=== PATIENT | female | born 1940 | race Caucasian/White ===

== ENCOUNTER 2017-03-03 13:47 | Inpatient (IN) | payer MEDICARE, BC ==
[2017-03-03] MEDS ORDERED: SODIUM CHLORIDE 0.9% 1,000 ML IV STA (14:05)
[2017-03-03] MEDS ORDERED: HEPARIN SODIUM,PORCINE/D5W PMX 25,000 UNIT in DEXTROSE/WATER 1 500ML.BAG IV SCH (14:15)
[2017-03-03 14:22] LABS: Glucose,Whole Blood 317 mg/dL (75-99)
[2017-03-03] MEDS: INSULIN REGULAR 100 UNIT in SODIUM CHLORIDE 0.9% 100 ML IV ONE ×2 (14:24→16:36)
--- NOTE | 2017-03-03 14:29 | ED ---
General Adult HPI - General Chief complaint: Recheck/Abnormal Lab/Rx Stated complaint: Diabetic Time Seen by Provider: 03/03/17 13:54 Source: patient Mode of arrival: EMS Limitations: no limitations - History of Present Illness Initial comments: This 76-year-old white female presents as a transfer from [facility] emergency department. She presented there this morning from the [facility]. She apparently has been having some nausea and general ill feeling over the past day. Her blood sugar apparently was running quite high at the [facility] and they sent her to the emergency department primarily for this. She states that she feels very dehydrated and her blood sugar was approximately 736 and the emergency department. She denies any chest pain or shortness of breath. She denies any fevers or chills. There's been no frequency urgency or dysuria. She denies any abdominal pain. She denies any known sick contacts or recent antibiotic use. She does have a history of previous urinary tract infections and this is caused her diabetic ketoacidosis in the past. She states that her mouth feels very dry. She has had some renal problems in the past as well. No other complaints or modifying factors. She does present on an insulin and heparin drip. Her past medical history is positive for congestive heart failure, anemia, aortic stenosis, chronic renal failure, depression, diabetes mellitus, diverticulosis, edema, hiatal hernia, MRSA, colonic polyps, hyperlipidemia, hypertension, myocardial infarction, obstructive sleep apnea, neuropathy, and arthritis. Her past surgical history is positive for appendectomy, excision of perirectal tissue, left and right heart catheterizations, spinal fusion, cataract extraction, colonoscopy, and operation on urethra/sling, and partial hysterectomy. Social history is negative for any tobacco drugs or felt cold. She states that she's been living in the skilled nursing for the past week and has been there due to problems controlling her blood sugar. Medications are reviewed and are as per nursing notes. - Related Data Allergies Allergy/AdvReac Type Severity Reaction Status Date / Time amoxicillin [From Augmentin] Allergy Rash/Hives Verified 03/03/17 14:06 clarithromycin [From Biaxin] Allergy Rash/Hives Verified 03/03/17 14:06 clavulanic acid Allergy Rash/Hives Verified 03/03/17 14:06 [From Augmentin] Review of Systems ROS Statement: Those systems with pertinent positive or pertinent negative responses have been documented in the HPI. ROS Other: All systems not noted in ROS Statement are negative. Past Medical History Past Medical History: Coronary Artery Disease (CAD), Heart Failure, Diabetes Mellitus, Hyperlipidemia, Hypertension, Myocardial Infarction ([place]), Renal Disease History of Any Multi-Drug Resistant Organisms: None Reported Past Surgical History: Unable to Obtain Past Psychological History: Depression Smoking Status: Former smoker Past Alcohol Use History: None Reported Past Drug Use History: None Reported General Exam - General Exam Comments Initial Comments: GENERAL: The patient is well nourished and dehydrated. VITAL SIGNS: Heart rate, blood pressure, respiratory rate reviewed as recorded in nurse's notes. EYES: Pupils are round and reactive. Extraocular movements are intact. No conjunctival / lid redness or swelling. ENT: No external evidence of injury, swelling, or ecchymosis. Airway is patent. Throat is clear. Mucous membranes are dry. NECK: Nontender. No swelling or evidence of injury. No subcutaneous emphysema. Trachea is midline. No thyroid mass. HEART: Regular rate and rhythm. Good peripheral pulses. LUNGS/CHEST: Breath sounds clear and equal bilaterally. No rales, rhonchi, or wheezes. No ecchymosis, subcutaneous emphysema, or tenderness. ABDOMEN: Abdomen soft without tenderness. No palpable masses or organomegaly. No peritoneal signs. No abdominal wall swelling or ecchymosis. EXTREMITIES: No extremity tenderness. Normal muscle tone and function. No thoracolumbar tenderness. NEUROLOGIC: Sensation is grossly intact. Cranial nerve exam reveals face is symmetrical, tongue is midline, speech is clear. SKIN: No abrasions or ecchymosis is noted. No induration or masses noted. PSYCHIATRIC: Alert and oriented. Appropriate behavior and judgment. Limitations: no limitations Course Vital Signs 03/03/17 13:56 Temperature 98.3 F Pulse Rate 76 Respiratory 18 Rate Blood Pressure 147/61 O2 Sat by Pulse 97 Oximetry Medical Decision Making - Medical Decision Making The patient is seen and examined. All diagnostics are reviewed. The chart was reviewed in detail from transferring facility. The laboratory from transferring facility does relate an elevated lactic acid, elevated troponin, elevated BNP, elevated lipase and amylase, anemia, hyponatremia, hyperkalemia, hypochloremia, a decreased CO2 of 11, increased creatinine of 5.6, increased glucose of 736, urinary tract infection. It appears that the initial troponin was 5.12 and the repeat troponin was 6.17. The portable chest x-ray is reported as negative for any acute cardiopulmonary process. Her Hemoccult was negative from the transferring facility. Records relate that she receives some Rocephin intravenously at the transferring facility. She also received some fluid hydration as well as the insulin drip and the heparin drip. Overall, it is felt as though the patient does have diabetic ketoacidosis, and NSTEMI, acute renal failure, and a urinary tract infection among other diagnoses. Is felt associated require admission to the intensive care unit. The case is discussed with internal medicine and they're agreeable to admission and will see the patient shortly. The EKG in the emergency department does show normal sinus rhythm at a rate of 80. There are multiple ST-T wave changes noted. These appear to be chronic as compared to previous 3 EKGs. The case is discussed with cardiology and they are informed of the patient's condition. The case will be discussed with the rn examiner shortly. - Lab Data Result diagrams: 03/03/17 14:20 Lab Results 03/03/17 03/03/17 03/03/17 Range/Units 14:14 14:20 14:20 WBC 12.2 H (3.8-10.6) k/uL RBC 3.45 L (3.80-5.40) m/uL Hgb 10.6 L (11.4-16.0) gm/dL Hct 33.4 L (34.0-46.0) % MCV 96.7 (80.0-100.0) fL MCH 30.6 (25.0-35.0) pg MCHC 31.7 (31.0-37.0) g/dL RDW 16.1 H (11.5-15.5) % Plt Count 340 (150-450) k/uL Neutrophils % 84 % Lymphocytes % 8 % Monocytes % 5 % Eosinophils % 1 % Basophils % 0 % Neutrophils # 10.2 H (1.3-7.7) k/uL Lymphocytes # 1.0 (1.0-4.8) k/uL Monocytes # 0.6 (0-1.0) k/uL Eosinophils # 0.1 (0-0.7) k/uL Basophils # 0.0 (0-0.2) k/uL Anisocytosis Slight PT 11.0 (9.0-12.0) sec INR 1.1 (<1.2) APTT 52.7 H (22.0-30.0) sec POC Glucose (mg/dL) 317 H (75-99) mg/dL POC Glu Store Hand ID [email or web address] Disposition Clinical Impression: Hyperkalemia, DKA (diabetic ketoacidoses), Acute kidney injury, UTI (urinary tract infection), NSTEMI (non-ST elevated myocardial infarction), Dehydration, Hyponatremia, Sepsis, Metabolic acidosis, Hypocalcemia, Pancreatitis, Anemia Disposition: ADMITTED IP TO THIS [facility] Condition: Critical Referrals: None,Stated [REFERRING] - 1-2 days Time of Disposition: 14:58 Decision Date: 03/03/17 Decision Time: 14:58
[2017-03-03 14:37] LABS: Anisocytosis Slight; Basophils % (A) 0 %; CH 30.6; CHCM 31.8; Eosinophils # (A) 0.1 k/uL (0-0.7); Eosinophils % (A) 1 %; HCT 33.4 % (34.0-46.0); HGB 10.6 gm/dL (11.4-16.0); Luc # (Auto) 0.23; Luc % (Auto) 2; Lymphocytes % (A) 8 %; MCH 30.6 pg (25.0-35.0); MCHC 31.7 g/dL (31.0-37.0); MCV 96.7 fL (80.0-100.0); Mean Platelet Volume 7.5; Monocytes # (A) 0.6 k/uL (0-1.0); Monocytes % (A) 5 %; Neutrophils # (A) 10.2 k/uL (1.3-7.7); Neutrophils % (A) 84 %; RBC 3.45 m/uL (3.80-5.40); RDW 16.1 % (11.5-15.5); WBC 12.2 k/uL (3.8-10.6); WBC (Perox) 12.18
[2017-03-03 14:47] LABS: INR 1.1 (<1.2); Partial Thromboplastin Time 52.7 sec (22.0-30.0)
[2017-03-03] MEDS ORDERED: ACETAMINOPHEN TAB 325 MG TAB PO PRN (14:58)
[2017-03-03] MEDS ORDERED: NALOXONE 0.4 MG/ML 1 ML VIAL IV PRN (14:58)
[2017-03-03 14:59] LABS: Calcium 9.9 mg/dL (8.4-10.2); Magnesium 2.3 mg/dL (1.6-2.3); Phosphorous 5.4 mg/dL (2.5-4.5); Potassium 4.7 mmol/L (3.5-5.1); Total Bilirubin 0.3 mg/dL (0.2-1.3); Total Protein 6.3 g/dL (6.3-8.2)
[2017-03-03] MEDS ORDERED: HEPARIN SODIUM,PORCINE 5,000 UNIT/ML 1 ML VIAL IV PRN ×3 (15:02→15:53)
[2017-03-03 15:10] LABS: Creatine Kinase MB 70.8 ng/mL (0.0-2.4); Troponin I 24.4 ng/mL (0.000-0.034)
[2017-03-03 15:45] LABS: Glucose,Whole Blood 251 mg/dL (75-99)
[2017-03-03] MEDS ORDERED: Magnesium Replacement Protocol 1 EACH MISC MISCELLANE PRN (15:55)
[2017-03-03] MEDS ORDERED: Potassium Replacement Protocol 1 EACH MISC MISCELLANE PRN (15:55)
[2017-03-03 16:24] LABS: Glucose,Whole Blood 221 mg/dL (75-99)
[2017-03-03] MEDS: IPRATROPIUM-ALBUTEROL 3 ML NEB INHALATION SCH ×2 (16:24→19:48)
[2017-03-03] MEDS: INSULIN REGULAR 100 UNIT in SODIUM CHLORIDE 0.9% 100 ML IV SCH ×2 (16:32→17:22)
[2017-03-03] MEDS: HEPARIN SODIUM,PORCINE/D5W PMX 25,000 UNIT in DEXTROSE/WATER 1 500ML.BAG IV SCH (16:40)
--- NOTE | 2017-03-03 17:15 | P.HPIM ---
History of Present Illness H&P Date: 03/03/17 Chief Complaint: nausea Patient is a 76-year-old female with a history of hypertension, insulin-dependent diabetes mellitus type 2, dyslipidemia, congestive heart failure with unknown ejection fraction and heart murmur, and obstructive sleep apnea with home CPAP use. She initially presented to the emergency department and [place] from the [facility] for hyperglycemia. There she underwent an extensive evaluation. She was found to have acute renal failure with the Bielen of 104 creatinine 5.6 and potassium 5.6. Her white blood cell count was elevated at 11.2, hemoglobin 10.2. Her initial troponin was 5 and elevated to 6. She had an elevated lactic acid of 3.3. Elevated lipase at 474 which was nondiagnostic, she was also found to have positive acetone. She was also found to have a urinary tract infection. EKG was done there which showed normal sinus rhythm with PVCs and ST segment elevation in V1 through V3 with reciprocal depression in V4 through V6. This unchanged from her prior EKG in November 2016. She was started on heparin drip for STEMI and in insulin drip for DKA. She received 1 L of IV fluids. Repeat troponin was drawn here which was 24, repeat lactic acid was down to 2.4, potassium had normalized. Cardiology was contacted by the emergency department. She was seen in the ER and will be admitted to ICU. Patient seen and examined at bedside with family present. She complains of nausea and vomiting for the last 2 days. She states that it is unrelated to meals and has been present consistently. She has been unable to tolerate oral intake. She denies any abdominal pain, chest pain, shortness of breath. She does complain of palpitations. She also reports decreased appetite and cold intolerance. She denies any dysuria or urinary frequency. She was just admitted to the [facility] approximately one week ago secondary to multiple falls and brittle diabetes. She's had multiple hypoglycemic episodes. She's been hospitalized approximately 3 other times since July of this year. She follows with Dr. Ramirez for endocrinology here for here. She does follow with nephrology and cardiology. She's been told she has a heart murmur in the past. She is unsure of her ejection fraction. It was discussed with family and patient reports that she is a full code. She states that they had thought that she may need dialysis in the future but at her last appointment with her water taxi driver her kidney function had improved. Review of Systems General: + Generalized weakness, no fever/chills, no rigors, no weight loss/ weight gain, decreased appetite Eyes: No double vision, no unusual blurry vision, no loss of vision ENT: + Rhinorrhea, no congestion, no thrush Cardiovascular: No chest pain, + palpitations, no syncope, no edema, Noo paroxysmal nocturnal dyspnea, No dizziness Pulmonary: No shortness of breath, no wheezing, no cough, hemoptysis Abdominal: No abdominal pain, no constipation, no diarrhea, no vomiting, no nausea, no distention Genitourinary: No dysuria, no urinary frequency, no hematuria, no unusual discharge/odor Neuro: No unusual paresthesias, no unusual paresis/paralysis, no headache Dermatologic: No unusual rashes, no unusual lesions, no unusual changes in nails Endocrinology: Cold intolerance, no excessive thirst,] no unusual fatigue Hematologic: No unusual bruising or bleeding, no unusual cervical lymphadenopathy Psychiatric: No changes in mood or behaviors, no changes in sleep pattern Past Medical History Past Medical History: Coronary Artery Disease (CAD), Heart Failure, Diabetes Mellitus, Hyperlipidemia, Hypertension, Myocardial Infarction ([place]), Osteoarthritis ([place]), Renal Disease Additional Past Medical History / Comment(s): anemia, aortic stenosis, chronic renal failure, divertiulosis, edema, hiatal hernia, colonic polyps, obstructive sleep apnea, peripheral neuropathy History of Any Multi-Drug Resistant Organisms: MRSA Date of last positivie culture/infection: unknown MDRO Source:: unknown Additional Past Surgical History / Comment(s): Right and left heart cath, spinal fusion, bilateral cataracts, colonoscopy, partial hysterectomy, bladder sling, appendectomy, cyst excision in the near run down Past Psychological History: Depression Smoking Status: Former smoker Past Alcohol Use History: None Reported Past Drug Use History: None Reported Additional History: Currently at [facility] secondary to falls and hypoglycemia, uses a walker - Past Family History Father Additional Family Medical History / Comment(s): Heart disease Mother Family Medical History: Hypertension Additional Family Medical History / Comment(s): Heart disease Medications and Allergies Home Medications Medication Instructions Recorded Confirmed Type Allopurinol [Zyloprim] 100 mg PO DAILY 03/03/17 03/03/17 History Aspirin EC [Ecotrin Low Dose] 81 mg PO DAILY 03/03/17 03/03/17 History Bumetanide [BUMEX] 2 mg PO DAILY 03/03/17 03/03/17 History Cholecalciferol [Vitamin D3] 5,000 unit PO DAILY 03/03/17 03/03/17 History Clopidogrel [Plavix] 75 mg PO DAILY 03/03/17 03/03/17 History Epoetin Poncho [Procrit] 4,000 unit IM [id number] 03/03/17 03/03/17 History HYDROcodone/APAP 7.5-325MG [[place] 1 tab PO BID 03/03/17 03/03/17 History 7.5-325] Insulin Aspart [NovoLOG Flexpen] 6 units SQ AC-LUNCH 03/03/17 03/03/17 History Insulin Aspart [NovoLOG Flexpen] 16 units SQ AC-BRKFST 03/03/17 03/03/17 History Insulin Glargine,Hum.rec.anlog 18 unit SQ 03/03/17 03/03/17 History [Lantus Solostar] Labetalol [Trandate] 200 mg PO BID 03/03/17 03/03/17 History Multivitamins, Thera [Multivitamin 1 tab PO DAILY 03/03/17 03/03/17 History (formulary)] Poly-Iron 150mg 150 mg PO BID 03/03/17 03/03/17 History Pravastatin Sodium [Pravachol] 20 mg PO HS 03/03/17 03/03/17 History Sertraline [Zoloft] 100 mg PO HS 03/03/17 03/03/17 History Vit C/E/Zn/Coppr/Lutein/Zeaxan 2 cap PO HS 03/03/17 03/03/17 History [Preservision Areds 2 Softgel] amLODIPine [Norvasc] 2.5 mg PO DAILY 03/03/17 03/03/17 History hydrALAZINE HCL [Hydralazine HCl] 50 mg PO BID 03/03/17 03/03/17 History Allergies Allergy/AdvReac Type Severity Reaction Status Date / Time amoxicillin [From Augmentin] Allergy Rash/Hives Verified 03/03/17 15:30 clarithromycin [From Biaxin] Allergy Rash/Hives Verified 03/03/17 15:30 clavulanic acid Allergy Rash/Hives Verified 03/03/17 15:30 [From Augmentin] Physical Exam Osteopathic Statement: *. No significant issues noted on an osteopathic structural exam other than those noted in the History and Physical/Consult. Vitals: Vital Signs Temp Pulse Resp BP Pulse Ox 03/03/17 15:36 97.9 F 73 16 144/64 94 L 03/03/17 13:56 98.3 F 76 18 147/61 97 Intake and Output 03/03/17 03/03/17 03/03/17 06:59 14:59 22:59 Intake Total 200 Balance 200 Intake: Amount of Fluid Infused ( 200 ml) Other: Weight 81.647 kg Patient Weight 03/04/17 06:59 Weight 81.647 kg General: Toxic appearing, in mild distress, appears at stated age, obese Derm: no rashes, no lesions, no ulcers, no unusual ecchymoses Head: atraumatic, normocephalic, symmetric Eyes: EOMI, no lid lag, anicteric sclera, pupils equal round reactive to light ENT: no post nasal drip, no thrush , nearest patent, no pharyngeal erythema Neck: No thyromegaly, no cervical lymphadenopathy, trachea midline, supple Mouth: no lip lesion, mucus membranes moist, mucous membranes dry Cardiovascular: S1S2 reg, systolic ejection murmur, positive posterior tibial pulse bilateral, no edema , no JVD, no clubbing, no cyanosis, capillary refill less than 2 seconds Lungs: CTA bilateral, no rhonchi, no rales , no accessory muscle use Abdominal: soft, nontender to palpation, no guarding, no appreciable organomegaly, normal bowel sounds Ext: no gross muscle atrophy, muscle strength 5 out of 5 in all 4 extremities grossly, no contractures, Neuro: CN II-XI grossly intact, light touch intact all 4 extremities, finger to nose within normal limits, Psych: Alert, oriented, appropriate affect Results CBC & Chem 7: 03/03/17 14:20 03/03/17 14:20 Labs: Abnormal Lab Results - Last 24 Hours (Table) 03/03/17 03/03/17 03/03/17 Range/Units 14:14 14:20 14:20 WBC 12.2 H (3.8-10.6) k/uL RBC 3.45 L (3.80-5.40) m/uL Hgb 10.6 L (11.4-16.0) gm/dL Hct 33.4 L (34.0-46.0) % RDW 16.1 H (11.5-15.5) % Neutrophils # 10.2 H (1.3-7.7) k/uL APTT (22.0-30.0) sec Sodium (137-145) mmol/L Carbon Dioxide (22-30) mmol/L BUN (7-17) mg/dL Creatinine (0.52-1.04) mg/dL Glucose (74-99) mg/dL POC Glucose (mg/dL) 317 H (75-99) mg/dL Plasma Lactic Acid Serge (0.7-2.0) mmol/L Phosphorus (2.5-4.5) mg/dL AST (14-36) U/L Total Creatine Kinase 560 H (30-135) U/L CK-MB (CK-2) 70.8 H* (0.0-2.4) ng/mL Troponin I 24.400 H* (0.000-0.034) ng/mL 03/03/17 03/03/17 03/03/17 Range/Units 14:20 14:20 14:40 WBC (3.8-10.6) k/uL RBC (3.80-5.40) m/uL Hgb (11.4-16.0) gm/dL Hct (34.0-46.0) % RDW (11.5-15.5) % Neutrophils # (1.3-7.7) k/uL APTT 52.7 H (22.0-30.0) sec Sodium 135 L (137-145) mmol/L Carbon Dioxide 19 L (22-30) mmol/L BUN 110 H* (7-17) mg/dL Creatinine 4.80 H (0.52-1.04) mg/dL Glucose 306 H (74-99) mg/dL POC Glucose (mg/dL) (75-99) mg/dL Plasma Lactic Acid Serge 2.4 H* (0.7-2.0) mmol/L Phosphorus 5.4 H (2.5-4.5) mg/dL AST 103 H (14-36) U/L Total Creatine Kinase (30-135) U/L CK-MB (CK-2) (0.0-2.4) ng/mL Troponin I (0.000-0.034) ng/mL 03/03/17 Range/Units 15:44 WBC (3.8-10.6) k/uL RBC (3.80-5.40) m/uL Hgb (11.4-16.0) gm/dL Hct (34.0-46.0) % RDW (11.5-15.5) % Neutrophils # (1.3-7.7) k/uL APTT (22.0-30.0) sec Sodium (137-145) mmol/L Carbon Dioxide (22-30) mmol/L BUN (7-17) mg/dL Creatinine (0.52-1.04) mg/dL Glucose (74-99) mg/dL POC Glucose (mg/dL) 251 H (75-99) mg/dL Plasma Lactic Acid Serge (0.7-2.0) mmol/L Phosphorus (2.5-4.5) mg/dL AST (14-36) U/L Total Creatine Kinase (30-135) U/L CK-MB (CK-2) (0.0-2.4) ng/mL Troponin I (0.000-0.034) ng/mL Comments: EKG is reviewed by myself revealed normal sinus rhythm, ST segment elevation in V1 to V3 with depression in V4 through V6, and normal interval, this appears unchanged as compared to EKG done November 2016 Chest x-ray: pending Thrombosis Risk Factor Assmnt - DVT/VTE Prophylaxis DVT/VTE Prophylaxis: Pharmacologic Prophylaxis ordered - Choose All That Apply Each Factor Represents 1 point: Heart failure (<1month), Obesity (BMI >25), Sepsis (< 1month) Each Risk Factor Represents 2 Points: Age 61-74 years Thrombosis Risk Factor Assessment Total Risk Factor Score: 5 Thrombosis Risk Factor Assessment Level: High Risk Assessment and Plan (1) NSTEMI (non-ST elevated myocardial infarction) Narrative/Plan: ASA, statin, cardio recs, ekg reviewed, echo, heparin gtt, trend troponin, repeat EKG in AM, BB Status: Acute (2) DKA (diabetic ketoacidoses) Narrative/Plan: insulin gtt, dka protocol. lytes, mg, and phos q 4 hours, IVF, glucose q 1 hours Status: Acute (3) UTI (urinary tract infection) Narrative/Plan: UA, rocephin, check UA Status: Acute (4) Sepsis Narrative/Plan: IVF, treatment of UTI, check blood cultures Status: Acute (5) Lactic acidosis Narrative/Plan: down trending, IVF, check lactic acid in 4 hours Status: Acute (6) Acute kidney injury Narrative/Plan: likely due to dehydration and DKA, IVF, avoid nephrotoxic agents, follow Cr Status: Acute (7) CKD (chronic kidney disease) Narrative/Plan: Unknown baseline, attempt to get records from water taxi driver office Status: Acute (8) CHF (congestive heart failure) Narrative/Plan: Currently compensated, ejection fraction unknown, will avoid diuresis at this time with acute kidney injury and DKA necessitating fluid replacement, not chronically an INDER inhibitor and I will not initiate at this point in time with acute kidney injury, continue home labetalol, strict I's and O's, daily weight, cardiology recommendation Status: Acute (9) Obesity Narrative/Plan: Ideally structured outpatient weight loss Status: Acute (10) LALA (obstructive sleep apnea) Narrative/Plan: Continue with CPAP use at night Status: Acute (11) Anemia Narrative/Plan: Appears chronic, patient is on Arnesp and iron at [facility], can resume if nephrology and is in agreement, follows CBC, check iron studies Status: Acute (12) Elevated lipase Narrative/Plan: Not clinically significant and possibly related to vomiting and nondiagnostic of pancreatitis at outside facility, repeat amylase and lipase if significantly elevated and CT abdomen and pelvis, patient currently nothing by mouth Status: Acute Plan: Chronic: Hypertension, controlled Dyslipidemia Gout Depression Osteoarthritis Peripheral neuropathy Surrogate decision-maker: Fito CODE STATUS: FULL CODE DVT prophylaxis: heparin drip Discussed with: ER physician, patient, family, ICU nurse, and Liss Castillo DNP Anticipated discharge: undetermined, likely 4-[address]: return to [facility] A total of60 minutes of critical care time was spent on the care of this complex patient more than 50% of the time was spent in counseling and care coordination.
[2017-03-03] MEDS: SODIUM CHLORIDE 0.9% 1,000 ML IV SCH (17:23)
[2017-03-03 17:27] LABS: Glucose,Whole Blood 166 mg/dL (75-99)
[2017-03-03] MEDS: FERROUS SULFATE 325 MG TAB PO SCH (17:27)
[2017-03-03 17:36] LABS: Amylase 213 U/L (30-110)
[2017-03-03 17:46] LABS: Amorphous Sediment,Urine Rare /hpf; Appearance,Urine Cloudy (Clear); Bilirubin,Urine Negative (Negative); Glucose,Urine (UA) 3+ (Negative); Ketones,Urine Trace (Negative); Leukocyte Esterase,Urine Negative (Negative); Mucus,Urine Rare /hpf; Nitrite,Urine Negative (Negative); Particle Count 6703; Protein,Urine 1+ (Negative); UA Billing (MACRO vs. MICRO) MICRO; Urobilinogen,Urine <2.0 mg/dL (<2.0); WBC,Urine 1 /hpf (0-5)
[2017-03-03] MEDS: D5-0.45% NACL WITH KCL 20MEQ/L 1,000 ML IV SCH (18:16)
[2017-03-03 18:21] LABS: Glucose,Whole Blood 125 mg/dL (75-99)
[2017-03-03] MEDS: NITROGLYCERIN OINT 1 INCH/GM PACKET TOPICAL SCH (18:46)
[2017-03-03 19:04] LABS: Glucose,Whole Blood 116 mg/dL (75-99)
[2017-03-03] MEDS ORDERED: ONDANSETRON 4 MG/2 ML VIAL IVP PRN (19:26)
[2017-03-03 20:01] LABS: Glucose,Whole Blood 118 mg/dL (75-99)
--- NOTE | 2017-03-03 20:19 | XR ---
EXAMINATION TYPE: XR chest 1V portable DATE OF EXAM: 03/03/2017 COMPARISON: Outside chest radiograph 03/03/2017 at 11:39 AM HISTORY: Dyspnea TECHNIQUE: Single frontal view AP portable upright chest x-ray. FINDINGS: EKG leads are noted. Mild/moderate enlargement of the cardiac silhouette redemonstrated. There is moderate obscuration of the pulmonary vascular bilaterally, secondary to asymmetric fine ret icular pattern of increased attenuation silhouetting the pulmonary vasculature, consistent with moder ate interstitial phase pulmonary edema, presumably of cardiogenic etiology. The lungs are otherwise unremarkable. The pleural spaces are negative. The bones soft tissues are unremarkable. IMPRESSION: MODERATE INTERSTITIAL PHASE PULMONARY EDEMA, PRESUMABLY OF CARDIOGENIC ETIOLOGY. SIMILAR OVERALL FIND INGS WHEN COMPARED WITH THE STUDY OBTAINED APPROXIMATELY 8.5 HOURS EARLIER.
[2017-03-03 20:58] LABS: Glucose,Whole Blood 104 mg/dL (75-99)
[2017-03-03] MEDS ORDERED: PRAVASTATIN SODIUM 20 MG TAB PO SCH (21:00)
[2017-03-03] MEDS: hydrALAZINE HCL 50 MG TAB PO SCH (21:04)
[2017-03-03] MEDS: LABETALOL 200 MG TAB PO SCH (21:04)
[2017-03-03] MEDS: VIT A,C & E-LUTEIN-MINERALS 1 EACH TAB PO SCH (21:04)
[2017-03-03] MEDS: SERTRALINE 100 MG TAB PO SCH (21:04)
[2017-03-03] MEDS: HYDROcodone/APAP 7.5-325MG 1 EACH TAB PO SCH (21:05)
[2017-03-03 22:04] LABS: Hemoglobin A1C 7.4 % (4.2-6.1)
[2017-03-03 22:05] LABS: Phosphorous 5.6 mg/dL (2.5-4.5); Potassium 4.6 mmol/L (3.5-5.1)
[2017-03-03 22:18] LABS: Glucose,Whole Blood 156 mg/dL (75-99)
[2017-03-03 22:31] LABS: Creatine Kinase MB 70.7 ng/mL (0.0-2.4); Troponin I 47.4 ng/mL (0.000-0.034)
[2017-03-03 23:03] LABS: Glucose,Whole Blood 194 mg/dL (75-99)
[2017-03-03 23:55] LABS: Glucose,Whole Blood 295 mg/dL (75-99)
[2017-03-04] MEDS: NITROGLYCERIN OINT 1 INCH/GM PACKET TOPICAL SCH ×4 (00:15→17:23)
[2017-03-04 00:58] LABS: Glucose,Whole Blood 273 mg/dL (75-99)
[2017-03-04 02:03] LABS: Glucose,Whole Blood 263 mg/dL (75-99)
[2017-03-04] MEDS ORDERED: HEPARIN SODIUM,PORCINE 5,000 UNIT/ML 1 ML VIAL IV STA (03:01)
[2017-03-04 03:02] LABS: Glucose,Whole Blood 222 mg/dL (75-99)
[2017-03-04] MEDS: SODIUM CHLORIDE 0.9% 1,000 ML IV SCH ×2 (03:11→16:31)
[2017-03-04] MEDS: D5-0.45% NACL WITH KCL 20MEQ/L 1,000 ML IV SCH ×2 (03:11→14:18)
[2017-03-04 03:19] LABS: Creatine Kinase MB 55.6 ng/mL (0.0-2.4)
[2017-03-04 03:20] LABS: Troponin I 37.2 ng/mL (0.000-0.034)
[2017-03-04 03:31] LABS: Anisocytosis Slight; Basophils % (A) 0 %; CH 30.5; CHCM 31.2; Eosinophils % (A) 0 %; HCT 31.6 % (34.0-46.0); HDW 2.56; Hypochromasia Slight; Luc # (Auto) 0.11; Luc % (Auto) 1; Lymphocytes # (A) 1.4 k/uL (1.0-4.8); Lymphocytes % (A) 11 %; MCH 31.1 pg (25.0-35.0); MCHC 31.6 g/dL (31.0-37.0); MCV 98.3 fL (80.0-100.0); Macrocytosis Slight; Mean Platelet Volume 8.2; Monocytes # (A) 0.4 k/uL (0-1.0); Monocytes % (A) 3 %; Neutrophils # (A) 10.9 k/uL (1.3-7.7); Neutrophils % (A) 85 %; RBC 3.21 m/uL (3.80-5.40); RDW 16.2 % (11.5-15.5); WBC 12.9 k/uL (3.8-10.6); WBC (Perox) 12.51
[2017-03-04 03:58] LABS: Calcium 9.7 mg/dL (8.4-10.2); Potassium 4.5 mmol/L (3.5-5.1); Total Bilirubin 0.3 mg/dL (0.2-1.3); Total Protein 5.7 g/dL (6.3-8.2)
[2017-03-04 04:28] LABS: Glucose,Whole Blood 191 mg/dL (75-99)
[2017-03-04 04:35] LABS: % Iron Saturation 14.7 % (20-50)
[2017-03-04 05:00] LABS: Glucose,Whole Blood 203 mg/dL (75-99)
[2017-03-04 06:02] LABS: Glucose,Whole Blood 140 mg/dL (75-99)
[2017-03-04 06:59] LABS: Glucose,Whole Blood 139 mg/dL (75-99)
[2017-03-04] MEDS: IPRATROPIUM-ALBUTEROL 3 ML NEB INHALATION SCH ×4 (07:00→19:50)
[2017-03-04 08:00] LABS: Glucose,Whole Blood 106 mg/dL (75-99)
--- NOTE | 2017-03-04 08:32 | XR ---
EXAMINATION TYPE: XR chest 1V DATE OF EXAM: 03/04/2017 COMPARISON: 03/03/2017 HISTORY: Shortness of breath TECHNIQUE: Single frontal view of the chest is obtained. FINDINGS: Predominantly interstitial pattern remains bilaterally. Heart size is enlarged. Question c alcification of the annulus or granuloma medial aspect left lung base. No pneumothorax. Could not exc lude a tiny left. IMPRESSION: 1. Stable interstitial process correlate for interstitial pneumonitis or venous congestion.
[2017-03-04] MEDS: PANTOPRAZOLE 40 MG/10 ML VIAL IV SCH (08:41)
[2017-03-04] MEDS: ASPIRIN 81 MG CHEW PO SCH (08:42)
[2017-03-04] MEDS: CLOPIDOGREL 75 MG TAB PO SCH (08:42)
[2017-03-04] MEDS: CHOLECALCIFEROL 1,000 UNIT TAB PO SCH ×2 (08:43→17:22)
[2017-03-04] MEDS: hydrALAZINE HCL 50 MG TAB PO SCH ×2 (08:43→20:25)
[2017-03-04] MEDS: FERROUS SULFATE 325 MG TAB PO SCH ×2 (08:43→17:23)
[2017-03-04] MEDS: LABETALOL 200 MG TAB PO SCH ×2 (08:44→20:25)
[2017-03-04] MEDS ORDERED: ALLOPURINOL 100 MG TAB PO SCH (09:00)
[2017-03-04] MEDS ORDERED: ASPIRIN 325 MG TAB PO SCH (09:00)
[2017-03-04] MEDS ORDERED: BUMETANIDE 1 MG TAB PO SCH (09:00)
[2017-03-04 09:34] LABS: Glucose,Whole Blood 82 mg/dL (75-99)
--- NOTE | 2017-03-04 09:36 | P.NPCON ---
History of Present Illness - Reason for Consult acute renal failure - History of Present Illness Reason for consultation: Acute kidney injury on chronic kidney disease History of present illness: Patient is a 76-year-old female seen in renal consultation for acute kidney injury on chronic kidney disease. Patient states she follows with out of [facility] for her CKD care. She does have history of CKD stage IV. Unclear as to what her baseline renal function is. Patient was getting progressively weak and sustaining falls and was recently admitted to an ECF facility in [place]. She has been there for about a week now. Yesterday she was feeling weaker than usual and her blood sugars were noted to be over 700 she was subsequently sent to the hospital for further care. She did receive 1 L of IV fluid bolus and was maintained on half normal saline running at 100 mL an hour 12 the night. She did not require any vasopressor support. She remains nonoliguric. Denies any vomiting or diarrhea. She is now tolerating clear liquid diet. Denies any chest pain or shortness of breath. She is also noted to have extremely elevated troponins and cardiology is following. She does have history of aortic regurgitation as well. Currently she is resting in bed. Feeling better since admission. Hemodynamically she's been quite stable although there are couple of readings of systolic blood pressure in the 90s. Denies use of NSAIDs. No hematuria or dysuria. Vital signs are stable. General: The patient appeared well nourished and normally developed. HEENT: Head exam is unremarkable. Neck is without jugular venous distension. LUNGS: Lungs are clear to auscultation and percussion. Breath sounds decreased. HEART: Rate and Rhythm are regular. First and second heart sounds normal. No murmurs, rubs or gallops. ABDOMEN: Abdominal exam reveals normal bowel sounds. Non-tender and non- distended. No evidence of peritonitis. EXTREMITITES: No clubbing, cyanosis, or edema. Past Medical History Past Medical History: Coronary Artery Disease (CAD), Heart Failure, Diabetes Mellitus, Hyperlipidemia, Hypertension, Myocardial Infarction (OK), Osteoarthritis (OA), Renal Disease Additional Past Medical History / Comment(s): anemia, aortic stenosis, chronic renal failure, divertiulosis, edema, hiatal hernia, colonic polyps, obstructive sleep apnea, peripheral neuropathy Last Myocardial Infarction Date:: patient estimates 5 years ago History of Any Multi-Drug Resistant Organisms: MRSA Date of last positivie culture/infection: unknown MDRO Source:: unknown Past Surgical History: Unable to Obtain Additional Past Surgical History / Comment(s): Right and left heart cath, spinal fusion, bilateral cataracts, colonoscopy, partial hysterectomy, bladder sling, appendectomy, cyst excision in the near run down Past Psychological History: Depression Smoking Status: Former smoker Past Alcohol Use History: None Reported Past Drug Use History: None Reported - Past Family History Father Additional Family Medical History / Comment(s): Heart disease Mother Family Medical History: Hypertension Additional Family Medical History / Comment(s): Heart disease Medications and Allergies Home Medications Medication Instructions Recorded Confirmed Type Allopurinol [Zyloprim] 100 mg PO DAILY 03/03/17 03/03/17 History Aspirin EC [Ecotrin Low Dose] 81 mg PO DAILY 03/03/17 03/03/17 History Bumetanide [BUMEX] 2 mg PO DAILY 03/03/17 03/03/17 History Cholecalciferol [Vitamin D3] 5,000 unit PO DAILY 03/03/17 03/03/17 History Clopidogrel [Plavix] 75 mg PO DAILY 03/03/17 03/03/17 History Epoetin [place] [Procrit] 4,000 unit IM [id number] 03/03/17 03/03/17 History HYDROcodone/APAP 7.5-325MG [[place] 1 tab PO BID 03/03/17 03/03/17 History 7.5-325] Insulin Aspart [NovoLOG Flexpen] 6 units SQ AC-LUNCH 03/03/17 03/03/17 History Insulin Aspart [NovoLOG Flexpen] 16 units SQ AC-BRKFST 03/03/17 03/03/17 History Insulin Glargine,Hum.rec.anlog 22 unit SQ DAILY 03/03/17 03/03/17 History [Lantus Solostar] Labetalol [Trandate] 200 mg PO BID 03/03/17 03/03/17 History Multivitamins, Thera [Multivitamin 1 tab PO DAILY 03/03/17 03/03/17 History (formulary)] Poly-Iron 150mg 150 mg PO BID 03/03/17 03/03/17 History Pravastatin Sodium [Pravachol] 20 mg PO HS 03/03/17 03/03/17 History Sertraline [Zoloft] 100 mg PO HS 03/03/17 03/03/17 History Vit C/E/Zn/Coppr/Lutein/Zeaxan 2 cap PO HS 03/03/17 03/03/17 History [Preservision Areds 2 Softgel] amLODIPine [Norvasc] 2.5 mg PO DAILY 03/03/17 03/03/17 History hydrALAZINE HCL [Hydralazine HCl] 50 mg PO BID 03/03/17 03/03/17 History Allergies Allergy/AdvReac Type Severity Reaction Status Date / Time amoxicillin [From Augmentin] Allergy Rash/Hives Verified 03/03/17 15:30 clarithromycin [From Biaxin] Allergy Rash/Hives Verified 03/03/17 15:30 clavulanic acid Allergy Rash/Hives Verified 03/03/17 15:30 [From Augmentin] Physical Exam Vitals: Vital Signs Temp Pulse Resp BP Pulse Ox 03/04/17 08:30 98.2 F 68 11 L 120/60 97 03/04/17 08:00 73 14 95 03/04/17 07:30 70 13 132/61 85 L 03/04/17 07:12 74 03/04/17 07:02 70 03/04/17 07:00 68 15 132/61 96 03/04/17 06:00 69 13 132/60 95 03/04/17 05:00 69 15 127/60 94 L 03/04/17 04:00 97.6 F 69 17 119/54 96 03/04/17 03:00 66 26 H 121/56 95 03/04/17 02:00 71 21 132/59 95 03/04/17 01:00 74 26 H 114/53 95 03/04/17 00:00 97.9 F 72 22 102/48 96 03/03/17 23:30 71 18 90/42 97 03/03/17 23:00 72 17 90/42 94 L 03/03/17 22:00 70 23 119/59 97 03/03/17 21:00 75 22 135/68 94 L 03/03/17 20:00 98.2 F 71 23 148/73 96 03/03/17 19:00 71 19 148/76 93 L 03/03/17 18:50 74 18 149/78 95 03/03/17 18:40 73 18 150/79 95 03/03/17 18:30 74 14 153/72 96 03/03/17 18:20 73 24 155/73 96 03/03/17 18:10 70 18 142/77 97 03/03/17 18:00 73 18 143/76 95 03/03/17 17:50 75 19 145/81 94 L 03/03/17 17:40 72 13 146/76 97 03/03/17 17:30 70 17 150/79 94 L 03/03/17 17:20 74 18 148/75 95 03/03/17 17:10 73 16 145/76 95 03/03/17 17:00 70 17 149/82 94 L 03/03/17 16:50 71 17 150/74 96 03/03/17 16:40 72 16 147/73 95 03/03/17 16:30 97.6 F 72 23 132/79 95 03/03/17 16:24 73 03/03/17 15:36 97.9 F 73 16 144/64 94 L 03/03/17 13:56 98.3 F 76 18 147/61 97 Intake and Output 03/03/17 03/04/17 03/04/17 22:59 06:59 14:59 Intake Total 849.485 929.923 326.581 Output Total 525 340 165 Balance 324.485 589.923 161.581 Intake: IV 300 800 200 D5-0.45% NaCl with KCl 300 800 200 20Meq/l 1,000 ml @ 100 mls/hr IV .Q10H [facility] Rx#: [id number] Amount of Fluid Infused ( 200 ml) Intake, IV Titration 349.485 129.923 66.581 Amount D5-0.45% NaCl with KCl 100 20Meq/l 1,000 ml @ 100 mls/hr IV .Q10H [facility] Rx#: [id number] Heparin Sodium,Porcine/ 220.418 112.654 D5w Pmx 25,000 unit In Dextrose/Water 1 500ml. bag @ 12 UNITS/KG/HR 19. 59 mls/hr IV .Q24H [facility] Rx #:[id number] Heparin Sodium,Porcine/ 58.8 D5w Pmx 25,000 unit In Dextrose/Water 1 500ml. bag @ 12 UNITS/KG/HR 19. 59 mls/hr IV .Q24H [facility] Rx #:[id number] Insulin Regular 100 unit 4.8 In Sodium Chloride 0.9% 100 ml @ 0.1 UNITS/KG/HR 8.24 mls/hr IV .[id number] [facility] Rx#:[id number] Insulin Regular 100 unit 19.067 17.269 2.981 In Sodium Chloride 0.9% 100 ml @ 4 UNIT/HR 4.04 mls/hr IV .Q24H ONE Rx#: [id number] Sodium Chloride 0.9% 1, 10 000 ml @ 50 mls/hr IV . Q20H [facility] Rx#:[id number] Oral 60 Output: Urine 525 340 165 Other: Voiding Method Indwelling Catheter Indwelling Catheter Weight 85.4 kg 85.1 kg Results - Lab Results Most recent lab results Calcium 9.7 mg/dL (8.4-10.2) 03/04/17 02:28 Phosphorus 5.6 mg/dL (2.5-4.5) H 03/03/17 21:21 Magnesium 2.3 mg/dL (1.6-2.3) 03/03/17 14:20 03/04/17 02:28 03/04/17 02:28 Assessment and Plan Plan: Assessment: #1. Nonoliguric acute kidney injury secondary to ischemic ATN secondary to severe intravascular volume depletion from hyperglycemia and hemodynamic instability. Creatinine was 4.8 on admission and is down to 4.7 today. Urinalysis reveals 1+ proteinuria without any hematuria. Rule out obstructive uropathy. #2. Chronic kidney disease stage IV secondary to diabetic kidney disease. Unclear as to what her baseline renal function is. #3. Diabetic ketoacidosis. #4. Anion gap metabolic acidosis secondary to DKA as well as acute renal failure. Lactic acidosis noted as well, which is improved. #5. Anemia with iron deficiency. #6. Insulin-dependent diabetes mellitus. #7. Hypertension with chronic kidney disease. Controlled. #8. History of aortic regurgitation. #9. Non-ST elevated myocardial infarction. Cardiology following. Plan: Maintain half-normal saline to be run at 50 mL an hour with 20 meq of potassium. Hold diuretics for now. Avoid nephrotoxic agents and hypotensive episodes. Advanced diet as tolerated. Obtain records from her outpatient life support technician's office. Follow-up cultures. I will give IV iron if cultures remain negative for the next 24-48 hours. Check renal ultrasound. Thank you for the consultation. I will continue to follow the patient with you during her hospital stay.
[2017-03-04 10:05] LABS: Glucose,Whole Blood 90 mg/dL (75-99)
--- NOTE | 2017-03-04 10:38 | P.PN ---
Subjective Principal diagnosis: nausea Patient is a 76-year-old female with a history of hypertension, insulin-dependent diabetes mellitus type 2, dyslipidemia, congestive heart failure with unknown ejection fraction and heart murmur, and obstructive sleep apnea with home CPAP use. She initially presented to the emergency department and [place] from the care home for hyperglycemia. There she underwent an extensive evaluation. She was found to have acute renal failure with the Bielen of 104 creatinine 5.6 and potassium 5.6. Her white blood cell count was elevated at 11.2, hemoglobin 10.2. Her initial troponin was 5 and elevated to 6. She had an elevated lactic acid of 3.3. Elevated lipase at 474 which was nondiagnostic, she was also found to have positive acetone. She was also found to have a urinary tract infection. EKG was done there which showed normal sinus rhythm with PVCs and ST segment elevation in V1 through V3 with reciprocal depression in V4 through V6. This unchanged from her prior EKG in November 2016. She was started on heparin drip for STEMI and in insulin drip for DKA. This was made to transfer her here for critical care and cardiology evaluation. She received 1 L of IV fluids. Repeat troponin was drawn here which was 24, repeat lactic acid was down to 2.4, potassium had normalized. Cardiology was contacted by the emergency department. She was seen in the ER and was admitted to ICU. Cardiology was notified. She was maintained on a heparin drip, aspirin, statin, and Plavix. Nephrology was normal. By the morning after admission she remained in DKA with a anion gap despite having blood sugars in the 100s. Patient seen and examined at bedside. She feels much improved from yesterday. Her nausea and vomiting have resolved and she has tolerated a clear liquid diet. She denies chest pain, shortness of breath, dizziness, and lightheadedness. She did speak with the veneer sample maker's this morning. Objective - Vital Signs Vital signs: Vital Signs Temp 98.2 F 03/04/17 08:30 Pulse 70 03/04/17 10:00 Resp 16 03/04/17 10:00 BP 112/56 03/04/17 10:00 Pulse Ox 98 03/04/17 10:00 Intake & Output 03/03/17 03/04/17 03/04/17 18:59 06:59 18:59 Intake Total 322.806 3569.248 327.990 Output Total 865 225 Balance 216.160 698.248 102.990 Weight 85.4 kg 85.1 kg 85.1 kg Intake: IV 1100 200 D5-0.45% NaCl with KCl 1100 200 20Meq/l 1,000 ml @ 100 mls/hr IV .Q10H [facility] Rx#: [id number] Amount of Fluid Infused ( 200 ml) Intake, IV Titration 16.160 463.248 67.990 Amount D5-0.45% NaCl with KCl 100 20Meq/l 1,000 ml @ 100 mls/hr IV .Q10H [facility] Rx#: [id number] Heparin Sodium,Porcine/ 333.072 D5w Pmx 25,000 unit In Dextrose/Water 1 500ml. bag @ 12 UNITS/KG/HR 19. 59 mls/hr IV .Q24H [facility] Rx #:[id number] Heparin Sodium,Porcine/ 58.8 D5w Pmx 25,000 unit In Dextrose/Water 1 500ml. bag @ 12 UNITS/KG/HR 19. 59 mls/hr IV .Q24H [facility] Rx #:[id number] Insulin Regular 100 unit 4.8 In Sodium Chloride 0.9% 100 ml @ 0.1 UNITS/KG/HR 8.24 mls/hr IV .[id number] [facility] Rx#:[id number] Insulin Regular 100 unit 16.160 20.176 4.390 In Sodium Chloride 0.9% 100 ml @ 4 UNIT/HR 4.04 mls/hr IV .Q24H ONE Rx#: [id number] Sodium Chloride 0.9% 1, 10 000 ml @ 50 mls/hr IV . Q20H [facility] Rx#:[id number] Oral 60 Output: Urine 865 225 Other: Voiding Method Indwelling Catheter Indwelling Catheter Indwelling Catheter - Exam General: non toxic, no distress, appears at stated age, obese Derm: no rashes, no lesions Head: atraumatic, normocephalic, symmetric Eyes: EOMI, no lid lag, anicteric sclera ENT: no post nasal drip, no thrush Mouth: no lip lesion, mucus membranes moist Cardiovascular: S1S2 reg, no murmur, positive posterior tibial pulse bilateral, Lungs: Decreased breath sounds bilateral bases, no rhonchi, no rales , no accessory muscle use Abdominal: soft, nontender to palpation, no guarding, no appreciable organomegaly Ext: no gross muscle atrophy, trace edema bilateral lower extremities, no contractures Neuro: CN II-XI grossly intact, no focal neuro deficits Psych: Alert, oriented, appropriate affect - Labs CBC & Chem 7: 03/04/17 02:28 03/04/17 02:28 Labs: Abnormal Lab Results - Last 24 Hours (Table) 03/03/17 03/03/17 03/03/17 Range/Units 14:14 14:20 14:20 WBC 12.2 H (3.8-10.6) k/uL RBC 3.45 L (3.80-5.40) m/uL Hgb 10.6 L (11.4-16.0) gm/dL Hct 33.4 L (34.0-46.0) % RDW 16.1 H (11.5-15.5) % Neutrophils # 10.2 H (1.3-7.7) k/uL APTT (22.0-30.0) sec Sodium (137-145) mmol/L Carbon Dioxide (22-30) mmol/L BUN (7-17) mg/dL Creatinine (0.52-1.04) mg/dL Glucose (74-99) mg/dL POC Glucose (mg/dL) 317 H (75-99) mg/dL Hemoglobin A1c (4.2-6.1) % Plasma Lactic Acid Serge (0.7-2.0) mmol/L Phosphorus (2.5-4.5) mg/dL Iron (37-170) ug/dL TIBC (265-497) ug/dL % Saturation (20-50) % Ferritin (11-264) ng/mL AST (14-36) U/L Total Creatine Kinase 560 H (30-135) U/L CK-MB (CK-2) 70.8 H* (0.0-2.4) ng/mL Troponin I 24.400 H* (0.000-0.034) ng/mL Total Protein (6.3-8.2) g/dL Amylase (30-110) U/L Lipase (23-300) U/L Urine Appearance (Clear) Urine Protein (Negative) Urine Glucose (UA) (Negative) Urine Ketones (Negative) Amorphous Sediment (None) /hpf Urine Mucus (None) /hpf 03/03/17 03/03/17 03/03/17 Range/Units 14:20 14:20 14:20 WBC (3.8-10.6) k/uL RBC (3.80-5.40) m/uL Hgb (11.4-16.0) gm/dL Hct (34.0-46.0) % RDW (11.5-15.5) % Neutrophils # (1.3-7.7) k/uL APTT 52.7 H (22.0-30.0) sec Sodium 135 L (137-145) mmol/L Carbon Dioxide 19 L (22-30) mmol/L BUN 110 H* (7-17) mg/dL Creatinine 4.80 H (0.52-1.04) mg/dL Glucose 306 H (74-99) mg/dL POC Glucose (mg/dL) (75-99) mg/dL Hemoglobin A1c 7.4 H (4.2-6.1) % Plasma Lactic Acid Serge (0.7-2.0) mmol/L Phosphorus 5.4 H (2.5-4.5) mg/dL Iron (37-170) ug/dL TIBC (265-497) ug/dL % Saturation (20-50) % Ferritin (11-264) ng/mL AST 103 H (14-36) U/L Total Creatine Kinase (30-135) U/L CK-MB (CK-2) (0.0-2.4) ng/mL Troponin I (0.000-0.034) ng/mL Total Protein (6.3-8.2) g/dL Amylase (30-110) U/L Lipase (23-300) U/L Urine Appearance (Clear) Urine Protein (Negative) Urine Glucose (UA) (Negative) Urine Ketones (Negative) Amorphous Sediment (None) /hpf Urine Mucus (None) /hpf 03/03/17 03/03/17 03/03/17 Range/Units 14:20 14:40 15:44 WBC (3.8-10.6) k/uL RBC (3.80-5.40) m/uL Hgb (11.4-16.0) gm/dL Hct (34.0-46.0) % RDW (11.5-15.5) % Neutrophils # (1.3-7.7) k/uL APTT (22.0-30.0) sec Sodium (137-145) mmol/L Carbon Dioxide (22-30) mmol/L BUN (7-17) mg/dL Creatinine (0.52-1.04) mg/dL Glucose (74-99) mg/dL POC Glucose (mg/dL) 251 H (75-99) mg/dL Hemoglobin A1c (4.2-6.1) % Plasma Lactic Acid Serge 2.4 H* (0.7-2.0) mmol/L Phosphorus (2.5-4.5) mg/dL Iron (37-170) ug/dL TIBC (265-497) ug/dL % Saturation (20-50) % Ferritin (11-264) ng/mL AST (14-36) U/L Total Creatine Kinase (30-135) U/L CK-MB (CK-2) (0.0-2.4) ng/mL Troponin I (0.000-0.034) ng/mL Total Protein (6.3-8.2) g/dL Amylase 213 H (30-110) U/L Lipase 584 H (23-300) U/L Urine Appearance (Clear) Urine Protein (Negative) Urine Glucose (UA) (Negative) Urine Ketones (Negative) Amorphous Sediment (None) /hpf Urine Mucus (None) /hpf 03/03/17 03/03/17 03/03/17 Range/Units 16:23 17:15 17:25 WBC (3.8-10.6) k/uL RBC (3.80-5.40) m/uL Hgb (11.4-16.0) gm/dL Hct (34.0-46.0) % RDW (11.5-15.5) % Neutrophils # (1.3-7.7) k/uL APTT (22.0-30.0) sec Sodium (137-145) mmol/L Carbon Dioxide (22-30) mmol/L BUN (7-17) mg/dL Creatinine (0.52-1.04) mg/dL Glucose (74-99) mg/dL POC Glucose (mg/dL) 221 H 166 H (75-99) mg/dL Hemoglobin A1c (4.2-6.1) % Plasma Lactic Acid Serge (0.7-2.0) mmol/L Phosphorus (2.5-4.5) mg/dL Iron (37-170) ug/dL TIBC (265-497) ug/dL % Saturation (20-50) % Ferritin (11-264) ng/mL AST (14-36) U/L Total Creatine Kinase (30-135) U/L CK-MB (CK-2) (0.0-2.4) ng/mL Troponin I (0.000-0.034) ng/mL Total Protein (6.3-8.2) g/dL Amylase (30-110) U/L Lipase (23-300) U/L Urine Appearance Cloudy H (Clear) Urine Protein 1+ H (Negative) Urine Glucose (UA) 3+ H (Negative) Urine Ketones Trace H (Negative) Amorphous Sediment Rare H (None) /hpf Urine Mucus Rare H (None) /hpf 03/03/17 03/03/17 03/03/17 Range/Units 18:20 18:26 18:26 WBC (3.8-10.6) k/uL RBC (3.80-5.40) m/uL Hgb (11.4-16.0) gm/dL Hct (34.0-46.0) % RDW (11.5-15.5) % Neutrophils # (1.3-7.7) k/uL APTT (22.0-30.0) sec Sodium (137-145) mmol/L Carbon Dioxide (22-30) mmol/L BUN 117 H* (7-17) mg/dL Creatinine 4.70 H (0.52-1.04) mg/dL Glucose 121 H (74-99) mg/dL POC Glucose (mg/dL) 125 H (75-99) mg/dL Hemoglobin A1c (4.2-6.1) % Plasma Lactic Acid Serge (0.7-2.0) mmol/L Phosphorus 5.5 H (2.5-4.5) mg/dL Iron (37-170) ug/dL TIBC (265-497) ug/dL % Saturation (20-50) % Ferritin (11-264) ng/mL AST (14-36) U/L Total Creatine Kinase (30-135) U/L CK-MB (CK-2) (0.0-2.4) ng/mL Troponin I (0.000-0.034) ng/mL Total Protein (6.3-8.2) g/dL Amylase (30-110) U/L Lipase (23-300) U/L Urine Appearance (Clear) Urine Protein (Negative) Urine Glucose (UA) (Negative) Urine Ketones (Negative) Amorphous Sediment (None) /hpf Urine Mucus (None) /hpf 03/03/17 03/03/17 03/03/17 Range/Units 19:01 20:00 20:56 WBC (3.8-10.6) k/uL RBC (3.80-5.40) m/uL Hgb (11.4-16.0) gm/dL Hct (34.0-46.0) % RDW (11.5-15.5) % Neutrophils # (1.3-7.7) k/uL APTT (22.0-30.0) sec Sodium (137-145) mmol/L Carbon Dioxide (22-30) mmol/L BUN (7-17) mg/dL Creatinine (0.52-1.04) mg/dL Glucose (74-99) mg/dL POC Glucose (mg/dL) 116 H 118 H 104 H (75-99) mg/dL Hemoglobin A1c (4.2-6.1) % Plasma Lactic Acid Serge (0.7-2.0) mmol/L Phosphorus (2.5-4.5) mg/dL Iron (37-170) ug/dL TIBC (265-497) ug/dL % Saturation (20-50) % Ferritin (11-264) ng/mL AST (14-36) U/L Total Creatine Kinase (30-135) U/L CK-MB (CK-2) (0.0-2.4) ng/mL Troponin I (0.000-0.034) ng/mL Total Protein (6.3-8.2) g/dL Amylase (30-110) U/L Lipase (23-300) U/L Urine Appearance (Clear) Urine Protein (Negative) Urine Glucose (UA) (Negative) Urine Ketones (Negative) Amorphous Sediment (None) /hpf Urine Mucus (None) /hpf 03/03/17 03/03/17 03/03/17 Range/Units 21:21 21:21 21:21 WBC (3.8-10.6) k/uL RBC (3.80-5.40) m/uL Hgb (11.4-16.0) gm/dL Hct (34.0-46.0) % RDW (11.5-15.5) % Neutrophils # (1.3-7.7) k/uL APTT 30.7 H (22.0-30.0) sec Sodium 136 L (137-145) mmol/L Carbon Dioxide 18 L (22-30) mmol/L BUN (7-17) mg/dL Creatinine (0.52-1.04) mg/dL Glucose (74-99) mg/dL POC Glucose (mg/dL) (75-99) mg/dL Hemoglobin A1c (4.2-6.1) % Plasma Lactic Acid Serge (0.7-2.0) mmol/L Phosphorus 5.6 H (2.5-4.5) mg/dL Iron (37-170) ug/dL TIBC (265-497) ug/dL % Saturation (20-50) % Ferritin (11-264) ng/mL AST (14-36) U/L Total Creatine Kinase 631 H (30-135) U/L CK-MB (CK-2) 70.7 H* (0.0-2.4) ng/mL Troponin I 47.400 H* (0.000-0.034) ng/mL Total Protein (6.3-8.2) g/dL Amylase (30-110) U/L Lipase (23-300) U/L Urine Appearance (Clear) Urine Protein (Negative) Urine Glucose (UA) (Negative) Urine Ketones (Negative) Amorphous Sediment (None) /hpf Urine Mucus (None) /hpf 03/03/17 03/03/17 03/03/17 Range/Units 22:16 23:01 23:53 WBC (3.8-10.6) k/uL RBC (3.80-5.40) m/uL Hgb (11.4-16.0) gm/dL Hct (34.0-46.0) % RDW (11.5-15.5) % Neutrophils # (1.3-7.7) k/uL APTT (22.0-30.0) sec Sodium (137-145) mmol/L Carbon Dioxide (22-30) mmol/L BUN (7-17) mg/dL Creatinine (0.52-1.04) mg/dL Glucose (74-99) mg/dL POC Glucose (mg/dL) 156 H 194 H 295 H (75-99) mg/dL Hemoglobin A1c (4.2-6.1) % Plasma Lactic Acid Serge (0.7-2.0) mmol/L Phosphorus (2.5-4.5) mg/dL Iron (37-170) ug/dL TIBC (265-497) ug/dL % Saturation (20-50) % Ferritin (11-264) ng/mL AST (14-36) U/L Total Creatine Kinase (30-135) U/L CK-MB (CK-2) (0.0-2.4) ng/mL Troponin I (0.000-0.034) ng/mL Total Protein (6.3-8.2) g/dL Amylase (30-110) U/L Lipase (23-300) U/L Urine Appearance (Clear) Urine Protein (Negative) Urine Glucose (UA) (Negative) Urine Ketones (Negative) Amorphous Sediment (None) /hpf Urine Mucus (None) /hpf 03/04/17 03/04/17 03/04/17 Range/Units 00:57 02:01 02:28 WBC (3.8-10.6) k/uL RBC (3.80-5.40) m/uL Hgb (11.4-16.0) gm/dL Hct (34.0-46.0) % RDW (11.5-15.5) % Neutrophils # (1.3-7.7) k/uL APTT (22.0-30.0) sec Sodium (137-145) mmol/L Carbon Dioxide (22-30) mmol/L BUN (7-17) mg/dL Creatinine (0.52-1.04) mg/dL Glucose (74-99) mg/dL POC Glucose (mg/dL) 273 H 263 H (75-99) mg/dL Hemoglobin A1c (4.2-6.1) % Plasma Lactic Acid Serge (0.7-2.0) mmol/L Phosphorus (2.5-4.5) mg/dL Iron (37-170) ug/dL TIBC (265-497) ug/dL % Saturation (20-50) % Ferritin (11-264) ng/mL AST (14-36) U/L Total Creatine Kinase 516 H (30-135) U/L CK-MB (CK-2) 55.6 H* (0.0-2.4) ng/mL Troponin I 37.200 H* (0.000-0.034) ng/mL Total Protein (6.3-8.2) g/dL Amylase (30-110) U/L Lipase (23-300) U/L Urine Appearance (Clear) Urine Protein (Negative) Urine Glucose (UA) (Negative) Urine Ketones (Negative) Amorphous Sediment (None) /hpf Urine Mucus (None) /hpf 03/04/17 03/04/17 03/04/17 Range/Units 02:28 02:28 02:28 WBC 12.9 H (3.8-10.6) k/uL RBC 3.21 L (3.80-5.40) m/uL Hgb 10.0 L (11.4-16.0) gm/dL Hct 31.6 L (34.0-46.0) % RDW 16.2 H (11.5-15.5) % Neutrophils # 10.9 H (1.3-7.7) k/uL APTT 37.1 H (22.0-30.0) sec Sodium 136 L (137-145) mmol/L Carbon Dioxide 17 L (22-30) mmol/L BUN 115 H* (7-17) mg/dL Creatinine 4.70 H (0.52-1.04) mg/dL Glucose 260 H (74-99) mg/dL POC Glucose (mg/dL) (75-99) mg/dL Hemoglobin A1c (4.2-6.1) % Plasma Lactic Acid Serge (0.7-2.0) mmol/L Phosphorus (2.5-4.5) mg/dL Iron 31 L (37-170) ug/dL TIBC 211 L (265-497) ug/dL % Saturation 14.7 L (20-50) % Ferritin 500 H (11-264) ng/mL AST 128 H (14-36) U/L Total Creatine Kinase (30-135) U/L CK-MB (CK-2) (0.0-2.4) ng/mL Troponin I (0.000-0.034) ng/mL Total Protein 5.7 L (6.3-8.2) g/dL Amylase 160 H (30-110) U/L Lipase (23-300) U/L Urine Appearance (Clear) Urine Protein (Negative) Urine Glucose (UA) (Negative) Urine Ketones (Negative) Amorphous Sediment (None) /hpf Urine Mucus (None) /hpf 03/04/17 03/04/17 03/04/17 Range/Units 03:00 04:27 04:57 WBC (3.8-10.6) k/uL RBC (3.80-5.40) m/uL Hgb (11.4-16.0) gm/dL Hct (34.0-46.0) % RDW (11.5-15.5) % Neutrophils # (1.3-7.7) k/uL APTT (22.0-30.0) sec Sodium (137-145) mmol/L Carbon Dioxide (22-30) mmol/L BUN (7-17) mg/dL Creatinine (0.52-1.04) mg/dL Glucose (74-99) mg/dL POC Glucose (mg/dL) 222 H 191 H 203 H (75-99) mg/dL Hemoglobin A1c (4.2-6.1) % Plasma Lactic Acid Serge (0.7-2.0) mmol/L Phosphorus (2.5-4.5) mg/dL Iron (37-170) ug/dL TIBC (265-497) ug/dL % Saturation (20-50) % Ferritin (11-264) ng/mL AST (14-36) U/L Total Creatine Kinase (30-135) U/L CK-MB (CK-2) (0.0-2.4) ng/mL Troponin I (0.000-0.034) ng/mL Total Protein (6.3-8.2) g/dL Amylase (30-110) U/L Lipase (23-300) U/L Urine Appearance (Clear) Urine Protein (Negative) Urine Glucose (UA) (Negative) Urine Ketones (Negative) Amorphous Sediment (None) /hpf Urine Mucus (None) /hpf 03/04/17 03/04/17 03/04/17 Range/Units 06:00 06:56 07:58 WBC (3.8-10.6) k/uL RBC (3.80-5.40) m/uL Hgb (11.4-16.0) gm/dL Hct (34.0-46.0) % RDW (11.5-15.5) % Neutrophils # (1.3-7.7) k/uL APTT (22.0-30.0) sec Sodium (137-145) mmol/L Carbon Dioxide (22-30) mmol/L BUN (7-17) mg/dL Creatinine (0.52-1.04) mg/dL Glucose (74-99) mg/dL POC Glucose (mg/dL) 140 H 139 H 106 H (75-99) mg/dL Hemoglobin A1c (4.2-6.1) % Plasma Lactic Acid Serge (0.7-2.0) mmol/L Phosphorus (2.5-4.5) mg/dL Iron (37-170) ug/dL TIBC (265-497) ug/dL % Saturation (20-50) % Ferritin (11-264) ng/mL AST (14-36) U/L Total Creatine Kinase (30-135) U/L CK-MB (CK-2) (0.0-2.4) ng/mL Troponin I (0.000-0.034) ng/mL Total Protein (6.3-8.2) g/dL Amylase (30-110) U/L Lipase (23-300) U/L Urine Appearance (Clear) Urine Protein (Negative) Urine Glucose (UA) (Negative) Urine Ketones (Negative) Amorphous Sediment (None) /hpf Urine Mucus (None) /hpf 03/04/17 Range/Units 08:58 WBC (3.8-10.6) k/uL RBC (3.80-5.40) m/uL Hgb (11.4-16.0) gm/dL Hct (34.0-46.0) % RDW (11.5-15.5) % Neutrophils # (1.3-7.7) k/uL APTT 49.9 H (22.0-30.0) sec Sodium (137-145) mmol/L Carbon Dioxide (22-30) mmol/L BUN (7-17) mg/dL Creatinine (0.52-1.04) mg/dL Glucose (74-99) mg/dL POC Glucose (mg/dL) (75-99) mg/dL Hemoglobin A1c (4.2-6.1) % Plasma Lactic Acid Serge (0.7-2.0) mmol/L Phosphorus (2.5-4.5) mg/dL Iron (37-170) ug/dL TIBC (265-497) ug/dL % Saturation (20-50) % Ferritin (11-264) ng/mL AST (14-36) U/L Total Creatine Kinase (30-135) U/L CK-MB (CK-2) (0.0-2.4) ng/mL Troponin I (0.000-0.034) ng/mL Total Protein (6.3-8.2) g/dL Amylase (30-110) U/L Lipase (23-300) U/L Urine Appearance (Clear) Urine Protein (Negative) Urine Glucose (UA) (Negative) Urine Ketones (Negative) Amorphous Sediment (None) /hpf Urine Mucus (None) /hpf Microbiology - Last 24 Hours (Table) 03/03/17 17:15 Urine Culture - Preliminary Urine,Catheterized Assessment and Plan (1) NSTEMI (non-ST elevated myocardial infarction) Narrative/Plan: ASA, statin, cardio recs pending, echo pending, heparin gtt, troponin down trending, BB, lipid profile with HDL near goal. Status: Acute (2) DKA (diabetic ketoacidoses) Narrative/Plan: will d/w nurse and like change to SSI and long acting insulin, the maintained gap is likely from acute renal failure as blood sugars are now maintained in the 100s since 6 am. A1C 7.4 Status: Acute (3) UTI (urinary tract infection) Narrative/Plan: UTI present on admission- not cath related, here UA appears negative but patient had already recieved ABX at outside ED and there had WBC >100 in the urine, rocephin, Await urine culture Status: Acute (4) Sepsis Narrative/Plan: IVF, treatment of UTI, await blood cultures Status: Acute (5) Lactic acidosis Narrative/Plan: resolved Status: Acute (6) Acute kidney injury Narrative/Plan: likely due to ATN from volume depletion and DKA, IVF, off bumex, avoid nephrotoxic agents, follow Cr, nephro recs appreciated, renal us pending Status: Acute (7) CKD (chronic kidney disease) Narrative/Plan: Unknown baseline, attempt to get records from [facility] office, nephro recs appreciated Status: Acute (8) CHF (congestive heart failure) Narrative/Plan: Currently compensated, ejection fraction unknown, will avoid diuresis at this time with acute kidney injury and DKA necessitating fluid replacement, not chronically an INDER inhibitor and I will not initiate at this point in time with acute kidney injury, continue home labetalol, strict I's and O's, daily weight, cardiology recommendation Status: Acute (9) Obesity Narrative/Plan: Ideally structured outpatient weight loss Status: Acute (10) LALA (obstructive sleep apnea) Narrative/Plan: Continue with CPAP use at night Status: Acute (11) Anemia Narrative/Plan: Appears chronic, patient is on Arnesp and iron at care home, follow CBC, IV iron per nephro if cultures remain negative Status: Acute (12) Elevated lipase Narrative/Plan: Not clinically significant and possibly related to vomiting, resolved Status: Acute Plan: Chronic: Hypertension, controlled Dyslipidemia Gout Depression Osteoarthritis Peripheral neuropathy Surrogate decision-maker: Fito CODE STATUS: FULL CODE DVT prophylaxis: heparin drip Discussed with: patient, nephrology Anticipated discharge: undetermined, likely 4-[address]: return to care home A total of 45 minutes was spent on the care of this complex patient more than 50 % of the time was spent in counseling and care coordination.
--- NOTE | 2017-03-04 10:39 | P.CNPUL ---
History of Present Illness Consult date: 03/04/17 Requesting physician: Faye Sage Reason for consult: other (Critical care management) Chief complaint: Nausea, vomiting, weakness History of present illness: This is a very pleasant 76-year-old female patient who follows with Dr. Trejo as her primary care physician. He has a history of diabetes mellitus, depression, diverticulosis, aortic stenosis, congestive heart failure, chronic renal failure, MRSA, lipidemia, hypertension, myocardial infarction, neuropathy. She was recently residing in the extended care facility at [facility] where she developed 1-2 days of nausea vomiting and weakness. She was transferred from there to the [facility] emergency room and she was found to have a blood sugar 736. She was subsequently transferred here to our emergency room for further evaluation and treatment. She was admitted to the ICU with diabetic ketoacidosis, hyperkalemia, acute kidney injury and non-ST segment elevation myocardial infarction. Her initial troponin was 47.4. BUN 117, creatinine 4.70, glucose 306, anion gap 18 bicarb 19. He is seen today in the intensive care unit. She is awake and alert in no acute distress. She is quite weak and fatigued. She denies any chest discomfort at this time. He denies any worsening shortness of breath, cough or congestion. She is maintaining good O2 saturations in the 90s on 2 L/m per nasal cannula. She is currently on a insulin drip at 1.5 units per hour. She is on a heparin drip per weight base protocol. She said 0.9 normal saline at 5 miles per hour. She is on D5 and half-normal saline with 20 mEq of potassium chloride at 50 MLS per hour per DKA protocol. Review of Systems 14 point review of system was conducted. All negative other than as mentioned in HPI. Past Medical History Past Medical History: Coronary Artery Disease (CAD), Heart Failure, Diabetes Mellitus, Hyperlipidemia, Hypertension, Myocardial Infarction ([place]), Osteoarthritis (OA), Renal Disease Additional Past Medical History / Comment(s): anemia, aortic stenosis, chronic renal failure, divertiulosis, edema, hiatal hernia, colonic polyps, obstructive sleep apnea, peripheral neuropathy Last Myocardial Infarction Date:: patient estimates 5 years ago History of Any Multi-Drug Resistant Organisms: MRSA Date of last positivie culture/infection: unknown MDRO Source:: unknown Past Surgical History: Unable to Obtain Additional Past Surgical History / Comment(s): Right and left heart cath, spinal fusion, bilateral cataracts, colonoscopy, partial hysterectomy, bladder sling, appendectomy, cyst excision in the near run down Past Psychological History: Depression Smoking Status: Former smoker Past Alcohol Use History: None Reported Past Drug Use History: None Reported - Past Family History Father Additional Family Medical History / Comment(s): Heart disease Mother Family Medical History: Hypertension Additional Family Medical History / Comment(s): Heart disease Medications and Allergies Home Medications Medication Instructions Recorded Confirmed Type Allopurinol [Zyloprim] 100 mg PO DAILY 03/03/17 03/03/17 History Aspirin EC [Ecotrin Low Dose] 81 mg PO DAILY 03/03/17 03/03/17 History Bumetanide [BUMEX] 2 mg PO DAILY 03/03/17 03/03/17 History Cholecalciferol [Vitamin D3] 5,000 unit PO DAILY 03/03/17 03/03/17 History Clopidogrel [Plavix] 75 mg PO DAILY 03/03/17 03/03/17 History Epoetin Poncho [Procrit] 4,000 unit IM [id number] 03/03/17 03/03/17 History HYDROcodone/APAP 7.5-325MG [[place] 1 tab PO BID 03/03/17 03/03/17 History 7.5-325] Insulin Aspart [NovoLOG Flexpen] 6 units SQ AC-LUNCH 03/03/17 03/03/17 History Insulin Aspart [NovoLOG Flexpen] 16 units SQ AC-BRKFST 03/03/17 03/03/17 History Insulin Glargine,Hum.rec.anlog 22 unit SQ DAILY 03/03/17 03/03/17 History [Lantus Solostar] Labetalol [Trandate] 200 mg PO BID 03/03/17 03/03/17 History Multivitamins, Thera [Multivitamin 1 tab PO DAILY 03/03/17 03/03/17 History (formulary)] Poly-Iron 150mg 150 mg PO BID 03/03/17 03/03/17 History Pravastatin Sodium [Pravachol] 20 mg PO HS 03/03/17 03/03/17 History Sertraline [Zoloft] 100 mg PO HS 03/03/17 03/03/17 History Vit C/E/Zn/Coppr/Lutein/Zeaxan 2 cap PO HS 03/03/17 03/03/17 History [Preservision Areds 2 Softgel] amLODIPine [Norvasc] 2.5 mg PO DAILY 03/03/17 03/03/17 History hydrALAZINE HCL [Hydralazine HCl] 50 mg PO BID 03/03/17 03/03/17 History Allergies Allergy/AdvReac Type Severity Reaction Status Date / Time amoxicillin [From Augmentin] Allergy Rash/Hives Verified 03/03/17 15:30 clarithromycin [From Biaxin] Allergy Rash/Hives Verified 03/03/17 15:30 clavulanic acid Allergy Rash/Hives Verified 03/03/17 15:30 [From Augmentin] Physical Exam Vitals: Vital Signs Temp Pulse Resp BP Pulse Ox 03/04/17 10:00 70 16 112/56 98 03/04/17 09:30 69 11 L 132/72 93 L 03/04/17 09:00 74 14 132/72 97 03/04/17 08:30 98.2 F 68 11 L 120/60 97 03/04/17 08:00 73 11 L 95 03/04/17 07:30 70 13 132/61 85 L 03/04/17 07:12 74 03/04/17 07:02 70 03/04/17 07:00 68 15 132/61 96 03/04/17 06:00 69 13 132/60 95 03/04/17 05:00 69 15 127/60 94 L 03/04/17 04:00 97.6 F 69 17 119/54 96 03/04/17 03:00 66 26 H 121/56 95 03/04/17 02:00 71 21 132/59 95 03/04/17 01:00 74 26 H 114/53 95 03/04/17 00:00 97.9 F 72 22 102/48 96 03/03/17 23:30 71 18 90/42 97 03/03/17 23:00 72 17 90/42 94 L 03/03/17 22:00 70 23 119/59 97 03/03/17 21:00 75 22 135/68 94 L 03/03/17 20:00 98.2 F 71 23 148/73 96 03/03/17 19:00 71 19 148/76 93 L 03/03/17 18:50 74 18 149/78 95 03/03/17 18:40 73 18 150/79 95 03/03/17 18:30 74 14 153/72 96 03/03/17 18:20 73 24 155/73 96 03/03/17 18:10 70 18 142/77 97 03/03/17 18:00 73 18 143/76 95 03/03/17 17:50 75 19 145/81 94 L 03/03/17 17:40 72 13 146/76 97 03/03/17 17:30 70 17 150/79 94 L 03/03/17 17:20 74 18 148/75 95 03/03/17 17:10 73 16 145/76 95 03/03/17 17:00 70 17 149/82 94 L 03/03/17 16:50 71 17 150/74 96 03/03/17 16:40 72 16 147/73 95 03/03/17 16:30 97.6 F 72 23 132/79 95 03/03/17 16:24 73 03/03/17 15:36 97.9 F 73 16 144/64 94 L 03/03/17 13:56 98.3 F 76 18 147/61 97 Intake and Output 03/03/17 03/04/17 03/04/17 22:59 06:59 14:59 Intake Total 849.485 929.923 327.990 Output Total 525 340 225 Balance 324.485 589.923 102.990 Intake: IV 300 800 200 D5-0.45% NaCl with KCl 300 800 200 20Meq/l 1,000 ml @ 100 mls/hr IV .Q10H HENNY Rx#: [id number] Amount of Fluid Infused ( 200 ml) Intake, IV Titration 349.485 129.923 67.990 Amount D5-0.45% NaCl with KCl 100 20Meq/l 1,000 ml @ 100 mls/hr IV .Q10H HENNY Rx#: [id number] Heparin Sodium,Porcine/ 220.418 112.654 D5w Pmx 25,000 unit In Dextrose/Water 1 500ml. bag @ 12 UNITS/KG/HR 19. 59 mls/hr IV .Q24H HENNY Rx #:[id number] Heparin Sodium,Porcine/ 58.8 D5w Pmx 25,000 unit In Dextrose/Water 1 500ml. bag @ 12 UNITS/KG/HR 19. 59 mls/hr IV .Q24H HENNY Rx #:[id number] Insulin Regular 100 unit 4.8 In Sodium Chloride 0.9% 100 ml @ 0.1 UNITS/KG/HR 8.24 mls/hr IV .[id number] HENNY Rx#:[id number] Insulin Regular 100 unit 19.067 17.269 4.390 In Sodium Chloride 0.9% 100 ml @ 4 UNIT/HR 4.04 mls/hr IV .Q24H ONE Rx#: [id number] Sodium Chloride 0.9% 1, 10 000 ml @ 50 mls/hr IV . Q20H HENNY Rx#:[id number] Oral 60 Output: Urine 525 340 225 Other: Voiding Method Indwelling Catheter Indwelling Catheter Indwelling Catheter Weight 85.4 kg 85.1 kg 85.1 kg Patient Weight 03/05/17 06:59 Weight 85.1 kg GENERAL EXAM: Pale, weak. Alert, in no apparent distress. HEAD: Normocephalic. EYES: Normal reaction of pupils, equal size. NOSE: Clear with pink turbinates. THROAT: No erythema or exudates. NECK: No masses, no JVD. CHEST: No chest wall deformity. LUNGS: Equal air entry with no crackles, wheeze, rhonchi or dullness. CVS: S1 and S2 normal with positive murmur, regular rhythm. ABDOMEN: No hepatosplenomegaly, normal bowel sounds, no guarding or rigidity. SPINE: No scoliosis or deformity SKIN: No rashes CENTRAL NERVOUS SYSTEM: No focal deficits, tone is normal in all 4 extremities. Extremities: There is trace peripheral edema. No clubbing, no cyanosis. Peripheral pulses are intact. Results - Laboratory Findings CBC and BMP: 03/04/17 02:28 03/04/17 02:28 PT/INR, D-dimer PT 11.0 sec (9.0-12.0) 03/03/17 14:20 INR 1.1 (<1.2) 03/03/17 14:20 Abnormal lab findings: Abnormal Labs 03/03/17 03/03/17 03/03/17 14:14 14:20 14:20 WBC 12.2 H RBC 3.45 L Hgb 10.6 L Hct 33.4 L RDW 16.1 H Neutrophils # 10.2 H APTT Sodium Carbon Dioxide BUN Creatinine Glucose POC Glucose (mg/dL) 317 H Hemoglobin A1c Plasma Lactic Acid Serge Phosphorus Iron TIBC % Saturation Ferritin AST Total Creatine Kinase 560 H CK-MB (CK-2) 70.8 H* Troponin I 24.400 H* Total Protein Amylase Lipase Urine Appearance Urine Protein Urine Glucose (UA) Urine Ketones Amorphous Sediment Urine Mucus 03/03/17 03/03/17 03/03/17 14:20 14:20 14:20 WBC RBC Hgb Hct RDW Neutrophils # APTT 52.7 H Sodium 135 L Carbon Dioxide 19 L BUN 110 H* Creatinine 4.80 H Glucose 306 H POC Glucose (mg/dL) Hemoglobin A1c 7.4 H Plasma Lactic Acid Serge Phosphorus 5.4 H Iron TIBC % Saturation Ferritin AST 103 H Total Creatine Kinase CK-MB (CK-2) Troponin I Total Protein Amylase Lipase Urine Appearance Urine Protein Urine Glucose (UA) Urine Ketones Amorphous Sediment Urine Mucus 03/03/17 03/03/17 03/03/17 14:20 14:40 15:44 WBC RBC Hgb Hct RDW Neutrophils # APTT Sodium Carbon Dioxide BUN Creatinine Glucose POC Glucose (mg/dL) 251 H Hemoglobin A1c Plasma Lactic Acid Serge 2.4 H* Phosphorus Iron TIBC % Saturation Ferritin AST Total Creatine Kinase CK-MB (CK-2) Troponin I Total Protein Amylase 213 H Lipase 584 H Urine Appearance Urine Protein Urine Glucose (UA) Urine Ketones Amorphous Sediment Urine Mucus 03/03/17 03/03/17 03/03/17 16:23 17:15 17:25 WBC RBC Hgb Hct RDW Neutrophils # APTT Sodium Carbon Dioxide BUN Creatinine Glucose POC Glucose (mg/dL) 221 H 166 H Hemoglobin A1c Plasma Lactic Acid Serge Phosphorus Iron TIBC % Saturation Ferritin AST Total Creatine Kinase CK-MB (CK-2) Troponin I Total Protein Amylase Lipase Urine Appearance Cloudy H Urine Protein 1+ H Urine Glucose (UA) 3+ H Urine Ketones Trace H Amorphous Sediment Rare H Urine Mucus Rare H 03/03/17 03/03/17 03/03/17 18:20 18:26 18:26 WBC RBC Hgb Hct RDW Neutrophils # APTT Sodium Carbon Dioxide BUN 117 H* Creatinine 4.70 H Glucose 121 H POC Glucose (mg/dL) 125 H Hemoglobin A1c Plasma Lactic Acid Serge Phosphorus 5.5 H Iron TIBC % Saturation Ferritin AST Total Creatine Kinase CK-MB (CK-2) Troponin I Total Protein Amylase Lipase Urine Appearance Urine Protein Urine Glucose (UA) Urine Ketones Amorphous Sediment Urine Mucus 03/03/17 03/03/17 03/03/17 19:01 20:00 20:56 WBC RBC Hgb Hct RDW Neutrophils # APTT Sodium Carbon Dioxide BUN Creatinine Glucose POC Glucose (mg/dL) 116 H 118 H 104 H Hemoglobin A1c Plasma Lactic Acid Serge Phosphorus Iron TIBC % Saturation Ferritin AST Total Creatine Kinase CK-MB (CK-2) Troponin I Total Protein Amylase Lipase Urine Appearance Urine Protein Urine Glucose (UA) Urine Ketones Amorphous Sediment Urine Mucus 03/03/17 03/03/17 03/03/17 21:21 21:21 21:21 WBC RBC Hgb Hct RDW Neutrophils # APTT 30.7 H Sodium 136 L Carbon Dioxide 18 L BUN Creatinine Glucose POC Glucose (mg/dL) Hemoglobin A1c Plasma Lactic Acid Serge Phosphorus 5.6 H Iron TIBC % Saturation Ferritin AST Total Creatine Kinase 631 H CK-MB (CK-2) 70.7 H* Troponin I 47.400 H* Total Protein Amylase Lipase Urine Appearance Urine Protein Urine Glucose (UA) Urine Ketones Amorphous Sediment Urine Mucus 03/03/17 03/03/17 03/03/17 22:16 23:01 23:53 WBC RBC Hgb Hct RDW Neutrophils # APTT Sodium Carbon Dioxide BUN Creatinine Glucose POC Glucose (mg/dL) 156 H 194 H 295 H Hemoglobin A1c Plasma Lactic Acid Serge Phosphorus Iron TIBC % Saturation Ferritin AST Total Creatine Kinase CK-MB (CK-2) Troponin I Total Protein Amylase Lipase Urine Appearance Urine Protein Urine Glucose (UA) Urine Ketones Amorphous Sediment Urine Mucus 03/04/17 03/04/17 03/04/17 00:57 02:01 02:28 WBC RBC Hgb Hct RDW Neutrophils # APTT Sodium Carbon Dioxide BUN Creatinine Glucose POC Glucose (mg/dL) 273 H 263 H Hemoglobin A1c Plasma Lactic Acid Serge Phosphorus Iron TIBC % Saturation Ferritin AST Total Creatine Kinase 516 H CK-MB (CK-2) 55.6 H* Troponin I 37.200 H* Total Protein Amylase Lipase Urine Appearance Urine Protein Urine Glucose (UA) Urine Ketones Amorphous Sediment Urine Mucus 03/04/17 03/04/17 03/04/17 02:28 02:28 02:28 WBC 12.9 H RBC 3.21 L Hgb 10.0 L Hct 31.6 L RDW 16.2 H Neutrophils # 10.9 H APTT 37.1 H Sodium 136 L Carbon Dioxide 17 L BUN 115 H* Creatinine 4.70 H Glucose 260 H POC Glucose (mg/dL) Hemoglobin A1c Plasma Lactic Acid Serge Phosphorus Iron 31 L TIBC 211 L % Saturation 14.7 L Ferritin 500 H AST 128 H Total Creatine Kinase CK-MB (CK-2) Troponin I Total Protein 5.7 L Amylase 160 H Lipase Urine Appearance Urine Protein Urine Glucose (UA) Urine Ketones Amorphous Sediment Urine Mucus 03/04/17 03/04/17 03/04/17 03:00 04:27 04:57 WBC RBC Hgb Hct RDW Neutrophils # APTT Sodium Carbon Dioxide BUN Creatinine Glucose POC Glucose (mg/dL) 222 H 191 H 203 H Hemoglobin A1c Plasma Lactic Acid Serge Phosphorus Iron TIBC % Saturation Ferritin AST Total Creatine Kinase CK-MB (CK-2) Troponin I Total Protein Amylase Lipase Urine Appearance Urine Protein Urine Glucose (UA) Urine Ketones Amorphous Sediment Urine Mucus 03/04/17 03/04/17 03/04/17 06:00 06:56 07:58 WBC RBC Hgb Hct RDW Neutrophils # APTT Sodium Carbon Dioxide BUN Creatinine Glucose POC Glucose (mg/dL) 140 H 139 H 106 H Hemoglobin A1c Plasma Lactic Acid Serge Phosphorus Iron TIBC % Saturation Ferritin AST Total Creatine Kinase CK-MB (CK-2) Troponin I Total Protein Amylase Lipase Urine Appearance Urine Protein Urine Glucose (UA) Urine Ketones Amorphous Sediment Urine Mucus 03/04/17 08:58 WBC RBC Hgb Hct RDW Neutrophils # APTT 49.9 H Sodium Carbon Dioxide BUN Creatinine Glucose POC Glucose (mg/dL) Hemoglobin A1c Plasma Lactic Acid Serge Phosphorus Iron TIBC % Saturation Ferritin AST Total Creatine Kinase CK-MB (CK-2) Troponin I Total Protein Amylase Lipase Urine Appearance Urine Protein Urine Glucose (UA) Urine Ketones Amorphous Sediment Urine Mucus - Diagnostic Findings Chest x-ray: image reviewed Assessment and Plan Plan: Impression: #1 Diabetic ketoacidosis secondary to nausea, vomiting. #2 Lactic acidosis secondary to above. #3 Non-ST segment elevation myocardial infarction. #4 Acute on chronic renal failure, current creatinine 4.70. #5 History of iron deficiency anemia, current hemoglobin 10.0. #6 Acute on chronic back and systolic congestive heart failure, echocardiogram pending. #7 History of coronary artery disease. #8 Diabetes mellitus. #9 Hyperlipidemia. #10 Hypertension, history of. #11 History of depression. #12 Prior history of chronic tobacco dependence. Plan: The patient was seen and evaluated by Dr. Morales. Her chest x-ray and labs were reviewed. We'll continue with her current medications. Her urine culture is pending. Currently on ceftriaxone. We'll continue to follow the DKA protocol. She remains on heparin drip. She remains on Protonix for GI prophylaxis. Cardiology and nephrology on the case as well. We'll continue to monitor her here closely in the intensive care unit another 24 hours. We'll continue to follow. Time with Patient: Greater than 30
[2017-03-04] MEDS: amLODIPine 2.5 MG TAB PO SCH (10:50)
[2017-03-04] MEDS: ATORVASTATIN 40 MG TAB PO SCH (11:00)
[2017-03-04 11:02] LABS: Glucose,Whole Blood 84 mg/dL (75-99)
[2017-03-04] MEDS: HYDROcodone/APAP 7.5-325MG 1 EACH TAB PO SCH ×2 (11:02→20:25)
[2017-03-04] MEDS: MULTIVITAMINS, THERA 1 EACH TAB PO SCH (11:03)
[2017-03-04] MEDS: HEPARIN SODIUM,PORCINE/D5W PMX 25,000 UNIT in DEXTROSE/WATER 1 500ML.BAG IV SCH (11:04)
--- NOTE | 2017-03-04 11:05 | ECHOF ---
Referral Reason:nstemi MEASUREMENTS -------- HEIGHT: 162.6 cm WEIGHT: 81.7 kg BP: 145/76 RVIDd: 2.0 cm (< 3.3) IVSd: 0.9 cm (0.6 - 1.1) LVIDd: 5.7 cm (3.9 - 5.3) LVPWd: 1.0 cm (0.6 - 1.1) IVSs: 1.4 cm LVIDs: 4.6 cm LVPWs: 1.4 cm LAESV Index (A-L): 50.62 ml/m Ao Diam: 2.7 cm (2.0 - 3.7) AV Cusp: 1.0 cm (1.5 - 2.6) LA Diam: 4.1 cm (2.7 - 3.8) MV EXCURSION: 19.089 mm (> 18.000) MV EF SLOPE: 59 mm/s (70 - 150) EPSS: 3.0 cm MV E Miller: 1.39 m/s MV DecT: 198 ms MV A Miller: 0.68 m/s MV E/A Ratio: 2.05 AV maxP.97 mmHg AV meanP.32 mmHg RAP: 15.00 mmHg RVSP: 68.58 mmHg FINDINGS -------- Sinus rhythm. This was a technically good study. The left ventricle is mildly dilated. Overall left ventricular systolic function is moderate-severely impaired with, an EF between 30 - 35 %. Mid lateral LV wall motion is hypokinetic. Apical lateral LV wall motion is hypokinetic. Inferiorlateral Hypokinesis Anterolateral hypokinesis. The right ventricle is normal in size and function. LA is severely dilated >40 ml/m2 RA appears enlarged. Aortic valve is trileaflet and is moderately thickened. There is no evidence of aortic regurgitation. Moderate aortic stenosis with peak/mean pressure gradient of 29.97mmHg / 17.32mmHg, the aortic valve area by continuity equation is 1.0cm. The mitral valve leaflets are moderately thickened. Mild mitral annular calcification present. [id number] mitral regurgitation is present. Mild mitral stenosis , with a MVA of 3.3cm (by PHT) Moderate tricuspid regurgitation present. There is severe pulmonary hypertension. The right ventricular systolic pressure, as measured by Doppler, is 68.58mmHg. The pulmonic valve was not well visualized. The aortic root size is normal. The inferior vena cava is dilated with no significant inspiratory collapse which is consistent estimated right atrial pressure of >20 mmHg. The pericardium is normal. There is no pericardial effusion. CONCLUSIONS -------- 1. Sinus rhythm. 2. RA appears enlarged. 3. Aortic valve is trileaflet and is moderately thickened. 4. Moderate aortic stenosis with peak/mean pressure gradient of 29.97mmHg / 17.32mmHg, the aortic valve area by continuity equation is 1.0cm. 5. The mitral valve leaflets are moderately thickened. 6. Mild mitral annular calcification present. 7. [id number] mitral regurgitation is present. 8. Mild mitral stenosis. 9. , with a MVA of 3.3cm (by PHT) 10. Moderate tricuspid regurgitation present. 11. There is severe pulmonary hypertension. 12. This was a technically good study. 13. The right ventricular systolic pressure, as measured by Doppler, is 68.58mmHg. 14. The pulmonic valve was not well visualized. 15. The aortic root size is normal. 16. The inferior vena cava is dilated with no significant inspiratory collapse which is consistent estimated right atrial pressure of >20 mmHg. 17. There is no pericardial effusion. 18. The left ventricle is mildly dilated. 19. Overall left ventricular systolic function is moderate-severely impaired with, an EF between 30 - 35 %. 20. Mid lateral LV wall motion is hypokinetic. 21. Apical lateral LV wall motion is hypokinetic. 22. Inferiorlateral Hypokinesis 23. Anterolateral hypokinesis. 24. LA is severely dilated >40 ml/m2 CURRICULUM ASSISTANT PRINCIPAL: Michael Hernandez RDCS
--- NOTE | 2017-03-04 11:28 | CONS ---
This is a 76-year-old female patient who sees Dr. Toledo in the [place] area. She came in because she thought her sugars were high. She had been complaining of nausea and feeling unwell. At the extended care facility, her sugars were high almost greater than 700. She completely denied chest pain or shortness of breath. She still denies chest discomfort. Her cardiac enzymes were abnormal. I was called by the ER physician with this. Her sodium is 136, potassium 4.5. BUN 115, creatinine 4.7. AST 128, CPK 516, MB 55, troponin levels are high. Three serial troponins have been drawn, 37.2, 47.4, 24.4. This most likely represents acute myocardial infarction. LDL is 83, HDL 59. Amylase 160. 12 lead ECG shows sinus rhythm with ST segment depression of about at least 1 mm in the lateral precordial leads and the high lateral leads and left ventricular hypertrophy. QRS is 120 ms. Chest x-ray showed moderate interstitial phase, pulmonary edema. Currently her medications include: 1. Amlodipine. 2. Aspirin. 3. I started her on Atorvastatin. 4. She is on Plavix. 5. She is on IV heparin. 6. Hydralazine. 7. Labetalol 200 mg twice daily. 8. Nitropaste. REVIEW OF SYSTEMS: No fevers, chills, rigors, cough or expectoration. She did have nausea, no vomiting. No hematuria, dysuria. No strokes or seizures. She denied chest discomfort. On examination, heart sounds S1, S2 soft. There is systolic murmur is audible. Breath sounds reduced bilaterally with crackles at the bases. She has no JVD. She has mild hepatojugular reflux. No lower extremity edema. She is getting IV fluids at this time and I asked the nurse to reduce to 50 mL an hour. If she starts eating and drinking normally, then we should hep lock it. IMPRESSION: 1. Patient of Dr. Toledo. I am waiting for the records. I asked the nurse to get the records. 2. Acute myocardial injury most likely secondary to an acute myocardial infarction. 3. Chronic renal failure stage V, she is not on dialysis. 4. Murmur and mitral regurgitation noted. 5. Elevated glucose levels, diabetes, abnormal lipase, abnormal liver function enzymes. Management deferred to the medical team. SUGGEST: From a cardiac standpoint, I will continue beta blockers. I will continue statins, aspirin and Plavix and treat her medically. 2D echo and Doppler will be ordered. Records from Dr. Espinal office will be obtained. I would like to stop her IV fluids. Renal consult will be initiated. She does see a chief meteorologist in [place]. YULIET
--- NOTE | 2017-03-04 11:56 | US ---
EXAMINATION TYPE: US kidneys/renal and bladder DATE OF EXAM: 03/04/2017 COMPARISON: NONE CLINICAL HISTORY: juan. EXAM MEASUREMENTS: Right Kidney: 9.1 x 4.8 x 4.3 cm Left Kidney: 9.1 x 4.9 x 5.2 cm Right Kidney: Two cystic areas visualized, largest is lateral measuring 4.4 x 2.7 x 4.8 cm. No hydron ephrosis or nephrolithiasis. Left Kidney: Limited/difficult evaluation as exam is done bedside in the ICU. No cysts or masses visu alized. No hydronephrosis or nephrolithiasis. Bladder: Patient has a aaron and bladder is not distended Bilateral Jets seen: No, see above Incidental findings: multiple gallstones visualized. Trace amount of free fluid visualized in the RUQ and LUQ. IMPRESSION: Hypoechoic lesion involving the right kidney compatible with simple cyst. No hydronephrosis or nephro lithiasis. There does appear to be slight increased echogenicity of the renal cortex which can be ass ociated with medical renal disease. Incidental note made of a small amount of ascites and cholelithiasis.
[2017-03-04 12:38] LABS: Glucose,Whole Blood 212 mg/dL (75-99)
[2017-03-04 13:18] LABS: Glucose,Whole Blood 282 mg/dL (75-99)
[2017-03-04 14:07] LABS: Glucose,Whole Blood 355 mg/dL (75-99)
[2017-03-04] MEDS: INSULIN REGULAR 100 UNIT in SODIUM CHLORIDE 0.9% 100 ML IV SCH (14:19)
[2017-03-04 15:16] LABS: Glucose,Whole Blood 437 mg/dL (75-99)
[2017-03-04 16:27] LABS: Glucose,Whole Blood 403 mg/dL (75-99)
[2017-03-04 17:03] LABS: Glucose,Whole Blood 316 mg/dL (75-99)
[2017-03-04 18:16] LABS: Glucose,Whole Blood 294 mg/dL (75-99)
[2017-03-04 18:35] LABS: Calcium 9.6 mg/dL (8.4-10.2); Potassium 4.6 mmol/L (3.5-5.1)
[2017-03-04 19:06] LABS: Glucose,Whole Blood 263 mg/dL (75-99)
[2017-03-04 19:52] LABS: Glucose,Whole Blood 293 mg/dL (75-99)
[2017-03-04] MEDS: VIT A,C & E-LUTEIN-MINERALS 1 EACH TAB PO SCH (20:25)
[2017-03-04] MEDS: SERTRALINE 100 MG TAB PO SCH (20:25)
[2017-03-04 20:54] LABS: Glucose,Whole Blood 176 mg/dL (75-99)
[2017-03-04 22:03] LABS: Glucose,Whole Blood 119 mg/dL (75-99)
[2017-03-04 23:02] LABS: Glucose,Whole Blood 91 mg/dL (75-99)
[2017-03-04 23:37] LABS: Potassium 4.5 mmol/L (3.5-5.1)
[2017-03-05 00:16] LABS: Calcium 9.9 mg/dL (8.4-10.2)
[2017-03-05 00:21] LABS: Glucose,Whole Blood 166 mg/dL (75-99)
[2017-03-05] MEDS: NITROGLYCERIN OINT 1 INCH/GM PACKET TOPICAL SCH ×4 (00:22→17:11)
[2017-03-05 01:09] LABS: Glucose,Whole Blood 179 mg/dL (75-99)
[2017-03-05 02:06] LABS: Glucose,Whole Blood 182 mg/dL (75-99)
[2017-03-05 03:03] LABS: Glucose,Whole Blood 176 mg/dL (75-99)
[2017-03-05 04:03] LABS: Glucose,Whole Blood 173 mg/dL (75-99)
[2017-03-05 04:16] LABS: Anisocytosis Slight; Basophils % (A) 0 %; CH 31.6; CHCM 31.5; Eosinophils # (A) 0.2 k/uL (0-0.7); Eosinophils % (A) 2 %; HCT 31.5 % (34.0-46.0); HDW 2.67; HGB 9.3 gm/dL (11.4-16.0); Hypochromasia Slight; Luc # (Auto) 0.14; Luc % (Auto) 2; Lymphocytes # (A) 1.1 k/uL (1.0-4.8); Lymphocytes % (A) 13 %; MCH 29.9 pg (25.0-35.0); MCHC 29.6 g/dL (31.0-37.0); MCV 100.8 fL (80.0-100.0); Macrocytosis Slight; Mean Platelet Volume 8.1; Monocytes # (A) 0.3 k/uL (0-1.0); Monocytes % (A) 4 %; Neutrophils # (A) 6.7 k/uL (1.3-7.7); Neutrophils % (A) 79 %; RBC 3.12 m/uL (3.80-5.40); RDW 17.4 % (11.5-15.5); WBC 8.5 k/uL (3.8-10.6); WBC (Perox) 8.78
[2017-03-05 05:01] LABS: Glucose,Whole Blood 178 mg/dL (75-99)
[2017-03-05 05:54] LABS: Calcium 9.3 mg/dL (8.4-10.2); Magnesium 2.1 mg/dL (1.6-2.3); Phosphorous 6.2 mg/dL (2.5-4.5); Total Bilirubin 0.3 mg/dL (0.2-1.3); Total Protein 5.6 g/dL (6.3-8.2)
[2017-03-05 06:05] LABS: Glucose,Whole Blood 175 mg/dL (75-99)
[2017-03-05] MEDS: INSULIN REGULAR 100 UNIT in SODIUM CHLORIDE 0.9% 100 ML IV SCH ×3 (06:06→18:08)
[2017-03-05 07:03] LABS: Glucose,Whole Blood 168 mg/dL (75-99)
[2017-03-05] MEDS: IPRATROPIUM-ALBUTEROL 3 ML NEB INHALATION SCH (07:19)
[2017-03-05] MEDS: CHOLECALCIFEROL 1,000 UNIT TAB PO SCH (07:46)
[2017-03-05] MEDS: PANTOPRAZOLE 40 MG/10 ML VIAL IV SCH (07:46)
[2017-03-05] MEDS: LABETALOL 200 MG TAB PO SCH ×2 (07:47→21:10)
[2017-03-05] MEDS: HYDROcodone/APAP 7.5-325MG 1 EACH TAB PO SCH ×2 (07:47→21:10)
[2017-03-05] MEDS: ASPIRIN 81 MG CHEW PO SCH (07:48)
[2017-03-05] MEDS: FERROUS SULFATE 325 MG TAB PO SCH ×2 (07:48→17:37)
[2017-03-05] MEDS: ATORVASTATIN 40 MG TAB PO SCH (07:48)
[2017-03-05] MEDS: hydrALAZINE HCL 50 MG TAB PO SCH ×2 (07:49→21:10)
[2017-03-05] MEDS: CLOPIDOGREL 75 MG TAB PO SCH (07:49)
[2017-03-05 08:09] LABS: Glucose,Whole Blood 218 mg/dL (75-99)
--- NOTE | 2017-03-05 08:18 | P.PN ---
Subjective Note dated 03/05/2017 This is a 76-year-old female sees a family doctor up in the [facility]. She is a history of diabetes depression diverticulosis aortic stenosis CHF chronic renal failure previous MRSA infection hyperlipidemia hypertension previous myocardial infarction and neuropathy. She apparently was residing in an extended care facility and [place] where she developed one or 2 days worth of nausea vomiting and weakness. She was transferred down from that hospital here for diabetic ketoacidosis. She currently remains on an insulin drip at 1.3 units per hour. Her most recent anion gap is 13 blood glucose is 160 her bicarbonate concentration is 19. I think we can transition her to subcu insulin. Anyway the patient was also found to have an acute kidney injury with hyperkalemia and possibly a non-ST segment elevation myocardial infarction. The patient does seem to be bit better. Getting nasal O2 2 L. Appointment 9 IV at 50 mL an hour insulin drip at one point units an hour heparin via weightbase protocol. The patient seemed be doing relatively well otherwise. Objective - Vital Signs Vital signs: Vital Signs Temp 98.2 F 03/05/17 04:00 Pulse 68 03/05/17 07:27 Resp 11 L 03/05/17 07:00 BP 128/64 03/05/17 07:00 Pulse Ox 96 03/05/17 07:00 Intake & Output 03/04/17 03/05/17 03/05/17 18:59 06:59 18:59 Intake Total 1474.492 653.355 329.4 Output Total 675 630 105 Balance 799.492 23.355 224.4 Weight 85.1 kg 85.6 kg Intake: IV 650 600 100 D5-0.45% NaCl with KCl 500 20Meq/l 1,000 ml @ 50 mls /hr IV .Q20H [facility] Rx#: [id number] Sodium Chloride 0.9% 1, 150 600 100 000 ml @ 50 mls/hr IV . Q20H [facility] Rx#:[id number] Intake, IV Titration 444.492 53.355 29.4 Amount Heparin Sodium,Porcine/ 323.4 29.4 29.4 D5w Pmx 25,000 unit In Dextrose/Water 1 500ml. bag @ 12 UNITS/KG/HR 19. 59 mls/hr IV .Q24H [facility] Rx #:[id number] Insulin Regular 100 unit 116.239 23.955 In Sodium Chloride 0.9% 100 ml @ 0.1 UNITS/KG/HR 8.24 mls/hr IV .[id number] [facility] Rx#:[id number] Insulin Regular 100 unit 4.853 In Sodium Chloride 0.9% 100 ml @ 4 UNIT/HR 4.04 mls/hr IV .Q24H [facility] Rx#: [id number] Oral 380 200 Output: Urine 675 630 105 Other: Voiding Method Indwelling Catheter Indwelling Catheter - Exam No acute distress, oriented 3. HEENT examination is grossly unremarkable. Mucous membranes are moist. Neck supple. Full range of motion. No adenopathy or thyromegaly. Cardiovascular examination reveals regular rhythm rate. S1-S2 normal. Soft systolic murmur. Lungs reveal mostly clear breath sounds. No wheezes rhonchi. No crackles. Breath sounds equal. Abdomen soft bowel sounds are heard. Extremities are intact. Skin without rash. Neurologic examination is nonfocal. - Labs CBC & Chem 7: 03/05/17 03:58 03/05/17 03:58 Labs: Abnormal Lab Results - Last 24 Hours (Table) 03/04/17 03/04/17 03/04/17 Range/Units 08:58 12:37 13:16 RBC (3.80-5.40) m/uL Hgb (11.4-16.0) gm/dL Hct (34.0-46.0) % MCV (80.0-100.0) fL MCHC (31.0-37.0) g/dL RDW (11.5-15.5) % APTT 49.9 H (22.0-30.0) sec Sodium (137-145) mmol/L Carbon Dioxide (22-30) mmol/L BUN (7-17) mg/dL Creatinine (0.52-1.04) mg/dL Glucose (74-99) mg/dL POC Glucose (mg/dL) 212 H 282 H (75-99) mg/dL Phosphorus (2.5-4.5) mg/dL AST (14-36) U/L Total Protein (6.3-8.2) g/dL Albumin (3.5-5.0) g/dL 03/04/17 03/04/17 03/04/17 Range/Units 14:04 15:14 16:25 RBC (3.80-5.40) m/uL Hgb (11.4-16.0) gm/dL Hct (34.0-46.0) % MCV (80.0-100.0) fL MCHC (31.0-37.0) g/dL RDW (11.5-15.5) % APTT (22.0-30.0) sec Sodium (137-145) mmol/L Carbon Dioxide (22-30) mmol/L BUN (7-17) mg/dL Creatinine (0.52-1.04) mg/dL Glucose (74-99) mg/dL POC Glucose (mg/dL) 355 H 437 H 403 H (75-99) mg/dL Phosphorus (2.5-4.5) mg/dL AST (14-36) U/L Total Protein (6.3-8.2) g/dL Albumin (3.5-5.0) g/dL 03/04/17 03/04/17 03/04/17 Range/Units 16:44 17:01 18:14 RBC (3.80-5.40) m/uL Hgb (11.4-16.0) gm/dL Hct (34.0-46.0) % MCV (80.0-100.0) fL MCHC (31.0-37.0) g/dL RDW (11.5-15.5) % APTT (22.0-30.0) sec Sodium 131 L (137-145) mmol/L Carbon Dioxide 16 L (22-30) mmol/L BUN 104 H* (7-17) mg/dL Creatinine 4.60 H (0.52-1.04) mg/dL Glucose 403 H (74-99) mg/dL POC Glucose (mg/dL) 316 H 294 H (75-99) mg/dL Phosphorus (2.5-4.5) mg/dL AST (14-36) U/L Total Protein (6.3-8.2) g/dL Albumin (3.5-5.0) g/dL 03/04/17 03/04/17 03/04/17 Range/Units 19:04 19:50 20:52 RBC (3.80-5.40) m/uL Hgb (11.4-16.0) gm/dL Hct (34.0-46.0) % MCV (80.0-100.0) fL MCHC (31.0-37.0) g/dL RDW (11.5-15.5) % APTT (22.0-30.0) sec Sodium (137-145) mmol/L Carbon Dioxide (22-30) mmol/L BUN (7-17) mg/dL Creatinine (0.52-1.04) mg/dL Glucose (74-99) mg/dL POC Glucose (mg/dL) 263 H 293 H 176 H (75-99) mg/dL Phosphorus (2.5-4.5) mg/dL AST (14-36) U/L Total Protein (6.3-8.2) g/dL Albumin (3.5-5.0) g/dL 03/04/17 03/04/17 03/05/17 Range/Units 22:01 22:44 00:19 RBC (3.80-5.40) m/uL Hgb (11.4-16.0) gm/dL Hct (34.0-46.0) % MCV (80.0-100.0) fL MCHC (31.0-37.0) g/dL RDW (11.5-15.5) % APTT (22.0-30.0) sec Sodium 136 L (137-145) mmol/L Carbon Dioxide (22-30) mmol/L BUN 101 H* (7-17) mg/dL Creatinine 4.37 H (0.52-1.04) mg/dL Glucose (74-99) mg/dL POC Glucose (mg/dL) 119 H 166 H (75-99) mg/dL Phosphorus (2.5-4.5) mg/dL AST (14-36) U/L Total Protein (6.3-8.2) g/dL Albumin (3.5-5.0) g/dL 03/05/17 03/05/17 03/05/17 Range/Units 01:08 02:04 03:01 RBC (3.80-5.40) m/uL Hgb (11.4-16.0) gm/dL Hct (34.0-46.0) % MCV (80.0-100.0) fL MCHC (31.0-37.0) g/dL RDW (11.5-15.5) % APTT (22.0-30.0) sec Sodium (137-145) mmol/L Carbon Dioxide (22-30) mmol/L BUN (7-17) mg/dL Creatinine (0.52-1.04) mg/dL Glucose (74-99) mg/dL POC Glucose (mg/dL) 179 H 182 H 176 H (75-99) mg/dL Phosphorus (2.5-4.5) mg/dL AST (14-36) U/L Total Protein (6.3-8.2) g/dL Albumin (3.5-5.0) g/dL 03/05/17 03/05/17 03/05/17 Range/Units 03:58 03:58 03:58 RBC 3.12 L (3.80-5.40) m/uL Hgb 9.3 L (11.4-16.0) gm/dL Hct 31.5 L (34.0-46.0) % MCV 100.8 H (80.0-100.0) fL MCHC 29.6 L (31.0-37.0) g/dL RDW 17.4 H (11.5-15.5) % APTT 59.6 H (22.0-30.0) sec Sodium 134 L (137-145) mmol/L Carbon Dioxide 19 L (22-30) mmol/L BUN 99 H* (7-17) mg/dL Creatinine 4.34 H (0.52-1.04) mg/dL Glucose 157 H (74-99) mg/dL POC Glucose (mg/dL) (75-99) mg/dL Phosphorus 6.2 H (2.5-4.5) mg/dL AST 74 H (14-36) U/L Total Protein 5.6 L (6.3-8.2) g/dL Albumin 3.3 L (3.5-5.0) g/dL 03/05/17 03/05/17 03/05/17 Range/Units 04:02 04:58 06:03 RBC (3.80-5.40) m/uL Hgb (11.4-16.0) gm/dL Hct (34.0-46.0) % MCV (80.0-100.0) fL MCHC (31.0-37.0) g/dL RDW (11.5-15.5) % APTT (22.0-30.0) sec Sodium (137-145) mmol/L Carbon Dioxide (22-30) mmol/L BUN (7-17) mg/dL Creatinine (0.52-1.04) mg/dL Glucose (74-99) mg/dL POC Glucose (mg/dL) 173 H 178 H 175 H (75-99) mg/dL Phosphorus (2.5-4.5) mg/dL AST (14-36) U/L Total Protein (6.3-8.2) g/dL Albumin (3.5-5.0) g/dL 03/05/17 03/05/17 Range/Units 07:01 08:06 RBC (3.80-5.40) m/uL Hgb (11.4-16.0) gm/dL Hct (34.0-46.0) % MCV (80.0-100.0) fL MCHC (31.0-37.0) g/dL RDW (11.5-15.5) % APTT (22.0-30.0) sec Sodium (137-145) mmol/L Carbon Dioxide (22-30) mmol/L BUN (7-17) mg/dL Creatinine (0.52-1.04) mg/dL Glucose (74-99) mg/dL POC Glucose (mg/dL) 168 H 218 H (75-99) mg/dL Phosphorus (2.5-4.5) mg/dL AST (14-36) U/L Total Protein (6.3-8.2) g/dL Albumin (3.5-5.0) g/dL Microbiology - Last 24 Hours (Table) 03/03/17 17:15 Urine Culture - Final Urine,Catheterized 03/03/17 14:40 Blood Culture - Preliminary Blood No Growth after 24 hours Assessment and Plan (1) Aortic stenosis Status: Acute (2) Acute kidney injury Status: Acute (3) CHF (congestive heart failure) Status: Acute (4) CKD (chronic kidney disease) Status: Acute (5) DKA (diabetic ketoacidoses) Status: Acute (6) Hyperkalemia Status: Acute (7) Metabolic acidosis Status: Acute (8) NSTEMI (non-ST elevated myocardial infarction) Status: Acute (9) UTI (urinary tract infection) Status: Acute Plan: Plan dated 03/05/2017 The patient seems be doing relatively well. She is eating. Her out insulin drip was only 1.3 units an hour. Her anion gap is 13 which is essentially normal. Her blood glucose is 168 in her bicarbonate concentration on a most recent electrolyte profile is 19. All these parameters/indicators suggest that she can be transitioned from IV heparin to the IV insulin to subcu insulin. The patient should receive some regular insulin subcu. Insulin drip can continue for another 35-45 minutes. The patient could be transitioned to NovoLog sliding scale before meals and at bedtime. The patient will continue on the IV heparin. She otherwise is stable. Later today if she's doing well she can probably move out of the ICU. We'll continue to follow closely. No additional recommendations are made. Labs x-rays medications are all reviewed. Time with Patient: Less than 30
[2017-03-05] MEDS ORDERED: DOCUSATE 100 MG CAP PO PRN (08:27)
[2017-03-05] MEDS: amLODIPine 2.5 MG TAB PO SCH (09:11)
[2017-03-05] MEDS: SODIUM CHLORIDE 0.9% 1,000 ML IV SCH (10:00)
[2017-03-05] MEDS: HEPARIN SODIUM,PORCINE/D5W PMX 25,000 UNIT in DEXTROSE/WATER 1 500ML.BAG IV SCH (10:00)
--- NOTE | 2017-03-05 10:05 | P.PN ---
Subjective Patient is seen in follow-up for acute kidney injury on chronic kidney disease. 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 Unclear as to what her baseline renal function is. Patient presented with DKA. Her blood sugars are better controlled now. She is tolerating oral intake. No nausea vomiting or diarrhea. Denies chest pain or shortness of breath. She is nonoliguric. Hemodynamically stable. Vital signs are stable. General: The patient appeared well nourished and normally developed. HEENT: Head exam is unremarkable. Neck is without jugular venous distension. LUNGS: Lungs are clear to auscultation and percussion. Breath sounds decreased. HEART: Rate and Rhythm are regular. First and second heart sounds normal. No murmurs, rubs or gallops. ABDOMEN: Abdominal exam reveals normal bowel sounds. Non-tender and non- distended. No evidence of peritonitis. EXTREMITITES: No clubbing, cyanosis, or edema. Objective - Vital Signs Vital signs: Vital Signs Temp 98.2 F 03/05/17 04:00 Pulse 71 03/05/17 10:00 Resp 12 03/05/17 10:00 BP 125/46 03/05/17 10:00 Pulse Ox 98 03/05/17 10:00 Intake & Output 03/04/17 03/05/17 03/05/17 18:59 06:59 18:59 Intake Total 7143.979 7764.355 688.2 Output Total 675 630 240 Balance 799.492 523.355 448.2 Weight 85.1 kg 85.6 kg 85.6 kg Intake: IV 650 600 200 D5-0.45% NaCl with KCl 500 20Meq/l 1,000 ml @ 50 mls /hr IV .Q20H [facility] Rx#: [id number] Sodium Chloride 0.9% 1, 150 600 200 000 ml @ 50 mls/hr IV . Q20H [facility] Rx#:[id number] Intake, IV Titration 444.492 553.355 88.2 Amount Heparin Sodium,Porcine/ 323.4 529.4 88.2 D5w Pmx 25,000 unit In Dextrose/Water 1 500ml. bag @ 12 UNITS/KG/HR 19. 59 mls/hr IV .Q24H [facility] Rx #:[id number] Insulin Regular 100 unit 116.239 23.955 In Sodium Chloride 0.9% 100 ml @ 0.1 UNITS/KG/HR 8.24 mls/hr IV .[id number] [facility] Rx#:[id number] Insulin Regular 100 unit 4.853 In Sodium Chloride 0.9% 100 ml @ 4 UNIT/HR 4.04 mls/hr IV .Q24H [facility] Rx#: [id number] Oral 380 400 Output: Urine 675 630 240 Other: Voiding Method Indwelling Catheter Indwelling Catheter Indwelling Catheter - Labs CBC & Chem 7: 03/05/17 03:58 03/05/17 03:58 Labs: Abnormal Lab Results - Last 24 Hours (Table) 03/04/17 03/04/17 03/04/17 Range/Units 12:37 13:16 14:04 RBC (3.80-5.40) m/uL Hgb (11.4-16.0) gm/dL Hct (34.0-46.0) % MCV (80.0-100.0) fL MCHC (31.0-37.0) g/dL RDW (11.5-15.5) % APTT (22.0-30.0) sec Sodium (137-145) mmol/L Carbon Dioxide (22-30) mmol/L BUN (7-17) mg/dL Creatinine (0.52-1.04) mg/dL Glucose (74-99) mg/dL POC Glucose (mg/dL) 212 H 282 H 355 H (75-99) mg/dL Phosphorus (2.5-4.5) mg/dL AST (14-36) U/L Total Protein (6.3-8.2) g/dL Albumin (3.5-5.0) g/dL 03/04/17 03/04/17 03/04/17 Range/Units 15:14 16:25 16:44 RBC (3.80-5.40) m/uL Hgb (11.4-16.0) gm/dL Hct (34.0-46.0) % MCV (80.0-100.0) fL MCHC (31.0-37.0) g/dL RDW (11.5-15.5) % APTT (22.0-30.0) sec Sodium 131 L (137-145) mmol/L Carbon Dioxide 16 L (22-30) mmol/L BUN 104 H* (7-17) mg/dL Creatinine 4.60 H (0.52-1.04) mg/dL Glucose 403 H (74-99) mg/dL POC Glucose (mg/dL) 437 H 403 H (75-99) mg/dL Phosphorus (2.5-4.5) mg/dL AST (14-36) U/L Total Protein (6.3-8.2) g/dL Albumin (3.5-5.0) g/dL 03/04/17 03/04/17 03/04/17 Range/Units 17:01 18:14 19:04 RBC (3.80-5.40) m/uL Hgb (11.4-16.0) gm/dL Hct (34.0-46.0) % MCV (80.0-100.0) fL MCHC (31.0-37.0) g/dL RDW (11.5-15.5) % APTT (22.0-30.0) sec Sodium (137-145) mmol/L Carbon Dioxide (22-30) mmol/L BUN (7-17) mg/dL Creatinine (0.52-1.04) mg/dL Glucose (74-99) mg/dL POC Glucose (mg/dL) 316 H 294 H 263 H (75-99) mg/dL Phosphorus (2.5-4.5) mg/dL AST (14-36) U/L Total Protein (6.3-8.2) g/dL Albumin (3.5-5.0) g/dL 03/04/17 03/04/17 03/04/17 Range/Units 19:50 20:52 22:01 RBC (3.80-5.40) m/uL Hgb (11.4-16.0) gm/dL Hct (34.0-46.0) % MCV (80.0-100.0) fL MCHC (31.0-37.0) g/dL RDW (11.5-15.5) % APTT (22.0-30.0) sec Sodium (137-145) mmol/L Carbon Dioxide (22-30) mmol/L BUN (7-17) mg/dL Creatinine (0.52-1.04) mg/dL Glucose (74-99) mg/dL POC Glucose (mg/dL) 293 H 176 H 119 H (75-99) mg/dL Phosphorus (2.5-4.5) mg/dL AST (14-36) U/L Total Protein (6.3-8.2) g/dL Albumin (3.5-5.0) g/dL 03/04/17 03/05/17 03/05/17 Range/Units 22:44 00:19 01:08 RBC (3.80-5.40) m/uL Hgb (11.4-16.0) gm/dL Hct (34.0-46.0) % MCV (80.0-100.0) fL MCHC (31.0-37.0) g/dL RDW (11.5-15.5) % APTT (22.0-30.0) sec Sodium 136 L (137-145) mmol/L Carbon Dioxide (22-30) mmol/L BUN 101 H* (7-17) mg/dL Creatinine 4.37 H (0.52-1.04) mg/dL Glucose (74-99) mg/dL POC Glucose (mg/dL) 166 H 179 H (75-99) mg/dL Phosphorus (2.5-4.5) mg/dL AST (14-36) U/L Total Protein (6.3-8.2) g/dL Albumin (3.5-5.0) g/dL 03/05/17 03/05/17 03/05/17 Range/Units 02:04 03:01 03:58 RBC 3.12 L (3.80-5.40) m/uL Hgb 9.3 L (11.4-16.0) gm/dL Hct 31.5 L (34.0-46.0) % MCV 100.8 H (80.0-100.0) fL MCHC 29.6 L (31.0-37.0) g/dL RDW 17.4 H (11.5-15.5) % APTT (22.0-30.0) sec Sodium (137-145) mmol/L Carbon Dioxide (22-30) mmol/L BUN (7-17) mg/dL Creatinine (0.52-1.04) mg/dL Glucose (74-99) mg/dL POC Glucose (mg/dL) 182 H 176 H (75-99) mg/dL Phosphorus (2.5-4.5) mg/dL AST (14-36) U/L Total Protein (6.3-8.2) g/dL Albumin (3.5-5.0) g/dL 03/05/17 03/05/17 03/05/17 Range/Units 03:58 03:58 04:02 RBC (3.80-5.40) m/uL Hgb (11.4-16.0) gm/dL Hct (34.0-46.0) % MCV (80.0-100.0) fL MCHC (31.0-37.0) g/dL RDW (11.5-15.5) % APTT 59.6 H (22.0-30.0) sec Sodium 134 L (137-145) mmol/L Carbon Dioxide 19 L (22-30) mmol/L BUN 99 H* (7-17) mg/dL Creatinine 4.34 H (0.52-1.04) mg/dL Glucose 157 H (74-99) mg/dL POC Glucose (mg/dL) 173 H (75-99) mg/dL Phosphorus 6.2 H (2.5-4.5) mg/dL AST 74 H (14-36) U/L Total Protein 5.6 L (6.3-8.2) g/dL Albumin 3.3 L (3.5-5.0) g/dL 03/05/17 03/05/17 03/05/17 Range/Units 04:58 06:03 07:01 RBC (3.80-5.40) m/uL Hgb (11.4-16.0) gm/dL Hct (34.0-46.0) % MCV (80.0-100.0) fL MCHC (31.0-37.0) g/dL RDW (11.5-15.5) % APTT (22.0-30.0) sec Sodium (137-145) mmol/L Carbon Dioxide (22-30) mmol/L BUN (7-17) mg/dL Creatinine (0.52-1.04) mg/dL Glucose (74-99) mg/dL POC Glucose (mg/dL) 178 H 175 H 168 H (75-99) mg/dL Phosphorus (2.5-4.5) mg/dL AST (14-36) U/L Total Protein (6.3-8.2) g/dL Albumin (3.5-5.0) g/dL 03/05/17 Range/Units 08:06 RBC (3.80-5.40) m/uL Hgb (11.4-16.0) gm/dL Hct (34.0-46.0) % MCV (80.0-100.0) fL MCHC (31.0-37.0) g/dL RDW (11.5-15.5) % APTT (22.0-30.0) sec Sodium (137-145) mmol/L Carbon Dioxide (22-30) mmol/L BUN (7-17) mg/dL Creatinine (0.52-1.04) mg/dL Glucose (74-99) mg/dL POC Glucose (mg/dL) 218 H (75-99) mg/dL Phosphorus (2.5-4.5) mg/dL AST (14-36) U/L Total Protein (6.3-8.2) g/dL Albumin (3.5-5.0) g/dL Microbiology - Last 24 Hours (Table) 03/03/17 17:15 Urine Culture - Final Urine,Catheterized 03/03/17 14:40 Blood Culture - Preliminary Blood No Growth after 24 hours Assessment and Plan Plan: Assessment: #1. Nonoliguric acute kidney injury secondary to ischemic ATN secondary to severe intravascular volume depletion from hyperglycemia and hemodynamic instability. Creatinine was 4.8 on admission and is down to 4.34 today. Urinalysis reveals 1+ proteinuria without any hematuria. No evidence of hydronephrosis. #2. Chronic kidney disease stage IV secondary to diabetic kidney disease. Unclear as to what her baseline renal function is. #3. Diabetic ketoacidosis. Improved. #4. Anion gap metabolic acidosis secondary to DKA as well as acute renal failure. Lactic acidosis noted as well, which is improved. #5. Anemia with iron deficiency. #6. Insulin-dependent diabetes mellitus. #7. Hypertension with chronic kidney disease. Controlled. #8. History of aortic regurgitation. #9. Non-ST elevated myocardial infarction. Cardiology following. Plan: Continue normal saline at 50 mL an hour. Hold diuretics for now. Avoid nephrotoxic agents and hypotensive episodes. Advanced diet as tolerated. Obtain records from her outpatient [facility] office. Follow-up cultures. Ferrlicit 125 mg IV daily for 3 days. First dose today.
[2017-03-05] MEDS: SODIUM FERRIC GLUCONAT-SUCROSE 125 MG in SODIUM CHLORIDE 0.9% 100 ML IVPB SCH (11:12)
[2017-03-05 11:54] LABS: Hemoglobin A1C 7.6 % (4.2-6.1)
[2017-03-05 12:20] LABS: Glucose,Whole Blood 458 mg/dL (75-99)
[2017-03-05] MEDS ORDERED: INSULIN LISPRO (humaLOG) 300 UNIT/3 ML VIAL SQ SCH (12:30)
[2017-03-05] MEDS: MULTIVITAMINS, THERA 1 EACH TAB PO SCH (12:37)
[2017-03-05] MEDS ORDERED: INSULIN LISPRO (humaLOG) 300 UNIT/3 ML VIAL SQ ONE (12:40)
[2017-03-05 14:26] LABS: Glucose,Whole Blood 555 mg/dL (75-99)
[2017-03-05] MEDS ORDERED: INSULIN REGULAR BOLUS (FROM DRIP BAG) IV ONE (14:35)
[2017-03-05] MEDS ORDERED: Potassium Replacement Protocol 1 EACH MISC MISCELLANE PRN (14:35)
[2017-03-05] MEDS ORDERED: Magnesium Replacement Protocol 1 EACH MISC MISCELLANE PRN (14:35)
--- NOTE | 2017-03-05 14:42 | P.PN ---
Subjective Patient presented with DKA. Blood sugar control is better now Blood pressure 140/49, pulse rate in the 70s respirations 15 Patient looks comfortable No chest discomfort less short of breath today Labs are reviewed potassium 5.0 sodium 134 BUN 99 creatinine 4.3 Hemoglobin 9.3 2-D echo shows moderate aortic stenosis with a peak gradient of 30 mmHg, moderate to severe mitral regurgitation Dilated left ventricle with reduced LV systolic function of 30 have and 35%, severely dilated left atrium and severe pulmonary hypertension estimated about 68 mmHg Impression Acute myocardial injury likely due to acute myocardial infarction Severe valvular heart disease as described above Hypertension with chronic kidney disease Insulin-dependent diabetes Diabetic ketoacidosis improved Suggest Medical management Objective - Vital Signs Vital signs: Vital Signs Temp 98.9 F 03/05/17 11:00 Pulse 78 03/05/17 13:00 Resp 15 03/05/17 13:00 BP 114/49 03/05/17 13:00 Pulse Ox 96 03/05/17 13:00 Intake & Output 03/04/17 03/05/17 03/05/17 18:59 06:59 18:59 Intake Total 2507.069 9920.355 938.2 Output Total 675 630 480 Balance 799.492 523.355 458.2 Weight 85.1 kg 85.6 kg 85.6 kg Intake: IV 650 600 350 D5-0.45% NaCl with KCl 500 20Meq/l 1,000 ml @ 50 mls /hr IV .Q20H [facility] Rx#: [id number] Sodium Chloride 0.9% 1, 150 600 350 000 ml @ 50 mls/hr IV . Q20H [facility] Rx#:[id number] Intake, IV Titration 444.492 553.355 188.2 Amount Heparin Sodium,Porcine/ 323.4 529.4 88.2 D5w Pmx 25,000 unit In Dextrose/Water 1 500ml. bag @ 12 UNITS/KG/HR 19. 59 mls/hr IV .Q24H [facility] Rx #:[id number] Insulin Regular 100 unit 116.239 23.955 In Sodium Chloride 0.9% 100 ml @ 0.1 UNITS/KG/HR 8.24 mls/hr IV .[id number] [facility] Rx#:[id number] Insulin Regular 100 unit 4.853 In Sodium Chloride 0.9% 100 ml @ 4 UNIT/HR 4.04 mls/hr IV .Q24H [facility] Rx#: [id number] Sodium Ferric Gluconat- 100 Sucrose 125 mg In Sodium Chloride 0.9% 100 ml @ 100 mls/hr IVPB DAILY [facility] Rx#:[id number] Oral 380 400 Output: Urine 675 630 480 Other: Voiding Method Indwelling Catheter Indwelling Catheter Indwelling Catheter - Labs CBC & Chem 7: 03/05/17 03:58 03/05/17 03:58 Labs: Abnormal Lab Results - Last 24 Hours (Table) 03/04/17 03/04/17 03/04/17 Range/Units 14:04 15:14 16:25 RBC (3.80-5.40) m/uL Hgb (11.4-16.0) gm/dL Hct (34.0-46.0) % MCV (80.0-100.0) fL MCHC (31.0-37.0) g/dL RDW (11.5-15.5) % APTT (22.0-30.0) sec Sodium (137-145) mmol/L Carbon Dioxide (22-30) mmol/L BUN (7-17) mg/dL Creatinine (0.52-1.04) mg/dL Glucose (74-99) mg/dL POC Glucose (mg/dL) 355 H 437 H 403 H (75-99) mg/dL Phosphorus (2.5-4.5) mg/dL AST (14-36) U/L Total Protein (6.3-8.2) g/dL Albumin (3.5-5.0) g/dL 03/04/17 03/04/17 03/04/17 Range/Units 16:44 17:01 18:14 RBC (3.80-5.40) m/uL Hgb (11.4-16.0) gm/dL Hct (34.0-46.0) % MCV (80.0-100.0) fL MCHC (31.0-37.0) g/dL RDW (11.5-15.5) % APTT (22.0-30.0) sec Sodium 131 L (137-145) mmol/L Carbon Dioxide 16 L (22-30) mmol/L BUN 104 H* (7-17) mg/dL Creatinine 4.60 H (0.52-1.04) mg/dL Glucose 403 H (74-99) mg/dL POC Glucose (mg/dL) 316 H 294 H (75-99) mg/dL Phosphorus (2.5-4.5) mg/dL AST (14-36) U/L Total Protein (6.3-8.2) g/dL Albumin (3.5-5.0) g/dL 03/04/17 03/04/17 03/04/17 Range/Units 19:04 19:50 20:52 RBC (3.80-5.40) m/uL Hgb (11.4-16.0) gm/dL Hct (34.0-46.0) % MCV (80.0-100.0) fL MCHC (31.0-37.0) g/dL RDW (11.5-15.5) % APTT (22.0-30.0) sec Sodium (137-145) mmol/L Carbon Dioxide (22-30) mmol/L BUN (7-17) mg/dL Creatinine (0.52-1.04) mg/dL Glucose (74-99) mg/dL POC Glucose (mg/dL) 263 H 293 H 176 H (75-99) mg/dL Phosphorus (2.5-4.5) mg/dL AST (14-36) U/L Total Protein (6.3-8.2) g/dL Albumin (3.5-5.0) g/dL 03/04/17 03/04/17 03/05/17 Range/Units 22:01 22:44 00:19 RBC (3.80-5.40) m/uL Hgb (11.4-16.0) gm/dL Hct (34.0-46.0) % MCV (80.0-100.0) fL MCHC (31.0-37.0) g/dL RDW (11.5-15.5) % APTT (22.0-30.0) sec Sodium 136 L (137-145) mmol/L Carbon Dioxide (22-30) mmol/L BUN 101 H* (7-17) mg/dL Creatinine 4.37 H (0.52-1.04) mg/dL Glucose (74-99) mg/dL POC Glucose (mg/dL) 119 H 166 H (75-99) mg/dL Phosphorus (2.5-4.5) mg/dL AST (14-36) U/L Total Protein (6.3-8.2) g/dL Albumin (3.5-5.0) g/dL 03/05/17 03/05/17 03/05/17 Range/Units 01:08 02:04 03:01 RBC (3.80-5.40) m/uL Hgb (11.4-16.0) gm/dL Hct (34.0-46.0) % MCV (80.0-100.0) fL MCHC (31.0-37.0) g/dL RDW (11.5-15.5) % APTT (22.0-30.0) sec Sodium (137-145) mmol/L Carbon Dioxide (22-30) mmol/L BUN (7-17) mg/dL Creatinine (0.52-1.04) mg/dL Glucose (74-99) mg/dL POC Glucose (mg/dL) 179 H 182 H 176 H (75-99) mg/dL Phosphorus (2.5-4.5) mg/dL AST (14-36) U/L Total Protein (6.3-8.2) g/dL Albumin (3.5-5.0) g/dL 03/05/17 03/05/17 03/05/17 Range/Units 03:58 03:58 03:58 RBC 3.12 L (3.80-5.40) m/uL Hgb 9.3 L (11.4-16.0) gm/dL Hct 31.5 L (34.0-46.0) % MCV 100.8 H (80.0-100.0) fL MCHC 29.6 L (31.0-37.0) g/dL RDW 17.4 H (11.5-15.5) % APTT 59.6 H (22.0-30.0) sec Sodium 134 L (137-145) mmol/L Carbon Dioxide 19 L (22-30) mmol/L BUN 99 H* (7-17) mg/dL Creatinine 4.34 H (0.52-1.04) mg/dL Glucose 157 H (74-99) mg/dL POC Glucose (mg/dL) (75-99) mg/dL Phosphorus 6.2 H (2.5-4.5) mg/dL AST 74 H (14-36) U/L Total Protein 5.6 L (6.3-8.2) g/dL Albumin 3.3 L (3.5-5.0) g/dL 03/05/17 03/05/17 03/05/17 Range/Units 04:02 04:58 06:03 RBC (3.80-5.40) m/uL Hgb (11.4-16.0) gm/dL Hct (34.0-46.0) % MCV (80.0-100.0) fL MCHC (31.0-37.0) g/dL RDW (11.5-15.5) % APTT (22.0-30.0) sec Sodium (137-145) mmol/L Carbon Dioxide (22-30) mmol/L BUN (7-17) mg/dL Creatinine (0.52-1.04) mg/dL Glucose (74-99) mg/dL POC Glucose (mg/dL) 173 H 178 H 175 H (75-99) mg/dL Phosphorus (2.5-4.5) mg/dL AST (14-36) U/L Total Protein (6.3-8.2) g/dL Albumin (3.5-5.0) g/dL 03/05/17 03/05/17 03/05/17 Range/Units 07:01 08:06 12:19 RBC (3.80-5.40) m/uL Hgb (11.4-16.0) gm/dL Hct (34.0-46.0) % MCV (80.0-100.0) fL MCHC (31.0-37.0) g/dL RDW (11.5-15.5) % APTT (22.0-30.0) sec Sodium (137-145) mmol/L Carbon Dioxide (22-30) mmol/L BUN (7-17) mg/dL Creatinine (0.52-1.04) mg/dL Glucose (74-99) mg/dL POC Glucose (mg/dL) 168 H 218 H 458 H (75-99) mg/dL Phosphorus (2.5-4.5) mg/dL AST (14-36) U/L Total Protein (6.3-8.2) g/dL Albumin (3.5-5.0) g/dL Microbiology - Last 24 Hours (Table) 03/03/17 17:15 Urine Culture - Final Urine,Catheterized 03/03/17 14:40 Blood Culture - Preliminary Blood No Growth after 24 hours
[2017-03-05 15:17] LABS: Glucose,Whole Blood 459 mg/dL (75-99)
[2017-03-05 16:12] LABS: Glucose,Whole Blood 373 mg/dL (75-99)
[2017-03-05 16:44] LABS: Potassium 4.9 mmol/L (3.5-5.1)
[2017-03-05 17:10] LABS: Glucose,Whole Blood 315 mg/dL (75-99)
--- NOTE | 2017-03-05 17:43 | P.PN ---
Subjective Principal diagnosis: nnn Patient is a 76-year-old female with a history of hypertension, insulin-dependent diabetes mellitus type 2, dyslipidemia, congestive heart failure with unknown ejection fraction and heart murmur, and obstructive sleep apnea with home CPAP use. She initially presented to the emergency department and [place] from the senior living for hyperglycemia. There she underwent an extensive evaluation. She was found to have acute renal failure with the Bielen of 104 creatinine 5.6 and potassium 5.6. Her white blood cell count was elevated at 11.2, hemoglobin 10.2. Her initial troponin was 5 and elevated to 6. She had an elevated lactic acid of 3.3. Elevated lipase at 474 which was nondiagnostic, she was also found to have positive acetone. She was also found to have a urinary tract infection. EKG was done there which showed normal sinus rhythm with PVCs and ST segment elevation in V1 through V3 with reciprocal depression in V4 through V6. This unchanged from her prior EKG in November 2016. She was started on heparin drip for STEMI and in insulin drip for DKA. This was made to transfer her here for critical care and cardiology evaluation. She received 1 L of IV fluids. Repeat troponin was drawn here which was 24, repeat lactic acid was down to 2.4, potassium had normalized. Cardiology was contacted by the emergency department. She was seen in the ER and was admitted to ICU. Cardiology was notified. She was maintained on a heparin drip, aspirin, statin, and Plavix. Nephrology was normal. By the morning after admission she remained in DKA with a anion gap despite having blood sugars in the 100s. Patient has been seen and examined, feeling better. Denies any chest pain or shortness of breath, no nausea or vomiting, no bowel movements yet. No issues overnight. Objective - Vital Signs Vital signs: Vital Signs Temp 98.2 F 03/05/17 04:00 Pulse 68 03/05/17 07:27 Resp 11 L 03/05/17 07:00 BP 128/64 03/05/17 07:00 Pulse Ox 96 03/05/17 07:00 Intake & Output 03/04/17 03/05/17 03/05/17 18:59 06:59 18:59 Intake Total 1474.492 653.355 329.4 Output Total 675 630 105 Balance 799.492 23.355 224.4 Weight 85.1 kg 85.6 kg Intake: IV 650 600 100 D5-0.45% NaCl with KCl 500 20Meq/l 1,000 ml @ 50 mls /hr IV .Q20H [facility] Rx#: [id number] Sodium Chloride 0.9% 1, 150 600 100 000 ml @ 50 mls/hr IV . Q20H [facility] Rx#:[id number] Intake, IV Titration 444.492 53.355 29.4 Amount Heparin Sodium,Porcine/ 323.4 29.4 29.4 D5w Pmx 25,000 unit In Dextrose/Water 1 500ml. bag @ 12 UNITS/KG/HR 19. 59 mls/hr IV .Q24H [facility] Rx #:[id number] Insulin Regular 100 unit 116.239 23.955 In Sodium Chloride 0.9% 100 ml @ 0.1 UNITS/KG/HR 8.24 mls/hr IV .[id number] [facility] Rx#:[id number] Insulin Regular 100 unit 4.853 In Sodium Chloride 0.9% 100 ml @ 4 UNIT/HR 4.04 mls/hr IV .Q24H ONE Rx#: [id number] Oral 380 200 Output: Urine 675 630 105 Other: Voiding Method Indwelling Catheter Indwelling Catheter - Exam General: no acute distress, appears at stated age, obese , AAOx3 Skin;: no rashes, no lesions Head: atraumatic, normocephalic, symmetric Eyes: EOMI, anicteric sclera Neck-supple, no JVD or thyromegaly Cardiovascular: S1S2 reg, no murmur, positive posterior tibial pulse bilateral, Lungs: Decreased breath sounds bilateral bases, no rhonchi, no rales , no accessory muscle use Abdominal: soft, nontender to palpation, no guarding, no appreciable organomegaly Ext: no gross muscle atrophy, trace edema bilateral lower extremities Neuro: CN II-XI grossly intact, no focal neuro deficits - Labs CBC & Chem 7: 03/05/17 03:58 03/05/17 15:52 Labs: Abnormal Lab Results - Last 24 Hours (Table) 03/04/17 03/04/17 03/04/17 Range/Units 08:58 12:37 13:16 RBC (3.80-5.40) m/uL Hgb (11.4-16.0) gm/dL Hct (34.0-46.0) % MCV (80.0-100.0) fL MCHC (31.0-37.0) g/dL RDW (11.5-15.5) % APTT 49.9 H (22.0-30.0) sec Sodium (137-145) mmol/L Carbon Dioxide (22-30) mmol/L BUN (7-17) mg/dL Creatinine (0.52-1.04) mg/dL Glucose (74-99) mg/dL POC Glucose (mg/dL) 212 H 282 H (75-99) mg/dL Phosphorus (2.5-4.5) mg/dL AST (14-36) U/L Total Protein (6.3-8.2) g/dL Albumin (3.5-5.0) g/dL 03/04/17 03/04/17 03/04/17 Range/Units 14:04 15:14 16:25 RBC (3.80-5.40) m/uL Hgb (11.4-16.0) gm/dL Hct (34.0-46.0) % MCV (80.0-100.0) fL MCHC (31.0-37.0) g/dL RDW (11.5-15.5) % APTT (22.0-30.0) sec Sodium (137-145) mmol/L Carbon Dioxide (22-30) mmol/L BUN (7-17) mg/dL Creatinine (0.52-1.04) mg/dL Glucose (74-99) mg/dL POC Glucose (mg/dL) 355 H 437 H 403 H (75-99) mg/dL Phosphorus (2.5-4.5) mg/dL AST (14-36) U/L Total Protein (6.3-8.2) g/dL Albumin (3.5-5.0) g/dL 03/04/17 03/04/17 03/04/17 Range/Units 16:44 17:01 18:14 RBC (3.80-5.40) m/uL Hgb (11.4-16.0) gm/dL Hct (34.0-46.0) % MCV (80.0-100.0) fL MCHC (31.0-37.0) g/dL RDW (11.5-15.5) % APTT (22.0-30.0) sec Sodium 131 L (137-145) mmol/L Carbon Dioxide 16 L (22-30) mmol/L BUN 104 H* (7-17) mg/dL Creatinine 4.60 H (0.52-1.04) mg/dL Glucose 403 H (74-99) mg/dL POC Glucose (mg/dL) 316 H 294 H (75-99) mg/dL Phosphorus (2.5-4.5) mg/dL AST (14-36) U/L Total Protein (6.3-8.2) g/dL Albumin (3.5-5.0) g/dL 03/04/17 03/04/17 03/04/17 Range/Units 19:04 19:50 20:52 RBC (3.80-5.40) m/uL Hgb (11.4-16.0) gm/dL Hct (34.0-46.0) % MCV (80.0-100.0) fL MCHC (31.0-37.0) g/dL RDW (11.5-15.5) % APTT (22.0-30.0) sec Sodium (137-145) mmol/L Carbon Dioxide (22-30) mmol/L BUN (7-17) mg/dL Creatinine (0.52-1.04) mg/dL Glucose (74-99) mg/dL POC Glucose (mg/dL) 263 H 293 H 176 H (75-99) mg/dL Phosphorus (2.5-4.5) mg/dL AST (14-36) U/L Total Protein (6.3-8.2) g/dL Albumin (3.5-5.0) g/dL 03/04/17 03/04/17 03/05/17 Range/Units 22:01 22:44 00:19 RBC (3.80-5.40) m/uL Hgb (11.4-16.0) gm/dL Hct (34.0-46.0) % MCV (80.0-100.0) fL MCHC (31.0-37.0) g/dL RDW (11.5-15.5) % APTT (22.0-30.0) sec Sodium 136 L (137-145) mmol/L Carbon Dioxide (22-30) mmol/L BUN 101 H* (7-17) mg/dL Creatinine 4.37 H (0.52-1.04) mg/dL Glucose (74-99) mg/dL POC Glucose (mg/dL) 119 H 166 H (75-99) mg/dL Phosphorus (2.5-4.5) mg/dL AST (14-36) U/L Total Protein (6.3-8.2) g/dL Albumin (3.5-5.0) g/dL 03/05/17 03/05/17 03/05/17 Range/Units 01:08 02:04 03:01 RBC (3.80-5.40) m/uL Hgb (11.4-16.0) gm/dL Hct (34.0-46.0) % MCV (80.0-100.0) fL MCHC (31.0-37.0) g/dL RDW (11.5-15.5) % APTT (22.0-30.0) sec Sodium (137-145) mmol/L Carbon Dioxide (22-30) mmol/L BUN (7-17) mg/dL Creatinine (0.52-1.04) mg/dL Glucose (74-99) mg/dL POC Glucose (mg/dL) 179 H 182 H 176 H (75-99) mg/dL Phosphorus (2.5-4.5) mg/dL AST (14-36) U/L Total Protein (6.3-8.2) g/dL Albumin (3.5-5.0) g/dL 03/05/17 03/05/17 03/05/17 Range/Units 03:58 03:58 03:58 RBC 3.12 L (3.80-5.40) m/uL Hgb 9.3 L (11.4-16.0) gm/dL Hct 31.5 L (34.0-46.0) % MCV 100.8 H (80.0-100.0) fL MCHC 29.6 L (31.0-37.0) g/dL RDW 17.4 H (11.5-15.5) % APTT 59.6 H (22.0-30.0) sec Sodium 134 L (137-145) mmol/L Carbon Dioxide 19 L (22-30) mmol/L BUN 99 H* (7-17) mg/dL Creatinine 4.34 H (0.52-1.04) mg/dL Glucose 157 H (74-99) mg/dL POC Glucose (mg/dL) (75-99) mg/dL Phosphorus 6.2 H (2.5-4.5) mg/dL AST 74 H (14-36) U/L Total Protein 5.6 L (6.3-8.2) g/dL Albumin 3.3 L (3.5-5.0) g/dL 03/05/17 03/05/17 03/05/17 Range/Units 04:02 04:58 06:03 RBC (3.80-5.40) m/uL Hgb (11.4-16.0) gm/dL Hct (34.0-46.0) % MCV (80.0-100.0) fL MCHC (31.0-37.0) g/dL RDW (11.5-15.5) % APTT (22.0-30.0) sec Sodium (137-145) mmol/L Carbon Dioxide (22-30) mmol/L BUN (7-17) mg/dL Creatinine (0.52-1.04) mg/dL Glucose (74-99) mg/dL POC Glucose (mg/dL) 173 H 178 H 175 H (75-99) mg/dL Phosphorus (2.5-4.5) mg/dL AST (14-36) U/L Total Protein (6.3-8.2) g/dL Albumin (3.5-5.0) g/dL 03/05/17 03/05/17 Range/Units 07:01 08:06 RBC (3.80-5.40) m/uL Hgb (11.4-16.0) gm/dL Hct (34.0-46.0) % MCV (80.0-100.0) fL MCHC (31.0-37.0) g/dL RDW (11.5-15.5) % APTT (22.0-30.0) sec Sodium (137-145) mmol/L Carbon Dioxide (22-30) mmol/L BUN (7-17) mg/dL Creatinine (0.52-1.04) mg/dL Glucose (74-99) mg/dL POC Glucose (mg/dL) 168 H 218 H (75-99) mg/dL Phosphorus (2.5-4.5) mg/dL AST (14-36) U/L Total Protein (6.3-8.2) g/dL Albumin (3.5-5.0) g/dL Microbiology - Last 24 Hours (Table) 03/03/17 17:15 Urine Culture - Final Urine,Catheterized 03/03/17 14:40 Blood Culture - Preliminary Blood No Growth after 24 hours Assessment and Plan (1) Sepsis Status: Acute (2) DKA (diabetic ketoacidoses) Status: Acute (3) NSTEMI (non-ST elevated myocardial infarction) Status: Acute (4) Acute kidney injury Status: Acute (5) Anemia Status: Acute (6) Lactic acidosis Status: Acute (7) LALA (obstructive sleep apnea) Status: Acute (8) UTI (urinary tract infection) Status: Acute (9) Abdominal obesity and metabolic syndrome Status: Acute Plan: Sepsis secondary to UTI, resolved. Blood cultures negative, urine culture negative, continue the current antibiotics. Acute myocardial injury likely due to acute myocardial infarction with severe valvular heart disease. 2-D echo shows moderate aortic stenosis with a peak gradient of 30 mmHg, moderate to severe mitral regurgitation Dilated left ventricle with reduced LV systolic function of 30 have and 35%, severely dilated left atrium and severe pulmonary hypertension estimated about 68 mmHg. Continue aspirin, Plavix, statins, cardiology input appreciated. Diabetic ketoacidosis improved, insulin drip has been stopped and patient started on insulin sliding scale. Her blood sugar was elevated to more than 500 and then he started insulin drip again. Nonoliguric acute kidney injury secondary to ischemic ATN secondary to severe intravascular volume depletion from hyperglycemia and sepsis. Management per nephrology. Anemia, stable, monitor. DVT prophylaxis.
[2017-03-05 18:04] LABS: Glucose,Whole Blood 242 mg/dL (75-99)
[2017-03-05 18:49] LABS: Glucose,Whole Blood 174 mg/dL (75-99)
[2017-03-05 19:54] LABS: Glucose,Whole Blood 127 mg/dL (75-99)
[2017-03-05 20:26] LABS: Phosphorous 5.2 mg/dL (2.5-4.5); Potassium 4.4 mmol/L (3.5-5.1)
[2017-03-05 21:07] LABS: Glucose,Whole Blood 50 mg/dL (75-99)
[2017-03-05 21:10] LABS: Glucose,Whole Blood 53 mg/dL (75-99)
[2017-03-05] MEDS: SERTRALINE 100 MG TAB PO SCH (21:11)
[2017-03-05] MEDS: VIT A,C & E-LUTEIN-MINERALS 1 EACH TAB PO SCH (21:11)
[2017-03-05 21:47] LABS: Glucose,Whole Blood 57 mg/dL (75-99)
[2017-03-05 22:12] LABS: Glucose,Whole Blood 60 mg/dL (75-99)
[2017-03-05 22:31] LABS: Glucose,Whole Blood 77 mg/dL (75-99)
[2017-03-05 22:59] LABS: Glucose,Whole Blood 131 mg/dL (75-99)
[2017-03-05 23:24] LABS: Glucose,Whole Blood 142 mg/dL (75-99)
[2017-03-05 23:55] LABS: Glucose,Whole Blood 139 mg/dL (75-99)
[2017-03-06] MEDS: NITROGLYCERIN OINT 1 INCH/GM PACKET TOPICAL SCH ×4 (00:01→18:00)
[2017-03-06 00:57] LABS: Glucose,Whole Blood 108 mg/dL (75-99)
[2017-03-06 02:07] LABS: Glucose,Whole Blood 121 mg/dL (75-99)
[2017-03-06 03:02] LABS: Glucose,Whole Blood 155 mg/dL (75-99)
[2017-03-06 04:23] LABS: Glucose,Whole Blood 214 mg/dL (75-99)
[2017-03-06 04:59] LABS: Glucose,Whole Blood 223 mg/dL (75-99)
[2017-03-06 05:40] LABS: Anisocytosis Slight; Basophils % (A) 0 %; CHCM 30.2; Eosinophils # (A) 0.2 k/uL (0-0.7); Eosinophils % (A) 3 %; HCT 30.8 % (34.0-46.0); HDW 2.63; HGB 9.2 gm/dL (11.4-16.0); Hypochromasia Moderate; Luc # (Auto) 0.14; Luc % (Auto) 2; Lymphocytes # (A) 1.1 k/uL (1.0-4.8); Lymphocytes % (A) 17 %; MCH 30.8 pg (25.0-35.0); MCHC 29.8 g/dL (31.0-37.0); MCV 103.5 fL (80.0-100.0); Macrocytosis Moderate; Mean Platelet Volume 8.2; Monocytes # (A) 0.4 k/uL (0-1.0); Monocytes % (A) 6 %; Neutrophils # (A) 4.7 k/uL (1.3-7.7); Neutrophils % (A) 72 %; RBC 2.97 m/uL (3.80-5.40); RDW 17.2 % (11.5-15.5); WBC 6.4 k/uL (3.8-10.6); WBC (Perox) 6.59
[2017-03-06 06:03] LABS: Glucose,Whole Blood 193 mg/dL (75-99)
[2017-03-06] MEDS: SODIUM CHLORIDE 0.9% 1,000 ML IV SCH (06:04)
[2017-03-06 06:36] LABS: Magnesium 2.1 mg/dL (1.6-2.3); Phosphorous 5.8 mg/dL (2.5-4.5); Potassium 5.2 mmol/L (3.5-5.1)
[2017-03-06 06:53] LABS: Glucose,Whole Blood 166 mg/dL (75-99)
[2017-03-06] MEDS: hydrALAZINE HCL 50 MG TAB PO SCH ×2 (08:45→20:53)
[2017-03-06] MEDS: FERROUS SULFATE 325 MG TAB PO SCH ×2 (08:46→17:17)
[2017-03-06] MEDS: LABETALOL 200 MG TAB PO SCH ×2 (08:47→20:55)
[2017-03-06] MEDS: ATORVASTATIN 40 MG TAB PO SCH (08:47)
[2017-03-06] MEDS: CLOPIDOGREL 75 MG TAB PO SCH (08:47)
[2017-03-06] MEDS: ASPIRIN 81 MG CHEW PO SCH (08:48)
[2017-03-06 08:54] LABS: Glucose,Whole Blood 200 mg/dL (75-99)
[2017-03-06] MEDS: HYDROcodone/APAP 7.5-325MG 1 EACH TAB PO SCH ×2 (08:54→20:53)
[2017-03-06] MEDS ORDERED: INSULIN GLARGINE 100 UNIT/ML 10 ML VIAL SQ SCH ×2 (09:00)
[2017-03-06] MEDS: CHOLECALCIFEROL 1,000 UNIT TAB PO SCH (09:19)
[2017-03-06] MEDS: PANTOPRAZOLE 40 MG TABLET PO SCH (09:19)
[2017-03-06] MEDS: SODIUM BICARBONATE TAB 650 MG TAB PO SCH ×2 (09:20→20:55)
--- NOTE | 2017-03-06 09:36 | P.PN ---
Subjective Patient is seen in follow-up for acute kidney injury on chronic kidney disease. 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 Unclear as to what her baseline renal function is. Patient presented with DKA. Her blood sugars are better controlled now but still on an insulin drip . She is tolerating oral intake. No nausea vomiting or diarrhea. Denies chest pain or shortness of breath. She is nonoliguric. Hemodynamically stable. Vital signs are stable. General: The patient appeared well nourished and normally developed. HEENT: Head exam is unremarkable. Neck is without jugular venous distension. LUNGS: Lungs are clear to auscultation and percussion. Breath sounds decreased. HEART: Rate and Rhythm are regular. First and second heart sounds normal. No murmurs, rubs or gallops. ABDOMEN: Abdominal exam reveals normal bowel sounds. Non-tender and non- distended. No evidence of peritonitis. EXTREMITITES: No clubbing, cyanosis, or edema. Objective - Vital Signs Vital signs: Vital Signs Temp 98.5 F 03/06/17 04:00 Pulse 67 03/06/17 07:00 Resp 13 03/06/17 07:00 BP 131/59 03/06/17 07:00 Pulse Ox 94 L 03/06/17 07:36 Intake & Output 03/05/17 03/06/17 03/06/17 18:59 06:59 18:59 Intake Total 1269.336 595.664 50 Output Total 905 517 75 Balance 364.336 78.664 -25 Weight 89.6 kg 89.8 kg Intake: IV 650 550 50 Sodium Chloride 0.9% 1, 650 550 50 000 ml @ 50 mls/hr IV . Q20H [facility] Rx#:[id number] Intake, IV Titration 219.336 45.664 Amount Heparin Sodium,Porcine/ 88.2 D5w Pmx 25,000 unit In Dextrose/Water 1 500ml. bag @ 12 UNITS/KG/HR 19. 59 mls/hr IV .Q24H [facility] Rx #:[id number] Insulin Regular 100 unit 31.136 45.664 In Sodium Chloride 0.9% 100 ml @ 0.1 UNITS/KG/HR 8.64 mls/hr IV .[id number] [facility] Rx#:[id number] Sodium Ferric Gluconat- 100 Sucrose 125 mg In Sodium Chloride 0.9% 100 ml @ 100 mls/hr IVPB DAILY [facility] Rx#:[id number] Oral 400 Output: Urine 905 517 75 Other: Voiding Method Indwelling Catheter Indwelling Catheter - Labs CBC & Chem 7: 03/06/17 05:15 03/06/17 05:15 Labs: Abnormal Lab Results - Last 24 Hours (Table) 03/05/17 03/05/17 03/05/17 Range/Units 03:58 12:19 14:16 RBC (3.80-5.40) m/uL Hgb (11.4-16.0) gm/dL Hct (34.0-46.0) % MCV (80.0-100.0) fL MCHC (31.0-37.0) g/dL RDW (11.5-15.5) % APTT (22.0-30.0) sec Sodium (137-145) mmol/L Potassium (3.5-5.1) mmol/L Carbon Dioxide (22-30) mmol/L BUN (7-17) mg/dL Creatinine (0.52-1.04) mg/dL Glucose (74-99) mg/dL POC Glucose (mg/dL) 458 H 555 H (75-99) mg/dL Hemoglobin A1c 7.6 H (4.2-6.1) % Phosphorus (2.5-4.5) mg/dL 03/05/17 03/05/17 03/05/17 Range/Units 15:15 15:52 16:10 RBC (3.80-5.40) m/uL Hgb (11.4-16.0) gm/dL Hct (34.0-46.0) % MCV (80.0-100.0) fL MCHC (31.0-37.0) g/dL RDW (11.5-15.5) % APTT (22.0-30.0) sec Sodium 133 L (137-145) mmol/L Potassium (3.5-5.1) mmol/L Carbon Dioxide 17 L (22-30) mmol/L BUN 101 H* (7-17) mg/dL Creatinine 4.40 H (0.52-1.04) mg/dL Glucose 425 H (74-99) mg/dL POC Glucose (mg/dL) 459 H 373 H (75-99) mg/dL Hemoglobin A1c (4.2-6.1) % Phosphorus 6.0 H (2.5-4.5) mg/dL 03/05/17 03/05/17 03/05/17 Range/Units 17:08 18:02 18:47 RBC (3.80-5.40) m/uL Hgb (11.4-16.0) gm/dL Hct (34.0-46.0) % MCV (80.0-100.0) fL MCHC (31.0-37.0) g/dL RDW (11.5-15.5) % APTT (22.0-30.0) sec Sodium (137-145) mmol/L Potassium (3.5-5.1) mmol/L Carbon Dioxide (22-30) mmol/L BUN (7-17) mg/dL Creatinine (0.52-1.04) mg/dL Glucose (74-99) mg/dL POC Glucose (mg/dL) 315 H 242 H 174 H (75-99) mg/dL Hemoglobin A1c (4.2-6.1) % Phosphorus (2.5-4.5) mg/dL 03/05/17 03/05/17 03/05/17 Range/Units 19:52 19:57 21:04 RBC (3.80-5.40) m/uL Hgb (11.4-16.0) gm/dL Hct (34.0-46.0) % MCV (80.0-100.0) fL MCHC (31.0-37.0) g/dL RDW (11.5-15.5) % APTT (22.0-30.0) sec Sodium 133 L (137-145) mmol/L Potassium (3.5-5.1) mmol/L Carbon Dioxide 19 L (22-30) mmol/L BUN 101 H* (7-17) mg/dL Creatinine 4.27 H (0.52-1.04) mg/dL Glucose 104 H (74-99) mg/dL POC Glucose (mg/dL) 127 H 50 L (75-99) mg/dL Hemoglobin A1c (4.2-6.1) % Phosphorus 5.2 H (2.5-4.5) mg/dL 08/24/17 08/24/17 08/24/17 Range/Units 21:09 21:45 22:10 RBC (3.80-5.40) m/uL Hgb (11.4-16.0) gm/dL Hct (34.0-46.0) % MCV (80.0-100.0) fL MCHC (31.0-37.0) g/dL RDW (11.5-15.5) % APTT (22.0-30.0) sec Sodium (137-145) mmol/L Potassium (3.5-5.1) mmol/L Carbon Dioxide (22-30) mmol/L BUN (7-17) mg/dL Creatinine (0.52-1.04) mg/dL Glucose (74-99) mg/dL POC Glucose (mg/dL) 53 L 57 L 60 L (75-99) mg/dL Hemoglobin A1c (4.2-6.1) % Phosphorus (2.5-4.5) mg/dL 03/05/17 03/05/17 03/05/17 Range/Units 22:57 23:21 23:54 RBC (3.80-5.40) m/uL Hgb (11.4-16.0) gm/dL Hct (34.0-46.0) % MCV (80.0-100.0) fL MCHC (31.0-37.0) g/dL RDW (11.5-15.5) % APTT (22.0-30.0) sec Sodium (137-145) mmol/L Potassium (3.5-5.1) mmol/L Carbon Dioxide (22-30) mmol/L BUN (7-17) mg/dL Creatinine (0.52-1.04) mg/dL Glucose (74-99) mg/dL POC Glucose (mg/dL) 131 H 142 H 139 H (75-99) mg/dL Hemoglobin A1c (4.2-6.1) % Phosphorus (2.5-4.5) mg/dL 03/06/17 03/06/17 03/06/17 Range/Units 00:55 02:05 03:01 RBC (3.80-5.40) m/uL Hgb (11.4-16.0) gm/dL Hct (34.0-46.0) % MCV (80.0-100.0) fL MCHC (31.0-37.0) g/dL RDW (11.5-15.5) % APTT (22.0-30.0) sec Sodium (137-145) mmol/L Potassium (3.5-5.1) mmol/L Carbon Dioxide (22-30) mmol/L BUN (7-17) mg/dL Creatinine (0.52-1.04) mg/dL Glucose (74-99) mg/dL POC Glucose (mg/dL) 108 H 121 H 155 H (75-99) mg/dL Hemoglobin A1c (4.2-6.1) % Phosphorus (2.5-4.5) mg/dL 03/06/17 03/06/17 03/06/17 Range/Units 04:22 04:57 05:15 RBC 2.97 L (3.80-5.40) m/uL Hgb 9.2 L (11.4-16.0) gm/dL Hct 30.8 L (34.0-46.0) % MCV 103.5 H (80.0-100.0) fL MCHC 29.8 L (31.0-37.0) g/dL RDW 17.2 H (11.5-15.5) % APTT (22.0-30.0) sec Sodium (137-145) mmol/L Potassium (3.5-5.1) mmol/L Carbon Dioxide (22-30) mmol/L BUN (7-17) mg/dL Creatinine (0.52-1.04) mg/dL Glucose (74-99) mg/dL POC Glucose (mg/dL) 214 H 223 H (75-99) mg/dL Hemoglobin A1c (4.2-6.1) % Phosphorus (2.5-4.5) mg/dL 03/06/17 03/06/17 03/06/17 Range/Units 05:15 05:15 06:01 RBC (3.80-5.40) m/uL Hgb (11.4-16.0) gm/dL Hct (34.0-46.0) % MCV (80.0-100.0) fL MCHC (31.0-37.0) g/dL RDW (11.5-15.5) % APTT 20.5 L (22.0-30.0) sec Sodium 132 L (137-145) mmol/L Potassium 5.2 H (3.5-5.1) mmol/L Carbon Dioxide 15 L (22-30) mmol/L BUN 101 H* (7-17) mg/dL Creatinine 3.95 H (0.52-1.04) mg/dL Glucose 194 H (74-99) mg/dL POC Glucose (mg/dL) 193 H (75-99) mg/dL Hemoglobin A1c (4.2-6.1) % Phosphorus 5.8 H (2.5-4.5) mg/dL 03/06/17 03/06/17 Range/Units 06:51 08:52 RBC (3.80-5.40) m/uL Hgb (11.4-16.0) gm/dL Hct (34.0-46.0) % MCV (80.0-100.0) fL MCHC (31.0-37.0) g/dL RDW (11.5-15.5) % APTT (22.0-30.0) sec Sodium (137-145) mmol/L Potassium (3.5-5.1) mmol/L Carbon Dioxide (22-30) mmol/L BUN (7-17) mg/dL Creatinine (0.52-1.04) mg/dL Glucose (74-99) mg/dL POC Glucose (mg/dL) 166 H 200 H (75-99) mg/dL Hemoglobin A1c (4.2-6.1) % Phosphorus (2.5-4.5) mg/dL Microbiology - Last 24 Hours (Table) 03/03/17 14:40 Blood Culture - Preliminary Blood No Growth after 48 hours Assessment and Plan Plan: Assessment: #1. Nonoliguric acute kidney injury secondary to ischemic ATN secondary to severe intravascular volume depletion from hyperglycemia and hemodynamic instability. Creatinine was 4.8 on admission and is down to 3.95 today. Urinalysis reveals 1+ proteinuria without any hematuria. No evidence of hydronephrosis. #2. Chronic kidney disease stage IV secondary to diabetic kidney disease. Unclear as to what her baseline renal function is. #3. Diabetic ketoacidosis. Improved. #4. Anion gap metabolic acidosis secondary to DKA as well as acute renal failure. Lactic acidosis noted as well, which is improved. #5. Anemia with iron deficiency. #6. Insulin-dependent diabetes mellitus. #7. Hypertension with chronic kidney disease. Controlled. #8. History of aortic regurgitation. #9. Non-ST elevated myocardial infarction. Cardiology following. #10. Mild hyperkalemia secondary to acute kidney injury and metabolic acidosis. #11. Hyperphosphatemia secondary to chronic kidney disease. Plan: Heplock IVFs. Hold diuretics for now. Encouraged oral intake. Avoid nephrotoxic agents and hypotensive episodes. Still unable to obtain records from her outpatient dietary services manager's office. Ferrlicit 125 mg IV daily for 3 days. Second dose today. No urgent need for renal replacement therapy at this time. Add oral sodium bicarbonate. Add Renvela with meals.
[2017-03-06] MEDS: SODIUM FERRIC GLUCONAT-SUCROSE 125 MG in SODIUM CHLORIDE 0.9% 100 ML IVPB SCH (09:46)
[2017-03-06] MEDS: INSULIN LISPRO (humaLOG) 300 UNIT/3 ML VIAL SQ SCH ×6 (09:50→20:54)
[2017-03-06] MEDS: amLODIPine 2.5 MG TAB PO SCH (09:51)
--- NOTE | 2017-03-06 10:02 | P.PN ---
Subjective This is a very pleasant 76-year-old female patient who follows with Dr. Trejo as her primary care physician. He has a history of diabetes mellitus, depression, diverticulosis, aortic stenosis, congestive heart failure, chronic renal failure, MRSA, lipidemia, hypertension, myocardial infarction, neuropathy. She was recently residing in the extended care facility at [facility] where she developed 1-2 days of nausea vomiting and weakness. She was transferred from there to the [facility] emergency room and she was found to have a blood sugar 736. She was subsequently transferred here to our emergency room for further evaluation and treatment. She was admitted to the ICU with diabetic ketoacidosis, hyperkalemia, acute kidney injury and non-ST segment elevation myocardial infarction. Her initial troponin was 47.4. BUN 117, creatinine 4.70, glucose 306, anion gap 18 bicarb 19. He is seen today in the intensive care unit. She is awake and alert in no acute distress. She is quite weak and fatigued. She denies any chest discomfort at this time. He denies any worsening shortness of breath, cough or congestion. She is maintaining good O2 saturations in the 90s on 2 L/m per nasal cannula. She is currently on a insulin drip at 1.5 units per hour. She is on a heparin drip per weight base protocol. She said 0.9 normal saline at 5 miles per hour. She is on D5 and half-normal saline with 20 mEq of potassium chloride at 50 MLS per hour per DKA protocol. She is seen again today 03/06/2017 in follow-up in the intensive care unit. She is awake and alert in no acute distress. She denies any shortness of breath , cough or congestion. She denies any chest discomfort, palpitations lightheadedness or dizziness. Still on an insulin drip at 1.5 units per hour. He is to receive Lantus and Humalog scale today. Tolerating her diet. Current BUN 101, creatinine 3.95. Carbon dioxide 15 today and bicarbonate has been initiated. Objective - Vital Signs Vital signs: Vital Signs Temp 98.5 F 03/06/17 04:00 Pulse 67 03/06/17 07:00 Resp 13 03/06/17 07:00 BP 131/59 03/06/17 07:00 Pulse Ox 94 L 03/06/17 07:36 Intake & Output 03/05/17 03/06/17 03/06/17 18:59 06:59 18:59 Intake Total 1269.336 595.664 50 Output Total 905 517 75 Balance 364.336 78.664 -25 Weight 89.6 kg 89.8 kg Intake: IV 650 550 50 Sodium Chloride 0.9% 1, 650 550 50 000 ml @ 50 mls/hr IV . Q20H [facility]NY Rx#:[id number] Intake, IV Titration 219.336 45.664 Amount Heparin Sodium,Porcine/ 88.2 D5w Pmx 25,000 unit In Dextrose/Water 1 500ml. bag @ 12 UNITS/KG/HR 19. 59 mls/hr IV .Q24H [facility]NY Rx #:[id number] Insulin Regular 100 unit 31.136 45.664 In Sodium Chloride 0.9% 100 ml @ 0.1 UNITS/KG/HR 8.64 mls/hr IV .[id number] [facility]ENNY Rx#:[id number] Sodium Ferric Gluconat- 100 Sucrose 125 mg In Sodium Chloride 0.9% 100 ml @ 100 mls/hr IVPB DAILY [facility]ENNY Rx#:[id number] Oral 400 Output: Urine 905 517 75 Other: Voiding Method Indwelling Catheter Indwelling Catheter - Exam GENERAL EXAM: Alert, in no apparent distress. HEAD: Normocephalic. EYES: Normal reaction of pupils, equal size. NOSE: Clear with pink turbinates. THROAT: No erythema or exudates. NECK: No masses, no JVD. CHEST: No chest wall deformity. LUNGS: Equal air entry with no crackles, wheeze, rhonchi or dullness. CVS: S1 and S2 normal with positive murmur, regular rhythm. ABDOMEN: No hepatosplenomegaly, normal bowel sounds, no guarding or rigidity. SPINE: No scoliosis or deformity SKIN: No rashes CENTRAL NERVOUS SYSTEM: No focal deficits, tone is normal in all 4 extremities. Extremities: There is trace peripheral edema. No clubbing, no cyanosis. Peripheral pulses are intact. - Labs CBC & Chem 7: 03/06/17 05:15 03/06/17 05:15 Labs: Abnormal Lab Results - Last 24 Hours (Table) 03/05/17 03/05/17 03/05/17 Range/Units 03:58 12:19 14:16 RBC (3.80-5.40) m/uL Hgb (11.4-16.0) gm/dL Hct (34.0-46.0) % MCV (80.0-100.0) fL MCHC (31.0-37.0) g/dL RDW (11.5-15.5) % APTT (22.0-30.0) sec Sodium (137-145) mmol/L Potassium (3.5-5.1) mmol/L Carbon Dioxide (22-30) mmol/L BUN (7-17) mg/dL Creatinine (0.52-1.04) mg/dL Glucose (74-99) mg/dL POC Glucose (mg/dL) 458 H 555 H (75-99) mg/dL Hemoglobin A1c 7.6 H (4.2-6.1) % Phosphorus (2.5-4.5) mg/dL 03/05/17 03/05/17 03/05/17 Range/Units 15:15 15:52 16:10 RBC (3.80-5.40) m/uL Hgb (11.4-16.0) gm/dL Hct (34.0-46.0) % MCV (80.0-100.0) fL MCHC (31.0-37.0) g/dL RDW (11.5-15.5) % APTT (22.0-30.0) sec Sodium 133 L (137-145) mmol/L Potassium (3.5-5.1) mmol/L Carbon Dioxide 17 L (22-30) mmol/L BUN 101 H* (7-17) mg/dL Creatinine 4.40 H (0.52-1.04) mg/dL Glucose 425 H (74-99) mg/dL POC Glucose (mg/dL) 459 H 373 H (75-99) mg/dL Hemoglobin A1c (4.2-6.1) % Phosphorus 6.0 H (2.5-4.5) mg/dL 03/05/17 03/05/17 03/05/17 Range/Units 17:08 18:02 18:47 RBC (3.80-5.40) m/uL Hgb (11.4-16.0) gm/dL Hct (34.0-46.0) % MCV (80.0-100.0) fL MCHC (31.0-37.0) g/dL RDW (11.5-15.5) % APTT (22.0-30.0) sec Sodium (137-145) mmol/L Potassium (3.5-5.1) mmol/L Carbon Dioxide (22-30) mmol/L BUN (7-17) mg/dL Creatinine (0.52-1.04) mg/dL Glucose (74-99) mg/dL POC Glucose (mg/dL) 315 H 242 H 174 H (75-99) mg/dL Hemoglobin A1c (4.2-6.1) % Phosphorus (2.5-4.5) mg/dL 03/05/17 03/05/17 03/05/17 Range/Units 19:52 19:57 21:04 RBC (3.80-5.40) m/uL Hgb (11.4-16.0) gm/dL Hct (34.0-46.0) % MCV (80.0-100.0) fL MCHC (31.0-37.0) g/dL RDW (11.5-15.5) % APTT (22.0-30.0) sec Sodium 133 L (137-145) mmol/L Potassium (3.5-5.1) mmol/L Carbon Dioxide 19 L (22-30) mmol/L BUN 101 H* (7-17) mg/dL Creatinine 4.27 H (0.52-1.04) mg/dL Glucose 104 H (74-99) mg/dL POC Glucose (mg/dL) 127 H 50 L (75-99) mg/dL Hemoglobin A1c (4.2-6.1) % Phosphorus 5.2 H (2.5-4.5) mg/dL 03/05/17 03/05/17 03/05/17 Range/Units 21:09 21:45 22:10 RBC (3.80-5.40) m/uL Hgb (11.4-16.0) gm/dL Hct (34.0-46.0) % MCV (80.0-100.0) fL MCHC (31.0-37.0) g/dL RDW (11.5-15.5) % APTT (22.0-30.0) sec Sodium (137-145) mmol/L Potassium (3.5-5.1) mmol/L Carbon Dioxide (22-30) mmol/L BUN (7-17) mg/dL Creatinine (0.52-1.04) mg/dL Glucose (74-99) mg/dL POC Glucose (mg/dL) 53 L 57 L 60 L (75-99) mg/dL Hemoglobin A1c (4.2-6.1) % Phosphorus (2.5-4.5) mg/dL 03/05/17 03/05/17 03/05/17 Range/Units 22:57 23:21 23:54 RBC (3.80-5.40) m/uL Hgb (11.4-16.0) gm/dL Hct (34.0-46.0) % MCV (80.0-100.0) fL MCHC (31.0-37.0) g/dL RDW (11.5-15.5) % APTT (22.0-30.0) sec Sodium (137-145) mmol/L Potassium (3.5-5.1) mmol/L Carbon Dioxide (22-30) mmol/L BUN (7-17) mg/dL Creatinine (0.52-1.04) mg/dL Glucose (74-99) mg/dL POC Glucose (mg/dL) 131 H 142 H 139 H (75-99) mg/dL Hemoglobin A1c (4.2-6.1) % Phosphorus (2.5-4.5) mg/dL 03/06/17 03/06/17 03/06/17 Range/Units 00:55 02:05 03:01 RBC (3.80-5.40) m/uL Hgb (11.4-16.0) gm/dL Hct (34.0-46.0) % MCV (80.0-100.0) fL MCHC (31.0-37.0) g/dL RDW (11.5-15.5) % APTT (22.0-30.0) sec Sodium (137-145) mmol/L Potassium (3.5-5.1) mmol/L Carbon Dioxide (22-30) mmol/L BUN (7-17) mg/dL Creatinine (0.52-1.04) mg/dL Glucose (74-99) mg/dL POC Glucose (mg/dL) 108 H 121 H 155 H (75-99) mg/dL Hemoglobin A1c (4.2-6.1) % Phosphorus (2.5-4.5) mg/dL 03/06/17 03/06/17 03/06/17 Range/Units 04:22 04:57 05:15 RBC 2.97 L (3.80-5.40) m/uL Hgb 9.2 L (11.4-16.0) gm/dL Hct 30.8 L (34.0-46.0) % MCV 103.5 H (80.0-100.0) fL MCHC 29.8 L (31.0-37.0) g/dL RDW 17.2 H (11.5-15.5) % APTT (22.0-30.0) sec Sodium (137-145) mmol/L Potassium (3.5-5.1) mmol/L Carbon Dioxide (22-30) mmol/L BUN (7-17) mg/dL Creatinine (0.52-1.04) mg/dL Glucose (74-99) mg/dL POC Glucose (mg/dL) 214 H 223 H (75-99) mg/dL Hemoglobin A1c (4.2-6.1) % Phosphorus (2.5-4.5) mg/dL 03/06/17 03/06/17 03/06/17 Range/Units 05:15 05:15 06:01 RBC (3.80-5.40) m/uL Hgb (11.4-16.0) gm/dL Hct (34.0-46.0) % MCV (80.0-100.0) fL MCHC (31.0-37.0) g/dL RDW (11.5-15.5) % APTT 20.5 L (22.0-30.0) sec Sodium 132 L (137-145) mmol/L Potassium 5.2 H (3.5-5.1) mmol/L Carbon Dioxide 15 L (22-30) mmol/L BUN 101 H* (7-17) mg/dL Creatinine 3.95 H (0.52-1.04) mg/dL Glucose 194 H (74-99) mg/dL POC Glucose (mg/dL) 193 H (75-99) mg/dL Hemoglobin A1c (4.2-6.1) % Phosphorus 5.8 H (2.5-4.5) mg/dL 03/06/17 03/06/17 Range/Units 06:51 08:52 RBC (3.80-5.40) m/uL Hgb (11.4-16.0) gm/dL Hct (34.0-46.0) % MCV (80.0-100.0) fL MCHC (31.0-37.0) g/dL RDW (11.5-15.5) % APTT (22.0-30.0) sec Sodium (137-145) mmol/L Potassium (3.5-5.1) mmol/L Carbon Dioxide (22-30) mmol/L BUN (7-17) mg/dL Creatinine (0.52-1.04) mg/dL Glucose (74-99) mg/dL POC Glucose (mg/dL) 166 H 200 H (75-99) mg/dL Hemoglobin A1c (4.2-6.1) % Phosphorus (2.5-4.5) mg/dL Microbiology - Last 24 Hours (Table) 03/03/17 14:40 Blood Culture - Preliminary Blood No Growth after 48 hours Assessment and Plan Plan: Impression: #1 Diabetic ketoacidosis secondary to nausea, vomiting. #2 Lactic acidosis secondary to above. #3 Non-ST segment elevation myocardial infarction. #4 Acute on chronic renal failure, current creatinine 3.95. #5 History of iron deficiency anemia, current hemoglobin 9.2. #6 Acute on chronic back and systolic congestive heart failure, echocardiogram pending. #7 History of coronary artery disease. #8 Diabetes mellitus. #9 Hyperlipidemia. #10 Hypertension, history of. #11 History of depression. #12 Prior history of chronic tobacco dependence. Plan: The patient was seen and evaluated by Dr. Morales. He is stable from the pulmonary and critical care standpoint. Her insulin will be adjusted and she' ll be weaned off the insulin drip. She is cleared for transfer to the selective care unit. We'll continue to follow.
[2017-03-06 11:12] LABS: Glucose,Whole Blood 171 mg/dL (75-99)
[2017-03-06 12:18] LABS: Glucose,Whole Blood 165 mg/dL (75-99)
[2017-03-06] MEDS: MULTIVITAMINS, THERA 1 EACH TAB PO SCH (12:19)
[2017-03-06] MEDS: SEVELAMER 800 MG TAB PO SCH ×2 (12:20→17:18)
--- NOTE | 2017-03-06 15:02 | P.PN ---
Subjective Principal diagnosis: nausea Patient is a 76-year-old female with a history of hypertension, insulin-dependent diabetes mellitus type 2, dyslipidemia, congestive heart failure with unknown ejection fraction and heart murmur, and obstructive sleep apnea with home CPAP use. She initially presented to the emergency department and [place] from the care home for hyperglycemia. There she underwent an extensive evaluation. She was found to have acute renal failure with the Bielen of 104 creatinine 5.6 and potassium 5.6. Her white blood cell count was elevated at 11.2, hemoglobin 10.2. Her initial troponin was 5 and elevated to 6. She had an elevated lactic acid of 3.3. Elevated lipase at 474 which was nondiagnostic, she was also found to have positive acetone. She was also found to have a urinary tract infection. EKG was done there which showed normal sinus rhythm with PVCs and ST segment elevation in V1 through V3 with reciprocal depression in V4 through V6. This unchanged from her prior EKG in November 2016. She was started on heparin drip for STEMI and in insulin drip for DKA. This was made to transfer her here for critical care and cardiology evaluation. She received 1 L of IV fluids. Repeat troponin was drawn here which was 24, repeat lactic acid was down to 2.4, potassium had normalized. Cardiology was contacted by the emergency department. She was seen in the ER and was admitted to ICU. Cardiology was notified. She was maintained on a heparin drip, aspirin, statin, and Plavix. Nephrology was normal. By the morning after admission she remained in DKA with a anion gap despite having blood sugars in the 100s. When her insulin drip was held and her blood sugars went back to 480 to be restarted. Her kidney function improved slowly over time. Patient seen and examined at bedside. she is feeling well today. No chest pain , shortness of breath, nausea, vomiting, diarrhea, or constipation. All questions answered. Objective - Vital Signs Vital signs: Vital Signs Temp 98.5 F 03/06/17 04:00 Pulse 67 03/06/17 07:00 Resp 13 03/06/17 07:00 BP 131/59 03/06/17 07:00 Pulse Ox 94 L 03/06/17 07:36 Intake & Output 03/05/17 03/06/17 03/06/17 18:59 06:59 18:59 Intake Total 1269.336 595.664 50 Output Total 905 517 75 Balance 364.336 78.664 -25 Weight 89.6 kg 89.8 kg Intake: IV 650 550 50 Sodium Chloride 0.9% 1, 650 550 50 000 ml @ 50 mls/hr IV . Q20H [facility] Rx#:[id number] Intake, IV Titration 219.336 45.664 Amount Heparin Sodium,Porcine/ 88.2 D5w Pmx 25,000 unit In Dextrose/Water 1 500ml. bag @ 12 UNITS/KG/HR 19. 59 mls/hr IV .Q24H [facility] Rx #:[id number] Insulin Regular 100 unit 31.136 45.664 In Sodium Chloride 0.9% 100 ml @ 0.1 UNITS/KG/HR 8.64 mls/hr IV .[id number] [facility] Rx#:[id number] Sodium Ferric Gluconat- 100 Sucrose 125 mg In Sodium Chloride 0.9% 100 ml @ 100 mls/hr IVPB DAILY [facility] Rx#:[id number] Oral 400 Output: Urine 905 517 75 Other: Voiding Method Indwelling Catheter Indwelling Catheter - Exam General: non toxic, no distress, appears at stated age, obese Derm: no rashes, no lesions Head: atraumatic, normocephalic, symmetric Eyes: EOMI, no lid lag, anicteric sclera ENT: no post nasal drip, no thrush Mouth: no lip lesion, mucus membranes moist Cardiovascular: S1S2 reg, no murmur, positive posterior tibial pulse bilateral, 1+ edema bilateral lower extremities Lungs: Decreased breath sounds bilateral bases, no rhonchi, no rales , no accessory muscle use Abdominal: soft, nontender to palpation, no guarding, no appreciable organomegaly Ext: no gross muscle atrophy, trace edema bilateral lower extremities, no contractures Neuro: CN II-XI grossly intact, no focal neuro deficits Psych: Alert, oriented, appropriate affect - Labs CBC & Chem 7: 03/06/17 05:15 03/06/17 05:15 Labs: Abnormal Lab Results - Last 24 Hours (Table) 03/05/17 03/05/17 03/05/17 Range/Units 03:58 12:19 14:16 RBC (3.80-5.40) m/uL Hgb (11.4-16.0) gm/dL Hct (34.0-46.0) % MCV (80.0-100.0) fL MCHC (31.0-37.0) g/dL RDW (11.5-15.5) % APTT (22.0-30.0) sec Sodium (137-145) mmol/L Potassium (3.5-5.1) mmol/L Carbon Dioxide (22-30) mmol/L BUN (7-17) mg/dL Creatinine (0.52-1.04) mg/dL Glucose (74-99) mg/dL POC Glucose (mg/dL) 458 H 555 H (75-99) mg/dL Hemoglobin A1c 7.6 H (4.2-6.1) % Phosphorus (2.5-4.5) mg/dL 03/05/17 03/05/17 03/05/17 Range/Units 15:15 15:52 16:10 RBC (3.80-5.40) m/uL Hgb (11.4-16.0) gm/dL Hct (34.0-46.0) % MCV (80.0-100.0) fL MCHC (31.0-37.0) g/dL RDW (11.5-15.5) % APTT (22.0-30.0) sec Sodium 133 L (137-145) mmol/L Potassium (3.5-5.1) mmol/L Carbon Dioxide 17 L (22-30) mmol/L BUN 101 H* (7-17) mg/dL Creatinine 4.40 H (0.52-1.04) mg/dL Glucose 425 H (74-99) mg/dL POC Glucose (mg/dL) 459 H 373 H (75-99) mg/dL Hemoglobin A1c (4.2-6.1) % Phosphorus 6.0 H (2.5-4.5) mg/dL 03/05/17 03/05/17 03/05/17 Range/Units 17:08 18:02 18:47 RBC (3.80-5.40) m/uL Hgb (11.4-16.0) gm/dL Hct (34.0-46.0) % MCV (80.0-100.0) fL MCHC (31.0-37.0) g/dL RDW (11.5-15.5) % APTT (22.0-30.0) sec Sodium (137-145) mmol/L Potassium (3.5-5.1) mmol/L Carbon Dioxide (22-30) mmol/L BUN (7-17) mg/dL Creatinine (0.52-1.04) mg/dL Glucose (74-99) mg/dL POC Glucose (mg/dL) 315 H 242 H 174 H (75-99) mg/dL Hemoglobin A1c (4.2-6.1) % Phosphorus (2.5-4.5) mg/dL 03/05/17 03/05/17 03/05/17 Range/Units 19:52 19:57 21:04 RBC (3.80-5.40) m/uL Hgb (11.4-16.0) gm/dL Hct (34.0-46.0) % MCV (80.0-100.0) fL MCHC (31.0-37.0) g/dL RDW (11.5-15.5) % APTT (22.0-30.0) sec Sodium 133 L (137-145) mmol/L Potassium (3.5-5.1) mmol/L Carbon Dioxide 19 L (22-30) mmol/L BUN 101 H* (7-17) mg/dL Creatinine 4.27 H (0.52-1.04) mg/dL Glucose 104 H (74-99) mg/dL POC Glucose (mg/dL) 127 H 50 L (75-99) mg/dL Hemoglobin A1c (4.2-6.1) % Phosphorus 5.2 H (2.5-4.5) mg/dL 03/05/17 03/05/17 03/05/17 Range/Units 21:09 21:45 22:10 RBC (3.80-5.40) m/uL Hgb (11.4-16.0) gm/dL Hct (34.0-46.0) % MCV (80.0-100.0) fL MCHC (31.0-37.0) g/dL RDW (11.5-15.5) % APTT (22.0-30.0) sec Sodium (137-145) mmol/L Potassium (3.5-5.1) mmol/L Carbon Dioxide (22-30) mmol/L BUN (7-17) mg/dL Creatinine (0.52-1.04) mg/dL Glucose (74-99) mg/dL POC Glucose (mg/dL) 53 L 57 L 60 L (75-99) mg/dL Hemoglobin A1c (4.2-6.1) % Phosphorus (2.5-4.5) mg/dL 03/05/17 03/05/17 03/05/17 Range/Units 22:57 23:21 23:54 RBC (3.80-5.40) m/uL Hgb (11.4-16.0) gm/dL Hct (34.0-46.0) % MCV (80.0-100.0) fL MCHC (31.0-37.0) g/dL RDW (11.5-15.5) % APTT (22.0-30.0) sec Sodium (137-145) mmol/L Potassium (3.5-5.1) mmol/L Carbon Dioxide (22-30) mmol/L BUN (7-17) mg/dL Creatinine (0.52-1.04) mg/dL Glucose (74-99) mg/dL POC Glucose (mg/dL) 131 H 142 H 139 H (75-99) mg/dL Hemoglobin A1c (4.2-6.1) % Phosphorus (2.5-4.5) mg/dL 03/06/17 03/06/17 03/06/17 Range/Units 00:55 02:05 03:01 RBC (3.80-5.40) m/uL Hgb (11.4-16.0) gm/dL Hct (34.0-46.0) % MCV (80.0-100.0) fL MCHC (31.0-37.0) g/dL RDW (11.5-15.5) % APTT (22.0-30.0) sec Sodium (137-145) mmol/L Potassium (3.5-5.1) mmol/L Carbon Dioxide (22-30) mmol/L BUN (7-17) mg/dL Creatinine (0.52-1.04) mg/dL Glucose (74-99) mg/dL POC Glucose (mg/dL) 108 H 121 H 155 H (75-99) mg/dL Hemoglobin A1c (4.2-6.1) % Phosphorus (2.5-4.5) mg/dL 03/06/17 03/06/17 03/06/17 Range/Units 04:22 04:57 05:15 RBC 2.97 L (3.80-5.40) m/uL Hgb 9.2 L (11.4-16.0) gm/dL Hct 30.8 L (34.0-46.0) % MCV 103.5 H (80.0-100.0) fL MCHC 29.8 L (31.0-37.0) g/dL RDW 17.2 H (11.5-15.5) % APTT (22.0-30.0) sec Sodium (137-145) mmol/L Potassium (3.5-5.1) mmol/L Carbon Dioxide (22-30) mmol/L BUN (7-17) mg/dL Creatinine (0.52-1.04) mg/dL Glucose (74-99) mg/dL POC Glucose (mg/dL) 214 H 223 H (75-99) mg/dL Hemoglobin A1c (4.2-6.1) % Phosphorus (2.5-4.5) mg/dL 03/06/17 03/06/17 03/06/17 Range/Units 05:15 05:15 06:01 RBC (3.80-5.40) m/uL Hgb (11.4-16.0) gm/dL Hct (34.0-46.0) % MCV (80.0-100.0) fL MCHC (31.0-37.0) g/dL RDW (11.5-15.5) % APTT 20.5 L (22.0-30.0) sec Sodium 132 L (137-145) mmol/L Potassium 5.2 H (3.5-5.1) mmol/L Carbon Dioxide 15 L (22-30) mmol/L BUN 101 H* (7-17) mg/dL Creatinine 3.95 H (0.52-1.04) mg/dL Glucose 194 H (74-99) mg/dL POC Glucose (mg/dL) 193 H (75-99) mg/dL Hemoglobin A1c (4.2-6.1) % Phosphorus 5.8 H (2.5-4.5) mg/dL 03/06/17 03/06/17 Range/Units 06:51 08:52 RBC (3.80-5.40) m/uL Hgb (11.4-16.0) gm/dL Hct (34.0-46.0) % MCV (80.0-100.0) fL MCHC (31.0-37.0) g/dL RDW (11.5-15.5) % APTT (22.0-30.0) sec Sodium (137-145) mmol/L Potassium (3.5-5.1) mmol/L Carbon Dioxide (22-30) mmol/L BUN (7-17) mg/dL Creatinine (0.52-1.04) mg/dL Glucose (74-99) mg/dL POC Glucose (mg/dL) 166 H 200 H (75-99) mg/dL Hemoglobin A1c (4.2-6.1) % Phosphorus (2.5-4.5) mg/dL Microbiology - Last 24 Hours (Table) 03/03/17 14:40 Blood Culture - Preliminary Blood No Growth after 48 hours Assessment and Plan (1) NSTEMI (non-ST elevated myocardial infarction) Narrative/Plan: ASA, statin, cardio recs appreciated, echo shows cardiomyopathy, heparin gtt completed, troponin down trending, BB, lipid profile with HDL near goal. Status: Acute (2) DKA (diabetic ketoacidoses) Narrative/Plan: Transition to fixed dose and sliding scale Humalog today, Lantus 8 units daily, continue to follow blood sugars, A1C 7.4 Status: Acute (3) UTI (urinary tract infection) Narrative/Plan: UTI present on admission- not cath related, here UA appears negative but patient had already recieved ABX at outside ED and there had WBC >100 in the urine, rocephin for 7 days, urine culture likely negative due to prior abx exposure Status: Acute (4) Sepsis Narrative/Plan: resolved, treatment of UTI, blood cultures negative Status: Acute (5) Acute kidney injury Narrative/Plan: improving, likely due to ATN from volume depletion and DKA, off IVF, off bumex, avoid nephrotoxic agents, follow Cr, nephro recs appreciated, renal us with medical renal disease Status: Acute (6) CKD (chronic kidney disease) Narrative/Plan: Unknown baseline, attempt to get records from coding compliance specialist office, elijah ryan appreciated, on renvella Status: Acute (7) CHF (congestive heart failure) Narrative/Plan: Currently compensated, EF 35%, will avoid diuresis at this time with acute kidney injury, not chronically an INDER inhibitor and I will not initiate at this point in time with acute kidney injury, continue home labetalol, strict I's and O's, daily weight, cardiology signed off Status: Acute (8) Obesity Narrative/Plan: Ideally structured outpatient weight loss Status: Acute (9) LALA (obstructive sleep apnea) Narrative/Plan: Continue with CPAP use at night Status: Acute (10) Anemia Narrative/Plan: Appears chronic, patient is on Arnesp and iron at care home, follow CBC, IV iron per nephro Status: Acute Plan: Resolved: Elevated lipase Lactic acidosis DVT prophylaxis:Heparin Discussed with: Patient, nursing Anticipated discharge: 2-[address]: return to care home A total of 35 minutes was spent on the care of this complex patient more than 50 % of the time was spent in counseling and care coordination.
[2017-03-06] MEDS: HEPARIN SODIUM,PORCINE 5,000 UNIT/ML 1 ML VIAL SQ SCH (16:16)
[2017-03-06 17:17] LABS: Glucose,Whole Blood 146 mg/dL (75-99)
[2017-03-06 20:49] LABS: Glucose,Whole Blood 112 mg/dL (75-99)
[2017-03-06] MEDS: VIT A,C & E-LUTEIN-MINERALS 1 EACH TAB PO SCH (20:55)
[2017-03-06] MEDS: SERTRALINE 100 MG TAB PO SCH (20:55)
[2017-03-07] MEDS: NITROGLYCERIN OINT 1 INCH/GM PACKET TOPICAL SCH ×2 (00:30→05:54)
[2017-03-07] MEDS: HEPARIN SODIUM,PORCINE 5,000 UNIT/ML 1 ML VIAL SQ SCH ×4 (01:03→22:47)
[2017-03-07 05:37] LABS: Anisocytosis Slight; Basophils % (A) 0 %; CH 31.3; CHCM 31.1; Eosinophils # (A) 0.3 k/uL (0-0.7); Eosinophils % (A) 5 %; HCT 32.6 % (34.0-46.0); HDW 2.76; HGB 9.8 gm/dL (11.4-16.0); Hypochromasia Slight; Luc # (Auto) 0.14; Luc % (Auto) 2; Lymphocytes # (A) 0.8 k/uL (1.0-4.8); Lymphocytes % (A) 14 %; MCH 30.5 pg (25.0-35.0); MCHC 30.1 g/dL (31.0-37.0); MCV 101.4 fL (80.0-100.0); Macrocytosis Slight; Mean Platelet Volume 8.5; Monocytes # (A) 0.3 k/uL (0-1.0); Monocytes % (A) 5 %; Neutrophils # (A) 4.5 k/uL (1.3-7.7); Neutrophils % (A) 74 %; RBC 3.21 m/uL (3.80-5.40); RDW 17.7 % (11.5-15.5); WBC 6.1 k/uL (3.8-10.6); WBC (Perox) 6.56
[2017-03-07 05:58] LABS: Calcium 9.4 mg/dL (8.4-10.2); Potassium 5.5 mmol/L (3.5-5.1)
[2017-03-07 08:05] LABS: Glucose,Whole Blood 261 mg/dL (75-99)
[2017-03-07] MEDS ORDERED: FUROSEMIDE 10 MG/ML 10 ML VIAL IV STA (08:16)
[2017-03-07] MEDS: LABETALOL 200 MG TAB PO SCH ×2 (08:19→21:05)
[2017-03-07] MEDS: CLOPIDOGREL 75 MG TAB PO SCH (08:19)
[2017-03-07] MEDS: FERROUS SULFATE 325 MG TAB PO SCH ×2 (08:20→17:17)
[2017-03-07] MEDS: CHOLECALCIFEROL 1,000 UNIT TAB PO SCH (08:20)
[2017-03-07] MEDS: SODIUM BICARBONATE TAB 650 MG TAB PO SCH ×2 (08:20→21:05)
[2017-03-07] MEDS: SEVELAMER 800 MG TAB PO SCH ×3 (08:21→17:17)
[2017-03-07] MEDS: PANTOPRAZOLE 40 MG TABLET PO SCH (08:21)
[2017-03-07] MEDS: ASPIRIN 81 MG CHEW PO SCH (08:21)
[2017-03-07] MEDS: INSULIN LISPRO (humaLOG) 300 UNIT/3 ML VIAL SQ SCH ×7 (08:22→21:16)
[2017-03-07] MEDS: hydrALAZINE HCL 50 MG TAB PO SCH ×2 (08:25→21:05)
[2017-03-07] MEDS: amLODIPine 2.5 MG TAB PO SCH (08:26)
[2017-03-07] MEDS: ATORVASTATIN 40 MG TAB PO SCH (08:26)
[2017-03-07] MEDS: HYDROcodone/APAP 7.5-325MG 1 EACH TAB PO SCH ×2 (08:28→21:14)
[2017-03-07] MEDS: SODIUM FERRIC GLUCONAT-SUCROSE 125 MG in SODIUM CHLORIDE 0.9% 100 ML IVPB SCH (09:51)
--- NOTE | 2017-03-07 10:19 | P.PN ---
Subjective This is a very pleasant 76-year-old female patient who follows with Dr. Trejo as her primary care physician. He has a history of diabetes mellitus, depression, diverticulosis, aortic stenosis, congestive heart failure, chronic renal failure, MRSA, lipidemia, hypertension, myocardial infarction, neuropathy. She was recently residing in the extended care facility at [place] where she developed 1-2 days of nausea vomiting and weakness. She was transferred from there to the [facility] emergency room and she was found to have a blood sugar 736. She was subsequently transferred here to our emergency room for further evaluation and treatment. She was admitted to the ICU with diabetic ketoacidosis, hyperkalemia, acute kidney injury and non-ST segment elevation myocardial infarction. Her initial troponin was 47.4. BUN 117, creatinine 4.70, glucose 306, anion gap 18 bicarb 19. He is seen today in the intensive care unit. She is awake and alert in no acute distress. She is quite weak and fatigued. She denies any chest discomfort at this time. He denies any worsening shortness of breath, cough or congestion. She is maintaining good O2 saturations in the 90s on 2 L/m per nasal cannula. She is currently on a insulin drip at 1.5 units per hour. She is on a heparin drip per weight base protocol. She said 0.9 normal saline at 5 miles per hour. She is on D5 and half-normal saline with 20 mEq of potassium chloride at 50 MLS per hour per DKA protocol. She is seen again today 03/06/2017 in follow-up in the intensive care unit. She is awake and alert in no acute distress. She denies any shortness of breath , cough or congestion. She denies any chest discomfort, palpitations lightheadedness or dizziness. Still on an insulin drip at 1.5 units per hour. He is to receive Lantus and Humalog scale today. Tolerating her diet. Current BUN 101, creatinine 3.95. Carbon dioxide 15 today and bicarbonate has been initiated. Seen again today 03/07/2017 in follow-up in the intensive care unit. Awake and alert in no acute distress. She is currently a selective care overflow. Is any shortness of breath, cough, congestion. No chest pain, palpitations lightheadedness or dizziness. Maintaining good O2 saturations in the upper 90s on room air. She's been hemodynamically stable. Hemoglobin 9.8. BUN 99 creatinine 3.80. Bicarb at 19 blood glucose 221 Remains in a negative balance. Objective - Vital Signs Vital signs: Vital Signs Temp 98.2 F 03/07/17 08:00 Pulse 71 03/07/17 09:30 Resp 31 H 03/07/17 09:30 BP 133/58 03/07/17 09:30 Pulse Ox 99 03/07/17 07:30 Intake & Output 03/06/17 03/07/17 03/07/17 18:59 06:59 18:59 Intake Total 870 870 20 Output Total 800 1195 200 Balance 70 -325 -180 Weight 89.8 kg 96.7 kg Intake: IV 200 390 20 Sodium Chloride 0.9% 1, 200 390 20 000 ml @ 50 mls/hr IV . Q20H [facility] Rx#:[id number] Intake, IV Titration 50 Amount cefTRIAXone 1,000 mg In 50 Sodium Chloride 0.9% 50 ml @ 100 mls/hr IVPB DAILY [facility] Rx#:[id number] Oral 620 480 Output: Urine 800 1195 200 Other: Voiding Method Indwelling Catheter Indwelling Catheter Indwelling Catheter - Exam GENERAL EXAM: Alert, in no apparent distress. HEAD: Normocephalic. EYES: Normal reaction of pupils, equal size. NOSE: Clear with pink turbinates. THROAT: No erythema or exudates. NECK: No masses, no JVD. CHEST: No chest wall deformity. LUNGS: Equal air entry with no crackles, wheeze, rhonchi or dullness. CVS: S1 and S2 normal with positive murmur, regular rhythm. ABDOMEN: No hepatosplenomegaly, normal bowel sounds, no guarding or rigidity. SPINE: No scoliosis or deformity SKIN: No rashes CENTRAL NERVOUS SYSTEM: No focal deficits, tone is normal in all 4 extremities. Extremities: There is trace peripheral edema. No clubbing, no cyanosis. Peripheral pulses are intact. - Labs CBC & Chem 7: 03/07/17 05:13 03/07/17 05:13 Labs: Abnormal Lab Results - Last 24 Hours (Table) 03/06/17 03/06/17 03/06/17 Range/Units 11:10 12:17 17:15 RBC (3.80-5.40) m/uL Hgb (11.4-16.0) gm/dL Hct (34.0-46.0) % MCV (80.0-100.0) fL MCHC (31.0-37.0) g/dL RDW (11.5-15.5) % Lymphocytes # (1.0-4.8) k/uL Sodium (137-145) mmol/L Potassium (3.5-5.1) mmol/L Carbon Dioxide (22-30) mmol/L BUN (7-17) mg/dL Creatinine (0.52-1.04) mg/dL Glucose (74-99) mg/dL POC Glucose (mg/dL) 171 H 165 H 146 H (75-99) mg/dL 03/06/17 03/07/17 03/07/17 Range/Units 20:47 05:13 05:13 RBC 3.21 L (3.80-5.40) m/uL Hgb 9.8 L (11.4-16.0) gm/dL Hct 32.6 L (34.0-46.0) % MCV 101.4 H (80.0-100.0) fL MCHC 30.1 L (31.0-37.0) g/dL RDW 17.7 H (11.5-15.5) % Lymphocytes # 0.8 L (1.0-4.8) k/uL Sodium 134 L (137-145) mmol/L Potassium 5.5 H (3.5-5.1) mmol/L Carbon Dioxide 19 L (22-30) mmol/L BUN 99 H* (7-17) mg/dL Creatinine 3.80 H (0.52-1.04) mg/dL Glucose 221 H (74-99) mg/dL POC Glucose (mg/dL) 112 H (75-99) mg/dL 03/07/17 Range/Units 08:04 RBC (3.80-5.40) m/uL Hgb (11.4-16.0) gm/dL Hct (34.0-46.0) % MCV (80.0-100.0) fL MCHC (31.0-37.0) g/dL RDW (11.5-15.5) % Lymphocytes # (1.0-4.8) k/uL Sodium (137-145) mmol/L Potassium (3.5-5.1) mmol/L Carbon Dioxide (22-30) mmol/L BUN (7-17) mg/dL Creatinine (0.52-1.04) mg/dL Glucose (74-99) mg/dL POC Glucose (mg/dL) 261 H (75-99) mg/dL Microbiology - Last 24 Hours (Table) 03/03/17 14:40 Blood Culture - Preliminary Blood No Growth after 72 hours Assessment and Plan Plan: Impression: #1 Diabetic ketoacidosis secondary to nausea, vomiting. #2 Lactic acidosis secondary to above. #3 Non-ST segment elevation myocardial infarction. #4 Acute on chronic renal failure, current creatinine 3.95. #5 History of iron deficiency anemia, current hemoglobin 9.2. #6 Acute on chronic back and systolic congestive heart failure, echocardiogram pending. #7 History of coronary artery disease. #8 Diabetes mellitus. #9 Hyperlipidemia. #10 Hypertension, history of. #11 History of depression. #12 Prior history of chronic tobacco dependence. Plan: The patient was seen and evaluated by Dr. Morales. Will continue with her current medications. We will increase her activity as tolerated. We'll continue to follow.
[2017-03-07] MEDS: MULTIVITAMINS, THERA 1 EACH TAB PO SCH (11:28)
[2017-03-07 12:36] LABS: Glucose,Whole Blood 203 mg/dL (75-99)
--- NOTE | 2017-03-07 12:53 | PN ---
Patient is seen for follow up for acute kidney injury. Currently she is in the ICU as a Selective overflow. Patient is resting comfortably. She is no maintained on any IV fluids. She has good urine output. On examination, blood pressure is 133/58, heart rate is 71 per minute. She is afebrile. Examination of the heart: S1, S2. Examination of lungs: Bilateral breath sounds are heard. Abdomen is soft, nontender. Examination of lower extremities shows no significant edema. RECEPTION CLERK exam is grossly intact. Labs show sodium of 134, potassium 5.5, BUN 99, serum creatinine 3.8 mg/dL, which is down slightly from 3.9 from yesterday. ASSESSMENT: 1. Acute kidney injury, nonoliguric, currently improving. Etiology was ischemic acute tubular necrosis. 2. Mild hyperkalemia. Will repeat labs in the a.m. If potassium remains elevated patient will need Kayexalate. Currently I will maintain her on low potassium diet. She is not on any INDER inhibitors nonsteroidal antiinflammatory agents. 3. Diabetic ketoacidosis, currently resolved. 4. Anion gap metabolic acidosis and lactic acidosis currently improved. 5. Non-ST elevation myocardial infarction with no plans of cardiac catheterization at this time. 6. Aortic regurgitation. PLAN: Continue with oral sodium bicarb. Maintain patient on low potassium diet. Repeat labs in the a.m. MTDD
[2017-03-07 13:22] LABS: Potassium 4.7 mmol/L (3.5-5.1)
--- NOTE | 2017-03-07 14:42 | P.PN ---
Subjective Principal diagnosis: nausea Patient is a 76-year-old female with a history of hypertension, insulin-dependent diabetes mellitus type 2, dyslipidemia, congestive heart failure with unknown ejection fraction and heart murmur, and obstructive sleep apnea with home CPAP use. She initially presented to the emergency department in [place] from the senior care for hyperglycemia. There she underwent an extensive evaluation. She was found to have acute renal failure with the Bun of 104, creatinine 5.6, and potassium 5.6. Her white blood cell count was elevated at 11.2, hemoglobin 10.2. Her initial troponin was 5 and elevated to 6. She had an elevated lactic acid of 3.3. Elevated lipase at 474 which was nondiagnostic, she was also found to have positive acetone. She was also found to have a urinary tract infection. EKG was done there which showed normal sinus rhythm with PVCs and ST segment elevation in V1 through V3 with reciprocal depression in V4 through V6. This unchanged from her prior EKG in November 2016. She was started on heparin drip for NSTEMI and in insulin drip for DKA. This was made to transfer her here for critical care and cardiology evaluation. She received 1 L of IV fluids. Repeat troponin was drawn here which was 24, repeat lactic acid was down to 2.4, potassium had normalized. Cardiology was contacted by the emergency department. She was seen in the ER and was admitted to ICU. Cardiology was notified. She was maintained on a heparin drip, aspirin, statin, and Plavix. Nephrology was normal. By the morning after admission she remained in DKA with a anion gap despite having blood sugars in the 100s. When her insulin drip was held and her blood sugars went back to 480 to be restarted. Her kidney function improved slowly over time. Her NSTEMI will be managed medically per cardiology. She does have systolic CHF. Her insulin gtt was able to de discontinued successfully on 03/06. Patient seen and examined at bedside. Patient is feeling much improved. No chest pain, SOB, nuasea, constipation. She has no complaints. Encouraged ambulation and Miner discontinued. Objective - Vital Signs Vital signs: Vital Signs Temp 98.2 F 03/07/17 08:00 Pulse 71 03/07/17 09:30 Resp 31 H 03/07/17 09:30 BP 133/58 03/07/17 09:30 Pulse Ox 99 03/07/17 07:30 Intake & Output 03/06/17 03/07/17 03/07/17 18:59 06:59 18:59 Intake Total 870 870 20 Output Total 800 1195 200 Balance 70 -325 -180 Weight 89.8 kg 96.7 kg Intake: IV 200 390 20 Sodium Chloride 0.9% 1, 200 390 20 000 ml @ 50 mls/hr IV . Q20H [facility] Rx#:[id number] Intake, IV Titration 50 Amount cefTRIAXone 1,000 mg In 50 Sodium Chloride 0.9% 50 ml @ 100 mls/hr IVPB DAILY [facility] Rx#:[id number] Oral 620 480 Output: Urine 800 1195 200 Other: Voiding Method Indwelling Catheter Indwelling Catheter Indwelling Catheter - Exam General: non toxic, no distress, appears at stated age, obese Derm: no rashes, no lesions Head: atraumatic, normocephalic, symmetric Eyes: EOMI, no lid lag, anicteric sclera ENT: no post nasal drip, no thrush Mouth: no lip lesion, mucus membranes moist Cardiovascular: S1S2 reg, no murmur, positive posterior tibial pulse bilateral, Lungs: Decreased breath sounds bilateral bases, no rhonchi, no rales , no accessory muscle use Abdominal: soft, nontender to palpation, no guarding, no appreciable organomegaly Ext: no gross muscle atrophy, 2+ edema bilateral lower extremities, no contractures Neuro: CN II-XI grossly intact, no focal neuro deficits Psych: Alert, oriented, appropriate affect - Labs CBC & Chem 7: 03/07/17 05:13 03/07/17 12:46 Labs: Abnormal Lab Results - Last 24 Hours (Table) 03/06/17 03/06/17 03/06/17 Range/Units 12:17 17:15 20:47 RBC (3.80-5.40) m/uL Hgb (11.4-16.0) gm/dL Hct (34.0-46.0) % MCV (80.0-100.0) fL MCHC (31.0-37.0) g/dL RDW (11.5-15.5) % Lymphocytes # (1.0-4.8) k/uL Sodium (137-145) mmol/L Potassium (3.5-5.1) mmol/L Carbon Dioxide (22-30) mmol/L BUN (7-17) mg/dL Creatinine (0.52-1.04) mg/dL Glucose (74-99) mg/dL POC Glucose (mg/dL) 165 H 146 H 112 H (75-99) mg/dL 03/07/17 03/07/17 03/07/17 Range/Units 05:13 05:13 08:04 RBC 3.21 L (3.80-5.40) m/uL Hgb 9.8 L (11.4-16.0) gm/dL Hct 32.6 L (34.0-46.0) % MCV 101.4 H (80.0-100.0) fL MCHC 30.1 L (31.0-37.0) g/dL RDW 17.7 H (11.5-15.5) % Lymphocytes # 0.8 L (1.0-4.8) k/uL Sodium 134 L (137-145) mmol/L Potassium 5.5 H (3.5-5.1) mmol/L Carbon Dioxide 19 L (22-30) mmol/L BUN 99 H* (7-17) mg/dL Creatinine 3.80 H (0.52-1.04) mg/dL Glucose 221 H (74-99) mg/dL POC Glucose (mg/dL) 261 H (75-99) mg/dL Microbiology - Last 24 Hours (Table) 03/03/17 14:40 Blood Culture - Preliminary Blood No Growth after 72 hours Assessment and Plan (1) Hyperkalemia Narrative/Plan: lasix X1, repeat in AM, if Cr stable then continue lasix in AM as developing edema. Status: Acute (2) DM type 2 (diabetes mellitus, type 2) Narrative/Plan: Continue with fixed dose and sliding scale insulin, move the Levemir to nighttime, continue to follow blood sugars, globin A1c 7.4 Status: Acute (3) UTI (urinary tract infection) Narrative/Plan: Continue with Rocephin, treat for total of 7 days Status: Acute (4) Acute kidney injury Narrative/Plan: Given lasix X 1, improving, likely due to ATN from volume depletion and DKA, off IVF, off bumex, avoid nephrotoxic agents, follow Cr, nephro recs appreciated , renal us with medical renal disease Status: Acute (5) CKD (chronic kidney disease) Narrative/Plan: Unknown baseline, attempt to get records from [facility], nephro recs appreciated, on renvella Status: Acute (6) CHF (congestive heart failure) Narrative/Plan: Currently compensated, EF 35%, Lasix X 1, not chronically an INDER inhibitor and I will not initiate at this point in time with acute kidney injury, continue home labetalol, strict I's and O's, daily weight, cardiology signed off Status: Acute (7) Obesity Status: Acute (8) LALA (obstructive sleep apnea) Narrative/Plan: Continue with CPAP use at night Status: Acute (9) Anemia Narrative/Plan: Appears chronic, patient is on Arnesp and iron at senior care, follow CBC, IV iron per nephro Status: Acute (10) NSTEMI (non-ST elevated myocardial infarction) Narrative/Plan: ASA, statin, cardio recs appreciated, echo shows cardiomyopathy, heparin gtt completed, troponin down trending, BB, lipid profile with HDL near goal. Status: Acute (11) Valvular heart disease Narrative/Plan: Severe MR, and Moderate Aortic stenosis, outpatient f/u Status: Acute Plan: Resolved: DKA Sepsis DVT prophylaxis: Heparin Discussed with: Patient, nursing Anticipated discharge: 24-[address]: Return to senior care A total of 35 minutes was spent on the care of this complex patient more than 50 % of the time was spent in counseling and care coordination.
[2017-03-07 17:13] LABS: Glucose,Whole Blood 179 mg/dL (75-99)
[2017-03-07] MEDS ORDERED: INSULIN GLARGINE 100 UNIT/ML 10 ML VIAL SQ SCH (21:00)
[2017-03-07] MEDS: VIT A,C & E-LUTEIN-MINERALS 1 EACH TAB PO SCH (21:05)
[2017-03-07] MEDS: SERTRALINE 100 MG TAB PO SCH (21:05)
[2017-03-07 21:15] LABS: Glucose,Whole Blood 156 mg/dL (75-99)
[2017-03-08 06:28] LABS: Glucose,Whole Blood 239 mg/dL (75-99)
[2017-03-08 06:45] LABS: Anisocytosis Slight; Basophils % (A) 0 %; CH 31.1; CHCM 30.7; Eosinophils # (A) 0.3 k/uL (0-0.7); Eosinophils % (A) 5 %; HCT 32.6 % (34.0-46.0); HDW 2.76; HGB 9.7 gm/dL (11.4-16.0); Hypochromasia Moderate; Luc # (Auto) 0.21; Luc % (Auto) 3; Lymphocytes # (A) 0.9 k/uL (1.0-4.8); Lymphocytes % (A) 14 %; MCH 30.6 pg (25.0-35.0); MCHC 29.9 g/dL (31.0-37.0); MCV 102.5 fL (80.0-100.0); Macrocytosis Moderate; Monocytes # (A) 0.3 k/uL (0-1.0); Monocytes % (A) 5 %; Neutrophils # (A) 4.8 k/uL (1.3-7.7); Neutrophils % (A) 73 %; RBC 3.18 m/uL (3.80-5.40); RDW 17.9 % (11.5-15.5); WBC 6.6 k/uL (3.8-10.6); WBC (Perox) 6.79
[2017-03-08] MEDS: FERROUS SULFATE 325 MG TAB PO SCH ×2 (06:48→16:53)
[2017-03-08] MEDS: SEVELAMER 800 MG TAB PO SCH ×3 (06:48→16:54)
[2017-03-08] MEDS: PANTOPRAZOLE 40 MG TABLET PO SCH (06:48)
[2017-03-08 07:04] LABS: Calcium 9.5 mg/dL (8.4-10.2); Potassium 5.4 mmol/L (3.5-5.1)
[2017-03-08] MEDS: INSULIN LISPRO (humaLOG) 300 UNIT/3 ML VIAL SQ SCH ×7 (07:13→21:20)
[2017-03-08] MEDS ORDERED: FUROSEMIDE 10 MG/ML 4 ML VIAL IV STA (08:01)
[2017-03-08] MEDS: ATORVASTATIN 40 MG TAB PO SCH (09:22)
[2017-03-08] MEDS: LABETALOL 200 MG TAB PO SCH ×2 (09:22→21:19)
[2017-03-08] MEDS: ASPIRIN 81 MG CHEW PO SCH (09:22)
[2017-03-08] MEDS: hydrALAZINE HCL 50 MG TAB PO SCH ×2 (09:22→21:20)
[2017-03-08] MEDS: SODIUM BICARBONATE TAB 650 MG TAB PO SCH ×2 (09:22→21:20)
[2017-03-08] MEDS: HYDROcodone/APAP 7.5-325MG 1 EACH TAB PO SCH ×2 (09:22→21:19)
[2017-03-08] MEDS: CHOLECALCIFEROL 1,000 UNIT TAB PO SCH (09:23)
[2017-03-08] MEDS: amLODIPine 2.5 MG TAB PO SCH (09:23)
[2017-03-08] MEDS: CLOPIDOGREL 75 MG TAB PO SCH (09:23)
[2017-03-08] MEDS: HEPARIN SODIUM,PORCINE 5,000 UNIT/ML 1 ML VIAL SQ SCH ×3 (09:24→23:53)
--- NOTE | 2017-03-08 09:30 | PN ---
Patient is seen for follow up for acute kidney injury. She has been transferred out of the ICU. Currently patient is sitting up comfortable. She is eating. She is not in any acute distress. Blood pressure is 131/63. She is afebrile. Heart rate 69 per minute. HEENT: Normocephalic, atraumatic. Pupils are equal and round. JVD is not elevated. Lymph nodes are not palpable. Thyroid is not enlarged. Examination of the heart : S1, S2. Examination of lungs: Bilateral breath sounds are heard. Abdomen is soft, obese, nontender. Examination of lower extremities shows trace edema bilaterally. COPY MESSENGER exam is grossly intact. Labs show sodium of 135, potassium 5.4, CO2 is 18, BUN 98, serum creatinine 3.7. Hemoglobin 9.7 g/dL. ASSESSMENT: 1. Acute kidney injury, acute tubular necrosis, currently nonoliguric and slowly improving. 2. Mild hyperkalemia associated with renal failure. The diet was changed to renal diet yesterday. Patient received one dose of Lasix. Her potassium remains at about 5.4. Her glucose is elevated at 235 on her recent blood work. This could also potentiate the hyperkalemia. At this time I will continue to maintain her on low potassium diet, low dose loop diuretic will be added since renal function is stable with some improvement in creatinine over the last three days. 3. Anemia with iron deficiency maintained on IV iron. 4. Status post non-ST elevation myocardial infarction. PLAN: Recommend to improve blood sugar control which will help with the hyperkalemia. Will add low dose loop diuretics and continue to maintain patient on low potassium diet. Continue to avoid INDER inhibitors/angiotensin receptor blockers for now. Avoid hypotension. MTDD
--- NOTE | 2017-03-08 11:27 | P.PN ---
Subjective Note dated 03/05/2017 This is a 76-year-old female sees a family doctor up in the [facility]. She is a history of diabetes depression diverticulosis aortic stenosis CHF chronic renal failure previous MRSA infection hyperlipidemia hypertension previous myocardial infarction and neuropathy. She apparently was residing in an extended care facility and [place] where she developed one or 2 days worth of nausea vomiting and weakness. She was transferred down from that hospital here for diabetic ketoacidosis. She currently remains on an insulin drip at 1.3 units per hour. Her most recent anion gap is 13 blood glucose is 160 her bicarbonate concentration is 19. I think we can transition her to subcu insulin. Anyway the patient was also found to have an acute kidney injury with hyperkalemia and possibly a non-ST segment elevation myocardial infarction. The patient does seem to be bit better. Getting nasal O2 2 L. Appointment 9 IV at 50 mL an hour insulin drip at one point units an hour heparin via weightbase protocol. The patient seemed be doing relatively well otherwise. Progress note dated 03/08/2017 Lindsey continues to do well. She is a 76-year-old female who was up in the intensive care unit up until yesterday. She is awake and alert. No distress. She was basically a sling bed on the sixth floor. She denies any shortness of breath coughing wheezing chest congestion chest pain chest discomfort or any other complaints for that matter. She is been weaned down to room air. Not receiving any supplemental oxygen. Respiratory status is stable as is her hemodynamic status. She was initially admitted with a diagnosis of diabetes depression diverticulosis aortic stenosis CHF chronic renal fire MRSA infection hyperlipidemia hypertension myocardial infarction and neuropathy. She was found in the emergency department to have diabetic ketoacidosis acidosis for which she was treated here as well as renal failure. Objective - Vital Signs Vital signs: Vital Signs Temp 97.3 F L 03/08/17 08:00 Pulse 73 03/08/17 08:00 Resp 16 03/08/17 08:00 BP 129/60 03/08/17 08:00 Pulse Ox 96 03/08/17 08:00 Intake & Output 03/07/17 03/08/17 03/08/17 18:59 06:59 18:59 Intake Total 20 Output Total 700 600 Balance -680 -600 Weight 89.1 kg Intake: IV 20 Sodium Chloride 0.9% 1, 20 000 ml @ 50 mls/hr IV . Q20H [facility] Rx#:[id number] Output: Urine 700 600 Uretheral (Miner) 300 Other: Voiding Method Indwelling Catheter Toilet - Exam No acute distress, oriented 3. HEENT examination is grossly unremarkable. Mucous membranes are moist. Neck supple. Full range of motion. No adenopathy or thyromegaly. Cardiovascular examination reveals regular rhythm rate. S1-S2 normal. Soft systolic murmur. Lungs reveal mostly clear breath sounds. No wheezes rhonchi. No crackles. Breath sounds equal. Abdomen soft bowel sounds are heard. Extremities are intact. Skin without rash. Neurologic examination is nonfocal. - Labs CBC & Chem 7: 03/08/17 06:03 03/08/17 06:03 Labs: Abnormal Lab Results - Last 24 Hours (Table) 03/07/17 03/07/17 03/07/17 Range/Units 12:13 16:58 21:12 RBC (3.80-5.40) m/uL Hgb (11.4-16.0) gm/dL Hct (34.0-46.0) % MCV (80.0-100.0) fL MCHC (31.0-37.0) g/dL RDW (11.5-15.5) % Lymphocytes # (1.0-4.8) k/uL Sodium (137-145) mmol/L Potassium (3.5-5.1) mmol/L Carbon Dioxide (22-30) mmol/L BUN (7-17) mg/dL Creatinine (0.52-1.04) mg/dL Glucose (74-99) mg/dL POC Glucose (mg/dL) 203 H 179 H 156 H (75-99) mg/dL 03/08/17 03/08/17 03/08/17 Range/Units 06:03 06:03 06:26 RBC 3.18 L (3.80-5.40) m/uL Hgb 9.7 L (11.4-16.0) gm/dL Hct 32.6 L (34.0-46.0) % MCV 102.5 H (80.0-100.0) fL MCHC 29.9 L (31.0-37.0) g/dL RDW 17.9 H (11.5-15.5) % Lymphocytes # 0.9 L (1.0-4.8) k/uL Sodium 135 L (137-145) mmol/L Potassium 5.4 H (3.5-5.1) mmol/L Carbon Dioxide 18 L (22-30) mmol/L BUN 98 H* (7-17) mg/dL Creatinine 3.70 H (0.52-1.04) mg/dL Glucose 235 H (74-99) mg/dL POC Glucose (mg/dL) 239 H (75-99) mg/dL Microbiology - Last 24 Hours (Table) 03/03/17 14:40 Blood Culture - Preliminary Blood No Growth after 96 hours Assessment and Plan (1) Aortic stenosis Status: Acute (2) Acute kidney injury Status: Acute (3) CHF (congestive heart failure) Status: Acute (4) CKD (chronic kidney disease) Status: Acute (5) DKA (diabetic ketoacidoses) Status: Acute (6) Hyperkalemia Status: Acute (7) Metabolic acidosis Status: Acute (8) NSTEMI (non-ST elevated myocardial infarction) Status: Acute (9) UTI (urinary tract infection) Status: Acute Plan: Plan dated 03/05/2017 The patient seems be doing relatively well. She is eating. Her out insulin drip was only 1.3 units an hour. Her anion gap is 13 which is essentially normal. Her blood glucose is 168 in her bicarbonate concentration on a most recent electrolyte profile is 19. All these parameters/indicators suggest that she can be transitioned from IV heparin to the IV insulin to subcu insulin. The patient should receive some regular insulin subcu. Insulin drip can continue for another 35-45 minutes. The patient could be transitioned to NovoLog sliding scale before meals and at bedtime. The patient will continue on the IV heparin. She otherwise is stable. Later today if she's doing well she can probably move out of the ICU. We'll continue to follow closely. No additional recommendations are made. Labs x-rays medications are all reviewed. Plan dated the . The patient seemed be doing relatively well. She is eating. Has been weaned down to room air. The patient's no respiratory or hemodynamic issues to speak of. We'll continue to follow. Blood sugars are much better control. Additional recommendations are made. We'll continue to follow closely. Time with Patient: Less than 30
[2017-03-08 12:23] LABS: Glucose,Whole Blood 188 mg/dL (75-99)
[2017-03-08] MEDS: SODIUM FERRIC GLUCONAT-SUCROSE 125 MG in SODIUM CHLORIDE 0.9% 100 ML IVPB SCH (12:38)
[2017-03-08] MEDS: MULTIVITAMINS, THERA 1 EACH TAB PO SCH (12:40)
[2017-03-08 17:42] LABS: Glucose,Whole Blood 200 mg/dL (75-99)
--- NOTE | 2017-03-08 18:05 | P.PN ---
Subjective Principal diagnosis: nausea Patient is a 76-year-old female with a history of hypertension, insulin-dependent diabetes mellitus type 2, dyslipidemia, congestive heart failure with unknown ejection fraction and heart murmur, and obstructive sleep apnea with home CPAP use. She initially presented to the emergency department in [place] from the custodial for hyperglycemia. There she underwent an extensive evaluation. She was found to have acute renal failure with the Bun of 104, creatinine 5.6, and potassium 5.6. Her white blood cell count was elevated at 11.2, hemoglobin 10.2. Her initial troponin was 5 and elevated to 6. She had an elevated lactic acid of 3.3. Elevated lipase at 474 which was nondiagnostic, she was also found to have positive acetone. She was also found to have a urinary tract infection. EKG was done there which showed normal sinus rhythm with PVCs and ST segment elevation in V1 through V3 with reciprocal depression in V4 through V6. This unchanged from her prior EKG in November 2016. She was started on heparin drip for NSTEMI and in insulin drip for DKA. This was made to transfer her here for critical care and cardiology evaluation. She received 1 L of IV fluids. Repeat troponin was drawn here which was 24, repeat lactic acid was down to 2.4, potassium had normalized. Cardiology was contacted by the emergency department. She was seen in the ER and was admitted to ICU. Cardiology was notified. She was maintained on a heparin drip, aspirin, statin, and Plavix. Nephrology was normal. By the morning after admission she remained in DKA with a anion gap despite having blood sugars in the 100s. When her insulin drip was held and her blood sugars went back to 480 to be restarted. Her kidney function improved slowly over time. Her NSTEMI will be managed medically per cardiology. She does have systolic CHF. Her insulin gtt was able to de discontinued successfully on 03/06. She did well on SSI insulin, fixed dose insulin, and basal insulin. Her potassium was elevated. Patient seen and examined at bedside. Feeling good. No complaints. Sitting up in chair at bedside. Denies chest pain, shortness of breath, nausea, or vomiting Objective - Vital Signs Vital signs: Vital Signs Temp 97.2 F L 03/08/17 04:00 Pulse 69 03/08/17 04:00 Resp 18 03/08/17 04:00 BP 131/63 03/08/17 04:00 Pulse Ox 95 03/08/17 04:00 Intake & Output 03/07/17 03/08/17 03/08/17 18:59 06:59 18:59 Intake Total 20 Output Total 700 600 Balance -680 -600 Weight 89.1 kg Intake: IV 20 Sodium Chloride 0.9% 1, 20 000 ml @ 50 mls/hr IV . Q20H [facility] Rx#:[id number] Output: Urine 700 600 Uretheral (Miner) 300 Other: Voiding Method Indwelling Catheter Toilet - Exam General: non toxic, no distress, appears at stated age, obese Derm: no rashes, no lesions Head: atraumatic, normocephalic, symmetric Eyes: EOMI, no lid lag, anicteric sclera ENT: no post nasal drip, no thrush Mouth: no lip lesion, mucus membranes moist Cardiovascular: S1S2 reg, no murmur, positive posterior tibial pulse bilateral, Lungs: Decreased breath sounds bilateral bases, no rhonchi, no rales , no accessory muscle use Abdominal: soft, nontender to palpation, no guarding, no appreciable organomegaly Ext: no gross muscle atrophy, 2+ edema bilateral lower extremities, no contractures Neuro: CN II-XI grossly intact, no focal neuro deficits Psych: Alert, oriented, appropriate affect - Labs CBC & Chem 7: 03/08/17 06:03 03/08/17 06:03 Labs: Abnormal Lab Results - Last 24 Hours (Table) 03/07/17 03/07/17 03/07/17 Range/Units 12:13 16:58 21:12 RBC (3.80-5.40) m/uL Hgb (11.4-16.0) gm/dL Hct (34.0-46.0) % MCV (80.0-100.0) fL MCHC (31.0-37.0) g/dL RDW (11.5-15.5) % Lymphocytes # (1.0-4.8) k/uL Sodium (137-145) mmol/L Potassium (3.5-5.1) mmol/L Carbon Dioxide (22-30) mmol/L BUN (7-17) mg/dL Creatinine (0.52-1.04) mg/dL Glucose (74-99) mg/dL POC Glucose (mg/dL) 203 H 179 H 156 H (75-99) mg/dL 03/08/17 03/08/17 03/08/17 Range/Units 06:03 06:03 06:26 RBC 3.18 L (3.80-5.40) m/uL Hgb 9.7 L (11.4-16.0) gm/dL Hct 32.6 L (34.0-46.0) % MCV 102.5 H (80.0-100.0) fL MCHC 29.9 L (31.0-37.0) g/dL RDW 17.9 H (11.5-15.5) % Lymphocytes # 0.9 L (1.0-4.8) k/uL Sodium 135 L (137-145) mmol/L Potassium 5.4 H (3.5-5.1) mmol/L Carbon Dioxide 18 L (22-30) mmol/L BUN 98 H* (7-17) mg/dL Creatinine 3.70 H (0.52-1.04) mg/dL Glucose 235 H (74-99) mg/dL POC Glucose (mg/dL) 239 H (75-99) mg/dL Microbiology - Last 24 Hours (Table) 03/03/17 14:40 Blood Culture - Preliminary Blood No Growth after 96 hours Assessment and Plan (1) Hyperkalemia Narrative/Plan: lasix X1 again today. Anticipated to resume bumex but at a lower dose on discharge. Status: Acute (2) DM type 2 (diabetes mellitus, type 2) Narrative/Plan: Continue with fixed dose and sliding scale insulin, increased levemir, continue to follow blood sugars, globin A1c 7.4 Status: Acute (3) UTI (urinary tract infection) Narrative/Plan: Continue with Rocephin, treat for total of 7 days Status: Acute (4) Acute kidney injury Narrative/Plan: Given lasix X 2 IVP, improving, likely due to ATN from volume depletion and DKA , off IVF, off bumex, avoid nephrotoxic agents, follow Cr, nephro recs appreciated, renal us with medical renal disease Status: Acute (5) CKD (chronic kidney disease) Narrative/Plan: Unknown baseline, 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, nephro recs appreciated, on renvella Status: Acute (6) CHF (congestive heart failure) Narrative/Plan: Currently compensated, EF 35%, Lasix X 2, not chronically an INDER inhibitor and I will not initiate at this point in time with acute kidney injury, continue home labetalol, strict I's and O's, daily weight, cardiology signed off Status: Acute (7) Obesity Narrative/Plan: Ideally structured outpatient weight loss Status: Acute (8) LALA (obstructive sleep apnea) Narrative/Plan: Continue with CPAP use at night Status: Acute (9) Anemia Narrative/Plan: Appears chronic, patient is on Arnesp and iron at custodial, follow CBC, IV iron per nephro Status: Acute (10) NSTEMI (non-ST elevated myocardial infarction) Narrative/Plan: ASA, statin, cardio recs appreciated, echo shows cardiomyopathy, heparin gtt completed, troponin down trending, BB, lipid profile with HDL near goal. Status: Acute (11) Valvular heart disease Narrative/Plan: Severe MR, and Moderate Aortic stenosis, outpatient f/u Status: Acute Plan: Resolved: DKA Sepsis DVT prophylaxis: Heparin Discussed with: Patient, nursing Anticipated discharge: in AM Anticipated discharge place: Return to custodial A total of 35 minutes was spent on the care of this complex patient more than 50 % of the time was spent in counseling and care coordination.
[2017-03-08] MEDS ORDERED: INSULIN GLARGINE 100 UNIT/ML 10 ML VIAL SQ SCH (21:00)
[2017-03-08 21:17] LABS: Glucose,Whole Blood 143 mg/dL (75-99)
[2017-03-08] MEDS: VIT A,C & E-LUTEIN-MINERALS 1 EACH TAB PO SCH (21:19)
[2017-03-08] MEDS: SERTRALINE 100 MG TAB PO SCH (21:19)
[2017-03-09 01:18] VITALS: RESP 16
[2017-03-09] MEDS: SEVELAMER 800 MG TAB PO SCH ×2 (07:50→12:44)
[2017-03-09] MEDS: amLODIPine 2.5 MG TAB PO SCH (07:50)
[2017-03-09] MEDS: ATORVASTATIN 40 MG TAB PO SCH (07:50)
[2017-03-09] MEDS: SODIUM BICARBONATE TAB 650 MG TAB PO SCH (07:50)
[2017-03-09] MEDS: CHOLECALCIFEROL 1,000 UNIT TAB PO SCH (07:50)
[2017-03-09] MEDS: FERROUS SULFATE 325 MG TAB PO SCH (07:50)
[2017-03-09] MEDS: LABETALOL 200 MG TAB PO SCH (07:50)
[2017-03-09] MEDS: CLOPIDOGREL 75 MG TAB PO SCH (07:50)
[2017-03-09] MEDS: PANTOPRAZOLE 40 MG TABLET PO SCH (07:50)
[2017-03-09] MEDS: ASPIRIN 81 MG CHEW PO SCH (07:50)
[2017-03-09] MEDS: hydrALAZINE HCL 50 MG TAB PO SCH (07:51)
[2017-03-09] MEDS: INSULIN LISPRO (humaLOG) 300 UNIT/3 ML VIAL SQ SCH ×4 (07:51→12:43)
[2017-03-09] MEDS: MULTIVITAMINS, THERA 1 EACH TAB PO SCH (07:51)
[2017-03-09] MEDS: HEPARIN SODIUM,PORCINE 5,000 UNIT/ML 1 ML VIAL SQ SCH (07:51)
[2017-03-09] MEDS: HYDROcodone/APAP 7.5-325MG 1 EACH TAB PO SCH (07:51)
[2017-03-09 07:54] LABS: Glucose,Whole Blood 136 mg/dL (75-99)
[2017-03-09 08:11] VITALS: BP 146/71; PULSE 70; TEMP 98
[2017-03-09] MEDS ORDERED: FUROSEMIDE 40 MG TAB PO SCH (09:00)
[2017-03-09 09:22] LABS: Anisocytosis Slight; Basophils % (A) 1 %; CH 30.8; CHCM 31.1; Eosinophils # (A) 0.5 k/uL (0-0.7); Eosinophils % (A) 7 %; HCT 34.5 % (34.0-46.0); HDW 2.75; HGB 10.6 gm/dL (11.4-16.0); Hypochromasia Slight; Luc # (Auto) 0.21; Luc % (Auto) 3; Lymphocytes # (A) 1.2 k/uL (1.0-4.8); Lymphocytes % (A) 18 %; MCH 30.9 pg (25.0-35.0); MCHC 30.9 g/dL (31.0-37.0); Macrocytosis Slight; Mean Platelet Volume 7.9; Monocytes # (A) 0.4 k/uL (0-1.0); Monocytes % (A) 6 %; Neutrophils # (A) 4.2 k/uL (1.3-7.7); Neutrophils % (A) 65 %; RBC 3.45 m/uL (3.80-5.40); RDW 17.6 % (11.5-15.5); WBC 6.4 k/uL (3.8-10.6); WBC (Perox) 6.89
[2017-03-09 09:46] LABS: Calcium 9.6 mg/dL (8.4-10.2); Potassium 4.6 mmol/L (3.5-5.1)
[2017-03-09 11:35] LABS: Glucose,Whole Blood 180 mg/dL (75-99)
--- NOTE | 2017-03-09 13:12 | PN ---
The patient is seen for followup for acute kidney injury, currently comfortable , sitting up in bed, not in any acute distress. On examination, blood pressure is 146/71, heart rate 70 per minute. She is afebrile. EXAMINATION OF THE HEART: S1 and S2. EXAMINATION OF THE LUNGS: Bilateral breath sounds are heard. ABDOMEN: Soft, obese, nontender. Examination of the lower extremities shows 1+ edema bilaterally. 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 Labs show sodium 139, potassium 4.6, chloride 102, BUN 91, serum creatinine 3.72. Hemoglobin 10.6 grams/dL. ASSESSMENT: 1. Acute kidney injury, ATN currently slowly improving. Serum creatinine is about the same as yesterday. 2. Mild hyperkalemia, currently improved. Patient did get one dose of loop diuretics. This will need to be monitored as outpatient. Her blood sugars are also improved with adjustment of insulin. She will be maintained on low potassium diet and will need followup as outpatient. 3. Anemia with iron deficiency, status post IV iron. 4. Non-ST elevation myocardial infarction. PLAN: Continue with low dose loop diuretics. Monitor potassium and renal function as outpatient. Patient will need follow up for the acute kidney injury and possibly underlying CKD. We do not have previous labs available for comparison. [facility]
[2017-03-09 13:32] VITALS: BMI 33.7
--- NOTE | 2017-03-09 13:38 | P.DS ---
Providers Date of admission: 03/03/17 14:58 Expected date of discharge: 03/09/17 Attending physician: Faye Sage DO Consults: 03/03/17 14:58 Consult Physician Urgent Consulting Provider: Jon Morales Consult Reason/Comments: icu mgmt Do you want consulting provider notified?: Yes Consult Physician Urgent Consulting Provider: Lisandro Nagel Consult Reason/Comments: nstemi Do you want consulting provider notified?: Yes 03/03/17 16:08 Consult Physician Routine Consulting Provider: Manuel Hoyos Consult Reason/Comments: juan on ckd Do you want consulting provider notified?: Yes Primary care physician: Sam Trejo - Discharge Diagnosis(es) (1) Hyperkalemia Current Visit: Yes Status: Acute (2) DM type 2 (diabetes mellitus, type 2) Current Visit: Yes Status: Acute (3) UTI (urinary tract infection) Current Visit: Yes Status: Acute (4) Acute kidney injury Current Visit: Yes Status: Acute (5) CKD (chronic kidney disease) Current Visit: Yes Status: Acute (6) CHF (congestive heart failure) Current Visit: Yes Status: Acute (7) Obesity Current Visit: Yes Status: Acute (8) LALA (obstructive sleep apnea) Current Visit: Yes Status: Acute (9) Anemia Current Visit: Yes Status: Acute (10) NSTEMI (non-ST elevated myocardial infarction) Current Visit: Yes Status: Acute (11) Valvular heart disease Current Visit: Yes Status: Acute (12) Aortic stenosis Current Visit: Yes Status: Acute (13) DKA (diabetic ketoacidoses) Current Visit: Yes Status: Acute (14) Dehydration Current Visit: Yes Status: Acute (15) Lactic acidosis Current Visit: Yes Status: Acute Hospital Course: Patient is a 76-year-old female with a history of hypertension, insulin-dependent diabetes mellitus type 2, dyslipidemia, congestive heart failure with unknown ejection fraction and heart murmur, and obstructive sleep apnea with home CPAP use. She initially presented to the emergency department in [place] from the care home for hyperglycemia. There she underwent an extensive evaluation. She was found to have acute renal failure with the Bun of 104, creatinine 5.6, and potassium 5.6. Her white blood cell count was elevated at 11.2, hemoglobin 10.2. Her initial troponin was 5 and elevated to 6. She had an elevated lactic acid of 3.3. Elevated lipase at 474 which was nondiagnostic, she was also found to have positive acetone. She was also found to have a urinary tract infection. EKG was done there which showed normal sinus rhythm with PVCs and ST segment elevation in V1 through V3 with reciprocal depression in V4 through V6. This unchanged from her prior EKG in November 2016. She was started on heparin drip for NSTEMI and in insulin drip for DKA. They transfered her here for critical care and cardiology evaluation. She received 1 L of IV fluids. Repeat troponin was drawn here which was 24, repeat lactic acid was down to 2.4, potassium had normalized. Cardiology was contacted by the emergency department. She was seen in the ER and was admitted to ICU. Cardiology was notified. She was maintained on a heparin drip, aspirin , statin, and Plavix. Nephrology was also consulted. By the morning after admission she remained in DKA with a anion gap despite having blood sugars in the 100s. When her insulin drip was held and her blood sugars went back to 480 to be restarted. Her kidney function improved slowly over time. Her NSTEMI will be managed medically per cardiology. She does have systolic CHF with depressed EF. Her insulin gtt was able to de discontinued successfully on 03/06. She did well on SSI insulin, fixed dose insulin, and basal insulin. Her potassium was elevated and diuretics were restarted. Her kidney function greatly improved and her sugars were well controlled. She was discharged in stable condition. She also recieved treatment for a UTI during her admission. Seen and examined at bedside. She feels well and has no complaints. She denies chest pain, shortness of breath, and nausea. She is having some lower extremity edema but it is not bothersome to her. General: non toxic, no distress, appears at stated age Derm: no rashes, no lesions Head: atraumatic, normocephalic, symmetric Eyes: EOMI, no lid lag, anicteric sclera ENT: no post nasal drip, no thrush Mouth: no lip lesion, mucus membranes moist Cardiovascular: S1S2 reg, no murmur, positive posterior tibial pulse bilateral, Lungs: CTA bilateral, no rhonchi, no rales , no accessory muscle use Abdominal: soft, nontender to palpation, no guarding, no appreciable organomegaly Ext: no gross muscle atrophy, 2+ edema bilateral lower extremities, no contractures Neuro: CN II-XI grossly intact, no focal neuro deficits Psych: Alert, oriented, appropriate affect Pertinent Studies: Ultrasound: Medical renal disease Echocardiogram ejection fraction 30-35%, moderate tricuspid regurg, severe pulmonary hypertension, mild mitral stenosis and moderate aortic stenosis, moderate to severe mitral regurgitation Procedures: None Patient Condition at Discharge: Good Plan - Discharge Summary New Discharge Prescriptions: New Atorvastatin [Lipitor] 40 mg PO DAILY tab Furosemide [Lasix] 40 mg PO DAILY tab Insulin Aspart [NovoLOG] 0 unit SQ AC-TID #1 vial Insulin Aspart [NovoLOG] 0 unit SQ ACHS #1 vial Insulin Glargine [Lantus] 19 unit SQ HS vial Sevelamer [Renvela] 800 mg PO TID-W/MEALS tab Sodium Bicarbonate Tab 1,300 mg PO BID tab Continue Vit C/E/Zn/Coppr/Lutein/Zeaxan [Preservision Areds 2 Softgel] 2 cap PO HS Sertraline [Zoloft] 100 mg PO HS Cholecalciferol [Vitamin D3] 5,000 unit PO DAILY Poly-Iron 150mg 150 mg PO BID Labetalol [Trandate] 200 mg PO BID hydrALAZINE HCL [Hydralazine HCl] 50 mg PO BID Multivitamins, Thera [Multivitamin (formulary)] 1 tab PO DAILY Clopidogrel [Plavix] 75 mg PO DAILY Aspirin EC [Ecotrin Low Dose] 81 mg PO DAILY Allopurinol [Zyloprim] 100 mg PO DAILY amLODIPine [Norvasc] 2.5 mg PO DAILY Epoetin Poncho [Procrit] 4,000 unit IM [id number] HYDROcodone/APAP 7.5-325MG [[place] 7.5-325] 1 tab PO BID #60 Discontinued Pravastatin Sodium [Pravachol] 20 mg PO HS Bumetanide [BUMEX] 2 mg PO DAILY Insulin Glargine,Hum.rec.anlog [Lantus Solostar] 22 unit SQ DAILY Insulin Aspart [NovoLOG Flexpen] 16 units SQ AC-BRKFST Insulin Aspart [NovoLOG Flexpen] 6 units SQ AC-LUNCH Discharge Medication List Allopurinol [Zyloprim] 100 mg PO DAILY 03/03/17 [History] Aspirin EC [Ecotrin Low Dose] 81 mg PO DAILY 03/03/17 [History] Cholecalciferol [Vitamin D3] 5,000 unit PO DAILY 03/03/17 [History] Clopidogrel [Plavix] 75 mg PO DAILY 03/03/17 [History] Epoetin Poncho [Procrit] 4,000 unit IM [id number] 03/03/17 [History] Labetalol [Trandate] 200 mg PO BID 03/03/17 [History] Multivitamins, Thera [Multivitamin (formulary)] 1 tab PO DAILY 03/03/17 [History ] Poly-Iron 150mg 150 mg PO BID 03/03/17 [History] Sertraline [Zoloft] 100 mg PO HS 03/03/17 [History] Vit C/E/Zn/Coppr/Lutein/Zeaxan [Preservision Areds 2 Softgel] 2 cap PO HS [History] amLODIPine [Norvasc] 2.5 mg PO DAILY 03/03/17 [History] hydrALAZINE HCL [Hydralazine HCl] 50 mg PO BID 03/03/17 [History] Atorvastatin [Lipitor] 40 mg PO DAILY tab 03/09/17 [Rx] Furosemide [Lasix] 40 mg PO DAILY tab 03/09/17 [Rx] HYDROcodone/APAP 7.5-325MG [Muscoda 7.5-325] 1 tab PO BID #60 03/09/17 [Rx] Insulin Aspart [NovoLOG] 0 unit SQ AC-TID #1 vial 03/09/17 [Rx] Insulin Aspart [NovoLOG] 0 unit SQ ACHS #1 vial 03/09/17 [Rx] Insulin Glargine [Lantus] 19 unit SQ HS vial 03/09/17 [Rx] Sevelamer [Renvela] 800 mg PO TID-W/MEALS tab 03/09/17 [Rx] Sodium Bicarbonate Tab 1,300 mg PO BID tab 03/09/17 [Rx] Follow up Appointment(s)/Referral(s): None,Stated [REFERRING] - 1-2 days Activity/Diet/Wound Care/Special Instructions: carb consistent low potassium diet Activity as tolerated check blood sugars with meals and at night recheck BMP in 2-3 days DX: hyperkalemia, JUAN Follow-up with your chief environmental commitment officer in 2-4 weeks, follow-up with your driver's license examiner in 1-2 weeks Discharge Disposition: TRANSFER TO SNF/ECF
[2017-03-17] MEDS ORDERED: DARBEPOETIN ALFA 25 MCG/0.42 ML SYRINGE SQ SCH (12:00)
== END 2017-03-09 14:17 | DRG 871 ==
LOC: EC 13:47 → 6ICU 14:58 → 6SEL 03-07 12:12 → 4MS4W 03-08 11:13 → UNDODISIN 03-09 13:17
PROVIDERS: ADMIT Internal Medicine; ATTEND Internal Medicine
DX: A41.9 Sepsis, unspecified organism (principal); I21.4 Non-ST elevation (NSTEMI) myocardial infarction; N17.0 Acute kidney failure with tubular necrosis; I50.23 Acute on chronic systolic (congestive) heart failure; E13.10 Other specified diabetes mellitus with ketoacidosis without coma; N18.5 Chronic kidney disease, stage 5; I42.9 Cardiomyopathy, unspecified; I13.2 Hypertensive heart and chronic kidney disease with heart failure and with stage 5 chronic kidney disease, or end stage renal disease; N39.0 Urinary tract infection, site not specified; E87.1 Hypo-osmolality and hyponatremia; E11.22 Type 2 diabetes mellitus with diabetic chronic kidney disease; E11.42 Type 2 diabetes mellitus with diabetic polyneuropathy; E86.0 Dehydration; E88.81 Metabolic syndrome and other insulin resistance; E87.5 Hyperkalemia; I27.2 Other secondary pulmonary hypertension; E83.39 Other disorders of phosphorus metabolism; I08.0 Rheumatic disorders of both mitral and aortic valves; M10.9 Gout, unspecified; D50.9 Iron deficiency anemia, unspecified; K57.90 Diverticulosis of intestine, part unspecified, without perforation or abscess without bleeding; I49.3 Ventricular premature depolarization; E66.9 Obesity, unspecified; E78.5 Hyperlipidemia, unspecified; G47.33 Obstructive sleep apnea (adult) (pediatric); I25.10 Atherosclerotic heart disease of native coronary artery without angina pectoris; F32.9 Major depressive disorder, single episode, unspecified; K44.9 Diaphragmatic hernia without obstruction or gangrene; I25.2 Old myocardial infarction; M19.91 Primary osteoarthritis, unspecified site; R29.6 Repeated falls; Z79.4 Long term (current) use of insulin; Z79.02 Long term (current) use of antithrombotics/antiplatelets; Z79.82 Long term (current) use of aspirin; Z79.899 Other long term (current) drug therapy; Z87.891 Personal history of nicotine dependence; Z86.14 Personal history of Methicillin resistant Staphylococcus aureus infection; Z98.1 Arthrodesis status; Z98.42 Cataract extraction status, left eye; Z98.41 Cataract extraction status, right eye; Z90.710 Acquired absence of both cervix and uterus; Z86.010 Personal history of colon polyps; Z87.440 Personal history of urinary (tract) infections; Z88.1 Allergy status to other antibiotic agents; Z88.0 Allergy status to penicillin; Z82.49 Family history of ischemic heart disease and other diseases of the circulatory system
CPT/HCPCS: 36415; 71010; 76770; 80048; 80051; 80053; 80061; 81001; 82150; 82550; 82553; 82565; 82728; 82947; 83036; 83540; 83550; 83605; 83690; 83735; 83880; 84100; 84484; 84520; 85025; 85610; 85730; 87040; 87086; 93005; 93306; 94640

== ENCOUNTER 2017-03-12 11:46 | Inpatient (IN) | payer MEDICARE, BC ==
[2017-03-12 12:01] LABS: Glucose,Whole Blood >600 mg/dL (75-99)
--- NOTE | 2017-03-12 12:30 | ED ---
General Adult HPI - General Chief complaint: Recheck/Abnormal Lab/Rx Stated complaint: Dehydration Time Seen by Provider: 03/12/17 12:09 Source: patient, EMS, RN notes reviewed, old records reviewed Mode of arrival: EMS Limitations: no limitations - History of Present Illness Initial comments: Patient is a pleasant 76-year-old female presenting to the emergency department as a transfer from [facility]. Patient went to the emergency department there for fatigue and high blood sugar. Patient does complain of feeling dry and having a dry mouth. Patient was reportedly recently discharged from the hospital with hyperglycemia and cardiac problems. Patient denies chest pain or dyspnea. No abdominal pain. Transferring doctor from [place] was concerned for DKA. Blood sugar was 700. - Related Data Home Medications Medication Instructions Recorded Confirmed Allopurinol [Zyloprim] 100 mg PO DAILY 03/03/17 03/03/17 Aspirin EC [Ecotrin Low Dose] 81 mg PO DAILY 03/03/17 03/03/17 Cholecalciferol [Vitamin D3] 5,000 unit PO DAILY 03/03/17 03/03/17 Clopidogrel [Plavix] 75 mg PO DAILY 03/03/17 03/03/17 Epoetin Poncho [Procrit] 4,000 unit IM [id number] 03/03/17 03/03/17 Labetalol [Trandate] 200 mg PO BID 03/03/17 03/03/17 Multivitamins, Thera [Multivitamin 1 tab PO DAILY 03/03/17 03/03/17 (formulary)] Poly-Iron 150mg 150 mg PO BID 03/03/17 03/03/17 Sertraline [Zoloft] 100 mg PO HS 03/03/17 03/03/17 Vit C/E/Zn/Coppr/Lutein/Zeaxan 2 cap PO HS 03/03/17 03/03/17 [Preservision Areds 2 Softgel] amLODIPine [Norvasc] 2.5 mg PO DAILY 03/03/17 03/03/17 hydrALAZINE HCL [Hydralazine HCl] 50 mg PO BID 03/03/17 03/03/17 Previous Rx's Medication Instructions Recorded Atorvastatin [Lipitor] 40 mg PO DAILY tab 03/09/17 Furosemide [Lasix] 40 mg PO DAILY tab 03/09/17 HYDROcodone/APAP 7.5-325MG [[place] 1 tab PO BID #60 03/09/17 7.5-325] Insulin Aspart [NovoLOG] 0 unit SQ AC-TID #1 vial 03/09/17 Insulin Aspart [NovoLOG] 0 unit SQ ACHS #1 vial 03/09/17 Insulin Glargine [Lantus] 19 unit SQ HS vial 03/09/17 Sevelamer [Renvela] 800 mg PO TID-W/MEALS tab 03/09/17 Sodium Bicarbonate Tab 1,300 mg PO BID tab 03/09/17 Allergies Allergy/AdvReac Type Severity Reaction Status Date / Time amoxicillin [From Augmentin] Allergy Rash/Hives Verified 03/12/17 12:01 clarithromycin [From Biaxin] Allergy Rash/Hives Verified 03/12/17 12:01 clavulanic acid Allergy Rash/Hives Verified 03/12/17 12:01 [From Augmentin] Review of Systems ROS Statement: Those systems with pertinent positive or pertinent negative responses have been documented in the HPI. ROS Other: All systems not noted in ROS Statement are negative. Constitutional: Denies: fever Eyes: Denies: eye pain ENT: Denies: ear pain Respiratory: Denies: cough Cardiovascular: Denies: chest pain Endocrine: Reports: polydipsia. Denies: fatigue Gastrointestinal: Denies: nausea Genitourinary: Denies: dysuria Musculoskeletal: Denies: back pain Skin: Denies: rash Neurological: Denies: weakness Past Medical History Past Medical History: Coronary Artery Disease (CAD), Heart Failure, Diabetes Mellitus, Hyperlipidemia, Hypertension, Myocardial Infarction (NE), Osteoarthritis (OA), Renal Disease Additional Past Medical History / Comment(s): anemia, aortic stenosis, chronic renal failure, divertiulosis, edema, hiatal hernia, colonic polyps, obstructive sleep apnea, peripheral neuropathy Last Myocardial Infarction Date:: patient estimates 5 years ago History of Any Multi-Drug Resistant Organisms: MRSA Date of last positivie culture/infection: 2004 MDRO Source:: back Past Surgical History: Unable to Obtain Additional Past Surgical History / Comment(s): Right and left heart cath, spinal fusion, bilateral cataracts, colonoscopy, partial hysterectomy, bladder sling, appendectomy, cyst excision in the near run down Past Psychological History: Depression Smoking Status: Former smoker Past Alcohol Use History: None Reported Past Drug Use History: None Reported - Past Family History Father Additional Family Medical History / Comment(s): Heart disease Mother Family Medical History: Hypertension Additional Family Medical History / Comment(s): Heart disease General Exam Limitations: no limitations General appearance: alert, in no apparent distress Head exam: Present: atraumatic Eye exam: Present: normal appearance, PERRL ENT exam: Present: mucous membranes dry Neck exam: Present: normal inspection Respiratory exam: Present: normal lung sounds bilaterally Cardiovascular Exam: Present: regular rate, normal rhythm, systolic murmur GI/Abdominal exam: Present: soft. Absent: tenderness Extremities exam: Present: pedal edema (+1 bilateral). Absent: calf tenderness Neurological exam: Present: alert Psychiatric exam: Present: normal affect, normal mood Skin exam: Present: normal color Course Vital Signs 03/12/17 11:54 Temperature 97.5 F L Pulse Rate 75 Respiratory 20 Rate Blood Pressure 127/60 O2 Sat by Pulse 98 Oximetry EKG Findings - EKG Comments: EKG Findings:: Normal sinus rhythm 73. IN 190. QRS 128. QT 412. QTC 453. Normal axis. Nonspecific intraventricular block. Nonspecific ST-T. Medical Decision Making - Medical Decision Making Case was discussed in detail with Dr. Mtz from [facility]. Patient was just discharged from their service. He will come and evaluate patient for admission. There is concern for pancreatitis on lipase drawn earlier today. Labs will be ordered including troponin. Acetone level will be checked. Blood glucose will be checked prior to starting insulin. - Lab Data Lab Results 03/12/17 Range/Units 11:58 POC Glucose (mg/dL) >600 H (75-99) mg/dL POC Glu Bead Builder ID Mayra Jaeger Disposition Clinical Impression: Pancreatitis, Hyperglycemia Disposition: ADMITTED IP TO THIS HOSP Referrals: Sam Trejo MD [Primary Care Provider] - 1-2 days Decision Time: 12:41
[2017-03-12] MEDS ORDERED: SODIUM CHLORIDE 0.9% 1,000 ML IV ONE (12:33)
[2017-03-12] MEDS ORDERED: INSULIN REGULAR 100 UNIT in SODIUM CHLORIDE 0.9% 100 ML IV SCH (13:00)
[2017-03-12] MEDS ORDERED: SODIUM CHLORIDE 0.9% 1,000 ML IV SCH (13:00)
[2017-03-12 13:04] LABS: Glucose,Whole Blood 530 mg/dL (75-99)
--- NOTE | 2017-03-12 13:33 | XR ---
EXAMINATION TYPE: XR chest 2V DATE OF EXAM: 03/12/2017 COMPARISON: 03/04/2017 TECHNIQUE: PA and lateral views submitted. HISTORY: Shortness of breath weakness FINDINGS: Heart is enlarged. Atherosclerotic change aorta. Diffuse interstitial pattern. No pneumothorax. Tiny left pleural effusion. Degenerative change of the spine. IMPRESSION: 1. Correlate for mild venous congestion with small left effusion.
[2017-03-12 13:56] LABS: Anisocytosis Slight; Basophils % (A) 0 %; CHCM 29.8; Eosinophils % (A) 0 %; HCT 32.6 % (34.0-46.0); HDW 2.78; HGB 9.6 gm/dL (11.4-16.0); Hypochromasia Marked; Luc % (Auto) 1; Lymphocytes # (A) 0.6 k/uL (1.0-4.8); Lymphocytes % (A) 8 %; MCHC 29.6 g/dL (31.0-37.0); MCV 104.8 fL (80.0-100.0); Macrocytosis Moderate; Mean Platelet Volume 9.8; Monocytes # (A) 0.4 k/uL (0-1.0); Monocytes % (A) 5 %; Neutrophils # (A) 6.5 k/uL (1.3-7.7); Neutrophils % (A) 85 %; RBC 3.11 m/uL (3.80-5.40); RDW 18.1 % (11.5-15.5); WBC 7.6 k/uL (3.8-10.6); WBC (Perox) 8.09
[2017-03-12 14:05] LABS: Glucose,Whole Blood 462 mg/dL (75-99)
[2017-03-12 14:09] LABS: INR 1.1 (<1.2); Partial Thromboplastin Time 25.5 sec (22.0-30.0); Prothrombin Time 11.3 sec (9.0-12.0)
[2017-03-12 14:16] LABS: Calcium 9.6 mg/dL (8.4-10.2); Magnesium 2.3 mg/dL (1.6-2.3); Phosphorous 4.8 mg/dL (2.5-4.5); Potassium 5.7 mmol/L (3.5-5.1); Total Bilirubin 0.4 mg/dL (0.2-1.3); Total Protein 5.9 g/dL (6.3-8.2)
[2017-03-12 14:41] LABS: Creatine Kinase MB 4.1 ng/mL (0.0-2.4); Troponin I 1.48 ng/mL (0.000-0.034)
[2017-03-12 15:37] LABS: Glucose,Whole Blood 385 mg/dL (75-99)
[2017-03-12] MEDS ORDERED: ONDANSETRON 4 MG/2 ML VIAL IVP PRN (15:52)
[2017-03-12] MEDS ORDERED: HYDROcodone/APAP 5-325MG 1 EACH TAB PO PRN (15:52)
[2017-03-12] MEDS ORDERED: ACETAMINOPHEN TAB 325 MG TAB PO PRN (15:52)
[2017-03-12 16:32] LABS: Glucose,Whole Blood 294 mg/dL (75-99)
--- NOTE | 2017-03-12 16:37 | CT ---
EXAMINATION TYPE: CT abdomen pelvis wo con DATE OF EXAM: 03/12/2017 COMPARISON: NONE HISTORY: Upper Abdominal pain CT DLP: 951 mGycm Automated exposure control for dose reduction was used. FINDINGS: There are small, bilateral effusions. There is dependent atelectasis at the lung bases. The heart is enlarged. There is calcification of the mitral annulus. There is coronary artery and other vascular calcifications. There is no pericardial fluid. Within the abdomen, the liver is normal in size. There are small gallstones are some sludge within th e gallbladder. The spleen is unremarkable. Both adrenal glands appear normal. There is calcification associated with both kidneys but this is believed to BE vascular in nature. The pancreas is poorly visualized. There is no definite peripancreatic inflammatory change. There is no evidence of pseudocyst. There is no significant retroperitoneal, iliac or inguinal adenopathy. The uterus and ovaries are not visualized. The bladder is unremarkable. There is no significant diverticular change and there is no radiographic evidence of diverticulitis There is a moderate stool load. The appendix is not visualized. Small bowel loops are normal in caliber. There is no free fluid and there is no free air. There is been a previous interpedicular fusion extending from L2 to S1. There is been an extensive la minectomy. There is a markedly accentuated lumbar lordosis. There is degenerative change above the le tonya of the fusion. There is hypertrophic spondylosis in the dorsal spine. No definite bony destructiv e lesion is seen. IMPRESSION: 1. SMALL, BILATERAL EFFUSIONS. 2. CARDIOMEGALY. 3. CORONARY ARTERY AND OTHER VASCULAR CALCIFICATIONS. 4. SMALL GALLSTONES OR SLUDGE WITHIN THE GALLBLADDER. 5. MODERATE CONSTIPATION. 6. EXTENSIVE POSTSURGICAL AND DEGENERATIVE CHANGES WITHIN THE LUMBAR SPINE.
[2017-03-12 16:50] LABS: ABG Base Excess -3.7 mmol/L; ABG HCO3 20 mmol/L (21-25); ABG PCO2 33 mmHg (35-45); ABG PO2 95 mmHg (83-108); ABG TCO2 21 mmol/L (19-24)
--- NOTE | 2017-03-12 16:56 | P.HPIM ---
History of Present Illness H&P Date: 03/12/17 Chief Complaint: tired Patient is a 76-year-old female with a past medical history of a pretension, insulin-dependent diabetes mellitus type 2, dyslipidemia, congestive heart failure with an ejection fraction 30-35% , and chronic kidney disease stage III/4 with unknown exact baseline. She was recently hospitalized here from 03/03/2017 through 03/09/2017 with non-STEMI, DKA, and acute kidney injury. Her blood sugars have been well controlled at discharge and she returned to her group home. Today she was sent to the ER in [facility] for elevated blood sugars. There she was found to have possible DKA and pancreatitis. She was given 1 L of IV fluids and was started on an insulin drip. She was transferred here for further monitoring of her DKA. On arrival to our emergency department she again was noted to have an elevated blood sugar of 583, elevated lipase of 1500, and positive acetone. She was maintained on a insulin drip and arrangements were made for admission to the selective care unit. I initially saw the patient and [id number] in the emergency department. I have reevaluated her now in the selective care unit. Patient reports that her sugars were initially well controlled to return to her group home. They then started to elevate. They adjusted her insulin several times. She is unsure of the exact adjustments. She denies any nausea, vomiting , diarrhea, constipation, and abdominal pain. Her only complaint is feeling tired. She states that she has been eating normally. She has not missed any meals. She does not believe she took more carbohydrates. Review of Systems General: no fever/chills, no rigors, no weight loss/weight gain, no change in appetite, fatigue Eyes: No double vision, no unusual blurry vision, no loss of vision ENT: No rhinorrhea, congestion, no trush Cardiovascular: No chest pain, no palpitations, no syncope, + edema, No paroxysmal nocturnal dyspnea, No dizziness Pulmonary: No shortness of breath, no wheezing, no cough, hemoptysis Abdominal: No abdominal pain, no constipation, no diarrhea, no vomiting, no nausea, no distention Genitourinary: No dysuria, no urinary frequency, no hematuria, no unusual discharge/odor Neuro: No unusual paresthesias, no unusual paresis/paralysis, no headache Dermatologic: No unusual rashes, no unusual lesions, no unusual changes in nails Endocrinology: No intolerance to heat/cold, no excessive thirst,] no unusual fatigue Hematologic: No unusual bruising or bleeding, no unusual cervical lymphadenopathy Psychiatric: No changes in mood or behaviors, no changes in sleep pattern Past Medical History Past Medical History: Coronary Artery Disease (CAD), Heart Failure, Diabetes Mellitus, Hyperlipidemia, Hypertension, Myocardial Infarction (MO), Osteoarthritis (OA), Renal Disease, Sleep Apnea/CPAP/BIPAP Additional Past Medical History / Comment(s): Pt recently admitted on 03/03/17 for NSTEMI, hyperkalemia, uti, acute/chronic kidney disease, anemia, hypomagnesemia, CHF, DKA, DEHYDRATION, LACTIC ACID. Other hx: Murmur, aortic stenosis, IDDM type II, peripheral neuropathy, multiple hypoglycemic episodes, LALA/CPAP, hiatal hernia, diverticular dx, colon polyps-benign, GOUT, MULTIPLE FALLS. Last Myocardial Infarction Date:: 2016 History of Any Multi-Drug Resistant Organisms: MRSA Date of last positivie culture/infection: 2004 MDRO Source:: back Additional Past Surgical History / Comment(s): Right and left heart cath, spinal fusion, bilateral cataracts, colonoscopy, partial hysterectomy, bladder sling, appendectomy, excision PERIRECTAL TISSUE Past Anesthesia/Blood Transfusion Reactions: No Reported Reaction Smoking Status: Former smoker - Past Family History Father Additional Family Medical History / Comment(s): Heart disease Mother Family Medical History: Hypertension Additional Family Medical History / Comment(s): Heart disease. MOTHER AT THE AGE OF 89YRS. Medications and Allergies Home Medications Medication Instructions Recorded Confirmed Type Allopurinol [Zyloprim] 100 mg PO DAILY 03/03/17 03/12/17 History Aspirin EC [Ecotrin Low Dose] 81 mg PO DAILY 03/03/17 03/12/17 History Cholecalciferol [Vitamin D3] 5,000 unit PO DAILY 03/03/17 03/12/17 History Clopidogrel [Plavix] 75 mg PO DAILY 03/03/17 03/12/17 History Epoetin [place] [Procrit] 4,000 unit IM [id number] 03/03/17 03/12/17 History Labetalol [Trandate] 200 mg PO BID 03/03/17 03/12/17 History Multivitamins, Thera [Multivitamin 1 tab PO DAILY 03/03/17 03/12/17 History (formulary)] Poly-Iron 150mg 150 mg PO BID 03/03/17 03/12/17 History Sertraline [Zoloft] 100 mg PO HS 03/03/17 03/12/17 History Vit C/E/Zn/Coppr/Lutein/Zeaxan 2 cap PO HS 03/03/17 03/12/17 History [Preservision Areds 2 Softgel] amLODIPine [Norvasc] 2.5 mg PO DAILY 03/03/17 03/12/17 History hydrALAZINE HCL [Hydralazine HCl] 50 mg PO BID 03/03/17 03/12/17 History Atorvastatin [Lipitor] 40 mg PO DAILY tab 03/09/17 03/12/17 Rx Furosemide [Lasix] 40 mg PO DAILY tab 03/09/17 03/12/17 Rx HYDROcodone/APAP 7.5-325MG [[place] 1 tab PO BID #60 03/09/17 03/12/17 Rx 7.5-325] Insulin Glargine [Lantus] 19 unit SQ HS vial 03/09/17 03/12/17 Rx Sevelamer [Renvela] 800 mg PO TID-W/MEALS tab 03/09/17 03/12/17 Rx Sodium Bicarbonate Tab 1,300 mg PO BID tab 03/09/17 03/12/17 Rx Insulin Aspart [NovoLOG] See Protocol SQ ACHS 03/12/17 03/12/17 History Allergies Allergy/AdvReac Type Severity Reaction Status Date / Time amoxicillin [From Augmentin] Allergy Rash/Hives Verified 03/12/17 12:01 clarithromycin [From Biaxin] Allergy Rash/Hives Verified 03/12/17 12:01 clavulanic acid Allergy Rash/Hives Verified 03/12/17 12:01 [From Augmentin] Physical Exam Osteopathic Statement: *. No significant issues noted on an osteopathic structural exam other than those noted in the History and Physical/Consult. Vitals: Vital Signs Temp Pulse Pulse Resp BP BP Pulse Ox 03/12/17 15:42 97 F L 65 20 137/60 96 03/12/17 14:20 97.8 F 69 18 134/59 98 03/12/17 13:44 70 19 129/60 97 03/12/17 11:54 97.5 F L 75 20 127/60 98 Intake and Output 03/12/17 03/12/17 03/12/17 06:59 14:59 22:59 Intake Total 9.429 8 Balance 9.429 8 Intake: Intake, IV Titration 9.429 8 Amount Insulin Regular 100 unit 9.429 8 In Sodium Chloride 0.9% 100 ml @ 0.1 UNITS/KG/HR 9.16 mls/hr IV .Q11H2M [facility] Rx#:[id number] Other: Weight 90.718 kg Patient Weight 03/13/17 06:59 Weight 90.718 kg General: non toxic, Moderate Distress , appears at stated age, obese Derm: no rashes, no lesions, no ulcers, no unusual ecchymoses Head: atraumatic, normocephalic, symmetric Eyes: EOMI, no lid lag, anicteric sclera, pupils equal round reactive to light ENT: no post nasal drip, no thrush , nearest patent, no pharyngeal erythema Neck: No thyromegaly, no cervical lymphadenopathy, trachea midline, supple Mouth: no lip lesion, mucus membranes dry Cardiovascular: S1S2 reg, no murmur, positive posterior tibial pulse bilateral, 3 + edema , no JVD, no clubbing, no cyanosis, capillary refill less than 2 seconds Lungs: CTA bilateral, no rhonchi, no rales , no accessory muscle use Abdominal: soft, nontender to palpation, no guarding, no appreciable organomegaly, normal bowel sounds Ext: no gross muscle atrophy, muscle strength 4 out of 5 in all 4 extremities grossly, no contractures, Neuro: CN II-XI grossly intact, light touch intact all 4 extremities, finger to nose within normal limits, Psych: Alert, lethargic, appropriate affect Results CBC & Chem 7: 03/12/17 13:35 03/12/17 13:35 Labs: Abnormal Lab Results - Last 24 Hours (Table) 03/12/17 03/12/17 03/12/17 Range/Units 11:58 13:02 13:35 RBC 3.11 L (3.80-5.40) m/uL Hgb 9.6 L (11.4-16.0) gm/dL Hct 32.6 L (34.0-46.0) % MCV 104.8 H (80.0-100.0) fL MCHC 29.6 L (31.0-37.0) g/dL RDW 18.1 H (11.5-15.5) % Lymphocytes # 0.6 L (1.0-4.8) k/uL Sodium (137-145) mmol/L Potassium (3.5-5.1) mmol/L Carbon Dioxide (22-30) mmol/L BUN (7-17) mg/dL Creatinine (0.52-1.04) mg/dL Glucose (74-99) mg/dL POC Glucose (mg/dL) >600 H 530 H (75-99) mg/dL Phosphorus (2.5-4.5) mg/dL AST (14-36) U/L Alkaline Phosphatase (38-126) U/L CK-MB (CK-2) (0.0-2.4) ng/mL Troponin I (0.000-0.034) ng/mL Total Protein (6.3-8.2) g/dL Amylase (30-110) U/L Lipase (23-300) U/L 03/12/17 03/12/17 03/12/17 Range/Units 13:35 13:35 14:03 RBC (3.80-5.40) m/uL Hgb (11.4-16.0) gm/dL Hct (34.0-46.0) % MCV (80.0-100.0) fL MCHC (31.0-37.0) g/dL RDW (11.5-15.5) % Lymphocytes # (1.0-4.8) k/uL Sodium 134 L (137-145) mmol/L Potassium 5.7 H (3.5-5.1) mmol/L Carbon Dioxide 18 L (22-30) mmol/L BUN 90 H* (7-17) mg/dL Creatinine 4.10 H (0.52-1.04) mg/dL Glucose 585 H* (74-99) mg/dL POC Glucose (mg/dL) 462 H (75-99) mg/dL Phosphorus 4.8 H (2.5-4.5) mg/dL AST 47 H (14-36) U/L Alkaline Phosphatase 193 H (38-126) U/L CK-MB (CK-2) 4.1 H* (0.0-2.4) ng/mL Troponin I 1.480 H* (0.000-0.034) ng/mL Total Protein 5.9 L (6.3-8.2) g/dL Amylase 163 H (30-110) U/L Lipase 1961 H (23-300) U/L 03/12/17 Range/Units 15:24 RBC (3.80-5.40) m/uL Hgb (11.4-16.0) gm/dL Hct (34.0-46.0) % MCV (80.0-100.0) fL MCHC (31.0-37.0) g/dL RDW (11.5-15.5) % Lymphocytes # (1.0-4.8) k/uL Sodium (137-145) mmol/L Potassium (3.5-5.1) mmol/L Carbon Dioxide (22-30) mmol/L BUN (7-17) mg/dL Creatinine (0.52-1.04) mg/dL Glucose (74-99) mg/dL POC Glucose (mg/dL) 385 H (75-99) mg/dL Phosphorus (2.5-4.5) mg/dL AST (14-36) U/L Alkaline Phosphatase (38-126) U/L CK-MB (CK-2) (0.0-2.4) ng/mL Troponin I (0.000-0.034) ng/mL Total Protein (6.3-8.2) g/dL Amylase (30-110) U/L Lipase (23-300) U/L Thrombosis Risk Factor Assmnt - DVT/VTE Prophylaxis DVT/VTE Prophylaxis: Pharmacologic Prophylaxis ordered - Choose All That Apply Any of the Below Risk Factors Present?: Yes Each Factor Represents 1 point: Heart failure (<1month), Obesity (BMI >25) Other Risk Factors: Yes Each Risk Factor Represents 3 Points: Age 75 years or older Other congenital or acquired thrombophilia - If yes, enter type in comment: No Thrombosis Risk Factor Assessment Total Risk Factor Score: 5 Thrombosis Risk Factor Assessment Level: High Risk Assessment and Plan Plan: #DKA-institute insulin drip, nursing to call with every hour Accu-Chek results, BMP every 4 hours, magnesium every 4 hours, will not check phosphorous every 4 hours as it is very elevated, will decrease normal saline to 100 mL an hour in light of patient's congestive heart failure with ejection fraction 30-35% and artery signs of clinical fluid overload, ABG #Elevated lipase-possibly secondary to pancreatitis but physical exam and patient complaints are not consistent with this and it may be related to her renal failure and DKA, will check CT scan, clear liquid diet, pain control #Acute kidney injury on chronic kidney disease stage 3/4, unknown baseline- creatinine was down to 3.7 at discharge now up to 4.1, hold allopurinol, gentle IV fluids, follow electrolytes, nephrology consultation, continue patient oral bicarb #Congestive heart failure with ejection fraction 30-35%-patient with peripheral edema however appears clinically dry with some skin tenting and dry mucous membranes, will proceed with holding oral Lasix and giving gentle IV hydration, patient is on labetalol, INDRE inhibitor is contraindicated with acute kidney injury and hyperkalemia, echocardiogram last admission confirmed ejection fraction 30-35%, could consider cardiology consultation #Elevated troponin-significantly downtrending from last hospitalization and this is a continued elevation of troponin enzymes that has not cleared from the system due to her prior non-STEMI being less than 14 days ago and her renal failure. Patient to follow troponins unless patient has chest pain or other anginal equivalent. She is already on daily aspirin, plavix, and statin therapy. #Hyperkalemia-downtrending as compared with value of 6.7 at outside hospital, continue to treat DKA and given IV fluids and this should lead to resolution #Obesity with BMI 34.3-structured outpatient weight loss regimen #Hypertension, currently controlled-continue home Norvasc, hydralazine, and labetalol, follow blood pressures Chronic: Dyslipidemia Gout Depression Osteoarthritis Neuropathy A total of 60 minutes of critical care time was spent on this complex patient, including seeing the patient multiple times, discussion with ER physician, discussion with nurse, and ordering additional lab and imaging studies. Surrogate decision-maker: Jaime Payton .. CODE STATUS:[ Full code DVT prophylaxis: Heparin subcutaneous Discussed with: Patient, ER physician, ER nurse, selective care nurse Anticipated discharge: 4-[address]: Return to group home
[2017-03-12 17:07] LABS: Magnesium 2.2 mg/dL (1.6-2.3); Phosphorous 4.2 mg/dL (2.5-4.5); Potassium 5.5 mmol/L (3.5-5.1)
[2017-03-12] MEDS: SEVELAMER 800 MG TAB PO SCH (17:10)
[2017-03-12] MEDS: CLOPIDOGREL 75 MG TAB PO SCH (17:10)
[2017-03-12 17:35] LABS: Glucose,Whole Blood 266 mg/dL (75-99)
[2017-03-12 19:38] LABS: Glucose,Whole Blood 162 mg/dL (75-99)
[2017-03-12] MEDS: VIT A,C & E-LUTEIN-MINERALS 1 EACH TAB PO SCH (20:15)
[2017-03-12] MEDS: SERTRALINE 100 MG TAB PO SCH (20:15)
[2017-03-12] MEDS: FERROUS SULFATE 325 MG TAB PO SCH (20:15)
[2017-03-12] MEDS: LABETALOL 200 MG TAB PO SCH (20:15)
[2017-03-12] MEDS: ATORVASTATIN 40 MG TAB PO SCH (20:15)
[2017-03-12] MEDS: SODIUM BICARBONATE TAB 650 MG TAB PO SCH (20:15)
[2017-03-12] MEDS ORDERED: INSULIN GLARGINE 100 UNIT/ML 10 ML VIAL SQ ONE (20:15)
[2017-03-12] MEDS: hydrALAZINE HCL 50 MG TAB PO SCH (20:15)
[2017-03-12 20:37] LABS: Magnesium 2.3 mg/dL (1.6-2.3); Phosphorous 4.2 mg/dL (2.5-4.5); Potassium 5.5 mmol/L (3.5-5.1)
[2017-03-12] MEDS ORDERED: INSULIN GLARGINE 100 UNIT/ML 10 ML VIAL SQ SCH (21:00)
[2017-03-12] MEDS: INSULIN LISPRO (humaLOG) 300 UNIT/3 ML VIAL SQ SCH (22:14)
[2017-03-12] MEDS: HEPARIN SODIUM,PORCINE 5,000 UNIT/ML 1 ML VIAL SQ SCH (23:16)
[2017-03-13 00:17] LABS: Magnesium 2.3 mg/dL (1.6-2.3); Potassium 5.5 mmol/L (3.5-5.1)
[2017-03-13 02:20] LABS: Glucose,Whole Blood 150 mg/dL (75-99)
[2017-03-13 02:20] LABS: Glucose,Whole Blood 130 mg/dL (75-99)
[2017-03-13 05:55] LABS: Glucose,Whole Blood 144 mg/dL (75-99)
[2017-03-13] MEDS: SEVELAMER 800 MG TAB PO SCH ×3 (06:32→17:42)
[2017-03-13] MEDS: INSULIN LISPRO (humaLOG) 300 UNIT/3 ML VIAL SQ SCH ×6 (06:32→20:59)
[2017-03-13 06:45] LABS: Anisocytosis Slight; CH 31.4; CHCM 31.8; HCT 30.3 % (34.0-46.0); HDW 2.88; HGB 9.3 gm/dL (11.4-16.0); Hypochromasia Slight; MCH 30.8 pg (25.0-35.0); MCHC 30.8 g/dL (31.0-37.0); Macrocytosis Slight; Mean Platelet Volume 8.8; RBC 3.03 m/uL (3.80-5.40); RDW 18.2 % (11.5-15.5); WBC 8.1 k/uL (3.8-10.6)
[2017-03-13 06:58] LABS: MCV 99.8 fL (80.0-100.0)
[2017-03-13 07:03] LABS: Calcium 9.9 mg/dL (8.4-10.2); Magnesium 2.3 mg/dL (1.6-2.3); Potassium 5.2 mmol/L (3.5-5.1); Total Bilirubin 0.4 mg/dL (0.2-1.3); Total Protein 5.5 g/dL (6.3-8.2)
[2017-03-13] MEDS: HEPARIN SODIUM,PORCINE 5,000 UNIT/ML 1 ML VIAL SQ SCH ×3 (08:10→23:48)
[2017-03-13] MEDS: FERROUS SULFATE 325 MG TAB PO SCH ×2 (08:10→20:58)
[2017-03-13] MEDS: SODIUM BICARBONATE TAB 650 MG TAB PO SCH ×2 (08:10→20:57)
[2017-03-13] MEDS: amLODIPine 2.5 MG TAB PO SCH (08:10)
[2017-03-13] MEDS: hydrALAZINE HCL 50 MG TAB PO SCH ×2 (08:10→20:58)
[2017-03-13] MEDS: LABETALOL 200 MG TAB PO SCH ×2 (08:10→20:58)
[2017-03-13] MEDS: ASPIRIN 81 MG CHEW PO SCH (08:10)
[2017-03-13] MEDS: CLOPIDOGREL 75 MG TAB PO SCH (08:10)
[2017-03-13] MEDS ORDERED: ALLOPURINOL 100 MG TAB PO SCH (09:00)
[2017-03-13 09:52] LABS: Appearance,Urine Clear (Clear); Bacteria,Urine Rare /hpf; Bilirubin,Urine Negative (Negative); Glucose,Urine (UA) Negative (Negative); Ketones,Urine Negative (Negative); Leukocyte Esterase,Urine Negative (Negative); Nitrite,Urine Negative (Negative); Particle Count 3170; Protein,Urine 1+ (Negative); Specific Gravity,Urine 1.011 (1.001-1.035); Squamous Epithelial Cell,Urine <1 /hpf (0-4); UA Billing (MACRO vs. MICRO) MICRO; Urobilinogen,Urine <2.0 mg/dL (<2.0); WBC,Urine 3 /hpf (0-5)
[2017-03-13 11:13] VITALS: BMI 35.5
--- NOTE | 2017-03-13 11:13 | P.PN ---
Subjective Principal diagnosis: DKA Patient is feeling much better today, denies any lightheadedness or dizziness or confusion, she reports that her nausea has resolved. She denies Any abdominal pain precipitating this visit. No acute events overnight. Stopped off insulin drip and transitioned to subcu insulin Objective - Vital Signs Vital signs: Vital Signs Temp 99.4 F 03/13/17 08:00 Pulse 70 03/13/17 08:00 Resp 20 03/13/17 08:00 BP 136/63 03/13/17 08:00 Pulse Ox 95 03/13/17 08:00 Intake & Output 03/12/17 03/13/17 03/13/17 18:59 06:59 18:59 Intake Total 528.479 520 360 Balance 528.479 520 360 Weight 90.718 kg 93.9 kg Intake: IV 105 Insulin Regular 100 unit 5 In Sodium Chloride 0.9% 100 ml @ 0.1 UNITS/KG/HR 9.16 mls/hr IV .Q11H2M [facility] Rx#:[id number] Sodium Chloride 0.9% 1, 100 000 ml @ 100 mls/hr IV . Q10H [facility] Rx#:[id number] Intake, IV Titration 23.479 400 Amount Insulin Regular 100 unit 23.479 In Sodium Chloride 0.9% 100 ml @ 0.1 UNITS/KG/HR 9.16 mls/hr IV .Q11H2M [facility] Rx#:[id number] Sodium Chloride 0.9% 1, 400 000 ml @ 100 mls/hr IV . Q10H [facility] Rx#:[id number] Oral 400 120 360 Other: Voiding Method Toilet # Voids 1 - Exam Constitutional: No acute distress, conversant, pleasant Eyes: Anicteric sclerae, moist conjunctiva, no lid-lag, PERRLA ENMT: NC/AT,Oropharynx clear, no erythema, exudates Neck: Supple, FROM, no masses, or JVD, No carotid bruits; No thyromegaly Lungs: Clear to auscultation, Clear to percussion, Normal respiratory effort, no accessory muscle use Cardiovascular: Heart regular in rate and rhythm, No murmurs, gallops, or rubs No peripheral edema Abdominal: Soft Nontender, nom distended, no guarding, no rebound or rigidity, Normoactive bowel sounds No hepatomegaly, No splenomegaly, No palpable mass No abdominal wall hernia noted Skin: Normal temperature, tone, texture, turgor, No induration No subcutaneous nodules, No rash, lesions, No ulcers Extremities: No digital cyanosis No clubbing, Pedal pulses intact and symmetrical Radial pulses intact and symmetrical Normal gait and station, No calf tenderness Psychiatric: Alert and oriented to person, place and time, Appropriate affect Intact judgement Neuro: Muscles Strength 5/5 in all 4 extremities, Sensation to light touch grossly present throughout, Cranial nerves II-XII grossly intact No focal sensory deficits - Labs CBC & Chem 7: 03/13/17 06:19 03/13/17 06:19 Labs: Abnormal Lab Results - Last 24 Hours (Table) 03/12/17 03/12/17 03/12/17 Range/Units 11:58 13:02 13:35 RBC 3.11 L (3.80-5.40) m/uL Hgb 9.6 L (11.4-16.0) gm/dL Hct 32.6 L (34.0-46.0) % MCV 104.8 H (80.0-100.0) fL MCHC 29.6 L (31.0-37.0) g/dL RDW 18.1 H (11.5-15.5) % Lymphocytes # 0.6 L (1.0-4.8) k/uL ABG pCO2 (35-45) mmHg ABG HCO3 (21-25) mmol/L ABG O2 Saturation (94-97) % Sodium (137-145) mmol/L Potassium (3.5-5.1) mmol/L Carbon Dioxide (22-30) mmol/L BUN (7-17) mg/dL Creatinine (0.52-1.04) mg/dL Glucose (74-99) mg/dL POC Glucose (mg/dL) >600 H 530 H (75-99) mg/dL Phosphorus (2.5-4.5) mg/dL AST (14-36) U/L Alkaline Phosphatase (38-126) U/L CK-MB (CK-2) (0.0-2.4) ng/mL Troponin I (0.000-0.034) ng/mL Total Protein (6.3-8.2) g/dL Albumin (3.5-5.0) g/dL Amylase (30-110) U/L Lipase (23-300) U/L Urine Protein (Negative) Urine Bacteria (None) /hpf 03/12/17 03/12/17 03/12/17 Range/Units 13:35 13:35 14:03 RBC (3.80-5.40) m/uL Hgb (11.4-16.0) gm/dL Hct (34.0-46.0) % MCV (80.0-100.0) fL MCHC (31.0-37.0) g/dL RDW (11.5-15.5) % Lymphocytes # (1.0-4.8) k/uL ABG pCO2 (35-45) mmHg ABG HCO3 (21-25) mmol/L ABG O2 Saturation (94-97) % Sodium 134 L (137-145) mmol/L Potassium 5.7 H (3.5-5.1) mmol/L Carbon Dioxide 18 L (22-30) mmol/L BUN 90 H* (7-17) mg/dL Creatinine 4.10 H (0.52-1.04) mg/dL Glucose 585 H* (74-99) mg/dL POC Glucose (mg/dL) 462 H (75-99) mg/dL Phosphorus 4.8 H (2.5-4.5) mg/dL AST 47 H (14-36) U/L Alkaline Phosphatase 193 H (38-126) U/L CK-MB (CK-2) 4.1 H* (0.0-2.4) ng/mL Troponin I 1.480 H* (0.000-0.034) ng/mL Total Protein 5.9 L (6.3-8.2) g/dL Albumin (3.5-5.0) g/dL Amylase 163 H (30-110) U/L Lipase 1961 H (23-300) U/L Urine Protein (Negative) Urine Bacteria (None) /hpf 03/12/17 03/12/17 03/12/17 Range/Units 15:24 16:30 16:36 RBC (3.80-5.40) m/uL Hgb (11.4-16.0) gm/dL Hct (34.0-46.0) % MCV (80.0-100.0) fL MCHC (31.0-37.0) g/dL RDW (11.5-15.5) % Lymphocytes # (1.0-4.8) k/uL ABG pCO2 33 L (35-45) mmHg ABG HCO3 20 L (21-25) mmol/L ABG O2 Saturation 98.0 H (94-97) % Sodium (137-145) mmol/L Potassium (3.5-5.1) mmol/L Carbon Dioxide (22-30) mmol/L BUN (7-17) mg/dL Creatinine (0.52-1.04) mg/dL Glucose (74-99) mg/dL POC Glucose (mg/dL) 385 H 294 H (75-99) mg/dL Phosphorus (2.5-4.5) mg/dL AST (14-36) U/L Alkaline Phosphatase (38-126) U/L CK-MB (CK-2) (0.0-2.4) ng/mL Troponin I (0.000-0.034) ng/mL Total Protein (6.3-8.2) g/dL Albumin (3.5-5.0) g/dL Amylase (30-110) U/L Lipase (23-300) U/L Urine Protein (Negative) Urine Bacteria (None) /hpf 03/12/17 03/12/17 03/12/17 Range/Units 16:38 17:33 19:36 RBC (3.80-5.40) m/uL Hgb (11.4-16.0) gm/dL Hct (34.0-46.0) % MCV (80.0-100.0) fL MCHC (31.0-37.0) g/dL RDW (11.5-15.5) % Lymphocytes # (1.0-4.8) k/uL ABG pCO2 (35-45) mmHg ABG HCO3 (21-25) mmol/L ABG O2 Saturation (94-97) % Sodium 136 L (137-145) mmol/L Potassium 5.5 H (3.5-5.1) mmol/L Carbon Dioxide 21 L (22-30) mmol/L BUN 93 H* (7-17) mg/dL Creatinine 3.90 H (0.52-1.04) mg/dL Glucose 307 H (74-99) mg/dL POC Glucose (mg/dL) 266 H 162 H (75-99) mg/dL Phosphorus (2.5-4.5) mg/dL AST (14-36) U/L Alkaline Phosphatase (38-126) U/L CK-MB (CK-2) (0.0-2.4) ng/mL Troponin I (0.000-0.034) ng/mL Total Protein (6.3-8.2) g/dL Albumin (3.5-5.0) g/dL Amylase (30-110) U/L Lipase (23-300) U/L Urine Protein (Negative) Urine Bacteria (None) /hpf 03/12/17 03/12/17 03/12/17 Range/Units 20:02 22:09 23:52 RBC (3.80-5.40) m/uL Hgb (11.4-16.0) gm/dL Hct (34.0-46.0) % MCV (80.0-100.0) fL MCHC (31.0-37.0) g/dL RDW (11.5-15.5) % Lymphocytes # (1.0-4.8) k/uL ABG pCO2 (35-45) mmHg ABG HCO3 (21-25) mmol/L ABG O2 Saturation (94-97) % Sodium 135 L 134 L (137-145) mmol/L Potassium 5.5 H 5.5 H (3.5-5.1) mmol/L Carbon Dioxide (22-30) mmol/L BUN 95 H* 94 H* (7-17) mg/dL Creatinine 3.70 H 3.80 H (0.52-1.04) mg/dL Glucose 139 H (74-99) mg/dL POC Glucose (mg/dL) 130 H (75-99) mg/dL Phosphorus (2.5-4.5) mg/dL AST (14-36) U/L Alkaline Phosphatase (38-126) U/L CK-MB (CK-2) (0.0-2.4) ng/mL Troponin I (0.000-0.034) ng/mL Total Protein (6.3-8.2) g/dL Albumin (3.5-5.0) g/dL Amylase (30-110) U/L Lipase (23-300) U/L Urine Protein (Negative) Urine Bacteria (None) /hpf 03/13/17 03/13/17 03/13/17 Range/Units 02:19 05:54 06:19 RBC (3.80-5.40) m/uL Hgb (11.4-16.0) gm/dL Hct (34.0-46.0) % MCV (80.0-100.0) fL MCHC (31.0-37.0) g/dL RDW (11.5-15.5) % Lymphocytes # (1.0-4.8) k/uL ABG pCO2 (35-45) mmHg ABG HCO3 (21-25) mmol/L ABG O2 Saturation (94-97) % Sodium 135 L (137-145) mmol/L Potassium 5.2 H (3.5-5.1) mmol/L Carbon Dioxide (22-30) mmol/L BUN 88 H* (7-17) mg/dL Creatinine 3.90 H (0.52-1.04) mg/dL Glucose 135 H (74-99) mg/dL POC Glucose (mg/dL) 150 H 144 H (75-99) mg/dL Phosphorus (2.5-4.5) mg/dL AST 43 H (14-36) U/L Alkaline Phosphatase 137 H (38-126) U/L CK-MB (CK-2) (0.0-2.4) ng/mL Troponin I (0.000-0.034) ng/mL Total Protein 5.5 L (6.3-8.2) g/dL Albumin 3.3 L (3.5-5.0) g/dL Amylase (30-110) U/L Lipase (23-300) U/L Urine Protein (Negative) Urine Bacteria (None) /hpf 03/13/17 03/13/17 Range/Units 06:19 09:00 RBC 3.03 L (3.80-5.40) m/uL Hgb 9.3 L (11.4-16.0) gm/dL Hct 30.3 L (34.0-46.0) % MCV (80.0-100.0) fL MCHC 30.8 L (31.0-37.0) g/dL RDW 18.2 H (11.5-15.5) % Lymphocytes # (1.0-4.8) k/uL ABG pCO2 (35-45) mmHg ABG HCO3 (21-25) mmol/L ABG O2 Saturation (94-97) % Sodium (137-145) mmol/L Potassium (3.5-5.1) mmol/L Carbon Dioxide (22-30) mmol/L BUN (7-17) mg/dL Creatinine (0.52-1.04) mg/dL Glucose (74-99) mg/dL POC Glucose (mg/dL) (75-99) mg/dL Phosphorus (2.5-4.5) mg/dL AST (14-36) U/L Alkaline Phosphatase (38-126) U/L CK-MB (CK-2) (0.0-2.4) ng/mL Troponin I (0.000-0.034) ng/mL Total Protein (6.3-8.2) g/dL Albumin (3.5-5.0) g/dL Amylase (30-110) U/L Lipase (23-300) U/L Urine Protein 1+ H (Negative) Urine Bacteria Rare H (None) /hpf Assessment and Plan Plan: A/P DKA * Transitioned off insulin drip overnight as her DKA and anion gap had resolved * Restart subcu insulin regimen with Lantus 19 units subcu daily at bedtime and Humalog 6 units subcu every before meals with correctional scale regimen * Advanced from clear liquids to diabetic diet Elevated lipase * possibly secondary to pancreatitis but physical exam and patient complaints are not consistent with this and it may be related to her renal failure and DKA , computed tomography scan showing small gallstones or sludge within the gallbladder and moderate constipation we'll start MiraLAX and Colace, pain control Acute kidney injury on chronic kidney disease stage 3/4, * unknown baseline-creatinine at to 3.9 from, hold allopurinol, gentle IV fluids , follow electrolytes, nephrology consultation, continue patient oral bicarb Hyperkalemia * Multifactorial secondary to DKA superimposed on CKD stage IV previously taking lisinopril * Trending down to 5.2 Congestive heart failure with ejection fraction 30-35%- * Patient appears clinically euvolemic * IV fluids discontinued yesterday, patient is on labetalol, INDER inhibitor is contraindicated with acute kidney injury and hyperkalemia, echocardiogram last admission confirmed ejection fraction 30-35%, could consider cardiology consultation Hypertension * currently controlled-continue home Norvasc, hydralazine, and labetalol, follow blood pressures Elevated troponin * significantly downtrending from last hospitalization and this is a continued elevation of troponin enzymes that has not cleared from the system due to her prior non-STEMI being less than 14 days ago and her renal failure. Patient to follow troponins unless patient has chest pain or other anginal equivalent. She is already on daily aspirin, plavix, and statin therapy. Obesity * BMI 34.3-structured outpatient weight loss regimen Disposition * Continue to monitor
[2017-03-13 11:20] LABS: Glucose,Whole Blood 275 mg/dL (75-99)
[2017-03-13] MEDS: POLYETHYLENE GLYCOL 3350 17 GM POWD.PACK PO SCH (12:03)
[2017-03-13] MEDS: MULTIVITAMINS, THERA 1 EACH TAB PO SCH (12:08)
[2017-03-13 14:21] LABS: Hemoglobin A1C 7.5 % (4.2-6.1)
[2017-03-13 17:10] LABS: Glucose,Whole Blood 186 mg/dL (75-99)
--- NOTE | 2017-03-13 19:07 | CONS ---
CONSULTATION This is Dr. Cardoza dictating a consultation on Lindsey Fonseca. REASON FOR CONSULT: Renal failure. HISTORY OF PRESENT ILLNESS: The patient is a 76-year-old female with chronic kidney disease NKF stage 4-5, who follows with patient care provider in [place]. She was admitted to the Hospital with uncontrolled blood sugars and increasing weakness. The patient was recently discharged from the hospital on 03/09/2017 after hospitalization for non-STEMI, DKA and acute kidney injury. Her renal function had worsened with a creatinine of 2.48. It had improved to around 3.7 mg/dL at the time of discharge. The patient has been off of INDER inhibitors and angiotensin receptor blockers. She was started on gentle diuresis with Lasix 40 mg daily at the time of admission. Her potassium tends to stay slightly on the high side. PAST MEDICAL HISTORY: Hypertension, CKD stage 4, diabetes, coronary artery disease. Recent AK, aortic stenosis and peripheral vascular disease. PAST SURGICAL HISTORY: Cardiac catheterization, colonoscopy, hysterectomy and bladder surgery. Cataract surgery. Partial hysterectomy. MEDICATIONS: Prior to admission included: 1. Zyloprim. 2. Aspirin. 3. Plavix. 4. Procrit. 5. Trandate. 6. Hydralazine. 7. Zoloft. 8. Iron. 9. Multivitamin. 10.Lipitor. 11.Hydralazine. 12.Lasix. 13.Renvela. 14.Sodium bicarb. ALLERGIES: INCLUDE BIAXIN AND AUGMENTIN. REVIEW OF SYSTEMS: As per HPI. Other systems negative. PHYSICAL EXAM: On examination, patient is awake, comfortable. She is not in any acute distress. Blood pressure 131/63, heart rate 66, and she is afebrile. Examination of the heart S1 and S2. Lungs bilateral breath sounds are heard. Decreased breath sounds in the bases. ABDOMEN: Soft, obese nontender. Examination of lower extremity shows trace edema bilaterally. [employer] exam is grossly intact. Patient is moving all 4 extremities. LABS: Sodium 134, potassium 5.5, BUN 94, serum creatinine 3.8, GFR is at 12, magnesium 2.3. ASSESSMENT: 1. Chronic kidney disease NKF Stage 4-5 secondary to nephrosclerosis and diabetic nephropathy. The patient follows with out of [place] for chronic kidney disease. She is complaining of some nausea and weakness and given her significantly low GFR she may need to start renal replacement therapy soon. At this time she does not need to start dialysis and we we will continue to evaluate her on a daily basis to assess if she needs to start as inpatient. 2. Acute kidney injury. Possibly prerenal associated with hyperglycemia. The diuretics are on hold. We will avoid IV fluids. Continue to hold off on INDER inhibitors and angiotensin receptor blockers. Renal function is improved slightly from admission with creatinine down to 3.8 from 4.1, and she was at about 3.7 at the time of discharge from her last admission as well. 3. Mild hypokalemia associated with advanced kidney disease. We will give 1 dose of Kayexalate and maintain patient on low-potassium diet. 4. Recent non-ST elevation myocardial infarction. 5. Chronic kidney disease bone mineral disorder maintained on Renvela which we will continue. 6. Dyslipidemia. 7. Hypertension. Currently controlled. PLAN: Continue off of IV fluids and Lasix and we will continue to assess the patient during her hospitalization for need to start renal replacement therapy. Hopefully she would not need to start as inpatient. Patient is advised to maintain followup as outpatient with a patient care provider in [place] and she will likely need to start soon. Thank you for this consultation. CARRILLO / JAJAN: [id number] /
[2017-03-13 20:00] LABS: Glucose,Whole Blood 160 mg/dL (75-99)
[2017-03-13] MEDS: VIT A,C & E-LUTEIN-MINERALS 1 EACH TAB PO SCH (20:58)
[2017-03-13] MEDS: SERTRALINE 100 MG TAB PO SCH (20:58)
[2017-03-13] MEDS: ATORVASTATIN 40 MG TAB PO SCH (20:58)
[2017-03-13] MEDS: INSULIN GLARGINE 100 UNIT/ML 10 ML VIAL SQ SCH (20:59)
[2017-03-14 07:37] LABS: Glucose,Whole Blood 86 mg/dL (75-99)
[2017-03-14] MEDS: INSULIN LISPRO (humaLOG) 300 UNIT/3 ML VIAL SQ SCH ×7 (08:46→22:14)
[2017-03-14] MEDS: SEVELAMER 800 MG TAB PO SCH ×3 (08:47→16:50)
[2017-03-14] MEDS: HEPARIN SODIUM,PORCINE 5,000 UNIT/ML 1 ML VIAL SQ SCH ×3 (08:47→23:13)
[2017-03-14] MEDS: FERROUS SULFATE 325 MG TAB PO SCH ×2 (08:47→22:01)
[2017-03-14] MEDS: CLOPIDOGREL 75 MG TAB PO SCH (08:48)
[2017-03-14] MEDS: SODIUM BICARBONATE TAB 650 MG TAB PO SCH ×2 (08:48→22:00)
[2017-03-14] MEDS: amLODIPine 2.5 MG TAB PO SCH (08:48)
[2017-03-14] MEDS: hydrALAZINE HCL 50 MG TAB PO SCH ×2 (08:48→23:12)
[2017-03-14] MEDS: LABETALOL 200 MG TAB PO SCH ×2 (08:49→22:00)
[2017-03-14] MEDS: ASPIRIN 81 MG CHEW PO SCH (08:49)
[2017-03-14] MEDS: POLYETHYLENE GLYCOL 3350 17 GM POWD.PACK PO SCH (08:49)
--- NOTE | 2017-03-14 10:50 | P.PN ---
Subjective Principal diagnosis: This is a 76-year-old female seen in consultation because of acute kidney injury and chronic kidney disease stage IV-V, details of previous creatinines not available. She came in because of uncontrolled blood sugar. Recently she admitted on 03/02/2017 with had acute WI and was discharged 2016. Readmitted on 03/12/2017 On examination today she complains of shortness of breath and minimal cough. Somewhat better. Appetite is fair no nausea vomiting diarrhea no fever chills dysuria frequency. She has chronic kidney disease with minimal proteinuria on urinalysis here history of diabetes, recent WI during last admission aortic stenosis and peripheral vascular disease. She has had cardiac catheterization in the past Objective - Vital Signs Vital signs: Vital Signs Temp 97.5 F L 03/14/17 07:00 Pulse 77 03/14/17 08:00 Resp 16 03/14/17 08:00 BP 146/70 03/14/17 07:00 Pulse Ox 91 L 03/14/17 09:46 Intake & Output 03/13/17 03/14/17 03/14/17 18:59 06:59 18:59 Intake Total 840 240 Balance 840 240 Weight 93.9 kg Intake: Oral 840 240 Other: Voiding Method Toilet Toilet Toilet # Voids 1 1 # Bowel Movements 1 1 Examination she is awake alert oriented. Mildly short of breath HEENT exam JVP is elevated about 8-10 cm neck is supple no facial asymmetry Lungs are significant for bilateral fine crackles with fair air entry no dullness percussion Heart sounds are significant for grade 1-2 systolic ejection murmur with carotid upstroke normal Abdomen is soft nontender Extremity exam was 2+ edema This is significantly more than her usual Neurologically awake alert oriented - Labs CBC & Chem 7: 03/13/17 06:19 03/13/17 06:19 Labs: Abnormal Lab Results - Last 24 Hours (Table) 03/13/17 03/13/17 03/13/17 Range/Units 06:19 11:18 17:08 POC Glucose (mg/dL) 275 H 186 H (75-99) mg/dL Hemoglobin A1c 7.5 H (4.2-6.1) % 03/13/17 Range/Units 19:59 POC Glucose (mg/dL) 160 H (75-99) mg/dL Hemoglobin A1c (4.2-6.1) % Assessment and Plan Plan: Impression. 1. Acute kidney injury secondary to acute WI recently, uncontrolled diabetes. Her creatinine was 4.8 as of 03/03/2017 on the first admission recently, on discharge on 03/09 creatinine was 3.7 to, she was readmitted on 03/12 with uncontrolled diabetes with a creatinine of 4.1 and now has improved down to 3.9. Cause of this acute kidney injury is prerenal. Currently she is in congestive heart failure additionally. 2. Chronic kidney disease with minimal proteinuria therefore likely from nephrosclerosis and mild additional diabetic nephropathy. She is a high likelihood of renovascular disease. 3. Congestive heart failure. 4. Minimal increase in potassium secondary to acute kidney injury and high glucose. 5. Mild hyponatremia secondary to congestive heart failure. 6. Anemia of chronic kidney disease hemoglobin is 9.3. 7. High troponin at 1.48. Recommendation. 1. Lasix 40 mg IV every 12. 2. Watch bicarb as Lasix is in induce an element of metabolic alkalosis, additionally she is on sodium bicarb 1300 twice a day. Currently her bicarb is 23. Para 3. Check iron saturation 4. Consider aggressive cardiology evaluation
[2017-03-14] MEDS ORDERED: FUROSEMIDE 10 MG/ML 2 ML VIAL IV SCH (11:00)
[2017-03-14 11:25] LABS: Glucose,Whole Blood 121 mg/dL (75-99)
--- NOTE | 2017-03-14 12:37 | P.PN ---
Subjective Principal diagnosis: DKA, BRITNEY on CKD, CHF, h/o NSTEMI Patient is feeling much better today, denies any lightheadedness or dizziness or confusion, she reports that her nausea has resolved. FBS 85 without symptoms of hypoglycemia Objective - Vital Signs Vital signs: Vital Signs Temp 97.5 F L 03/14/17 07:00 Pulse 77 03/14/17 08:00 Resp 16 03/14/17 08:00 BP 146/70 03/14/17 07:00 Pulse Ox 91 L 03/14/17 09:46 Intake & Output 03/13/17 03/14/17 03/14/17 18:59 06:59 18:59 Intake Total 840 240 Balance 840 240 Weight 93.9 kg Intake: Oral 840 240 Other: Voiding Method Toilet Toilet Toilet # Voids 1 1 # Bowel Movements 1 1 - Constitutional General appearance: Present: obese. Absent: average body habitus, cooperative, disheveled, mild distress, morbidly obese, no acute distress, severe distress, thin - EENT Eyes: Present: EOMI, PERRLA ENT: Present: NA/AT, normal oropharynx Ears: bilateral: normal - Neck Thyroid: negative: normal size - Respiratory Respiratory: bilateral: CTA, negative: rales, rhonchi - Cardiovascular Rhythm: regular Abnormal Heart Sounds: Present: systolic murmur (ejection murmor). Absent: click - Peripheral edema foot Peripheral Edema: bilateral: 3+, Pitting - Peripheral pulses posterior tibial Peripheral Pulses: bilateral: Normal - Gastrointestinal General gastrointestinal: Present: normal bowel sounds, soft. Absent: distended , organomegaly, tenderness - Integumentary Integumentary: Absent: cellulitis, jaundiced, rash - Musculoskeletal Musculoskeletal: Present: strength equal bilaterally. Absent: generalized weakness - Labs CBC & Chem 7: 03/13/17 06:19 03/13/17 06:19 Labs: Abnormal Lab Results - Last 24 Hours (Table) 03/13/17 03/13/17 03/13/17 Range/Units 06:19 17:08 19:59 POC Glucose (mg/dL) 186 H 160 H (75-99) mg/dL Hemoglobin A1c 7.5 H (4.2-6.1) % 03/14/17 Range/Units 11:23 POC Glucose (mg/dL) 121 H (75-99) mg/dL Hemoglobin A1c (4.2-6.1) % Assessment and Plan Plan: DKA * resolved, Transitioned off insulin drip overnight as her DKA and anion gap had resolved * blood sugars controlled with Lantus 19 units subcu daily at bedtime and Humalog 6 units subcu every before meals * continued on diabetic diet Elevated lipase * possibly secondary to pancreatitis but physical exam and patient complaints are not consistent with this and it may be related to her renal failure and DKA , computed tomography scan showing small gallstones or sludge within the gallbladder and moderate constipation we'll start MiraLAX and Colace, pain control Acute kidney injury on chronic kidney disease stage 3/4, * prerenal due to DKA vs cardiogenic * unknown baseline-creatinine at to 3.9 from, hold allopurinol, gentle IV fluids , follow electrolytes, nephrology consultation, continue patient oral bicarb Hyperkalemia * Multifactorial secondary to DKA superimposed on CKD stage IV previously taking lisinopril * Trending down to 5.2 * rechech BMP in the am Congestive heart failure with ejection fraction 30-35% * Patient appears clinically fluid overloaded preipherally today continue with IV Lasix * IV fluids discontinued yesterday, patient is on labetalol, INDER inhibitor is contraindicated with acute kidney injury and hyperkalemia, echocardiogram last admission confirmed ejection fraction 30-35%, could consider cardiology consultation Hypertension * currently controlled-continue home Norvasc, hydralazine, and labetalol, follow blood pressures Elevated troponin * significantly downtrending from last hospitalization and this is a continued elevation of troponin enzymes that has not cleared from the system due to her prior non-STEMI being less than 14 days ago and her renal failure. Patient to follow troponins unless patient has chest pain or other anginal equivalent. She is already on daily aspirin, plavix, and statin therapy. * Previously seen by Dr. Ram, agree with renal recommendations to consult cardiology Anemia of chronic disease * continue with Iron replacement Obesity * BMI 34.3-structured outpatient weight loss regimen Disposition * Continue to monitor
[2017-03-14] MEDS: MULTIVITAMINS, THERA 1 EACH TAB PO SCH (12:55)
[2017-03-14 17:44] LABS: Glucose,Whole Blood 113 mg/dL (75-99)
[2017-03-14 21:08] LABS: Glucose,Whole Blood 120 mg/dL (75-99)
[2017-03-14] MEDS: ATORVASTATIN 40 MG TAB PO SCH (22:01)
[2017-03-14] MEDS: FUROSEMIDE 10 MG/ML 4 ML VIAL IV SCH (22:01)
[2017-03-14] MEDS: SERTRALINE 100 MG TAB PO SCH (22:02)
[2017-03-14] MEDS: VIT A,C & E-LUTEIN-MINERALS 1 EACH TAB PO SCH (22:02)
[2017-03-14] MEDS: INSULIN GLARGINE 100 UNIT/ML 10 ML VIAL SQ SCH (22:04)
[2017-03-15] MEDS: INSULIN LISPRO (humaLOG) 300 UNIT/3 ML VIAL SQ SCH ×7 (07:50→21:36)
[2017-03-15 07:54] LABS: Glucose,Whole Blood 88 mg/dL (75-99)
[2017-03-15 08:27] LABS: Calcium 9.8 mg/dL (8.4-10.2); Potassium 5.2 mmol/L (3.5-5.1)
[2017-03-15] MEDS: POLYETHYLENE GLYCOL 3350 17 GM POWD.PACK PO SCH (10:06)
[2017-03-15] MEDS: FERROUS SULFATE 325 MG TAB PO SCH ×2 (10:07→21:36)
[2017-03-15] MEDS: FUROSEMIDE 10 MG/ML 4 ML VIAL IV SCH ×2 (10:07→21:36)
[2017-03-15] MEDS: amLODIPine 2.5 MG TAB PO SCH (10:07)
[2017-03-15] MEDS: hydrALAZINE HCL 50 MG TAB PO SCH ×2 (10:07→21:36)
[2017-03-15] MEDS: SEVELAMER 800 MG TAB PO SCH ×3 (10:07→17:59)
[2017-03-15] MEDS: SODIUM BICARBONATE TAB 650 MG TAB PO SCH ×2 (10:08→21:37)
[2017-03-15] MEDS: LABETALOL 200 MG TAB PO SCH ×2 (10:08→21:36)
[2017-03-15] MEDS: CLOPIDOGREL 75 MG TAB PO SCH (10:08)
[2017-03-15] MEDS: HEPARIN SODIUM,PORCINE 5,000 UNIT/ML 1 ML VIAL SQ SCH ×3 (10:09→23:57)
[2017-03-15] MEDS: MULTIVITAMINS, THERA 1 EACH TAB PO SCH (10:09)
[2017-03-15] MEDS: ASPIRIN 81 MG CHEW PO SCH (10:09)
[2017-03-15 11:28] LABS: Glucose,Whole Blood 133 mg/dL (75-99)
--- NOTE | 2017-03-15 11:52 | P.PN ---
Subjective Principal diagnosis: DKA, BRITNEY on CKD, CHF, h/o NSTEMI Patient is feeling much better today, denies any lightheadedness or dizziness or confusion, she reports that her nausea has resolved. FBS 85 without symptoms of hypoglycemia Objective - Vital Signs Vital signs: Vital Signs Temp 98.8 F 03/15/17 07:00 Pulse 77 03/15/17 08:00 Resp 14 03/15/17 08:00 BP 137/65 03/15/17 07:00 Pulse Ox 93 L 03/15/17 08:37 Intake & Output 03/14/17 03/15/17 03/15/17 18:59 06:59 18:59 Intake Total 880 240 Balance 880 240 Intake: Oral 880 240 Other: Voiding Method Toilet Toilet Toilet # Voids 1 2 - Exam Constitutional: No acute distress, conversant, pleasant Eyes: Anicteric sclerae, moist conjunctiva, no lid-lag, PERRLA ENMT: NC/AT,Oropharynx clear, no erythema, exudates Neck: Supple, FROM, no masses, or JVD, No carotid bruits; No thyromegaly Lungs: Clear to auscultation, Clear to percussion, Normal respiratory effort, no accessory muscle use Cardiovascular: Heart regular in rate and rhythm, systolic ejection murmur +3 pitting pedal and leg edema Abdominal: Soft Nontender, nom distended, no guarding, no rebound or rigidity, Normoactive bowel sounds No hepatomegaly, No splenomegaly, No palpable mass No abdominal wall hernia noted Skin: Normal temperature, tone, texture, turgor, No induration No subcutaneous nodules, No rash, lesions, No ulcers Extremities: No digital cyanosis No clubbing, Pedal pulses intact and symmetrical Radial pulses intact and symmetrical Normal gait and station, No calf tenderness Psychiatric: Alert and oriented to person, place and time, Appropriate affect Intact judgement Neuro: Muscles Strength 5/5 in all 4 extremities, Sensation to light touch grossly present throughout, Cranial nerves II-XII grossly intact No focal sensory deficits - Labs CBC & Chem 7: 03/13/17 06:19 03/15/17 07:23 Labs: Abnormal Lab Results - Last 24 Hours (Table) 03/14/17 03/14/17 03/15/17 Range/Units 17:42 21:02 07:23 Potassium 5.2 H (3.5-5.1) mmol/L BUN 70 H (7-17) mg/dL Creatinine 3.47 H (0.52-1.04) mg/dL POC Glucose (mg/dL) 113 H 120 H (75-99) mg/dL 03/15/17 Range/Units 11:26 Potassium (3.5-5.1) mmol/L BUN (7-17) mg/dL Creatinine (0.52-1.04) mg/dL POC Glucose (mg/dL) 133 H (75-99) mg/dL Assessment and Plan Plan: DKA * resolved, Transitioned off insulin drip overnight as her DKA and anion gap had resolved * blood sugars controlled with Lantus 19 units subcu daily at bedtime and Humalog 6 units subcu every before meals * continued on diabetic diet Elevated lipase * possibly secondary to pancreatitis but physical exam and patient complaints are not consistent with this and it may be related to her renal failure and DKA , computed tomography scan showing small gallstones or sludge within the gallbladder and moderate constipation we'll start MiraLAX and Colace, pain control Acute kidney injury on chronic kidney disease stage 3/4, * prerenal due to DKA vs cardiogenic * unknown baseline-creatinine down to 3.4, continued to hold allopurinol, gentle IV fluids, follow electrolytes, nephrology consultation, continue patient oral bicarb Hyperkalemia * Multifactorial secondary to DKA superimposed on CKD stage IV previously taking lisinopril * Trending down to 5.2 * rechech BMP in the am Congestive heart failure with ejection fraction 30-35% * Patient appears clinically fluid overloaded preipherally today continue with IV Lasix, with increase voids, monitor strict I's and O's and daily weights * patient is on labetalol, INDER inhibitor is contraindicated with acute kidney injury and hyperkalemia, echocardiogram last admission confirmed ejection fraction 30-35%, could consider cardiology consultation Hypertension * currently controlled-continue home Norvasc, hydralazine, and labetalol, follow blood pressures Elevated troponin * significantly downtrending from last hospitalization and this is a continued elevation of troponin enzymes that has not cleared from the system due to her prior non-STEMI being less than 14 days ago and her renal failure. Patient to follow troponins unless patient has chest pain or other anginal equivalent. She is already on daily aspirin, plavix, and statin therapy. * The improvement of the patient's creatinine clearance has coronary artery disease side with that NSTEMI previously, agree with renal recommendations to consult Dr. Ram cardiology consult pending Anemia of chronic disease * continue with Iron replacement Obesity * BMI 34.3-structured outpatient weight loss regimen Disposition * Continue to monitor, awaiting cardiology input
--- NOTE | 2017-03-15 12:13 | P.PN ---
Subjective Principal diagnosis: This is a 76-year-old female seen in consultation because of acute kidney injury and chronic kidney disease stage IV-V, details of previous creatinines not available. She came in because of uncontrolled blood sugar. Recently she admitted on 03/02/[address] and was discharged 2016. Readmitted on 03/12/2017 Yesterday I gave her extra Lasix because of concern for congestive heart failure because of edema and bilateral crackles. She has supposedly more urine but is not documented. She felt better less short of breath. Appetite is poor. Creatinine improved from 3.9-3.47 No dizziness cough fever chills dysuria frequency diarrhea. She has chronic kidney disease with minimal proteinuria on urinalysis here history of diabetes, recent CT during last admission aortic stenosis and peripheral vascular disease. She has had cardiac catheterization in the past Objective - Vital Signs Vital signs: Vital Signs Temp 98.8 F 03/15/17 07:00 Pulse 77 03/15/17 08:00 Resp 14 03/15/17 08:00 BP 137/65 03/15/17 07:00 Pulse Ox 93 L 03/15/17 11:30 Intake & Output 03/14/17 03/15/17 03/15/17 18:59 06:59 18:59 Intake Total 880 240 Output Total 300 Balance 880 -60 Weight 88.632 kg Intake: Oral 880 240 Output: Urine 300 Other: Voiding Method Toilet Toilet Toilet # Voids 1 2 1 on examination she is awake alert oriented comfortable. HEENT exam no JVP, nodes, neck is supple no facial asymmetry Lungs are significant for an occasional fine crackle at the right base left base is clear no dullness percussion good air entry bilaterally Heart sounds are unremarkable for any murmur rub gallop Abdomen soft nontender extremity exam was 2-3+ edema Neurologically awake alert oriented. No focal motor deficit. There is mild tremor - Labs CBC & Chem 7: 03/13/17 06:19 03/15/17 07:23 Labs: Abnormal Lab Results - Last 24 Hours (Table) 03/14/17 03/14/17 03/15/17 Range/Units 17:42 21:02 07:23 Potassium 5.2 H (3.5-5.1) mmol/L BUN 70 H (7-17) mg/dL Creatinine 3.47 H (0.52-1.04) mg/dL POC Glucose (mg/dL) 113 H 120 H (75-99) mg/dL 03/15/17 Range/Units 11:26 Potassium (3.5-5.1) mmol/L BUN (7-17) mg/dL Creatinine (0.52-1.04) mg/dL POC Glucose (mg/dL) 133 H (75-99) mg/dL Assessment and Plan Plan: Impression. 1. Acute kidney injury secondary to acute CT recently, uncontrolled diabetes. Her creatinine was 4.8 as of 03/03/2017 on the first admission recently, on discharge on 03/09 creatinine was 3.7 to, she was readmitted on 03/12 with uncontrolled diabetes with a creatinine of 4.1 and now has improved down to 3.9. Cause of this acute kidney injury is prerenal. Currently she is in congestive heart failure additionally. Started on Lasix 03/14/2017 and creatinine improved further to 3.47. 2. Chronic kidney disease with minimal proteinuria therefore likely from nephrosclerosis and mild additional diabetic nephropathy. She is a high likelihood of renovascular disease. 3. Congestive heart failure. Improving on Lasix IV every 12 hours 40 mg 4. Minimal increase in potassium secondary to acute kidney injury and high glucose. Potassium stable at 5.2 5. Mild hyponatremia secondary to congestive heart failure. Sodium improved to 139 from 135 with Lasix 6. Anemia of chronic kidney disease hemoglobin is 9.3. 7. High troponin at 1.48. Recommendation. 1. Continue Lasix 40 mg IV every 12. 2. Watch bicarb as Lasix is in induce an element of metabolic alkalosis, additionally she is on sodium bicarb 1300 twice a day. Currently her bicarb is 23. Para 3. Check iron saturation 4. Consider aggressive cardiology evaluation
[2017-03-15 17:15] LABS: Glucose,Whole Blood 248 mg/dL (75-99)
[2017-03-15 20:36] LABS: Glucose,Whole Blood 186 mg/dL (75-99)
[2017-03-15] MEDS: ATORVASTATIN 40 MG TAB PO SCH (21:36)
[2017-03-15] MEDS: SERTRALINE 100 MG TAB PO SCH (21:37)
[2017-03-15] MEDS: VIT A,C & E-LUTEIN-MINERALS 1 EACH TAB PO SCH (21:37)
[2017-03-15] MEDS: INSULIN GLARGINE 100 UNIT/ML 10 ML VIAL SQ SCH (21:41)
[2017-03-16 07:28] LABS: Calcium 9.5 mg/dL (8.4-10.2); Potassium 4.9 mmol/L (3.5-5.1)
[2017-03-16 07:58] LABS: Glucose,Whole Blood 85 mg/dL (75-99)
[2017-03-16] MEDS: POLYETHYLENE GLYCOL 3350 17 GM POWD.PACK PO SCH (08:10)
[2017-03-16] MEDS: INSULIN LISPRO (humaLOG) 300 UNIT/3 ML VIAL SQ SCH ×7 (08:10→21:25)
[2017-03-16] MEDS: SODIUM BICARBONATE TAB 650 MG TAB PO SCH ×2 (08:11→21:24)
[2017-03-16] MEDS: ASPIRIN 81 MG CHEW PO SCH (08:11)
[2017-03-16] MEDS: FUROSEMIDE 10 MG/ML 4 ML VIAL IV SCH (08:11)
[2017-03-16] MEDS: SEVELAMER 800 MG TAB PO SCH ×3 (08:12→17:34)
[2017-03-16] MEDS: hydrALAZINE HCL 50 MG TAB PO SCH ×2 (08:12→23:58)
[2017-03-16] MEDS: amLODIPine 2.5 MG TAB PO SCH (08:12)
[2017-03-16] MEDS: CLOPIDOGREL 75 MG TAB PO SCH (08:12)
[2017-03-16] MEDS: FERROUS SULFATE 325 MG TAB PO SCH ×2 (08:12→21:25)
[2017-03-16] MEDS: LABETALOL 200 MG TAB PO SCH ×2 (08:13→21:24)
[2017-03-16] MEDS: HEPARIN SODIUM,PORCINE 5,000 UNIT/ML 1 ML VIAL SQ SCH ×3 (08:13→23:58)
[2017-03-16] MEDS: MULTIVITAMINS, THERA 1 EACH TAB PO SCH (08:13)
--- NOTE | 2017-03-16 09:55 | P.CRDCN ---
<Karen Ruiz - Last Filed: 03/16/17 09:34> History of Present Illness Consult date: 03/16/17 Reason for Consult (text): NSTEMI, CHF Chief complaint: elevated glucose History of present illness: This is a 76-year-old female with history of hypertension, insulin- dependent diabetes mellitus type 2, dyslipidemia, chronic systoliccongestive heart failure with an ejection fraction 30-35%, valvular heart disease with [id number] MR and Moderate , and chronic kidney disease stage 3/4. She was recently hospitalized here on 03/03/2017 with non-STEMI, DKA, and acute kidney injury. Her troponin at that time peaked at 47.4. Her blood sugars were well controlled at discharge and she returned to her extended care facility. Today she was sent to the ER in [place] for elevated blood sugars. There she was found to have possible DKA and pancreatitis. She was given 1 L of IV fluids and was started on an insulin drip. She was transferred here for further monitoring of her DKA. On arrival to our emergency department she again was noted to have an elevated blood sugar of 583, elevated lipase of 1500 , and positive acetone. Patient reports that her sugars were initially well controlled to return to her alf. They then started to elevate. They adjusted her insulin several times. She is unsure of the exact adjustments. She denies any nausea, vomiting, diarrhea, constipation, and abdominal pain. Her only complaint is feeling tired. She states that she has been eating normally. She has not missed any meals and is following a consistent carb diet. Her troponin level was found to be elevated at 1.48. Cardiology was asked to see her for further evaluation of elevated troponin and CHF. There was no BNP level drawn here this admission. She has not had any chest discomfort or shortness of breath. She does have lower extremity edema but no orthopnea or PND. Past Medical History Past Medical History: Coronary Artery Disease (CAD), Heart Failure, Diabetes Mellitus, Hyperlipidemia, Hypertension, Myocardial Infarction (OK), Osteoarthritis (OA), Renal Disease, Sleep Apnea/CPAP/BIPAP Additional Past Medical History / Comment(s): Pt recently admitted on 03/03/17 for NSTEMI, hyperkalemia, uti, acute/chronic kidney disease, anemia, hypomagnesemia, CHF, DKA, DEHYDRATION, LACTIC ACID. Other hx: Murmur, aortic stenosis, IDDM type II, peripheral neuropathy, multiple hypoglycemic episodes, LALA/CPAP, hiatal hernia, diverticular dx, colon polyps-benign, GOUT, MULTIPLE FALLS. Last Myocardial Infarction Date:: 2016 History of Any Multi-Drug Resistant Organisms: MRSA Date of last positivie culture/infection: 2004 MDRO Source:: back Past Surgical History: Unable to Obtain Additional Past Surgical History / Comment(s): Right and left heart cath, spinal fusion, bilateral cataracts, colonoscopy, partial hysterectomy, bladder sling, appendectomy, excision PERIRECTAL TISSUE Past Anesthesia/Blood Transfusion Reactions: No Reported Reaction Smoking Status: Former smoker - Past Family History Father Additional Family Medical History / Comment(s): Heart disease Mother Family Medical History: Hypertension Additional Family Medical History / Comment(s): Heart disease. MOTHER AT THE AGE OF 89YRS. Medications and Allergies Home Medications Medication Instructions Recorded Confirmed Type Poly-Iron 150mg 150 mg PO BID 03/03/17 03/12/17 History RX: Allopurinol [Zyloprim] 100 mg PO DAILY 03/03/17 03/12/17 History RX: Aspirin EC [Ecotrin Low Dose] 81 mg PO DAILY 03/03/17 03/12/17 History RX: Cholecalciferol [Vitamin D3] 5,000 unit PO DAILY 03/03/17 03/12/17 History RX: Clopidogrel [Plavix] 75 mg PO DAILY 03/03/17 03/12/17 History RX: Epoetin Poncho [Procrit] 4,000 unit IM [id number] 03/03/17 03/12/17 History RX: Labetalol [Trandate] 200 mg PO BID 03/03/17 03/12/17 History RX: Multivitamins, Thera 1 tab PO DAILY 03/03/17 03/12/17 History [Multivitamin (formulary)] RX: Sertraline [Zoloft] 100 mg PO HS 03/03/17 03/12/17 History RX: Vit C/E/Zn/Coppr/Lutein/Zeaxan 2 cap PO HS 03/03/17 03/12/17 History [Preservision Areds 2 Softgel] RX: amLODIPine [Norvasc] 2.5 mg PO DAILY 03/03/17 03/12/17 History RX: hydrALAZINE HCL [Hydralazine 50 mg PO BID 03/03/17 03/12/17 History HCl] RX: Atorvastatin [Lipitor] 40 mg PO DAILY tab 03/09/17 03/12/17 Rx RX: Furosemide [Lasix] 40 mg PO DAILY tab 03/09/17 03/12/17 Rx RX: HYDROcodone/APAP 7.5-325MG 1 tab PO BID #60 03/09/17 03/12/17 Rx [Nicolaus 7.5-325] RX: Insulin Glargine [Lantus] 19 unit SQ HS vial 03/09/17 03/12/17 Rx RX: Sevelamer [Renvela] 800 mg PO TID-W/MEALS tab 03/09/17 03/12/17 Rx RX: Sodium Bicarbonate Tab 1,300 mg PO BID tab 03/09/17 03/12/17 Rx Insulin Aspart [NovoLOG] See Protocol SQ ACHS 03/12/17 03/12/17 History Allergies Allergy/AdvReac Type Severity Reaction Status Date / Time amoxicillin [From Augmentin] Allergy Rash/Hives Verified 03/12/17 12:01 clarithromycin [From Biaxin] Allergy Rash/Hives Verified 03/12/17 12:01 clavulanic acid Allergy Rash/Hives Verified 03/12/17 12:01 [From Augmentin] Physical Exam Vitals: Vital Signs Temp Pulse Resp BP Pulse Ox 03/16/17 08:00 81 18 03/16/17 07:00 98.3 F 81 18 181/81 95 03/16/17 03:44 66 99 03/15/17 23:55 69 119/75 97 03/15/17 23:00 98.3 F 94 16 171/71 92 L 03/15/17 20:09 96 03/15/17 16:00 77 14 03/15/17 15:00 98.5 F 67 16 139/70 93 L 03/15/17 11:30 93 L Intake and Output 03/15/17 03/16/17 03/16/17 22:59 06:59 14:59 Intake Total 400 Output Total 1000 1300 Balance -1000 -900 Intake: Oral 400 Output: Urine 1000 1300 Other: Voiding Method Toilet Toilet Toilet # Voids 1 1 Weight 88.632 kg 91.2 kg Patient Weight 03/17/17 06:59 Weight 91.2 kg PHYSICAL EXAMINATION: HEENT: Head is atraumatic, normocephalic. Pupils equal, round. Neck is supple. There is no elevated jugular venous pressure. HEART EXAMINATION: Heart sounds regular, S1 and S2 with systolic murmur. CHEST EXAMINATION: Lungs are clear to auscultation and precussion. No chest wall tenderness is noted on palpation or with deep breathing. ABDOMEN: Soft, nontender. Bowel sounds are heard. No organomegaly noted. EXTREMITIES: 1+ peripheral pulses with evidence of 1-2+ peripheral edema and no calf tenderness noted. NEUROLOGIC patient is awake, alert and oriented x3. . Results 03/13/17 06:19 03/16/17 06:43 Comprehensive Metabolic Panel 03/16/17 Range/Units 06:43 Sodium 138 (137-145) mmol/L Potassium 4.9 (3.5-5.1) mmol/L Chloride 103 (98-107) mmol/L Carbon Dioxide 27 (22-30) mmol/L BUN 69 H (7-17) mg/dL Creatinine 3.36 H (0.52-1.04) mg/dL Glucose 78 (74-99) mg/dL Calcium 9.5 (8.4-10.2) mg/dL Current Medications Generic Name Dose Route Start Last Admin Trade Name Freq PRN Reason Stop Dose Admin Acetaminophen 325 mg 03/12/17 15:52 Tylenol Tab PO Q4HR PRN Fever and/ or Pain Hydrocodone Bitart/Acetaminophen 1 each 03/12/17 15:52 Nicolaus 5-325 PO Q6HR PRN Moderate Pain Amlodipine Besylate 2.5 mg 03/13/17 09:00 03/16/17 08:12 Norvasc PO 2.5 mg DAILY HENNY Administration Aspirin 81 mg 03/13/17 09:00 03/16/17 08:11 Aspirin PO 81 mg DAILY HENNY Administration Atorvastatin Calcium 40 mg 03/12/17 21:00 03/15/17 21:36 Lipitor PO 40 mg HS HENNY Administration Clopidogrel Bisulfate 75 mg 03/12/17 14:30 03/16/17 08:12 Plavix PO 75 mg DAILY HENNY Administration Ferrous Sulfate 325 mg 03/12/17 21:00 03/16/17 08:12 Feosol PO 325 mg BID HENNY Administration Furosemide 40 mg 03/14/17 11:07 03/16/17 08:11 Lasix IV 40 mg Q12HR HENNY Administration Heparin Sodium (Porcine) 5,000 unit 03/13/17 00:00 03/16/17 08:13 Heparin SQ Not Given Q8HR HENNY Hydralazine HCl 50 mg 03/12/17 21:00 03/16/17 08:12 Apresoline PO 50 mg BID HENNY Administration Insulin Glargine 19 unit 03/13/17 21:00 03/15/17 21:41 Lantus SQ 19 unit HS HENNY Administration Insulin Human Lispro 0 unit 03/12/17 21:00 03/16/17 08:10 Humalog SQ Not Given ACHS HENNY Protocol Insulin Human Lispro 6 unit 03/13/17 12:30 03/16/17 08:10 Humalog SQ 6 unit AC-TID HENNY Administration Labetalol HCl 200 mg 03/12/17 21:00 03/16/17 08:13 Trandate PO 200 mg BID HENNY Administration Multivitamins 1 each 03/13/17 12:00 03/16/17 08:13 Theragran PO 1 each DAILY@1200 HENNY Administration Multivitamins/Minerals 1 each 03/12/17 21:00 03/15/17 21:37 Ivite PO 1 each HS HENNY Administration Ondansetron HCl 4 mg 03/12/17 15:52 Zofran IVP Q6HR PRN Nausea And Vomiting Polyethylene Glycol 17 gm 03/13/17 11:15 03/16/17 08:10 Miralax PO 17 gm DAILY HENNY Administration Sertraline HCl 100 mg 03/12/17 21:00 03/15/17 21:37 Zoloft PO 100 mg HS HENNY Administration Sevelamer Carbonate 800 mg 03/12/17 17:30 03/16/17 08:12 Renvela PO 800 mg TID-W/MEALS HENNY Administration Sodium Bicarbonate 1,300 mg 03/12/17 21:00 03/16/17 08:11 Sodium Bicarbonate Tab PO 1,300 mg BID HENNY Administration Intake and Output 03/15/17 03/16/17 03/16/17 22:59 06:59 14:59 Intake Total 400 Output Total 1000 1300 Balance -1000 -900 Intake: Oral 400 Output: Urine 1000 1300 Other: Voiding Method Toilet Toilet Toilet # Voids 1 1 Weight 88.632 kg 91.2 kg Patient Weight 03/17/17 06:59 Weight 91.2 kg 03/13/17 06:19 03/16/17 06:43 EKG Interpretations (text) Sinus rhythm with ST segment depression in lateral precordial and high lateral leads; similar to previous. Assessment and Plan Plan: Assessment and plan #1 elevated blood glucose, treated with insulin drip initially, improved #2 acute kidney injury on chronic kidney disease #3 chronic systolic congestive heart failure #4 valvular heart disease with moderate to severe MR and moderate #5 hypertension #6 elevated troponin of 1.48, secondary to non-STEMI at last admission where troponin peaked at 47.4 From cardiology's perspective, we'll obtain a BNP. Patient does have some lower extremity edema with no other overt signs of failure. She does have an appointment on March 24 to follow-up with her tiller man in [place], she will keep this appointment. RESEARCH PROFESSOR note has been reviewed, I agree with a documented findings and plan of care. Patient was seen and examined. <David Ram - Last Filed: 03/16/17 13:51> Physical Exam Vitals: Vital Signs Temp Pulse Resp BP Pulse Ox 03/16/17 08:00 81 18 03/16/17 07:00 98.3 F 81 18 181/81 95 03/16/17 03:44 66 99 03/15/17 23:55 69 119/75 97 03/15/17 23:00 98.3 F 94 16 171/71 92 L 03/15/17 20:09 96 03/15/17 16:00 77 14 03/15/17 15:00 98.5 F 67 16 139/70 93 L Intake and Output 03/15/17 03/16/17 03/16/17 22:59 06:59 14:59 Intake Total 400 Output Total 1000 2100 Balance -1000 -1700 Intake: Oral 400 Output: Urine 1000 2100 Other: Voiding Method Toilet Toilet Toilet # Voids 1 1 Weight 88.632 kg 91.2 kg Patient Weight 03/17/17 06:59 Weight 91.2 kg Results 03/13/17 06:19 03/16/17 06:43 Comprehensive Metabolic Panel 03/16/17 Range/Units 06:43 Sodium 138 (137-145) mmol/L Potassium 4.9 (3.5-5.1) mmol/L Chloride 103 (98-107) mmol/L Carbon Dioxide 27 (22-30) mmol/L BUN 69 H (7-17) mg/dL Creatinine 3.36 H (0.52-1.04) mg/dL Glucose 78 (74-99) mg/dL Calcium 9.5 (8.4-10.2) mg/dL Current Medications Generic Name Dose Route Start Last Admin Trade Name Freq PRN Reason Stop Dose Admin Acetaminophen 325 mg 03/12/17 15:52 Tylenol Tab PO Q4HR PRN Fever and/ or Pain Hydrocodone Bitart/Acetaminophen 1 each 03/12/17 15:52 Nicolaus 5-325 PO Q6HR PRN Moderate Pain Amlodipine Besylate 2.5 mg 03/13/17 09:00 03/16/17 08:12 Norvasc PO 2.5 mg DAILY HENNY Administration Aspirin 81 mg 03/13/17 09:00 03/16/17 08:11 Aspirin PO 81 mg DAILY HENNY Administration Atorvastatin Calcium 40 mg 03/12/17 21:00 03/15/17 21:36 Lipitor PO 40 mg HS [facility] Administration Clopidogrel Bisulfate 75 mg 03/12/17 14:30 03/16/17 08:12 Plavix PO 75 mg DAILY [facility] Administration Ferrous Sulfate 325 mg 03/12/17 21:00 03/16/17 08:12 Feosol PO 325 mg BID HENNY Administration Furosemide 80 mg 03/16/17 21:00 Lasix IV Q12HR [facility] Heparin Sodium (Porcine) 5,000 unit 03/13/17 00:00 03/16/17 08:13 Heparin SQ Not Given Q8HR [facility] Hydralazine HCl 50 mg 03/12/17 21:00 03/16/17 08:12 Apresoline PO 50 mg BID HENNY Administration Insulin Glargine 19 unit 03/13/17 21:00 03/15/17 21:41 Lantus SQ 19 unit HS [facility] Administration Insulin Human Lispro 0 unit 03/12/17 21:00 03/16/17 12:04 Humalog SQ Not Given ACHS [facility] Protocol Insulin Human Lispro 6 unit 03/13/17 12:30 03/16/17 12:04 Humalog SQ Not Given AC-TID [facility] Labetalol HCl 200 mg 03/12/17 21:00 03/16/17 08:13 Trandate PO 200 mg BID HENNY Administration Multivitamins 1 each 03/13/17 12:00 03/16/17 08:13 Theragran PO 1 each DAILY@1200 [facility]ENNY Administration Multivitamins/Minerals 1 each 03/12/17 21:00 03/15/17 21:37 Ivite PO 1 each HS [facility]ENNY Administration Ondansetron HCl 4 mg 03/12/17 15:52 Zofran IVP Q6HR PRN Nausea And Vomiting Polyethylene Glycol 17 gm 03/13/17 11:15 03/16/17 08:10 Miralax PO 17 gm DAILY HENNY Administration Sertraline HCl 100 mg 03/12/17 21:00 03/15/17 21:37 Zoloft PO 100 mg HS [facility]ENNY Administration Sevelamer Carbonate 800 mg 03/12/17 17:30 03/16/17 12:40 Renvela PO 800 mg TID-W/MEALS [facility]ENNY Administration Sodium Bicarbonate 650 mg 03/16/17 21:00 Sodium Bicarbonate Tab PO BID HENNY Intake and Output 03/15/17 03/16/17 03/16/17 22:59 06:59 14:59 Intake Total 400 Output Total 1000 2100 Balance -1000 -1700 Intake: Oral 400 Output: Urine 1000 2100 Other: Voiding Method Toilet Toilet Toilet # Voids 1 1 Weight 88.632 kg 91.2 kg Patient Weight 03/17/17 06:59 Weight 91.2 kg 03/13/17 06:19 03/16/17 06:43
--- NOTE | 2017-03-16 10:55 | P.PN ---
Subjective Principal diagnosis: This is a 76-year-old female seen in consultation because of acute kidney injury , secondary to uncontrolled diabetes prerenal state and has additionally chronic kidney disease stage IV-V, details of previous creatinines not available. She is being followed up in [place] by Dr. Quinonez refueler. Supposedly she has CK D state IV. Recently she admitted on 03/02/2017 with had acute OH and was discharged 2016. Readmitted on 03/12/2017. 2 days ago she was started on Lasix because of concern for congestive heart failure because of edema and bilateral crackles. she responded well with improvement in her shortness of breath, improved appetite. Feels more stronger. She claims she is making large amounts of urine although documentation is off only 1300 mL's. Her creatinine is continuing to improve slowly, Creatinine improved from 3.9 > 3.47 > 3.36 this morning No dizziness cough fever chills dysuria frequency diarrhea. She has chronic kidney disease with minimal proteinuria on urinalysis here history of diabetes, recent OH during last admission aortic stenosis and peripheral vascular disease. She has had cardiac catheterization in the past Objective - Vital Signs Vital signs: Vital Signs Temp 98.3 F 03/16/17 07:00 Pulse 81 03/16/17 08:00 Resp 18 03/16/17 08:00 BP 181/81 03/16/17 07:00 Pulse Ox 95 03/16/17 07:00 Intake & Output 03/15/17 03/16/17 03/16/17 18:59 06:59 18:59 Intake Total 480 400 Output Total 089 671 7883 Balance -420 -400 -900 Weight 88.632 kg 91.2 kg Intake: Oral 480 400 Output: Urine 211 643 8560 Other: Voiding Method Toilet Toilet Toilet # Voids 1 1 On examination she is awake alert oriented seems to be much more comfortable today. HEENT exam JVP is still remains elevated about 8 cm above the sternal angle. Neck is supple no facial asymmetry Lungs are improved with less crackles heard compared to yesterday. Heart sounds are unremarkable except for a grade 2 systolic ejection murmur. She does have multiple valvular disease. Abdomen soft nontender no masses felt Extremity exam was moderate edema remains. Neurologically awake alert oriented no focal motor deficit - Labs CBC & Chem 7: 03/13/17 06:19 03/16/17 06:43 Labs: Abnormal Lab Results - Last 24 Hours (Table) 03/15/17 03/15/17 03/15/17 Range/Units 11:26 17:12 20:35 BUN (7-17) mg/dL Creatinine (0.52-1.04) mg/dL POC Glucose (mg/dL) 133 H 248 H 186 H (75-99) mg/dL 03/16/17 Range/Units 06:43 BUN 69 H (7-17) mg/dL Creatinine 3.36 H (0.52-1.04) mg/dL POC Glucose (mg/dL) (75-99) mg/dL Assessment and Plan Plan: Impression. 1. Acute kidney injury secondary to acute OH recently, uncontrolled diabetes. Her creatinine was 4.8 as of 03/03/2017 on the previous recent admission with acute OH, on discharge on 03/09 creatinine was 3.7 to, she was readmitted on with uncontrolled diabetes with a creatinine of 4.1 and now has improved down to 3.9. Cause of this acute kidney injury is prerenal. Currently she is in congestive heart failure additionally. Started on Lasix 03/14/2017 and creatinine improved further to 3.47 and today to 3.36. 2. Chronic kidney disease with minimal proteinuria therefore likely from nephrosclerosis and mild additional diabetic nephropathy. She is a high likelihood of renovascular disease. 3. Congestive heart failure. Improving on Lasix IV every 12 hours 40 mg 4. Minimal increase in potassium secondary to acute kidney injury and high glucose. Potassium stable at 5.2 5. Mild hyponatremia secondary to congestive heart failure. Sodium improved to 139 from 135 with Lasix 6. Anemia of chronic kidney disease hemoglobin is 9.3. 7. High troponin at 1.48. Recommendation. 1. Increase Lasix 80 mg IV every 12. 2. Watch bicarb as Lasix is in induce an element of metabolic alkalosis, additionally she is on sodium bicarb 1300 twice a day. Currently her bicarb is 27. 3. Check iron saturation 4. Consider aggressive cardiology evaluation 5. Will reduce the bicarb from 1300 mg twice a day to 650 mg twice a day
[2017-03-16 11:43] LABS: Glucose,Whole Blood 65 mg/dL (75-99)
[2017-03-16 12:36] LABS: Glucose,Whole Blood 125 mg/dL (75-99)
--- NOTE | 2017-03-16 14:02 | P.PN ---
Subjective Principal diagnosis: DKA, BRITNEY on CKD, CHF, h/o NSTEMI Patient is feeling much better today, denies any lightheadedness or dizziness or confusion, she reports that her nausea has resolved. FBS 85 without symptoms of hypoglycemia Objective - Vital Signs Vital signs: Vital Signs Temp 98.3 F 03/16/17 07:00 Pulse 81 03/16/17 08:00 Resp 18 03/16/17 08:00 BP 181/81 03/16/17 07:00 Pulse Ox 95 03/16/17 07:00 Intake & Output 03/15/17 03/16/17 03/16/17 18:59 06:59 18:59 Intake Total 480 400 Output Total 584 337 8024 Balance -420 -400 -1700 Weight 88.632 kg 91.2 kg Intake: Oral 480 400 Output: Urine 693 230 7760 Other: Voiding Method Toilet Toilet Toilet # Voids 1 1 - Exam Constitutional: No acute distress, conversant, pleasant Eyes: Anicteric sclerae, moist conjunctiva, no lid-lag, PERRLA ENMT: NC/AT,Oropharynx clear, no erythema, exudates Neck: Supple, FROM, no masses, or JVD, No carotid bruits; No thyromegaly Lungs: Clear to auscultation, Clear to percussion, Normal respiratory effort, no accessory muscle use Cardiovascular: Heart regular in rate and rhythm, systolic ejection murmur +3 pitting pedal and leg edema Abdominal: Soft Nontender, nom distended, no guarding, no rebound or rigidity, Normoactive bowel sounds No hepatomegaly, No splenomegaly, No palpable mass No abdominal wall hernia noted Skin: Normal temperature, tone, texture, turgor, No induration No subcutaneous nodules, No rash, lesions, No ulcers Extremities: No digital cyanosis No clubbing, Pedal pulses intact and symmetrical Radial pulses intact and symmetrical Normal gait and station, No calf tenderness Psychiatric: Alert and oriented to person, place and time, Appropriate affect Intact judgement Neuro: Muscles Strength 5/5 in all 4 extremities, Sensation to light touch grossly present throughout, Cranial nerves II-XII grossly intact No focal sensory deficits - Labs CBC & Chem 7: 03/13/17 06:19 03/16/17 06:43 Labs: Abnormal Lab Results - Last 24 Hours (Table) 09/09/2603/15/17 03/16/17 Range/Units 17:12 20:35 06:43 BUN 69 H (7-17) mg/dL Creatinine 3.36 H (0.52-1.04) mg/dL POC Glucose (mg/dL) 248 H 186 H (75-99) mg/dL 03/16/17 03/16/17 Range/Units 11:37 12:34 BUN (7-17) mg/dL Creatinine (0.52-1.04) mg/dL POC Glucose (mg/dL) 65 L 125 H (75-99) mg/dL Assessment and Plan Plan: DKA * resolved, Transitioned off insulin drip overnight as her DKA and anion gap had resolved * blood sugars controlled with Lantus 19 units subcu daily at bedtime and Humalog 6 units subcu every before meals * continued on diabetic diet Elevated lipase * possibly secondary to pancreatitis but physical exam and patient complaints are not consistent with this and it may be related to her renal failure and DKA , computed tomography scan showing small gallstones or sludge within the gallbladder and moderate constipation we'll start MiraLAX and Colace, pain control Acute kidney injury on chronic kidney disease stage 3/4, * prerenal due to DKA vs cardiogenic * unknown baseline-creatinine down to 3.36, continued to hold allopurinol, gentle IV fluids, follow electrolytes, nephrology consultation, continue patient oral bicarb Hyperkalemia * Multifactorial secondary to DKA superimposed on CKD stage IV previously taking lisinopril * Trending down to 5.2 * rechech BMP in the am Congestive heart failure with ejection fraction 30-35% * Patient appears clinically fluid overloaded preipherally today continue with IV Lasix, with increase voids, monitor strict I's and O's and daily weights * patient is on labetalol, INDER inhibitor is contraindicated with acute kidney injury and hyperkalemia, echocardiogram last admission confirmed ejection fraction 30-35%, could consider cardiology consultation Hypertension * currently controlled-continue home Norvasc, hydralazine, and labetalol, follow blood pressures Elevated troponin * significantly downtrending from last hospitalization and this is a continued elevation of troponin enzymes that has not cleared from the system due to her prior non-STEMI being less than 14 days ago and her renal failure. Patient to follow troponins unless patient has chest pain or other anginal equivalent. She is already on daily aspirin, plavix, and statin therapy. * The improvement of the patient's creatinine clearance has coronary artery disease side with that NSTEMI previously, * Appreciated cardiology Dr. Ram input regarding the patient being significant perioperative risk he does have a high likelihood of having triple vessel coronary disease, in the setting of digestive heart failure , severe MR and moderate and chronic kidney disease. Anemia of chronic disease * continue with Iron replacement Obesity * BMI 34.3-structured outpatient weight loss regimen Disposition * Continue to monitor, will transition to oral diuretics
[2017-03-16 17:26] LABS: Glucose,Whole Blood 276 mg/dL (75-99)
[2017-03-16 20:24] LABS: Glucose,Whole Blood 201 mg/dL (75-99)
[2017-03-16] MEDS: SERTRALINE 100 MG TAB PO SCH (21:24)
[2017-03-16] MEDS: VIT A,C & E-LUTEIN-MINERALS 1 EACH TAB PO SCH (21:24)
[2017-03-16] MEDS: ATORVASTATIN 40 MG TAB PO SCH (21:25)
[2017-03-16] MEDS: INSULIN GLARGINE 100 UNIT/ML 10 ML VIAL SQ SCH (21:25)
[2017-03-16] MEDS: FUROSEMIDE 10 MG/ML 10 ML VIAL IV SCH (21:25)
[2017-03-17 07:29] LABS: Glucose,Whole Blood 89 mg/dL (75-99)
[2017-03-17] MEDS: INSULIN LISPRO (humaLOG) 300 UNIT/3 ML VIAL SQ SCH ×7 (07:45→20:31)
[2017-03-17] MEDS: LABETALOL 200 MG TAB PO SCH ×2 (07:49→20:31)
[2017-03-17] MEDS: FUROSEMIDE 10 MG/ML 10 ML VIAL IV SCH (07:49)
[2017-03-17] MEDS: ASPIRIN 81 MG CHEW PO SCH (07:50)
[2017-03-17] MEDS: HEPARIN SODIUM,PORCINE 5,000 UNIT/ML 1 ML VIAL SQ SCH ×3 (07:50→23:24)
[2017-03-17] MEDS: amLODIPine 2.5 MG TAB PO SCH (07:51)
[2017-03-17] MEDS: hydrALAZINE HCL 50 MG TAB PO SCH ×2 (07:51→20:31)
[2017-03-17] MEDS: SEVELAMER 800 MG TAB PO SCH ×3 (07:56→18:54)
[2017-03-17] MEDS: POLYETHYLENE GLYCOL 3350 17 GM POWD.PACK PO SCH (07:57)
[2017-03-17] MEDS: FERROUS SULFATE 325 MG TAB PO SCH ×2 (07:57→20:30)
[2017-03-17] MEDS: CLOPIDOGREL 75 MG TAB PO SCH (07:57)
[2017-03-17] MEDS: SODIUM BICARBONATE TAB 650 MG TAB PO SCH (07:58)
[2017-03-17 08:20] LABS: Calcium 9.7 mg/dL (8.4-10.2); Potassium 4.6 mmol/L (3.5-5.1)
[2017-03-17] MEDS ORDERED: BUMETANIDE 1 MG TAB PO SCH ×2 (11:00)
[2017-03-17 11:38] LABS: Glucose,Whole Blood 134 mg/dL (75-99)
[2017-03-17] MEDS: BUMETANIDE 1 MG TAB PO SCH ×2 (12:57→20:30)
[2017-03-17] MEDS: MULTIVITAMINS, THERA 1 EACH TAB PO SCH (12:57)
--- NOTE | 2017-03-17 16:51 | P.DS ---
Providers Date of admission: 03/12/17 12:34 Attending physician: Dav Alexander MD Consults: 03/12/17 15:50 Consult Physician Routine Consulting Provider: Manuel Hoyos Consult Reason/Comments: BRITNEY on CKD Do you want consulting provider notified?: Yes Primary care physician: Sam Trejo - Discharge Diagnosis(es) (1) DKA (diabetic ketoacidoses) Current Visit: Yes Status: Resolved (2) Acute renal failure superimposed on chronic kidney disease Current Visit: Yes Status: Resolved (3) Systolic CHF, acute on chronic Current Visit: Yes Status: Chronic (4) Valvular heart disease Current Visit: No Status: Chronic Hospital Course: The patient is a 76-year-old female who was admitted with DKA acute kidney injury on chronic kidney disease stage IV and placed ICU on insulin drip and fluids, she was weaned off insulin drip and transitioned to subcutaneous insulin on Lantus 19 units subcu daily at bedtime and Humalog 6 units subcu every before meals, A1c was 7.5. Nephrology was consulted given her elevated serum creatinine 4.1. determined to be prerenal to systolic CHF with EF of 30- 35% due to valvular heart disease from severe mitral regurgitation and moderate aortic stenosis with history of previous NSTEMI on her last hospitalization, she was placed on IV Lasix, she diuresed well and was transitioned to Bumex 2 mg by mouth twice a day. given her previous NSTEMI and elevated troponins cardiology was consulted, Dr. Ram recommended continuing medical management due to the the patient being at significant perioperative risk due to a high likelihood of having triple vessel coronary disease, in the setting of congestive heart failure , severe MR and moderate and chronic kidney disease. She was discharged back to SNF with recommendations to follow up with her educational manager Dr. Quinonez in 1 week. New Rx at discharge Bumex 2 mg PO BID. The discharge process took approximately 35 minutes. Procedures: NONE Patient Condition at Discharge: Good Plan - Discharge Summary New Discharge Prescriptions: New Bumetanide [BUMEX] 1 mg PO BID #60 tab HYDROcodone/APAP 5-325MG [[place] 5-325] 1 each PO Q6HR PRN tab PRN Reason: Moderate Pain Insulin Glargine [Lantus] 19 unit SQ HS vial INSULIN LISPRO (humaLOG) [humaLOG (formulary)] 6 unit SQ AC-TID vial INSULIN LISPRO (humaLOG) [humaLOG (formulary)] 0 unit SQ ACHS vial Polyethylene Glycol 3350 [Miralax] 17 gm PO DAILY #30 pack Sevelamer [Renvela] 800 mg PO TID-W/MEALS tab Continue Vit C/E/Zn/Coppr/Lutein/Zeaxan [Preservision Areds 2 Softgel] 2 cap PO HS Sertraline [Zoloft] 100 mg PO HS Cholecalciferol [Vitamin D3] 5,000 unit PO DAILY Poly-Iron 150mg 150 mg PO BID Labetalol [Trandate] 200 mg PO BID hydrALAZINE HCL [Hydralazine HCl] 50 mg PO BID Multivitamins, Thera [Multivitamin (formulary)] 1 tab PO DAILY Clopidogrel [Plavix] 75 mg PO DAILY Aspirin EC [Ecotrin Low Dose] 81 mg PO DAILY amLODIPine [Norvasc] 2.5 mg PO DAILY Epoetin Poncho [Procrit] 4,000 unit IM [id number] Atorvastatin [Lipitor] 40 mg PO DAILY tab Insulin Glargine [Lantus] 19 unit SQ HS vial Sevelamer [Renvela] 800 mg PO TID-W/MEALS tab HYDROcodone/APAP 7.5-325MG [[place] 7.5-325] 1 tab PO BID #60 Discontinued Allopurinol [Zyloprim] 100 mg PO DAILY Furosemide [Lasix] 40 mg PO DAILY tab Sodium Bicarbonate Tab 1,300 mg PO BID tab Insulin Aspart [NovoLOG] See Protocol SQ ACHS Discharge Medication List Aspirin EC [Ecotrin Low Dose] 81 mg PO DAILY 03/03/17 [History] Cholecalciferol [Vitamin D3] 5,000 unit PO DAILY 03/03/17 [History] Clopidogrel [Plavix] 75 mg PO DAILY 03/03/17 [History] Epoetin [place] [Procrit] 4,000 unit IM [id number] 03/03/17 [History] Labetalol [Trandate] 200 mg PO BID 03/03/17 [History] Multivitamins, Thera [Multivitamin (formulary)] 1 tab PO DAILY 03/03/17 [History ] Poly-Iron 150mg 150 mg PO BID 03/03/17 [History] Sertraline [Zoloft] 100 mg PO HS 03/03/17 [History] Vit C/E/Zn/Coppr/Lutein/Zeaxan [Preservision Areds 2 Softgel] 2 cap PO HS [History] amLODIPine [Norvasc] 2.5 mg PO DAILY 03/03/17 [History] hydrALAZINE HCL [Hydralazine HCl] 50 mg PO BID 03/03/17 [History] Atorvastatin [Lipitor] 40 mg PO DAILY tab 03/09/17 [Rx] HYDROcodone/APAP 7.5-325MG [[place] 7.5-325] 1 tab PO BID #60 03/09/17 [Rx] Insulin Glargine [Lantus] 19 unit SQ HS vial 03/09/17 [Rx] Sevelamer [Renvela] 800 mg PO TID-W/MEALS tab 03/09/17 [Rx] Bumetanide [BUMEX] 1 mg PO BID #60 tab 03/17/17 [Rx] HYDROcodone/APAP 5-325MG [[place] 5-325] 1 each PO Q6HR PRN tab 03/17/17 [Rx] INSULIN LISPRO (humaLOG) [humaLOG (formulary)] 0 unit SQ ACHS vial 03/17/17 [Rx ] INSULIN LISPRO (humaLOG) [humaLOG (formulary)] 6 unit SQ AC-TID vial 03/17/17 [ Rx] Insulin Glargine [Lantus] 19 unit SQ HS vial 03/17/17 [Rx] Polyethylene Glycol 3350 [Miralax] 17 gm PO DAILY #30 pack 03/17/17 [Rx] Sevelamer [Renvela] 800 mg PO TID-W/MEALS tab 03/17/17 [Rx] Follow up Appointment(s)/Referral(s): Sam Trejo MD [Primary Care Provider] - 1-2 days Discharge Disposition: TRANSFER TO SNF/ECF
[2017-03-17 17:35] LABS: Glucose,Whole Blood 126 mg/dL (75-99)
[2017-03-17 20:04] LABS: Glucose,Whole Blood 202 mg/dL (75-99)
[2017-03-17] MEDS: ATORVASTATIN 40 MG TAB PO SCH (20:30)
[2017-03-17] MEDS: INSULIN GLARGINE 100 UNIT/ML 10 ML VIAL SQ SCH (20:30)
[2017-03-17] MEDS: SERTRALINE 100 MG TAB PO SCH (20:32)
[2017-03-17] MEDS: VIT A,C & E-LUTEIN-MINERALS 1 EACH TAB PO SCH (20:32)
--- NOTE | 2017-03-17 22:25 | PN ---
PROGRESS NOTE Patient is seen for followup for CKD, stage IV. She was admitted to the hospital with DKA, weakness and fluid overload. She has been diuresed and is maintained on Bumex 1 mg b.i.d. Patient will be discharged today. PHYSICAL EXAMINATION: Blood pressure 120/59, heart rate 59 per minute. She is afebrile. EXAMINATION OF THE HEART: S1, S2. EXAMINATION OF LUNGS: Bilateral breath sounds are heard. ABDOMEN: Soft, non-tender. Examination of lower extremities shows no edema. LABS: Serum creatinine 3.49 today, sodium 138, potassium 4.6. ASSESSMENT: 1. Chronic kidney disease, stage IV, being followed by a teletypesetter out of [place]. Patient is advised to follow up as outpatient upon discharge. 2. Fluid overload, currently improved. 3. Anemia of chronic disease. 4. Status post recent acute myocardial infarction. PLAN: Continue with Bumex for now and follow up as outpatient with Nephrology. MMODL / IJN: [id number] /
[2017-03-17 23:41] VITALS: RESP 16
[2017-03-18 07:40] VITALS: BP 134/71; PULSE 70; TEMP 98.1
[2017-03-18 08:05] LABS: Glucose,Whole Blood 68 mg/dL (75-99)
[2017-03-18 08:05] LABS: Glucose,Whole Blood 54 mg/dL (75-99)
[2017-03-18 08:12] LABS: Glucose,Whole Blood 104 mg/dL (75-99)
[2017-03-18] MEDS: INSULIN LISPRO (humaLOG) 300 UNIT/3 ML VIAL SQ SCH ×2 (08:22→08:23)
[2017-03-18] MEDS: POLYETHYLENE GLYCOL 3350 17 GM POWD.PACK PO SCH (08:30)
[2017-03-18] MEDS: SEVELAMER 800 MG TAB PO SCH (08:30)
[2017-03-18] MEDS: BUMETANIDE 1 MG TAB PO SCH (08:31)
[2017-03-18] MEDS: FERROUS SULFATE 325 MG TAB PO SCH (08:31)
[2017-03-18] MEDS: HEPARIN SODIUM,PORCINE 5,000 UNIT/ML 1 ML VIAL SQ SCH (08:31)
[2017-03-18] MEDS: amLODIPine 2.5 MG TAB PO SCH (08:31)
[2017-03-18] MEDS: LABETALOL 200 MG TAB PO SCH (08:31)
[2017-03-18] MEDS: ASPIRIN 81 MG CHEW PO SCH (08:31)
[2017-03-18] MEDS: hydrALAZINE HCL 50 MG TAB PO SCH (08:31)
[2017-03-18] MEDS: CLOPIDOGREL 75 MG TAB PO SCH (08:32)
[2017-03-18 11:24] LABS: Glucose,Whole Blood 307 mg/dL (75-99)
--- NOTE | 2017-03-18 22:04 | PN ---
PROGRESS NOTE Patient is seen for followup for chronic kidney disease and acute kidney injury. She was being discharged yesterday; however, it did not actually happen yesterday and patient will be discharged today. She is currently comfortable, awake, not in any acute distress. PHYSICAL EXAMINATION: Blood pressure 134/71, heart rate 70 per minute. She is afebrile. EXAMINATION OF THE HEART: S1, S2. EXAMINATION OF LUNGS: Bilateral breath sounds are heard. ABDOMEN: Soft, non-tender. Examination of lower extremities shows edema 1+ bilaterally. SPRING FITTER exam is grossly intact. LABS: Labs are not available from today. Serum creatinine was at 3.49 from yesterday. ASSESSMENT: 1. Acute kidney injury associated with congestive heart failure, fluid overload, currently improved. 2. Fluid overload/congestive heart failure, mainly diastolic dysfunction, maintained on Bumex, significantly improved. 3. Chronic kidney disease, NKF stage IV to V, being followed by Dr. Martin as outpatient in [place]. 4. Metabolic acidosis, currently resolved. Sodium bicarb was discontinued yesterday. PLAN: Patient can be discharged on current dose of Bumex. She is advised to follow up with her primary ward secretary in about 1 week's time. Initiation of renal replacement therapy was briefly discussed with her as well. MMODL / IJN: [id number] /
== END 2017-03-18 13:30 | DRG 637 ==
LOC: EC 11:46 → 6SEL 12:34 → 5MS5E 03-13 10:52
PROVIDERS: ADMIT Internal Medicine; ATTEND Internal Medicine
DX: E13.10 Other specified diabetes mellitus with ketoacidosis without coma (principal); I21.4 Non-ST elevation (NSTEMI) myocardial infarction; I50.43 Acute on chronic combined systolic (congestive) and diastolic (congestive) heart failure; N18.4 Chronic kidney disease, stage 4 (severe); N17.9 Acute kidney failure, unspecified; E87.5 Hyperkalemia; I08.3 Combined rheumatic disorders of mitral, aortic and tricuspid valves; I27.2 Other secondary pulmonary hypertension; I13.0 Hypertensive heart and chronic kidney disease with heart failure and stage 1 through stage 4 chronic kidney disease, or unspecified chronic kidney disease; D63.8 Anemia in other chronic diseases classified elsewhere; E78.5 Hyperlipidemia, unspecified; E66.9 Obesity, unspecified; E11.21 Type 2 diabetes mellitus with diabetic nephropathy; E11.22 Type 2 diabetes mellitus with diabetic chronic kidney disease; E11.42 Type 2 diabetes mellitus with diabetic polyneuropathy; E11.51 Type 2 diabetes mellitus with diabetic peripheral angiopathy without gangrene; F32.9 Major depressive disorder, single episode, unspecified; G47.30 Sleep apnea, unspecified; I25.118 Atherosclerotic heart disease of native coronary artery with other forms of angina pectoris; M10.9 Gout, unspecified; M19.90 Unspecified osteoarthritis, unspecified site; Z68.34 Body mass index [BMI] 34.0-34.9, adult; Z79.02 Long term (current) use of antithrombotics/antiplatelets; Z79.4 Long term (current) use of insulin; Z79.82 Long term (current) use of aspirin; Z79.899 Other long term (current) drug therapy; Z82.49 Family history of ischemic heart disease and other diseases of the circulatory system; Z86.010 Personal history of colon polyps; Z87.891 Personal history of nicotine dependence; Z98.1 Arthrodesis status; Z88.1 Allergy status to other antibiotic agents
CPT/HCPCS: 36415; 36600; 71020; 74176; 80048; 80051; 80053; 81001; 82009; 82150; 82550; 82553; 82565; 82805; 82947; 83036; 83690; 83735; 83880; 84100; 84484; 84520; 85025; 85027; 85610; 85730; 93005; 94760; 96360; 99285

== ENCOUNTER 2017-03-19 16:18 | Inpatient (IN) | payer MEDICARE, BC ==
[2017-03-19 17:42] LABS: Anisocytosis Slight; Aty Lym Flag Slight; CH 30.8; CHCM 31.5; HCT 32.8 % (34.0-46.0); HDW 3.06; HGB 10.4 gm/dL (11.4-16.0); Hypochromasia Moderate; MCH 31.3 pg (25.0-35.0); MCHC 31.7 g/dL (31.0-37.0); MCV 98.7 fL (80.0-100.0); Macrocytosis Slight; Mean Platelet Volume 7.7; RBC 3.32 m/uL (3.80-5.40); RDW 17.7 % (11.5-15.5); WBC (Perox) 5.97
[2017-03-19 17:55] LABS: Calcium 9.5 mg/dL (8.4-10.2); Potassium 4.5 mmol/L (3.5-5.1); Total Bilirubin 0.5 mg/dL (0.2-1.3); Total Protein 5.8 g/dL (6.3-8.2)
[2017-03-19 18:08] LABS: Add Differential Manual Differential
[2017-03-19 18:12] LABS: Manual Review Performed; Nucleated Red Blood Cells 0 /100 WBC (0-0); Polychromasia Present; Total Cells Counted 100
--- NOTE | 2017-03-19 18:13 | XR ---
EXAMINATION TYPE: XR chest 2V DATE OF EXAM: 03/19/2017 COMPARISON: 03/12/2017 HISTORY: Pain TECHNIQUE: Frontal and lateral views of the chest are obtained. FINDINGS: There is moderate silhouetting of the pulmonary vasculature symmetrically by a fine reticul ar pattern of increased density with associated thickening of the fissures and occasional septal line s at the periphery. The pattern is consistent with moderate interstitial phase pulmonary edema, presu mably cardiogenic etiology given the mild-moderate enlarged cardiac silhouette. There is minimal blunting of the posterior costophrenic sulci bilaterally consistent with minimal ple ural effusions. No pneumothorax. Skeletal structures and soft tissues are unremarkable. IMPRESSION: MODERATE INTERSTITIAL PHASE CARDIOGENIC PULMONARY EDEMA.
[2017-03-19 18:30] LABS: Partial Thromboplastin Time 23.5 sec (22.0-30.0)
[2017-03-19 18:50] LABS: INR 1.2 (<1.2); Prothrombin Time 11.7 sec (9.0-12.0)
[2017-03-19 19:16] LABS: Glucose,Whole Blood 290 mg/dL (75-99)
--- NOTE | 2017-03-19 19:25 | ED ---
General Adult HPI - General Chief complaint: Recheck/Abnormal Lab/Rx Stated complaint: ABNORMAL LABS, HERE FOR DIALYSIS Time Seen by Provider: 03/19/17 17:04 Source: patient Mode of arrival: EMS Limitations: no limitations - History of Present Illness Initial comments: Patient complains of shortness of breath. Her symptoms are getting worse. She has no chest or belly pain. She has no back pain. She has no lightheadedness or dizziness. She has a recent history of CO. He has swelling in the legs bilaterally. She has no calf tenderness. She has taken no extra medications for her symptoms. - Related Data Home Medications Medication Instructions Recorded Confirmed Aspirin EC [Ecotrin Low Dose] 81 mg PO DAILY 03/03/17 03/19/17 Clopidogrel [Plavix] 75 mg PO DAILY 03/03/17 03/19/17 Labetalol [Trandate] 200 mg PO BID 03/03/17 03/19/17 Multivitamins, Thera [Multivitamin 1 tab PO DAILY 03/03/17 03/19/17 (formulary)] Poly-Iron 150mg 150 mg PO BID 03/03/17 03/19/17 Sertraline [Zoloft] 100 mg PO DAILY 03/03/17 03/19/17 Vit C/E/Zn/Coppr/Lutein/Zeaxan 2 cap PO HS 03/03/17 03/19/17 [Preservision Areds 2 Softgel] amLODIPine [Norvasc] 2.5 mg PO DAILY 03/03/17 03/19/17 hydrALAZINE HCL [Hydralazine HCl] 50 mg PO BID 03/03/17 03/19/17 Allopurinol [Zyloprim] 100 mg PO DAILY 03/19/17 03/19/17 Darbepoetin Poncho [Aranesp] 200 mcg SQ Q14D 03/19/17 03/19/17 Furosemide [Lasix] 40 mg PO DAILY 03/19/17 03/19/17 Insulin Aspart [NovoLOG] 6 unit SQ AC-TID 03/19/17 03/19/17 Insulin Aspart [NovoLOG] See Protocol SQ ACHS 03/19/17 03/19/17 Insulin Glargine [Lantus] 17 unit SQ HS 03/19/17 03/19/17 Pravastatin Sodium [Pravachol] 20 mg PO HS 03/19/17 03/19/17 Sodium Bicarbonate 130mg 130 mg PO BID 03/19/17 03/19/17 Previous Rx's Medication Instructions Recorded HYDROcodone/APAP 7.5-325MG [Calvin 1 tab PO BID #60 03/09/17 7.5-325] Allergies Allergy/AdvReac Type Severity Reaction Status Date / Time amoxicillin [From Augmentin] Allergy Rash/Hives Verified 03/19/17 18:09 clarithromycin [From Biaxin] Allergy Rash/Hives Verified 03/19/17 18:09 clavulanic acid Allergy Rash/Hives Verified 03/19/17 18:09 [From Augmentin] Review of Systems ROS Statement: Those systems with pertinent positive or pertinent negative responses have been documented in the HPI. ROS Other: All systems not noted in ROS Statement are negative. Past Medical History Past Medical History: Coronary Artery Disease (CAD), Heart Failure, Diabetes Mellitus, Hyperlipidemia, Hypertension, Myocardial Infarction (CO), Osteoarthritis (OA), Renal Disease, Sleep Apnea/CPAP/BIPAP Additional Past Medical History / Comment(s): Pt recently admitted on 03/03/17 for NSTEMI, hyperkalemia, uti, acute/chronic kidney disease, anemia, hypomagnesemia, CHF, DKA, DEHYDRATION, LACTIC ACID. Other hx: Murmur, aortic stenosis, IDDM type II, peripheral neuropathy, multiple hypoglycemic episodes, LALA/CPAP, hiatal hernia, diverticular dx, colon polyps-benign, GOUT, MULTIPLE FALLS. Last Myocardial Infarction Date:: 2016 History of Any Multi-Drug Resistant Organisms: MRSA Date of last positivie culture/infection: 2004 MDRO Source:: back Past Surgical History: Unable to Obtain Additional Past Surgical History / Comment(s): Right and left heart cath, spinal fusion, bilateral cataracts, colonoscopy, partial hysterectomy, bladder sling, appendectomy, excision PERIRECTAL TISSUE Past Anesthesia/Blood Transfusion Reactions: No Reported Reaction Past Psychological History: Depression Smoking Status: Former smoker - Past Family History Father Additional Family Medical History / Comment(s): Heart disease Mother Family Medical History: Hypertension Additional Family Medical History / Comment(s): Heart disease. MOTHER AT THE AGE OF 89YRS. General Exam Limitations: no limitations General appearance: alert, in no apparent distress Head exam: Present: atraumatic, normocephalic, normal inspection Eye exam: Present: normal appearance, PERRL, EOMI. Absent: scleral icterus, conjunctival injection, periorbital swelling ENT exam: Present: normal exam, mucous membranes moist Neck exam: Present: normal inspection. Absent: tenderness, meningismus, lymphadenopathy Respiratory exam: Present: rales, rhonchi. Absent: respiratory distress, wheezes, stridor Cardiovascular Exam: Present: regular rate, normal rhythm, normal heart sounds. Absent: systolic murmur, diastolic murmur, rubs, gallop, clicks GI/Abdominal exam: Present: soft, normal bowel sounds. Absent: distended, tenderness, guarding, rebound, rigid Extremities exam: Present: normal inspection, full ROM, normal capillary refill. Absent: tenderness, pedal edema, joint swelling, calf tenderness Back exam: Present: normal inspection Neurological exam: Present: alert, oriented X3, CN II-XII intact Psychiatric exam: Present: normal affect, normal mood Skin exam: Present: warm, dry, intact, normal color. Absent: rash Course Vital Signs 03/19/17 03/19/17 03/19/17 16:30 17:05 18:45 Temperature 97.4 F L Pulse Rate 70 74 73 Respiratory 18 18 18 Rate Blood Pressure 127/59 145/10 128/59 O2 Sat by Pulse 69 L 98 98 Oximetry Medical Decision Making - Medical Decision Making patient presents with shortness of breath. Chest x-ray reveals pulmonary edema. She has a very elevated BNP. She will be admitted to the hospital. - Lab Data Result diagrams: 03/19/17 17:02 03/19/17 17:02 Lab Results 03/19/17 03/19/17 03/19/17 Range/Units 17:02 17:02 17:02 WBC 6.0 (3.8-10.6) k/uL RBC 3.32 L (3.80-5.40) m/uL Hgb 10.4 L (11.4-16.0) gm/dL Hct 32.8 L (34.0-46.0) % MCV 98.7 (80.0-100.0) fL MCH 31.3 (25.0-35.0) pg MCHC 31.7 (31.0-37.0) g/dL RDW 17.7 H (11.5-15.5) % Plt Count 271 (150-450) k/uL Neutrophils % (Manual) 62 % Lymphocytes % (Manual) 25 % Monocytes % (Manual) 11 % Eosinophils % (Manual) 2 % Neutrophils # (Manual) 3.72 (1.3-7.7) k/uL Lymphocytes # (Manual) 1.50 (1.0-4.8) k/uL Monocytes # (Manual) 0.66 (0-1.0) k/uL Eosinophils # (Manual) 0.12 (0-0.7) k/uL Nucleated RBCs 0 (0-0) /100 WBC Manual Slide Review Performed Polychromasia Present Hypochromasia Moderate Anisocytosis Slight Anisocytosis (manual) Present Macrocytosis Slight PT (9.0-12.0) sec INR (<1.2) APTT (22.0-30.0) sec Sodium 134 L (137-145) mmol/L Potassium 4.5 (3.5-5.1) mmol/L Chloride 94 L (98-107) mmol/L Carbon Dioxide 27 (22-30) mmol/L Anion Gap 13 mmol/L BUN 73 H (7-17) mg/dL Creatinine 3.98 H (0.52-1.04) mg/dL Est GFR (MDRD) Af Amer 13 (>60 ml/min/1.73 sqM) Est GFR (MDRD) Non-Af 11 (>60 ml/min/1.73 sqM) Glucose 224 H (74-99) mg/dL POC Glucose (mg/dL) (75-99) mg/dL POC Glu Account Executive Trainee ID Calcium 9.5 (8.4-10.2) mg/dL Magnesium 2.0 (1.6-2.3) mg/dL Total Bilirubin 0.5 (0.2-1.3) mg/dL AST 24 (14-36) U/L ALT 29 (9-52) U/L Alkaline Phosphatase 131 H (38-126) U/L Troponin I (0.000-0.034) ng/mL NT-Pro-B Natriuret Pep 64866 pg/mL Total Protein 5.8 L (6.3-8.2) g/dL Albumin 3.7 (3.5-5.0) g/dL 03/19/17 03/19/17 03/19/17 Range/Units 17:02 17:02 19:13 WBC (3.8-10.6) k/uL RBC (3.80-5.40) m/uL Hgb (11.4-16.0) gm/dL Hct (34.0-46.0) % MCV (80.0-100.0) fL MCH (25.0-35.0) pg MCHC (31.0-37.0) g/dL RDW (11.5-15.5) % Plt Count (150-450) k/uL Neutrophils % (Manual) % Lymphocytes % (Manual) % Monocytes % (Manual) % Eosinophils % (Manual) % Neutrophils # (Manual) (1.3-7.7) k/uL Lymphocytes # (Manual) (1.0-4.8) k/uL Monocytes # (Manual) (0-1.0) k/uL Eosinophils # (Manual) (0-0.7) k/uL Nucleated RBCs (0-0) /100 WBC Manual Slide Review Polychromasia Hypochromasia Anisocytosis Anisocytosis (manual) Macrocytosis PT 11.7 (9.0-12.0) sec INR 1.2 H (<1.2) APTT 23.5 (22.0-30.0) sec Sodium (137-145) mmol/L Potassium (3.5-5.1) mmol/L Chloride (98-107) mmol/L Carbon Dioxide (22-30) mmol/L Anion Gap mmol/L BUN (7-17) mg/dL Creatinine (0.52-1.04) mg/dL Est GFR (MDRD) Af Amer (>60 ml/min/1.73 sqM) Est GFR (MDRD) Non-Af (>60 ml/min/1.73 sqM) Glucose (74-99) mg/dL POC Glucose (mg/dL) 290 H (75-99) mg/dL POC Glu Account Executive Trainee ID [place] Moore Calcium (8.4-10.2) mg/dL Magnesium (1.6-2.3) mg/dL Total Bilirubin (0.2-1.3) mg/dL AST (14-36) U/L ALT (9-52) U/L Alkaline Phosphatase (38-126) U/L Troponin I 0.095 H* (0.000-0.034) ng/mL NT-Pro-B Natriuret Pep pg/mL Total Protein (6.3-8.2) g/dL Albumin (3.5-5.0) g/dL Disposition Clinical Impression: Pulmonary edema Disposition: ADMITTED IP TO THIS HOSP Condition: Serious Referrals: Sam Trejo MD [Primary Care Provider] - 1-2 days
[2017-03-19] MEDS ORDERED: NALOXONE 0.4 MG/ML 1 ML VIAL IV PRN (20:21)
[2017-03-19] MEDS ORDERED: DARBEPOETIN ALFA 200 MCG/0.4 ML SYRINGE SQ SCH (20:30)
[2017-03-19 20:47] LABS: Glucose,Whole Blood 373 mg/dL (75-99)
[2017-03-19] MEDS ORDERED: FUROSEMIDE 10 MG/ML 4 ML VIAL IV SCH (21:00)
[2017-03-19] MEDS ORDERED: INSULIN GLARGINE 100 UNIT/ML 10 ML VIAL SQ SCH (21:00)
[2017-03-19] MEDS ORDERED: ATORVASTATIN 80 MG TAB PO SCH (21:00)
[2017-03-19] MEDS: hydrALAZINE HCL 50 MG TAB PO SCH (21:08)
[2017-03-19] MEDS: METOPROLOL TARTRATE 25 MG TAB PO SCH (21:08)
[2017-03-19] MEDS: HYDROcodone/APAP 7.5-325MG 1 EACH TAB PO SCH (21:09)
[2017-03-19] MEDS: INSULIN LISPRO (humaLOG) 300 UNIT/3 ML VIAL SQ SCH (21:10)
--- NOTE | 2017-03-19 21:17 | P.HPIM ---
History of Present Illness H&P Date: 03/19/17 Chief Complaint: Shortness of breath 76 year old female with PMHx of advanced CKD, Chronic systolic ischemic cardiomyopathy with LVEF of 30-35%, IDDM. She presents today from [facility] after being evaluated by her doctor who found her short of breath, family was also told that her potassium was high, and her treating doctor gave her a medicine to lower her potassium and recommended that she goes to the ER to be evaluated for possible need of urgent dialysis. I saw the patient with her family at bedside, she seemed to be comfortable, Her family indicated that she saw the doctor this morning 11 hours ago. She currently feels fine, denies any chest pain or trouble breathing, talking full sentences and very pleasant. She indicated that she makes good urine output and that she usually monitors that at the [place] [facility] and knows that she at least makes 800 cc of urine daily. She reports chronic swelling of her legs that has been increasing recently and reports an associated leg pain due to neuropathy that is chronic in nature and has not changed from baseline. She denies any palpitation, syncope, orthopnea, PNDs, coughing, dysuria, abd pain, diarrhea, vomiting, focal neurologic deficits like weakness or new sensory loss. Patient indicated that she used to go long distances using her walker, however she has not been active recently due to frequent hospitalization, but she reports walking to the bathroom using a walker with no limitations. She is frustrated due to frequent hospitalization over the past 2 weeks. I discussed advanced directives with the patient, who indicated that she might have signed papers indicating DNR/DNI however she was not sure, and elected to be a full code at this time, but definitely not to be connected to life sustaining measures for long periods of time. She named her Son Fito as a surrogate decision maker if she would lose the capacity of making her own decisions. I reviewed her most recent admissions, cardiology has evaluated the patient who recommended to continue with full medical therapy. Nephrology recommended OP follow up for consideration and discussing options of renal replacement therapy. Review of Systems Constitutional: Patient reports no fever, no chills, no night sweating, no significant weight changes Eyes: Patient reports no visual changes, no eye pain ENT: Patient reports no ear pain, no rhinorrhea, no sore throat Cardiovascular: Patient reports no chest pain, no exertional dyspnea, no orthopnea, no paroxysmal nocturnal dyspnea Respiratory:Patient reports no cough, no wheezing Gastrointestinal: Patient reports no diarrhea, no constipation, no nausea no vomiting, no abdominal pain Genitourinary: Patient reports no dysuria, no hematuria, no changes in urinary habits, no genital lesions Musculoskeletal: Patient reports no muscle pain, chronic joint pain Psychiatric: Patient reports no changes in mood or memory, no suicidal ideation , no anxiety Endocrine: Patient reports no heat intolerance, no cold intolerance, no excessive thirst, no polyuria Neurological: Patient reports no focal neurologic deficits, no weakness, admits to chronic neuropathy in her lower extremities Hem/Lymphatic: Patient reports no bleeding tendency, no bruising, no swollen lymph glands Allergic/Immun: Patient reports no recent allergic reactions Skin: Patient reports no rashes, no pruritis, no ulcers Past Medical History Past Medical History: Coronary Artery Disease (CAD), Heart Failure, Diabetes Mellitus, Hyperlipidemia, Hypertension, Myocardial Infarction (PR), Osteoarthritis (OA), Renal Disease, Sleep Apnea/CPAP/BIPAP Additional Past Medical History / Comment(s): Pt recently admitted on 03/03/17 for NSTEMI, hyperkalemia, uti, acute/chronic kidney disease, anemia, hypomagnesemia, CHF, DKA, DEHYDRATION, LACTIC ACID. Other hx: Murmur, aortic stenosis, IDDM type II, peripheral neuropathy, multiple hypoglycemic episodes, LALA/CPAP, hiatal hernia, diverticular dx, colon polyps-benign, GOUT, MULTIPLE FALLS. Last Myocardial Infarction Date:: 2016 History of Any Multi-Drug Resistant Organisms: MRSA Date of last positivie culture/infection: 2004 MDRO Source:: back Additional Past Surgical History / Comment(s): Right and left heart cath, spinal fusion, bilateral cataracts, colonoscopy, partial hysterectomy, bladder sling, appendectomy, excision PERIRECTAL TISSUE Past Anesthesia/Blood Transfusion Reactions: No Reported Reaction Past Psychological History: Depression Smoking Status: Former smoker Past Alcohol Use History: None Reported Past Drug Use History: None Reported - Past Family History Father Additional Family Medical History / Comment(s): Heart disease Mother Family Medical History: Hypertension Additional Family Medical History / Comment(s): Heart disease. MOTHER AT THE AGE OF 89YRS. Medications and Allergies Home Medications and Allergies Comment(s): reviewed Home Medications Medication Instructions Recorded Confirmed Type Aspirin EC [Ecotrin Low Dose] 81 mg PO DAILY 03/03/17 03/19/17 History Clopidogrel [Plavix] 75 mg PO DAILY 03/03/17 03/19/17 History Labetalol [Trandate] 200 mg PO BID 03/03/17 03/19/17 History Multivitamins, Thera [Multivitamin 1 tab PO DAILY 03/03/17 03/19/17 History (formulary)] Poly-Iron 150mg 150 mg PO BID 03/03/17 03/19/17 History Sertraline [Zoloft] 100 mg PO DAILY 03/03/17 03/19/17 History Vit C/E/Zn/Coppr/Lutein/Zeaxan 2 cap PO HS 03/03/17 03/19/17 History [Preservision Areds 2 Softgel] amLODIPine [Norvasc] 2.5 mg PO DAILY 03/03/17 03/19/17 History hydrALAZINE HCL [Hydralazine HCl] 50 mg PO BID 03/03/17 03/19/17 History HYDROcodone/APAP 7.5-325MG [[place] 1 tab PO BID #60 03/09/17 03/19/17 Rx 7.5-325] Allopurinol [Zyloprim] 100 mg PO DAILY 03/19/17 03/19/17 History Darbepoetin Poncho [Aranesp] 200 mcg SQ Q14D 03/19/17 03/19/17 History Furosemide [Lasix] 40 mg PO DAILY 03/19/17 03/19/17 History Insulin Aspart [NovoLOG] 6 unit SQ AC-TID 03/19/17 03/19/17 History Insulin Aspart [NovoLOG] See Protocol SQ [facility] 03/19/17 03/19/17 History Insulin Glargine [Lantus] 17 unit SQ HS 03/19/17 03/19/17 History Pravastatin Sodium [Pravachol] 20 mg PO HS 03/19/17 03/19/17 History Sodium Bicarbonate 130mg 130 mg PO BID 03/19/17 03/19/17 History Allergies Allergy/AdvReac Type Severity Reaction Status Date / Time amoxicillin [From Augmentin] Allergy Rash/Hives Verified 03/19/17 18:09 clarithromycin [From Biaxin] Allergy Rash/Hives Verified 03/19/17 18:09 clavulanic acid Allergy Rash/Hives Verified 03/19/17 18:09 [From Augmentin] Physical Exam Vitals: Vital Signs Temp Pulse Resp BP Pulse Ox 03/19/17 18:45 73 18 128/59 98 03/19/17 17:05 74 18 145/10 98 03/19/17 16:30 97.4 F L 70 18 127/59 69 L Intake and Output 03/19/17 03/19/17 03/19/17 06:59 14:59 22:59 Other: Weight 86.183 kg Patient Weight 03/20/17 06:59 Weight 86.183 kg Constitutional: No acute distress, conversant, pleasant Eyes: Anicteric sclerae, moist conjunctiva, no lid-lag Pupils equal round reactive to light ENMT: NC/AT Oropharynx clear, no erythema, exudates Neck: Supple, FROM, no masses, or JVD No carotid bruits No thyromegaly Lungs: Good breath sounds bilaterally , inspiratory and expiratory rales diffusely Clear to percussion Normal respiratory effort, no accessory muscle use Cardiovascular: Heart regular in rate and rhythm, + systolic murmur, no gallops, or rubs +2 peripheral leg edema Abdominal: Soft Nontender, no guarding, rebound or rigidity Abdomen moving with respiration Normoactive bowel sounds No hepatomegaly, No splenomegaly No palpable mass No abdominal wall hernia noted Skin: Normal temperature, tone, texture, turgor No induration No subcutaneous nodules No rash, lesions No ulcers Extremities: No digital cyanosis No clubbing Pedal pulses intact and symmetrical Radial pulses intact and symmetrical discomfort to palpation of the legs bilaterally but no tenderness, patient indicated that this is chronic and related to her peripheral neuropathy Psychiatric: Alert and oriented to person, place and time Appropriate affect fair judgment Neuro Muscles Strength 4/5 in all 4 extremities Sensation to light touch grossly present throughout Cranial nerves II-XII grossly intact No focal sensory deficits, except for chronic decrease in sensation to light touch over her lower extremities which is again reported to be chronic in nature Lymphatics: no palpable cervical or supraclavicular , or inguinal lymph nodes Results Results: reviewed hgb at baseline Creatinine improved compared to before K stable Troponin trending down compared to before CBC & Chem 7: 03/19/17 17:02 03/19/17 17:02 Labs: Abnormal Lab Results - Last 24 Hours (Table) 03/19/17 03/19/17 03/19/17 Range/Units 17:02 17:02 17:02 RBC 3.32 L (3.80-5.40) m/uL Hgb 10.4 L (11.4-16.0) gm/dL Hct 32.8 L (34.0-46.0) % RDW 17.7 H (11.5-15.5) % INR 1.2 H (<1.2) Sodium 134 L (137-145) mmol/L Chloride 94 L (98-107) mmol/L BUN 73 H (7-17) mg/dL Creatinine 3.98 H (0.52-1.04) mg/dL Glucose 224 H (74-99) mg/dL POC Glucose (mg/dL) (75-99) mg/dL Alkaline Phosphatase 131 H (38-126) U/L Troponin I (0.000-0.034) ng/mL Total Protein 5.8 L (6.3-8.2) g/dL 03/19/17 03/19/17 Range/Units 17:02 19:13 RBC (3.80-5.40) m/uL Hgb (11.4-16.0) gm/dL Hct (34.0-46.0) % RDW (11.5-15.5) % INR (<1.2) Sodium (137-145) mmol/L Chloride (98-107) mmol/L BUN (7-17) mg/dL Creatinine (0.52-1.04) mg/dL Glucose (74-99) mg/dL POC Glucose (mg/dL) 290 H (75-99) mg/dL Alkaline Phosphatase (38-126) U/L Troponin I 0.095 H* (0.000-0.034) ng/mL Total Protein (6.3-8.2) g/dL Assessment and Plan (1) Pulmonary edema Status: Acute (2) Systolic CHF, acute on chronic Status: Chronic (3) CKD (chronic kidney disease) stage 5, GFR less than 15 ml/min Status: Chronic (4) Hyperglycemia Status: Acute (5) LALA (obstructive sleep apnea) Status: Chronic (6) Valvular heart disease Status: Chronic Plan: pulmonary edema which is multifactorial , due to acute on chronic systolic CHF exacerbation and underlying advanced stage 5 CKD strict I/Os fluid restriction to 1500 cc daily sodium restriction continue with ASA, lipitor, plavix switch labetalol to metoprolol DC amlodipine ( advanced systolic CHF and chronic lower extremity edema) continue hydralazine I will consider adding imdur if blood pressure tolerates monitor electrolytes K and Mg cardiac monitoring discuss with cardiology evaluation for ICD due to LVEF <35% IV diuresis with lasix BID 40 mg close monitoring or urine output, consider aaron cath insertion if needed for critical monitoring of urine output if patient is incontinent cardiology consult supplemental oxygen to keep oxygen sat >92 % troponins trending down compared to before, chronic cardiac enzyme leak due to advanced CKD and CAD avoid nephrotoxic meds avoid ARB/ACEi nephro consult to evaluate and recommendation regarding renal replacement therapy , patient currently denies being oliguric vascular consult for venous mapping Chronic anemia 2/2 CKD hgb stable at baseline continue to monitor patient denies any GI bleeding Hyperglycemia continue with home dose of insulin (lantus 17 units HS and humalog 6 units TID) insulin sliding scale for corrective doses as needed DVT PPX with heparin sc TID Fluid restriction cardiac diet PT evaluation utility worker driver consult for discharge planning Code status , full code for now per patient request Time with Patient: Greater than 30
[2017-03-19] MEDS: HEPARIN SODIUM,PORCINE 5,000 UNIT/ML 1 ML VIAL SQ SCH (23:43)
[2017-03-20 04:02] VITALS: BMI 32.5
[2017-03-20 05:47] LABS: Glucose,Whole Blood 143 mg/dL (75-99)
[2017-03-20] MEDS: INSULIN LISPRO (humaLOG) 300 UNIT/3 ML VIAL SQ SCH ×4 (07:07→12:06)
[2017-03-20 07:27] LABS: Calcium 9.6 mg/dL (8.4-10.2); Magnesium 2.1 mg/dL (1.6-2.3); Phosphorous 4.5 mg/dL (2.5-4.5); Total Bilirubin 0.4 mg/dL (0.2-1.3); Total Protein 5.8 g/dL (6.3-8.2)
[2017-03-20 07:28] LABS: Anisocytosis Slight; Aty Lym Flag Slight; CH 30.4; CHCM 30.9; HCT 32.9 % (34.0-46.0); HGB 10.4 gm/dL (11.4-16.0); Hypochromasia Moderate; MCH 31.3 pg (25.0-35.0); MCHC 31.5 g/dL (31.0-37.0); MCV 99.2 fL (80.0-100.0); Macrocytosis Slight; Mean Platelet Volume 7.6; RBC 3.32 m/uL (3.80-5.40); RDW 17.5 % (11.5-15.5); WBC 5.6 k/uL (3.8-10.6); WBC (Perox) 5.79
[2017-03-20] MEDS ORDERED: FUROSEMIDE 10 MG/ML 10 ML VIAL IV STA (07:42)
[2017-03-20] MEDS ORDERED: CLOPIDOGREL 75 MG TAB PO SCH (09:00)
[2017-03-20] MEDS ORDERED: ASPIRIN 81 MG CHEW PO SCH (09:00)
[2017-03-20] MEDS ORDERED: SERTRALINE 100 MG TAB PO SCH (09:00)
[2017-03-20 09:10] LABS: Add Differential Manual Differential
[2017-03-20 09:16] LABS: Nucleated Red Blood Cells 0 /100 WBC (0-0); Total Cells Counted 100
[2017-03-20 09:17] LABS: Target Cells Present
--- NOTE | 2017-03-20 09:18 | XR ---
EXAMINATION TYPE: XR chest 2V DATE OF EXAM: 03/20/2017 COMPARISON: Prior chest x-ray 03/19/2017 HISTORY: Congestive heart failure TECHNIQUE: Frontal and lateral views of the chest are obtained. FINDINGS: There are prominent lung volumes. Minimal blunting of the posterior costophrenic angles is noted. The heart is enlarged. Postop changes are noted to the lumbar spine. There are overlying card iac leads. Interstitium is increased. No evident pneumothorax. Persistent thickening of the minor fis sure. IMPRESSION: Findings could be indicative of pulmonary venous hypertension and interstitial edema. Dif ficult to exclude small pleural effusions. Follow-up suggested.
[2017-03-20] MEDS: HYDROcodone/APAP 7.5-325MG 1 EACH TAB PO SCH (09:34)
[2017-03-20] MEDS: HEPARIN SODIUM,PORCINE 5,000 UNIT/ML 1 ML VIAL SQ SCH (09:36)
[2017-03-20] MEDS: METOPROLOL TARTRATE 25 MG TAB PO SCH (09:36)
[2017-03-20] MEDS: hydrALAZINE HCL 50 MG TAB PO SCH (09:36)
[2017-03-20 11:33] LABS: Glucose,Whole Blood 69 mg/dL (75-99)
[2017-03-20 11:44] LABS: Glucose,Whole Blood 70 mg/dL (75-99)
[2017-03-20] MEDS ORDERED: MULTIVITAMINS, THERA 1 EACH TAB PO SCH (12:00)
--- NOTE | 2017-03-20 12:32 | P.CRDCN ---
History of Present Illness Consult date: 03/20/17 Consult reason: congestive heart failure History of present illness: 76-year-old lady with complex and multiple medical problems including recurrent acute systolic heart failure its cardiomyopathy and valvular heart disease and chronic renal failure and to hospital with symptoms of leg edema worsening renal functions and not feeling well. Her chest x-ray shows mild pulmonary congestion and she is admitted with a diagnosis of pulmonary edema. On talking to the patient she was seen by her primary care physician in the office had some labs he was concerned and sent her back to the ER to be admitted. She has a septic tank cleaner who is out of town. Her sterile instrument technician hasn't been able to give her a follow-up appointment since last discharge. Please see the consultations done by my associate Dr. Sorensen at last admission Review of Systems Constitutional: Denies chills. Denies fever. Eyes: Denies blurred vision. Denies pain. Ears, nose, mouth and throat: Denies headache. Denies sore throat. Cardiovascular: Denies chest pain. Has shortness of breath. Respiratory: Denies cough. Gastrointestinal: Denies abdominal pain. Denies diarrhea. Denies nausea. Denies vomiting. Musculoskeletal: Denies myalgias. Integumentary: Denies pruritus. Denies rash. Neurological: Denies numbness. Denies weakness. Psychiatric: Denies anxiety. Denies depression. Endocrine: Denies fatigue. Denies weight change. Genitourinary: Denies burning, hematuria, frequency of urination. Hematological: No anemia or excess bleeding. Past Medical History Past Medical History: Coronary Artery Disease (CAD), Heart Failure, Diabetes Mellitus, Hyperlipidemia, Hypertension, Myocardial Infarction ([place]), Osteoarthritis (OA), Renal Disease, Sleep Apnea/CPAP/BIPAP Additional Past Medical History / Comment(s): Pt recently admitted on 03/03/17 for NSTEMI, hyperkalemia, uti, acute/chronic kidney disease, anemia, hypomagnesemia, CHF, DKA, DEHYDRATION, LACTIC ACID. Other hx: Murmur, aortic stenosis, IDDM type II, peripheral neuropathy, multiple hypoglycemic episodes, LALA/CPAP, hiatal hernia, diverticular dx, colon polyps-benign, GOUT, MULTIPLE FALLS. Last Myocardial Infarction Date:: 2016 History of Any Multi-Drug Resistant Organisms: MRSA Date of last positivie culture/infection: 2004 MDRO Source:: back Past Surgical History: Unable to Obtain Additional Past Surgical History / Comment(s): Right and left heart cath, spinal fusion, bilateral cataracts, colonoscopy, partial hysterectomy, bladder sling, appendectomy, excision PERIRECTAL TISSUE Past Anesthesia/Blood Transfusion Reactions: No Reported Reaction Past Psychological History: Depression Smoking Status: Former smoker Past Alcohol Use History: None Reported Past Drug Use History: None Reported - Past Family History Father Additional Family Medical History / Comment(s): Heart disease Mother Family Medical History: Hypertension Additional Family Medical History / Comment(s): Heart disease. MOTHER AT THE AGE OF 89YRS. Medications and Allergies Home Medications Medication Instructions Recorded Confirmed Type Aspirin EC [Ecotrin Low Dose] 81 mg PO DAILY 03/03/17 03/19/17 History Clopidogrel [Plavix] 75 mg PO DAILY 03/03/17 03/19/17 History Labetalol [Trandate] 200 mg PO BID 03/03/17 03/19/17 History Multivitamins, Thera [Multivitamin 1 tab PO DAILY 03/03/17 03/19/17 History (formulary)] Poly-Iron 150mg 150 mg PO BID 03/03/17 03/19/17 History Sertraline [Zoloft] 100 mg PO DAILY 03/03/17 03/19/17 History Vit C/E/Zn/Coppr/Lutein/Zeaxan 2 cap PO HS 03/03/17 03/19/17 History [Preservision Areds 2 Softgel] amLODIPine [Norvasc] 2.5 mg PO DAILY 03/03/17 03/19/17 History hydrALAZINE HCL [Hydralazine HCl] 50 mg PO BID 03/03/17 03/19/17 History HYDROcodone/APAP 7.5-325MG [[place] 1 tab PO BID #60 03/09/17 03/19/17 Rx 7.5-325] Allopurinol [Zyloprim] 100 mg PO DAILY 03/19/17 03/19/17 History Darbepoetin Poncho [Aranesp] 200 mcg SQ Q14D 03/19/17 03/19/17 History Furosemide [Lasix] 40 mg PO DAILY 03/19/17 03/19/17 History Insulin Aspart [NovoLOG] 6 unit SQ AC-TID 03/19/17 03/19/17 History Insulin Aspart [NovoLOG] See Protocol SQ ACHS 03/19/17 03/19/17 History Insulin Glargine [Lantus] 17 unit SQ HS 03/19/17 03/19/17 History Pravastatin Sodium [Pravachol] 20 mg PO HS 03/19/17 03/19/17 History Sodium Bicarbonate 130mg 130 mg PO BID 03/19/17 03/19/17 History Allergies Allergy/AdvReac Type Severity Reaction Status Date / Time amoxicillin [From Augmentin] Allergy Rash/Hives Verified 03/19/17 18:09 clarithromycin [From Biaxin] Allergy Rash/Hives Verified 03/19/17 18:09 clavulanic acid Allergy Rash/Hives Verified 03/19/17 18:09 [From Augmentin] Physical Exam Vitals: Vital Signs Temp Pulse Pulse Resp BP BP Pulse Ox 03/20/17 03:51 67 18 146/68 99 03/20/17 00:00 97.0 F L 70 18 112/57 94 L 03/19/17 20:20 99.4 F 80 18 124/54 93 L 03/19/17 19:45 99.4 F 80 20 124/54 93 L 03/19/17 18:45 73 18 128/59 98 03/19/17 17:05 74 18 145/10 98 03/19/17 16:30 97.4 F L 70 18 127/59 69 L Intake and Output 03/19/17 03/20/17 03/20/17 22:59 06:59 14:59 Intake Total 200 Output Total 600 Balance -600 200 Intake: Oral 200 Output: Urine 600 Other: Voiding Method Toilet Toilet Weight 86.2 kg 86.2 kg Patient Weight 03/21/17 06:59 Weight 86.2 kg General: The patient is awake and alert, in no distress, and does not appear acutely ill. Skin: Skin is warm and dry and no rashes or lesions are noted. Eye: Pupils are equal, round and reactive to light, extra-ocular movements are intact; there is normal conjunctiva bilaterally. Ears, nose, mouth and throat: There are moist mucous membranes and no oral lesions. Neck: The neck is supple, there is no tenderness or JVD. Cardiovascular: Irregular ejection systolic murmur in the aortic area and a systolic murmur at the apex Respiratory: Lungs are clear to auscultation, respirations are non-labored, breath sounds are equal. No crackles or rhonchi Gastrointestinal: Soft, non-distended, non-tender abdomen without masses or organomegaly noted. There is no rebound or guarding present. Bowel sounds are unremarkable. Back: There is no tenderness to palpation in the midline. There is no obvious deformity. Musculoskeletal: Normal ROM, no tenderness, There is no pedal edema. There is no calf tenderness or swelling. Extremities: No edema. Vascular: Femoral pulse is normal. Posterior tibial pulses are normal .Dorsalis pedis is palpable. Neurological: CN II-XII intact. There are no obvious motor or sensory deficits. Speech is normal. Psychiatric: Cooperative, appropriate mood & affect, normal judgment. Results 03/20/17 06:35 03/20/17 06:35 Cardiac Enzymes 03/19/17 03/19/17 03/20/17 Range/Units 17: 17: 06:35 AST 24 26 (14-36) U/L Troponin I 0.095 H* (0.000-0.034) ng/mL Coagulation 03/19/17 Range/Units 17:02 PT 11.7 (9.0-12.0) sec APTT 23.5 (22.0-30.0) sec CBC 03/19/17 03/20/17 Range/Units 17:02 06:35 WBC 6.0 5.6 (3.8-10.6) k/uL RBC 3.32 L 3.32 L (3.80-5.40) m/uL Hgb 10.4 L 10.4 L (11.4-16.0) gm/dL Hct 32.8 L 32.9 L (34.0-46.0) % Plt Count 271 254 (150-450) k/uL Comprehensive Metabolic Panel 03/19/17 03/20/17 Range/Units 17:02 06:35 Sodium 134 L 138 (137-145) mmol/L Potassium 4.5 4.0 (3.5-5.1) mmol/L Chloride 94 L 98 (98-107) mmol/L Carbon Dioxide 27 27 (22-30) mmol/L BUN 73 H 75 H (7-17) mg/dL Creatinine 3.98 H 3.98 H (0.52-1.04) mg/dL Glucose 224 H 111 H (74-99) mg/dL Calcium 9.5 9.6 (8.4-10.2) mg/dL AST 24 26 (14-36) U/L ALT 29 29 (9-52) U/L Alkaline Phosphatase 131 H 106 (38-126) U/L Total Protein 5.8 L 5.8 L (6.3-8.2) g/dL Albumin 3.7 3.6 (3.5-5.0) g/dL Current Medications Generic Name Dose Route Start Last Admin Trade Name Freq PRN Reason Stop Dose Admin Hydrocodone Bitart/Acetaminophen 1 each 03/19/17 21:00 03/20/17 09:34 [place] 7.5-325 PO 1 each BID HENNY Administration Aspirin 81 mg 03/20/17 09:00 03/20/17 09:36 Aspirin PO 81 mg DAILY HENNY Administration Atorvastatin Calcium 80 mg 03/19/17 21:00 03/19/17 21:08 Lipitor PO 80 mg HS HENNY Administration Clopidogrel Bisulfate 75 mg 03/20/17 09:00 03/20/17 09:36 Plavix PO 75 mg DAILY HENNY Administration Darbepoetin Pon[place] 200 mcg 03/19/17 20:30 Aranesp SQ Q14D [facility] Heparin Sodium (Porcine) 5,000 unit 03/20/17 00:00 03/20/17 09:36 Heparin SQ 5,000 unit Q8HR HENNY Administration Hydralazine HCl 50 mg 03/19/17 21:00 03/20/17 09:36 Apresoline PO 50 mg BID HENNY Administration Insulin Glargine 17 unit 03/19/17 21:00 03/19/17 21:10 Lantus SQ 17 unit HS [facility] Administration Insulin Human Lispro 6 unit 03/20/17 07:30 03/20/17 12:06 Humalog SQ Not Given AC-TID [facility] Insulin Human Lispro 0 unit 03/19/17 21:00 03/20/17 12:06 Humalog SQ Not Given ACHS [facility] Protocol Metoprolol Tartrate 25 mg 03/19/17 21:00 03/20/17 09:36 Lopressor PO 25 mg BID HENNY Administration Multivitamins 1 each 03/20/17 12:00 03/20/17 09:36 Theragran PO 1 each DAILY@1200 HENNY Administration Naloxone HCl 0.2 mg 03/19/17 20:21 Narcan IV Q2M PRN Opioid Reversal Sertraline HCl 100 mg 03/20/17 09:00 03/20/17 09:36 Zoloft PO 100 mg DAILY HENNY Administration Intake and Output 03/19/17 03/20/17 03/20/17 22:59 06:59 14:59 Intake Total 200 Output Total 600 Balance -600 200 Intake: Oral 200 Output: Urine 600 Other: Voiding Method Toilet Toilet Weight 86.2 kg 86.2 kg Patient Weight 03/21/17 06:59 Weight 86.2 kg 03/20/17 06:35 03/20/17 06:35 EKG Interpretations (text) Sinus bradycardia with nonspecific ST-T wave changes Assessment and Plan Plan: Acute exacerbation of chronic systolic heart failure Ischemic cardiomyopathy Chronic renal failure Aortic stenosis Mitral regurgitation I spoke with the septic tank cleaner did not feel that the patient needs dialysis at this time. I do not believe the changes in the chest x-ray are acute. Patient appears comfortable at rest able to lie flat in the bed and her symptoms haven' t changed a whole lot from her last admission. Continue with the optimal medical therapy hopefully home discharged tomorrow arrange follow-up with her own sterile instrument technician
[2017-03-20 12:54] VITALS: BP 111/53; TEMP 98.9
--- NOTE | 2017-03-20 14:01 | P.DS ---
Providers Date of admission: 03/19/17 19:25 Expected date of discharge: 03/20/17 Attending physician: MD Oniel Crawford MD Consults: 03/19/17 20:23 Consult Physician Routine Consulting Provider: Manuel Hoyos Consult Reason/Comments: end stage renal disease Do you want consulting provider notified?: Yes 03/19/17 20:24 Consult Physician Routine Consulting Provider: Parth Bell Consult Reason/Comments: venous mapping for possible need of vascular access for dialysis Do you want consulting provider notified?: Yes Consult Physician Routine Consulting Provider: David Ram Consult Reason/Comments: acute on chronic CHF exacerbation Do you want consulting provider notified?: Yes Primary care physician: [place] Hospital Course: The patient is a 76-year-old female with a history of CKD stage V that was referred here by her PCP reportedly to receive hemodialysis, after she noticed that she had Worsening creatinine. The patient was previously here recently discharged after presenting with DKA, acute on chronic systolic CHF exacerbation. The patient reported that she was feeling fine Did not have any shortness of breath, or any other symptoms but was referred here anyway. She had a chest x-ray that showed some pulmonary edema and vascular congestion, however this is chronic. The patient was seen by nephrology Dr. Cardoza who agreed that the patient did not need urgent hemodialysis and that she can be discharged home with follow-up Her clinic on Thursday. The patient was subsequently transferred back to the intermediate facility in stable condition continuing her diuretics with Bumex 1mg PO BID. This discharge process took less than 30 minutes Patient Condition at Discharge: Stable Plan - Discharge Summary New Discharge Prescriptions: New Atorvastatin [Lipitor] 80 mg PO HS tab Bumetanide [Bumex] 1 mg PO BID #60 tablet INSULIN LISPRO (humaLOG) [humaLOG (formulary)] 0 unit SQ ACHS vial Continue Vit C/E/Zn/Coppr/Lutein/Zeaxan [Preservision Areds 2 Softgel] 2 cap PO HS Sertraline [Zoloft] 100 mg PO DAILY Poly-Iron 150mg 150 mg PO BID Labetalol [Trandate] 200 mg PO BID hydrALAZINE HCL [Hydralazine HCl] 50 mg PO BID Multivitamins, Thera [Multivitamin (formulary)] 1 tab PO DAILY Clopidogrel [Plavix] 75 mg PO DAILY Aspirin EC [Ecotrin Low Dose] 81 mg PO DAILY amLODIPine [Norvasc] 2.5 mg PO DAILY HYDROcodone/APAP 7.5-325MG [[place] 7.5-325] 1 tab PO BID #60 Pravastatin Sodium [Pravachol] 20 mg PO HS Insulin Aspart [NovoLOG] 6 unit SQ AC-TID Insulin Glargine [Lantus] 17 unit SQ HS Furosemide [Lasix] 40 mg PO DAILY Sodium Bicarbonate 130mg 130 mg PO BID Insulin Aspart [NovoLOG] See Protocol SQ ACHS Discontinued Allopurinol [Zyloprim] 100 mg PO DAILY Darbepoetin Pon[place] [Aranesp] 200 mcg SQ Q14D Discharge Medication List Aspirin EC [Ecotrin Low Dose] 81 mg PO DAILY 03/03/17 [History] Clopidogrel [Plavix] 75 mg PO DAILY 03/03/17 [History] Labetalol [Trandate] 200 mg PO BID 03/03/17 [History] Multivitamins, Thera [Multivitamin (formulary)] 1 tab PO DAILY 03/03/17 [History ] Poly-Iron 150mg 150 mg PO BID 03/03/17 [History] Sertraline [Zoloft] 100 mg PO DAILY 03/03/17 [History] Vit C/E/Zn/Coppr/Lutein/Zeaxan [Preservision Areds 2 Softgel] 2 cap PO HS [History] amLODIPine [Norvasc] 2.5 mg PO DAILY 03/03/17 [History] hydrALAZINE HCL [Hydralazine HCl] 50 mg PO BID 03/03/17 [History] HYDROcodone/APAP 7.5-325MG [[place] 7.5-325] 1 tab PO BID #60 03/09/17 [Rx] Furosemide [Lasix] 40 mg PO DAILY 03/19/17 [History] Insulin Aspart [NovoLOG] 6 unit SQ AC-TID 03/19/17 [History] Insulin Aspart [NovoLOG] See Protocol SQ ACHS 03/19/17 [History] Insulin Glargine [Lantus] 17 unit SQ HS 03/19/17 [History] Pravastatin Sodium [Pravachol] 20 mg PO HS 03/19/17 [History] Sodium Bicarbonate 130mg 130 mg PO BID 03/19/17 [History] Atorvastatin [Lipitor] 80 mg PO HS tab 03/20/17 [Rx] Bumetanide [Bumex] 1 mg PO BID #60 tablet 03/20/17 [Rx] INSULIN LISPRO (humaLOG) [humaLOG (formulary)] 0 unit SQ ACHS vial 03/20/17 [Rx ] Follow up Appointment(s)/Referral(s): Sam Trejo MD [Primary Care Provider] - 1-2 days Discharge Disposition: TRANSFER TO SNF/ECF
[2017-03-20 15:06] VITALS: PULSE 63; RESP 16
[2017-03-20] MEDS ORDERED: BUMETANIDE 1 MG TAB PO SCH (16:00)
--- NOTE | 2017-03-21 09:09 | CONS ---
CONSULTATION REASON FOR CONSULT: Renal failure. 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 The patient was admitted to the hospital and her labs were abnormal when they were drawn as outpatient. She was recently discharged 2 days ago after being admitted for fluid overload and exacerbation of CHF. Currently, patient states that she is feeling fine with no change in her respiration. She is comfortable. She is ambulating without oxygen. There is no complaints of nausea or vomiting. The patient has had good urine output. Her serum creatinine was at 3.98 mg/dL. It has been about 3.3-3.4 mg/dL previously. Patient was given IV Lasix and she was maintained on oral Bumex at home prior to admission. Her x-ray does show evidence of pulmonary vascular congestion, but again patient states she has not been short of breath. The patient's primary talent acquisition consultant is out of town and at this time she is not sure if she wants to follow locally here in [place]. The patient is aware that she will need to start dialysis soon. However, this has not been planned yet as outpatient. At this time, patient does not need to start renal replacement therapy as inpatient and again this can be set up as outpatient. PAST MEDICAL HISTORY: Hypertension, diabetes, coronary artery disease with history of recent HI, aortic stenosis, peripheral vascular disease, CKD bone mineral disorder, diastolic heart failure. PAST SURGICAL HISTORY: Cardiac catheterization, colonoscopy, hysterectomy, bladder surgery, cataract surgery, partial hysterectomy. MEDICATIONS: Prior to admission included aspirin, Plavix, Trandate, Zoloft, Norvasc, hydralazine, Aranesp, Zyloprim, Lasix, insulin, Pravachol, sodium bicarb. ALLERGIES: BIAXIN, AUGMENTIN. REVIEW OF SYSTEMS: As per HPI. Other systems negative. SOCIAL HISTORY: Negative for smoking, drug abuse or alcohol abuse. Patient is a former smoker. PHYSICAL EXAMINATION: On examination, she is comfortable, awake, alert, oriented x3. Blood pressure is 111/53, heart rate 63 per minute. She is afebrile. Examination of the heart: S1, S2. Examination of the lungs: Bilateral breath sounds are heard. Decreased breath sounds at bases. No crackles or wheezing is heard. Abdomen is soft, obese, nontender. Examination of lower extremities shows edema 2+ bilaterally, which seems to be stable. LABS SHOW: Sodium 138, potassium 4.0, BUN 75, serum creatinine 3.98, hemoglobin 10.4 g/dL. ASSESSMENT: 1. CKD stage V secondary to diabetic nephropathy and nephrosclerosis. No need to start inpatient dialysis yet. Patient will follow as outpatient. Since her primary talent acquisition consultant is out of the country, I will see her for followup in our office in about 4-5 days time and if the patient needs to start renal replacement therapy, we can start that as outpatient. She will also need education and this will be taken care of as outpatient. 2. Congestive heart failure with diastolic heart failure, currently stable with chronic lower extremity edema, which seems to be stable. We will maintain patient on Bumex 1 mg b.i.d. as outpatient. 3. Anemia of chronic disease maintained on Aranesp. 4. Hypertension. 5. Coronary artery disease with history of recent myocardial infarction. PLAN: The patient can be discharged on oral Bumex. We will see her in the office in about 4- 5 days time and if she needs to start dialysis, we will start it as outpatient. Thank you for this consultation. MMODL / IJN: [id number] /
== END 2017-03-20 16:23 | DRG 280 ==
LOC: EC 16:18 → 6SEL 19:25
PROVIDERS: ADMIT Internal Medicine; ATTEND Internal Medicine
DX: I13.2 Hypertensive heart and chronic kidney disease with heart failure and with stage 5 chronic kidney disease, or end stage renal disease (principal); I50.23 Acute on chronic systolic (congestive) heart failure; I21.4 Non-ST elevation (NSTEMI) myocardial infarction; N18.5 Chronic kidney disease, stage 5; E11.21 Type 2 diabetes mellitus with diabetic nephropathy; E11.42 Type 2 diabetes mellitus with diabetic polyneuropathy; E11.51 Type 2 diabetes mellitus with diabetic peripheral angiopathy without gangrene; D63.1 Anemia in chronic kidney disease; E11.22 Type 2 diabetes mellitus with diabetic chronic kidney disease; I25.5 Ischemic cardiomyopathy; I35.0 Nonrheumatic aortic (valve) stenosis; E11.65 Type 2 diabetes mellitus with hyperglycemia; I25.10 Atherosclerotic heart disease of native coronary artery without angina pectoris; I34.0 Nonrheumatic mitral (valve) insufficiency; R00.1 Bradycardia, unspecified; E66.9 Obesity, unspecified; M10.9 Gout, unspecified; K44.9 Diaphragmatic hernia without obstruction or gangrene; M19.90 Unspecified osteoarthritis, unspecified site; R74.8 Abnormal levels of other serum enzymes; G47.33 Obstructive sleep apnea (adult) (pediatric); R29.6 Repeated falls; E78.5 Hyperlipidemia, unspecified; Z79.4 Long term (current) use of insulin; Z87.891 Personal history of nicotine dependence; Z79.02 Long term (current) use of antithrombotics/antiplatelets; Z82.49 Family history of ischemic heart disease and other diseases of the circulatory system; Z79.899 Other long term (current) drug therapy; Z86.010 Personal history of colon polyps; Z98.1 Arthrodesis status; Z90.710 Acquired absence of both cervix and uterus; Z86.59 Personal history of other mental and behavioral disorders; Z87.440 Personal history of urinary (tract) infections; Z86.14 Personal history of Methicillin resistant Staphylococcus aureus infection; Z88.1 Allergy status to other antibiotic agents; Z88.0 Allergy status to penicillin; Z91.81 History of falling; Z90.49 Acquired absence of other specified parts of digestive tract; Z98.42 Cataract extraction status, left eye; Z98.41 Cataract extraction status, right eye; Z79.82 Long term (current) use of aspirin; Z79.891 Long term (current) use of opiate analgesic; Z71.3 Dietary counseling and surveillance; Z87.19 Personal history of other diseases of the digestive system
CPT/HCPCS: 36415; 71020; 80053; 83735; 83880; 84100; 84484; 85025; 85610; 85730; 93005; 99285

== ENCOUNTER 2017-04-04 15:11 | Emergency (ER) | payer MEDICARE, BC ==
--- NOTE | 2017-04-04 15:48 | ED ---
General Adult HPI - General Chief complaint: Extremity Problem,Nontraumatic Stated complaint: Leg Pain Poss DVT Time Seen by Provider: 04/04/17 15:15 Source: EMS, RN notes reviewed, old records reviewed Mode of arrival: EMS Limitations: no limitations - History of Present Illness Initial comments: this is a 76-year-old female to the ER for evaluation. Patient is sent in as a transfer patient for evaluation regarding possible right lower DVT. Patient elevated d-dimer increased swelling and pain in right leg. He. Patient is up denies any complaints of chest pain or shortness of breath - Related Data Home Medications Medication Instructions Recorded Confirmed Aspirin EC [Ecotrin Low Dose] 81 mg PO DAILY@0700 03/03/17 04/04/17 Clopidogrel [Plavix] 75 mg PO DAILY@69903/03/17 04/04/17 Labetalol [Trandate] 200 mg PO BID@0700,1700 03/03/17 04/04/17 Multivitamins, Thera [Multivitamin 1 tab PO DAILY@0703/03/17 04/04/17 (formulary)] Poly-Iron 150mg 150 mg PO DAILY@0700 03/03/17 04/04/17 Sertraline [Zoloft] 100 mg PO DAILY@1200 03/03/17 04/04/17 Vit C/E/Zn/Coppr/Lutein/Zeaxan 2 cap PO HS@2100 03/03/17 04/04/17 [Preservision Areds 2 Softgel] amLODIPine [Norvasc] 2.5 mg PO DAILY@0703/03/17 04/04/17 hydrALAZINE HCL [Hydralazine HCl] 50 mg PO BID@0700,1700 03/03/17 04/04/17 Insulin Aspart [NovoLOG] 6 unit SQ AC-TID@,,03/19/17 04/04/17 Insulin Aspart [NovoLOG] See Protocol SQ ACHS 03/19/17 04/04/17 Insulin Glargine [Lantus] 12 unit SQ HS@2100 03/19/17 04/04/17 Acetaminophen Tab [Tylenol Tab] 650 mg PO Q4H PRN 04/04/17 04/04/17 Allopurinol [Zyloprim] 100 mg PO DAILY@0700 04/04/17 04/04/17 Atorvastatin [Lipitor] 80 mg PO HS@199904/04/17 04/04/17 Bumetanide [BUMEX] 2 mg PO BID@0700,17004/04/17 04/04/17 Doxycycline Hyclate 100 mg PO BID@0700,1700 04/04/17 04/04/17 HYDROcodone/APAP 7.5-325MG [[place] 1 tab PO BID@0700,1700 04/04/17 04/04/17 7.5-325] HYDROcodone/APAP 7.5-325MG [[place] 1 tab PO Q6HR PRN 04/04/17 04/04/17 7.5-325] L.acidoph,Paracasei, B.lactis 2 cap PO DAILY@1200 04/04/17 04/04/17 [Probiotic] Polyethylene Glycol 3350 [Miralax] 17 gm PO DAILY@1200 04/04/17 04/04/17 Allergies Allergy/AdvReac Type Severity Reaction Status Date / Time amoxicillin [From Augmentin] Allergy Rash/Hives Verified 04/04/17 15:33 caffeine Allergy Unknown Verified 04/04/17 15:44 clarithromycin [From Biaxin] Allergy Rash/Hives Verified 04/04/17 15:33 clavulanic acid Allergy Rash/Hives Verified 04/04/17 15:33 [From Augmentin] Review of Systems ROS Statement: Those systems with pertinent positive or pertinent negative responses have been documented in the HPI. ROS Other: All systems not noted in ROS Statement are negative. Past Medical History Past Medical History: Coronary Artery Disease (CAD), Heart Failure, Diabetes Mellitus, Hyperlipidemia, Hypertension, Myocardial Infarction ([place]), Osteoarthritis (OA), Renal Disease, Sleep Apnea/CPAP/BIPAP Additional Past Medical History / Comment(s): Other hx: Murmur, aortic stenosis , IDDM type II, peripheral neuropathy, multiple hypoglycemic episodes, LALA/CPAP , hiatal hernia, diverticular dx, colon polyps-benign, GOUT, MULTIPLE FALLS. Last Myocardial Infarction Date:: 2016 History of Any Multi-Drug Resistant Organisms: MRSA Date of last positivie culture/infection: 2004 MDRO Source:: back Past Surgical History: Unable to Obtain Additional Past Surgical History / Comment(s): Right and left heart cath, spinal fusion, bilateral cataracts, colonoscopy, partial hysterectomy, bladder sling, appendectomy, excision PERIRECTAL TISSUE Past Anesthesia/Blood Transfusion Reactions: No Reported Reaction Past Psychological History: Depression Smoking Status: Former smoker Past Alcohol Use History: None Reported Past Drug Use History: None Reported - Past Family History Father Additional Family Medical History / Comment(s): Heart disease Mother Family Medical History: Hypertension Additional Family Medical History / Comment(s): Heart disease. MOTHER AT THE AGE OF 89YRS. General Exam Limitations: no limitations General appearance: alert, in no apparent distress Head exam: Present: atraumatic, normocephalic, normal inspection Eye exam: Present: normal appearance, PERRL, EOMI. Absent: scleral icterus, conjunctival injection, periorbital swelling ENT exam: Present: normal exam, mucous membranes moist Neck exam: Present: normal inspection. Absent: tenderness, meningismus, lymphadenopathy Respiratory exam: Present: normal lung sounds bilaterally. Absent: respiratory distress, wheezes, rales, rhonchi, stridor Cardiovascular Exam: Present: regular rate, normal rhythm, normal heart sounds. Absent: systolic murmur, diastolic murmur, rubs, gallop, clicks GI/Abdominal exam: Present: soft, normal bowel sounds. Absent: distended, tenderness, guarding, rebound, rigid Extremities exam: Present: normal inspection, full ROM, normal capillary refill. Absent: tenderness, pedal edema, joint swelling, calf tenderness Back exam: Present: normal inspection Neurological exam: Present: alert, oriented X3, CN II-XII intact Psychiatric exam: Present: normal affect, normal mood Skin exam: Present: warm, dry, intact, normal color. Absent: rash Course Vital Signs 04/04/17 15:13 Temperature 98.4 F Pulse Rate 76 Respiratory 18 Rate Blood Pressure 139/60 O2 Sat by Pulse 95 Oximetry - Reevaluation(s) Reevaluation #1: 04/04/17 16:33 Patient's [place] is reviewed Reevaluation #2: 04/04/17 16:33 Patient has adequate pain control at this time Medical Decision Making - Medical Decision Making Sci-fi female in the ER with right leg pain. Patient does have positive Arnett' s cyst, no DVT. Patient to be discharged home discontinue happened - Radiology Data Radiology results: report reviewed (Ultrasound right lower extremity is negative for DVT, possible and probable Arnett cyst), image reviewed Disposition Clinical Impression: Synovial cyst of popliteal space [Arnett], right knee Disposition: HOME SELF-CARE Condition: Good Instructions: Bakers Cyst (ED) Referrals: Sam Trejo MD [Primary Care Provider] - 1-2 days
[2017-04-04] MEDS ORDERED: HYDROmorphone 1 MG/ML 1 ML SYRINGE IVP STA (16:17)
--- NOTE | 2017-04-04 16:24 | US ---
EXAMINATION TYPE: US venous doppler duplex LE RT DATE OF EXAM: 04/04/2017 3:47 PM COMPARISON: NONE CLINICAL HISTORY: Pain. pain and swelling behind right knee SIDE PERFORMED: Right TECHNIQUE: The lower extremity deep venous system is examined utilizing real time linear array sonog ayaz with graded compression, doppler sonography and color-flow sonography. VESSELS IMAGED: External Iliac Vein (EIV) Common Femoral Vein Deep Femoral Vein Greater Saphenous Vein * Femoral Vein Popliteal Vein Small Saphenous Vein * Proximal Calf Veins (* superficial vessels) Right Leg: Appears negative for DVT, fluid collection seen medial right knee that has internal debri s, probable Arnett's cyst IMPRESSION: No evidence of deep venous thrombosis. Complex 5 x 2 cm fluid collection consistent with popliteal cyst.
[2017-04-04 16:48] VITALS: BP 133/63; PULSE 74; RESP 20; TEMP 97
[2017-04-04 17:18] LABS: Glucose,Whole Blood 288 mg/dL (75-99)
== END 2017-04-04 18:06 | disposition home or self-care (01) ==
LOC: EC 15:11
DX: M71.21 Synovial cyst of popliteal space [Baker], right knee (principal); I25.10 Atherosclerotic heart disease of native coronary artery without angina pectoris; I50.9 Heart failure, unspecified; I11.0 Hypertensive heart disease with heart failure; I25.2 Old myocardial infarction; E78.5 Hyperlipidemia, unspecified; M19.90 Unspecified osteoarthritis, unspecified site; E11.42 Type 2 diabetes mellitus with diabetic polyneuropathy; F32.9 Major depressive disorder, single episode, unspecified; Z87.891 Personal history of nicotine dependence; Z79.82 Long term (current) use of aspirin; Z79.01 Long term (current) use of anticoagulants; Z79.4 Long term (current) use of insulin; Z79.891 Long term (current) use of opiate analgesic; Z79.899 Other long term (current) drug therapy; Z88.0 Allergy status to penicillin; Z88.1 Allergy status to other antibiotic agents; Z91.018 Allergy to other foods
CPT/HCPCS: 36415; 93971; 99284; 96374; J1170